=== PATIENT | female | born 1940 | race Caucasian/White ===

== ENCOUNTER 2016-09-23 07:21 | Day surgery (SDC) | payer MEDICARE ==
[2016-09-21 08:32] VITALS: BMI 33.5
[~2016-09-23 07:21] MED LIST: MOXIFLOXACIN HCL 0.5% DROPS 3 ML BTL OP ONE; TETRACAINE 0.5% OPHTH (PF) DROPS 4 ML BTL OP ONE; TIMOLOL 0.5% OPHTH SOLN (PF) 0.2 ML DROPERETTE OP ONE
[2016-09-23] MEDS: CYCLOPENTOLATE 1% OPHTH SOLN 2 ML BTL OP ONE ×3 (07:45→08:05)
[2016-09-23] MEDS: PHENYLEPHRINE 2.5% OPHTH DRP 2ML OP NR ×3 (07:58→08:10)
[2016-09-23 08:14] VITALS: RESP 18; TEMP 97.8
[2016-09-23] MEDS ORDERED: LIDOCAINE 1% 20 ML VIAL (10MG/ML) FOR IV START INTRADERMA ONE (08:15)
[2016-09-23] MEDS ORDERED: LACTATED RINGERS 1,000 ML IV ONE (08:16)
[2016-09-23] MEDS ORDERED: HYALURONATE SODIUM INTRAOCULAR 1 EACH SYRINGE (12MG/ML) INTRAOCULA ONE (09:11)
[2016-09-23] MEDS ORDERED: BALANCED SALT IRRIG SOLN COMB2 15 ML IRRIG.SOLN IRRIGATION ONE (09:11)
[2016-09-23] MEDS ORDERED: LIDOCAINE 1% (PF) 10MG/ML VIAL MISCELLANE ONE (09:12)
[2016-09-23] MEDS ORDERED: fentaNYL (PF) 50 MCG/ML 2 ML AMP ONE (09:15)
[2016-09-23] MEDS ORDERED: MIDAZOLAM 2 MG/2 ML VIAL ONE (09:15)
[2016-09-23] MEDS ORDERED: EPINEPHrine (PF) 0.3 ML in BALANCED SALT IRRIG SOLN COMB2 500 ML IRRIGATION ONE (09:26)
--- NOTE | 2016-09-23 09:44 | P.OP ---
Date of Procedure: 09/23/16 Preoperative Diagnosis: NS & CS & Reg astigmatism Postoperative Diagnosis: same Procedure(s) Performed: PIOL, OD Implants: [id number] 18.50 Anesthesia: MAC Surgeon: Tavon Torres Estimated Blood Loss (ml): 0 Pathology: none sent Condition: stable Disposition: same day Indications for Procedure: blurry vision Operative Findings: no complications Description of Procedure:
[2016-09-23 10:21] VITALS: BP 119/64; PULSE 52
[2016-09-23] MEDS ORDERED: LACTATED RINGERS 1,000 ML IV SCH (10:58)
--- NOTE | 2016-09-24 07:19 | OP ---
DATE OF SERVICE: 09/23/2016 SURGEON: FER LINDSEY MD GYM MANAGER: PREOPERATIVE DIAGNOSES: 1. Nuclear sclerosis. 2. Cortical sclerosis. 3. Regular astigmatism. POSTOPERATIVE DIAGNOSES: 1. Nuclear sclerosis. 2. Cortical sclerosis. 3. Regular astigmatism. OPERATION: Phacoemulsification of cataract and intraocular lens implant of the right eye. ANESTHESIA: Topical. ESTIMATED BLOOD LOSS: None. SPECIMENS REMOVED: None. COMPLICATIONS: OPERATIVE FINDINGS: NARRATIVE: After obtaining the appropriate consent, the patient was brought to the operating room. There she was asked to sit upright and maintain gaze straight ahead. Using a gentian maryjane marker, the axis of 0 and 180 degrees was identified and marked on the patient's corneal limbus. She was then laid in the proper supine position, prepped and draped in the usual sterile manner and under cardiac monitoring. She was then approached from her right temporal side and using a ( Cionni ) axis marker, the axis of 21 degrees was marked at the 11 o'clock position. A 1.1 mm stab blade was used to create a paracentesis port. Through this opening, 1% Xylocaine MPF 50-50 mix with balance salt solution was injected into the anterior chamber. This was followed by stabilization of the anterior chamber with Amvisc. At the 9 o'clock position a 2.5 mm keratome was used to create a self-sealing corneal flap incision in a Langerman fashion Through this opening, a cystotome was introduced to begin a continuous tear capsulorrhexis, which was completed using the Utrata forceps. Hydrodissection and hydrodelineation of the lens was accomplished with balanced salt solution. Phacoemulsification of the lens utilizing phaco chop was accomplished in 15.14 seconds at 15% power. Additional Xylocaine MPF was instilled into the anterior chamber. This was followed by removal of the remaining cortex under irrigation and aspiration including careful polishing of the posterior capsule in capsule vacuum mode. The capsule as well as the anterior chamber was stabilized using Amvisc and using a Malaika capsule polisher additional capsule polishing within the underside of the anterior capsule as well as the equator was accomplished. An JOYCE Symfony Toric intraocular lens model [id number] 18.5 diopter posterior chamber intraocular lens was then injected into the capsular bag without difficulty. The remaining viscoelastic from in and around the intraocular lens was removed under irrigation and aspiration as well as from within the anterior chamber. After the haptics had deployed, the lens was then rotated so that its axis corresponded to the 21 degrees axis previously marked on the patient's cornea. The eye was brought to normal intraocular pressure through the paracentesis port, and to ensure watertight integrity and stabilization of the intraocular lens. ReSure was used to maintain watertight integrity on the temporal as well as the paracentesis wounds. She then received 2 drops of 0.5% timolol followed by 2 drops of Vigamox, was then lightly patched and shielded in the usual manner. There were no complications from the procedure. She tolerated the procedure well and was returned to outpatient recovery in good condition. WAYNE
== END 2016-09-23 10:58 | disposition home or self-care (01) ==
LOC: OR 07:21
PROVIDERS: ATTEND Ophthalmology
DX: H25.13 Age-related nuclear cataract, bilateral (principal); H52.223 Regular astigmatism, bilateral; H16.143 Punctate keratitis, bilateral; H52.4 Presbyopia; H00.023 Hordeolum internum right eye, unspecified eyelid; H00.026 Hordeolum internum left eye, unspecified eyelid; H25.013 Cortical age-related cataract, bilateral; H04.129 Dry eye syndrome of unspecified lacrimal gland; I10 Essential (primary) hypertension; L71.9 Rosacea, unspecified; M19.90 Unspecified osteoarthritis, unspecified site; J30.9 Allergic rhinitis, unspecified; I51.9 Heart disease, unspecified; K21.9 Gastro-esophageal reflux disease without esophagitis; E03.9 Hypothyroidism, unspecified; Z79.82 Long term (current) use of aspirin; Z79.899 Other long term (current) drug therapy; Z90.710 Acquired absence of both cervix and uterus; Z98.1 Arthrodesis status; Z88.8 Allergy status to other drugs, medicaments and biological substances
CPT/HCPCS: 66984; V2787; C1780; J2250; J0171; J3010; J2001

== ENCOUNTER 2016-10-14 12:52 | Day surgery (SDC) | payer MEDICARE ==
[2016-10-13 09:23] VITALS: BMI 33.1
[~2016-10-14 12:52] MED LIST changes: +LACTATED RINGERS 1,000 ML IV SCH
[2016-10-14] MEDS: CYCLOPENTOLATE 1% OPHTH SOLN 2 ML BTL OP ONE ×3 (14:44→14:56)
[2016-10-14 14:45] VITALS: RESP 16; TEMP 97.3
[2016-10-14] MEDS ORDERED: LIDOCAINE 1% 20 ML VIAL (10MG/ML) FOR IV START SQ ONE (14:46)
[2016-10-14] MEDS: PHENYLEPHRINE 2.5% OPHTH DRP 2ML OP NR ×3 (14:47→14:59)
[2016-10-14] MEDS ORDERED: MIDAZOLAM 2 MG/2 ML VIAL ONE (15:49)
[2016-10-14] MEDS ORDERED: fentaNYL (PF) 50 MCG/ML 2 ML AMP ONE (15:49)
[2016-10-14] MEDS ORDERED: HYALURONATE SODIUM INTRAOCULAR 1 EACH SYRINGE (12MG/ML) INTRAOCULA ONE (16:01)
[2016-10-14] MEDS ORDERED: BALANCED SALT IRRIG SOLN COMB2 15 ML IRRIG.SOLN INTRAOCULA ONE (16:01)
[2016-10-14] MEDS ORDERED: LIDOCAINE 1% (PF) 10MG/ML VIAL MISCELLANE ONE (16:02)
[2016-10-14] MEDS ORDERED: EPINEPHrine (PF) 0.3 ML in BALANCED SALT IRRIG SOLN COMB2 500 ML IRRIGATION ONE (16:02)
--- NOTE | 2016-10-14 16:23 | P.OP ---
Date of Procedure: 10/14/16 Preoperative Diagnosis: NS & CS & regular astigmatism Postoperative Diagnosis: same Procedure(s) Performed: PIOL, OS Implants: [id number] 19.00 Anesthesia: MAC Surgeon: Tavon Torres Estimated Blood Loss (ml): 0 Pathology: none sent Condition: stable Disposition: same day Indications for Procedure: blurry vision Operative Findings: No complications Description of Procedure:
[2016-10-14 16:27] VITALS: BP 131/60
[2016-10-14 16:53] VITALS: PULSE 58
--- NOTE | 2016-10-15 10:08 | OP ---
DATE OF SERVICE: 10/14/2016 SURGEON: FER LINDSEY MD LEATHER SEASONER: PREOPERATIVE DIAGNOSIS: Nuclear sclerosis, cortical sclerosis and regular astigmatism. POSTOPERATIVE DIAGNOSIS: Nuclear sclerosis, cortical sclerosis and regular astigmatism. OPERATION: Phacoemulsification of cataract and intraocular lens implant of the left eye. ANESTHESIA: Topical. ESTIMATED BLOOD LOSS: None. SPECIMENS REMOVED: None. COMPLICATIONS: OPERATIVE FINDINGS: NARRATIVE: After obtaining the appropriate consent, the patient was brought to the operating room. There she was asked to sit upright and her corneal limbus was marked with a gentian maryjane marker at the axes of 0 and 180 degrees. She was then placed in the proper supine position, under cardiac monitoring, and prepped and draped in the usual sterile manner. She was approached from her left temporal side. Using the previously acquired corneal topography information, the axis of 157 degrees was identified and marked with the axis marker. At the 5 o'clock position, a 20-gauge stab blade was used to create a paracentesis. Through this opening, 1% Xylocaine MPF 50-50 mix with balance salt solution was injected into the anterior chamber. This was followed by stabilization of the anterior chamber with Amvisc. At the 3 o'clock position a 2.5 mm keratome was used to create a self-sealing corneal flap incision in a Langerman fashion. Through this opening, a cystotome was introduced to begin a continuous tear capsulorrhexis, which was completed using the Utrata forceps. Hydrodissection and hydrodelineation of the lens was accomplished with balanced salt solution. Phacoemulsification of the lens utilizing phaco chop was accomplished in 12.23 seconds at 11% power. Additional Xylocaine MPF was instilled into the anterior chamber. This was followed by removal of the remaining cortex from within the capsular bag. Careful polishing was also accomplished of the posterior capsule. Additional Amvisc was then used to stabilize the capsular bag and the capsule polishing instruments, from Malaika and mireya were used to comoran the equator in the anterior capsule of the intraocular lens. An JOYCE ZXT 319.0 diopter posterior chamber intraocular lens was then inserted into the capsular bag without difficulty. The remaining viscoelastic was removed from in and around the intraocular lens and the lens was then rotated into its proper position at about 157 degrees. Confirmation of the orientation was made with the corneal axis marker as well. The eye was brought to normal intraocular pressure through the paracentesis port, and to ensure proper apposition of the temporal incision, Resure was used to maintain proper closure. She then received 2 drops of 0.5% timolol followed by 2 drops of Vigamox, was then lightly patched and shielded in the usual manner. There were no complications from the procedure. She tolerated the procedure well and was returned to outpatient recovery in good condition.
== END 2016-10-14 17:13 | disposition home or self-care (01) ==
LOC: OR 12:52
PROVIDERS: ATTEND Ophthalmology
DX: H25.12 Age-related nuclear cataract, left eye (principal); H52.222 Regular astigmatism, left eye; I10 Essential (primary) hypertension; Z79.82 Long term (current) use of aspirin; Z79.899 Other long term (current) drug therapy; J30.2 Other seasonal allergic rhinitis; E78.5 Hyperlipidemia, unspecified; E07.9 Disorder of thyroid, unspecified; K21.9 Gastro-esophageal reflux disease without esophagitis
CPT/HCPCS: 66984; V2787; C1780; J2250; J0171; J3010; J2001

== ENCOUNTER → 2016-11-05 | Outpatient (CLI) | payer MEDICARE ==
[2016-11-05 13:38] LABS: Blood Urea Nitrogen 36 mg/dL (7-17); Non-African American GFR(MDRD) 54 (>60 ml/min/1.73 sqM)
--- NOTE | 2016-11-05 14:28 | CT ---
EXAMINATION TYPE: CT abdomen w con DATE OF EXAM: 11/05/2016 COMPARISON: NONE HISTORY: upper left side abdominal pain X [address] DLP: 1114 mGycm Automated exposure control for dose reduction was used. TECHNIQUE: Helical acquisition of images was performed from the lung bases through the top of iliac crest to include entire abdomen. CONTRAST: Performed with Oral Contrast and with IV Contrast, patient injected with 80 mL of Visipaque 320. FINDINGS: LUNG BASES: Linear changes at suggestive of scar or atelectasis. The heart is mildly enlarged. LIVER/GB: Previous cholecystectomy changes noted. Low-attenuation along the ligamentum suggestive of an area of focal fatty infiltration. Nonspecific clips seen adjacent to the liver likely from previou s cholecystectomy. PANCREAS: No significant abnormality is seen. SPLEEN: No significant abnormality is seen. ADRENALS: No significant abnormality is seen. KIDNEYS: Hypodensity within the right kidney is too small to characterize. BOWEL: Extensive retained fecal debris in a nonspecific gas pattern. Small hiatal hernia noted. LYMPH NODES: No significant abnormality is seen. OSSEOUS STRUCTURES: There is postsurgical change and degenerative disc disease with hypertrophic librado nges. FREE AIR: No free air is visualized. IMPRESSION: 1. Correlate for constipation 2. Small hiatal hernia
== END | disposition home or self-care (01) ==
LOC: RADCTMAIN 12:52
PROVIDERS: ATTEND Internal Medicine Geriatric Medicine
DX: K44.9 Diaphragmatic hernia without obstruction or gangrene (principal)
CPT/HCPCS: 82565; 84520; 74160; 36415; Q9967

== ENCOUNTER → 2016-11-20 | Outpatient (CLI) | payer MEDICARE ==
--- NOTE | 2016-11-20 13:38 | XR ---
EXAMINATION TYPE: XR thoracic spine complete DATE OF EXAM: 11/20/2016 COMPARISON: 05/30/2012 HISTORY: Back pain jumped or disc changes TECHNIQUE: Three-view thoracic spine FINDINGS: There are 12 thoracic type vertebral bodies. The pedicles are intact. Subtle scoliosis is p resent. There is some increased kyphosis present. Mild degenerative disc changes are within the mid t horacic spine. Vertebral body heights are preserved. IMPRESSION: 1. Scoliosis and kyphosis. 2. No acute osseous abnormality. 3. Some progression of the kyphosis over the interval. 4. Degenerative disc changes
== END | disposition home or self-care (01) ==
LOC: RADXRMAIN 13:13
PROVIDERS: ATTEND Internal Medicine Geriatric Medicine
DX: M47.814 Spondylosis without myelopathy or radiculopathy, thoracic region (principal); M40.204 Unspecified kyphosis, thoracic region
CPT/HCPCS: 72072

== ENCOUNTER → 2017-05-11 | Outpatient (CLI) | payer MEDICARE ==
--- NOTE | 2017-05-12 10:43 | MM ---
Reason for exam: screening (asymptomatic). Last mammogram was performed 1 year and 2 months ago. History: Patient is postmenopausal and has history of other cancer at age 61. Family history of breast cancer in sister at age 60. Took estrogen for 11 years beginning at age 54. Physical Findings: A clinical breast exam by your physician is recommended on an annual basis and results should be correlated with mammographic findings. MG 3D Screening Mammo W/Cad Bilateral CC and MLO view(s) were taken. Prior study comparison: March 09, 2016, bilateral MG 3d screening mammo w/cad. January 29, 2015, bilateral MG screening mammo w CAD. January 16, 2014, bilateral MG screening mammo w CAD. There are scattered fibroglandular densities. Finding: There are typically benign vascular, round, linear calcifications in both breasts. There is no discrete abnormality. ASSESSMENT: Benign, BI-RAD 2 RECOMMENDATION: Routine screening mammogram of both breasts in 1 year.
== END ==
LOC: RADMAMWWP 12:41
PROVIDERS: ATTEND Internal Medicine Geriatric Medicine
DX: Z12.31 Encounter for screening mammogram for malignant neoplasm of breast (principal)
CPT/HCPCS: 77063; 77067

== ENCOUNTER → 2018-07-13 | Outpatient (CLI) | payer MEDICARE ==
--- NOTE | 2018-07-13 14:38 | BD ---
EXAMINATION TYPE: Axial Bone Density DATE OF EXAM: 07/13/2018 COMPARISON: 2009 CLINICAL HISTORY: osteoporosis Height: 5'3 / Weight: 189 FRAX RISK QUESTIONS: Secondary Osteoporosis: RISK FACTORS HISTORY OF: Surgery to Spine/: lumbar fusion When: 1974 Postmenopausal woman: y MEDICATIONS: Thyroid Medications: Which medication: Levothyroxine How Lon years Additional Medications: blood pressure, pain Additional History: skin cancer 2009 EXAM MEASUREMENTS: Bone mineral densitometry was performed using the [employer] System. Bone mineral density about the R hip (g/cm2): 1.008 Bone mineral density about the L hip (g/cm2): 1.003 T Score values are as follows: -----R Neck: -0.2 -----L Neck: -0.3 -----R Total: 0.1 -----L Total: 0.4 Bone mineral density has: Decreased -3.4% since study of: 11/11/2009 Bone mineral density about the L Wrist (g/cm2): 0.601 T Score values are as follows: -----Dist. R+U: -0.7 -----Prox. R+U: -0.8 -----Radius total: -1.2 IMPRESSION: Osteopenia (T Score between -2.5 and 1) with regards to the radius. There is slightly increased risk of fracture and patient may be considered for treatment. Re-Screen 2-5 years. NOTE: T-SCORE=SD OF THE YOUNG ADULT MEAN.
--- NOTE | 2018-07-13 15:07 | MM ---
Reason for exam: screening (asymptomatic). Last mammogram was performed 1 year and 2 months ago. History: Patient is postmenopausal and has history of other cancer at age 61. Family history of breast cancer in sister at age 60. Took estrogen for 11 years beginning at age 54. Physical Findings: A clinical breast exam by your physician is recommended on an annual basis and results should be correlated with mammographic findings. MG 3D Screening Mammo W/Cad Bilateral CC and MLO view(s) were taken. Prior study comparison: May 11, 2017, bilateral MG 3d screening mammo w/cad. March 09, 2016, bilateral MG 3d screening mammo w/cad. The breast tissue is heterogeneously dense. This may lower the sensitivity of mammography. Finding: There are typically benign round, linear calcifications in both breasts. There is no discrete abnormality. ASSESSMENT: Benign, BI-RAD 2 RECOMMENDATION: Routine screening mammogram of both breasts in 1 year.
== END | disposition home or self-care (01) ==
LOC: RADMAMWWP 10:13
PROVIDERS: ATTEND Internal Medicine Geriatric Medicine
DX: Z12.31 Encounter for screening mammogram for malignant neoplasm of breast (principal); M85.832 Other specified disorders of bone density and structure, left forearm
CPT/HCPCS: 77063; 77067; 77080

== ENCOUNTER → 2019-09-28 | Outpatient (CLI) | payer MEDICARE ==
--- NOTE | 2019-10-03 08:55 | MM ---
Reason for exam: screening (asymptomatic). Last mammogram was performed 1 year and 2 months ago. History: Patient is postmenopausal and has history of other cancer at age 61. Family history of breast cancer in sister at age 60. Took estrogen for 11 years beginning at age 54. Physical Findings: A clinical breast exam by your physician is recommended on an annual basis and results should be correlated with mammographic findings. MG 3D Screening Mammo W/Cad Bilateral CC and MLO view(s) were taken. Prior study comparison: July 13, 2018, bilateral MG 3d screening mammo w/cad. May 11, 2017, bilateral MG 3d screening mammo w/cad. There are scattered fibroglandular densities. Benign secretory calcifications. No significant changes when compared with prior studies. ASSESSMENT: Negative, BI-RAD 1 RECOMMENDATION: Routine screening mammogram of both breasts in 1 year.
== END | disposition home or self-care (01) ==
LOC: RADMAMWWP 13:27
PROVIDERS: ATTEND Internal Medicine Geriatric Medicine
DX: Z12.31 Encounter for screening mammogram for malignant neoplasm of breast (principal)
CPT/HCPCS: 77063; 77067

== ENCOUNTER → 2020-06-20 | Outpatient (CLI) | payer MEDICARE ==
--- NOTE | 2020-06-20 17:25 | XR ---
EXAMINATION TYPE: XR thoracic spine 3 views complete, XR lumbar spine 3V DATE OF EXAM: 06/20/2020 COMPARISON: Thoracic spine 11/20/2016 HISTORY: 80-year-old female and 5 4.5, low back pain FINDINGS: Thoracic spine: Gentle dextroconvex curvature centered along the thoracolumbar junction. There is osteopenia. 12 rib- bearing thoracic vertebral bodies. All pedicles are visualized. Cholecystectomy clips. Moderate degen erative disc disease throughout the thoracic spine especially upper and mid thoracic spine. Vertebral body heights are preserved. On the swimmer's view, there is a interbody ankylosis of C5-C6. There is grade 1 anterolisthesis at C6-C7, C7-T1, T1-T2 noted. Lumbar spine: Levoconvex curvature of the lumbar spine. Posterior fusion hardware at L5-S1. 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 Degenerative grade 1 anterolisthesis at L4-L5. Moderate degenerative disc disease L3-L4 and mild at additional levels in the lumbar spine. Vertebral body hei ghts are preserved. IMPRESSION (thoracic and lumbar spine): 1. S-shaped curvature of the thoracolumbar spine. Previous posterior fusion hardware at L5-S1. 2. Moderate degenerative disc disease throughout the thoracic spine especially upper and mid thoracic spine. Additional moderate degenerative disc disease at L3-L4 and mild throughout the remainder of t he lumbar spine. 3. 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 4. No vertebral compression collapse seen.
== END | disposition home or self-care (01) ==
LOC: RADXRMAIN 11:42
PROVIDERS: ATTEND Internal Medicine Geriatric Medicine
DX: M51.34 Other intervertebral disc degeneration, thoracic region (principal); M51.36 Other intervertebral disc degeneration, lumbar region; M43.14 Spondylolisthesis, thoracic region; M43.13 Spondylolisthesis, cervicothoracic region; M43.8X5 Other specified deforming dorsopathies, thoracolumbar region; Z98.1 Arthrodesis status
CPT/HCPCS: 72072; 72100

== ENCOUNTER → 2020-07-13 | Outpatient (CLI) | payer MEDICARE ==
--- NOTE | 2020-07-13 15:43 | MR ---
EXAMINATION TYPE: MR vaishali/lsjuan wo con DATE OF EXAM: 07/13/2020 COMPARISON: None HISTORY: Mid back pain, and low back pain that goes down both legs. Multiplanar multiecho imaging of the thoracic and lumbar spine was performed without contrast. Thoracic vertebra have fairly normal alignment. There is no compression fracture. The lumbar vertebra have normal alignment. There is no thoracic paraspinal mass. There are screws fusing the lumbar spine posteriorly at L5-S1. There is mild degenerative disc space narrowing throughout the thoracic and lumbar spine. There are s mall posterior disc bulges at L3-4 and L4-5. There are small posterior disc bulges at T7-8 and T8-9. There is developmentally adequate spinal canal. There is no spinal stenosis. There is heterogeneous s ignal pattern thoracic and lumbar spine consistent with variable fatty marrow replacement. There is 1 cm sacral cyst at S3 level. IMPRESSION: Mild multilevel thoracic and lumbar spondylotic changes. Posterior lower lumbar spine fusion surgery. No complicating process seen. No fracture. No spinal stenosis.
== END ==
LOC: RADMRIMAIN 10:09
PROVIDERS: ATTEND Internal Medicine Geriatric Medicine
DX: M47.816 Spondylosis without myelopathy or radiculopathy, lumbar region (principal); M47.814 Spondylosis without myelopathy or radiculopathy, thoracic region; Z98.1 Arthrodesis status
CPT/HCPCS: 72146; 72148

== ENCOUNTER → 2021-05-20 | Outpatient (CLI) | payer MEDICARE ==
--- NOTE | 2021-05-20 15:30 | BD ---
EXAMINATION TYPE: Axial Bone Density DATE OF EXAM: 05/20/2021 COMPARISON: DEXA bone scan 2019 CLINICAL HISTORY: Postmenopausal female. Age related osteoporosis. Height: 5 FT 4 IN Weight: 170 FRAX RISK QUESTIONS: Alcohol (3 or more units per day): NO Family History (Parent hip fracture): NO Glucocorticoids (More than 3mos): NO (Ex: prednisone, prednisolone, methylprednisolone, dexamethasone, and hydrocortisone). History of Fracture in Adulthood: NO Secondary Osteoporosis: 1. Type 1 Diabetes: NO 2. Hyperthyroidism: NO 3. Menopause before 45: NO 4. Malnutrition: NO 5. Chronic liver disease: NO Rheumatoid Arthritis: NO Current Tobacco Use: NO RISK FACTORS HISTORY OF: Surgery to Spine/Hip(right/left)/Wrist (right/left): LUMBAR FUSION When 1974: Family History of Osteoporosis: YES Active: YES Diet low in dairy products/other sources of calcium: NO Postmenopausal woman: YES Take estrogen and/or progesterone medications: TOOK HRT FOR APPROX 5-7 YEARS AFTER HYST Lost more than 2 inches in height since high school: NO Frequent falls: NO Poor Health: GOOD Hyperparathyroidism: NO Adrenal Insufficiency: NO MEDICATIONS: Thyroid Medications: YES Which medication: LEVOTHYROXINE How Long: OVER 20 YEARS Additional Medications: LEVOTHYROXINE, METAS SIST, ALLOPURINOL, OMEPRAZOLE, HYDRALAZINE, GABAPENTIN, LORATADINE, HYDROXYCHLOROQUINE, MONTELUKAST=KAST,AMLODIPINE, METOPROLOL, ATORVASTATIN, LOSARTAN, XII RENA, BACLOFEN, FUROSAMIDE, POTASSIUM CHLORIDE, NASAL SPRAY Additional History: SJOGREN SYNDROME EXAM MEASUREMENTS: Bone mineral density about the R hip (g/cm2): 0.997 Bone mineral density about the L hip (g/cm2): 0.928 T Score values are as follows: -----R Neck: -0.3 -----L Neck: -0.8 -----R Total: -0.3 -----L Total: -0.3 Bone mineral density has: DECREASED -6.3 % since study of: 2019 Bone mineral density about the L Wrist (g/cm2): 0.379 T Score values are as follows: -----Dist. R+U: -1.9 -----Prox. R+U: -1.5 -----Radius total: -2.1 Bone mineral density has: DECREASED -7.3 % since study of: 2019 IMPRESSION: Osteopenia (T Score between -2.5 and -1) in the wrist redemonstrated. There is slightly increased risk of fracture and the patient may be considered for treatment. Re-Screen 2-5 years. NOTE: T-SCORE=SD OF THE YOUNG ADULT MEAN.
--- NOTE | 2021-05-22 10:08 | MM ---
Reason for exam: screening (asymptomatic). Last mammogram was performed 1 year and 8 months ago. History: Patient is postmenopausal and has history of other cancer at age 61. Family history of breast cancer in sister at age 60. Took estrogen for 11 years beginning at age 54. Physical Findings: A clinical breast exam by your physician is recommended on an annual basis and results should be correlated with mammographic findings. MG 3D Screening Mammo W/Cad Bilateral CC and MLO view(s) were taken. Prior study comparison: September 28, 2019, bilateral MG 3d screening mammo w/cad. July 13, 2018, bilateral MG 3d screening mammo w/cad. There are scattered fibroglandular densities. There are benign appearing round linear calcifications bilaterally. There is no discrete abnormality. ASSESSMENT: Benign, BI-RAD 2 RECOMMENDATION: Routine screening mammogram of both breasts in 1 year.
== END | disposition home or self-care (01) ==
LOC: RADMAMWWP 14:34
PROVIDERS: ATTEND Internal Medicine Geriatric Medicine
DX: Z12.31 Encounter for screening mammogram for malignant neoplasm of breast (principal); M85.89 Other specified disorders of bone density and structure, multiple sites; Z78.0 Asymptomatic menopausal state; Z80.3 Family history of malignant neoplasm of breast
CPT/HCPCS: 77063; 77067; 77080

== ENCOUNTER → 2021-07-03 | Outpatient (CLI) | payer MEDICARE ==
--- NOTE | 2021-07-03 12:05 | XR ---
EXAMINATION TYPE: XR shoulder complete LT DATE OF EXAM: 07/03/2021 COMPARISON: NONE HISTORY: Pain TECHNIQUE: Shoulder examined in 3 projections FINDINGS: The humeral head articulates with the glenoid. There is loss of the joint space. Humeral head spurrin g is present. The acromio-clavicular junction and mild hypertrophy with spurring superiorly.. No acute fractures or dislocations are evident. A follow up study can be performed 7-10 days from acute trauma for continued pain. IMPRESSION: 1. 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
== END | disposition home or self-care (01) ==
LOC: RADXRMAIN 11:07
PROVIDERS: ATTEND Nurse Practitioner Family
DX: M19.012 Primary osteoarthritis, left shoulder (principal)

== ENCOUNTER → 2021-10-29 | Outpatient (CLI) | payer MEDICARE ==
[2021-10-29 14:53] LABS: Basophils # (A) 0.07 X 10*3/uL (0.00-0.10); Basophils % (A) 1.3 %; Eosinophils # (A) 0.13 X 10*3/uL (0.04-0.35); Eosinophils % (A) 2.3 %; HCT 39.5 % (37.2-46.3); HGB 12.3 g/dL (12.0-15.0); Immature Grans, Automated 0.4 %; Lymphocytes # (A) 0.85 X 10*3/uL (0.90-5.00); Lymphocytes % (A) 15.2 %; MCH 30.1 pg (27.0-32.0); MCHC 31.1 g/dL (32.0-37.0); MCV 96.6 fL (80.0-97.0); Mean Platelet Volume 11.9 fL (9.5-12.2); Monocytes # (A) 0.58 X 10*3/uL (0.20-1.00); Monocytes % (A) 10.4 %; NRBC Per 100 WBC 0 /100 WBCS (0.0-0.0); Neutrophils # (A) 3.94 X 10*3/uL (1.80-7.70); Neutrophils % (A) 70.4 %; Platelet Count 232 X 10*3/uL (140-440); RBC 4.09 X 10*6/uL (4.10-5.20); RDW 13.3 % (11.5-14.5); WBC 5.59 X 10*3/uL (4.50-10.00)
[2021-10-29 15:04] LABS: ALT 21 U/L (8-44); AST 24 U/L (13-35); African American GFR (CKD) 72.1 (60.0-200.0); Alkaline Phosphatase 79 U/L (41-126); BUN/Creat Ratio 22.21 Ratio (12.00-20.00); Blood Urea Nitrogen 19.5 mg/dL (9.0-27.0); Calcium 9.7 mg/dL (8.7-10.3); Carbon Dioxide 25.9 mmol/L (20.0-27.5); Chloride 102 mmol/L (96-109); Globulin 2.9 g/dL (1.6-3.3); Glucose 92 mg/dL (70-110); Non-African American GFR(CKD) 62.2 (60.0-200.0); Potassium 4.3 mmol/L (3.5-5.5); Sodium 140 mmol/L (135-145); Total Protein 6.9 g/dL (6.2-8.2)
== END | disposition home or self-care (01) ==
LOC: LABWHC1 09:54
PROVIDERS: ATTEND Internal Medicine Interventional Cardiology
DX: I48.91 Unspecified atrial fibrillation (principal)
CPT/HCPCS: 36415; 80053; 84443; 85025

== ENCOUNTER 2022-04-12 14:16 | Observation (INO) | payer MEDICARE ==
--- NOTE | 2022-04-12 15:17 | ED ---
Chest Pain HPI - General Chief Complaint: Chest Pain Stated Complaint: Chest pain Time Seen by Provider: 04/12/22 14:42 Source: patient, family, RN notes reviewed Mode of arrival: wheelchair Limitations: no limitations - History of Present Illness Initial Comments: 81-year-old female history of A. fib diagnosed about 6 months ago who presents with complaints of intermittent episodes of left side midsternal chest pain feels like a pinch and sometimes feeling dull on-and-off for the past 4 days. When it comes on is. Brief she denies any fevers chills sweats she does have a slight cough she states she had coded the second week of this past January and has had a cough since but no phlegm production. Nothing can reproduce the pain nothing makes it better nothing makes it worse. No other current complaints or modifying factors. MD Complaint: chest pain - Related Data Home Medications Medication Instructions Recorded Confirmed Aspirin 81 mg PO HS 07/22/15 04/05/17 Calcium Carbonate/Vitamin D3 1 tab PO DAILY 07/22/15 04/05/17 [Calcium 600-Vit D3 400 Tablet] Fluticasone Nasal [place] [Flonase 2 spray EA NOSTRIL DAILY 07/22/15 04/05/17 Nasal [place]] Irbesartan/Hydrochlorothiazide 1 tab PO QAM 07/22/15 04/05/17 [Avalide 300-12.5 mg Tablet] Levothyroxine Sodium [Levoxyl] 88 mcg PO DAILY 07/22/15 04/05/17 Loratadine [Claritin] 10 mg PO DAILY 07/22/15 04/05/17 Montelukast [Singulair] 10 mg PO HS 07/22/15 04/05/17 Multivitamins, Thera [Multivitamin 1 tab PO DAILY 07/22/15 04/05/17 (formulary)] Omeprazole [PriLOSEC] 20 mg PO AC-BRKFST 07/22/15 04/05/17 Potassium Chloride [Klor-Con 20 meq PO DAILY 07/22/15 04/05/17 Packets] Simvastatin [Zocor] 10 mg PO HS 07/22/15 04/05/17 amLODIPine [Norvasc] 5 mg PO HS 07/22/15 04/05/17 cycloSPORINE [Restasis] 1 drop BOTH EYES BID 07/22/15 04/05/17 Baclofen 10 mg PO BID PRN 07/23/15 04/05/17 traMADol HCl [Ultram] 50 mg PO HS PRN 07/23/15 04/05/17 Naproxen Sodium [Aleve] 220 mg PO DAILY 09/21/16 04/05/17 Gabapentin [Neurontin] 200 mg PO BID 10/13/16 04/05/17 Fish Oil/Dha/Epa [Fish Oil 1,200 1 cap PO HS 04/05/17 04/05/17 mg Fish Oil] Metoprolol Succinate [Toprol XL] 25 mg PO HS 04/05/17 04/05/17 Allergies Allergy/AdvReac Type Severity Reaction Status Date / Time adhesive tape Allergy Rash/Hives Verified 04/12/22 14:39 Steriods IV AdvReac Rash/Hives Uncoded 04/12/22 14:39 Review of Systems ROS Statement: Those systems with pertinent positive or pertinent negative responses have been documented in the HPI. ROS Other: All systems not noted in ROS Statement are negative. EKG Findings - EKG Results: EKG: interpreted by ERMD (EKG interpreted by me evidence of sinus bradycardia with first-degree AV block rate 53. Interval 270 QRS duration 114 QT/QTC 410/392 left exodeviation low-voltage poor R-wave progression) Past Medical History Past Medical History: Cancer, Eye Disorder, GERD/Reflux, Hyperlipidemia, Hypertension, Osteoarthritis (OA), Thyroid Disorder Additional Past Medical History / Comment(s): SKIN CANCER, BILATERAL CATARACTS, CHRONIC DRY EYES.shingelles in october 2016,stress test-wnl. "minimal leaky heart valve" History of Any Multi-Drug Resistant Organisms: None Reported Past Surgical History: Appendectomy, Back Surgery, Section, Cholecystectomy, Hysterectomy, Orthopedic Surgery, Tonsillectomy Additional Past Surgical History / Comment(s): SKIN LESIONS,lower lumbar and a cervical fusion,LEFT FOOT-bunionectomy and metatarsal sx,ruba Cataract sx.total hysterectomy.basal cell ca Past Anesthesia/Blood Transfusion Reactions: Motion Sickness Past Psychological History: No Psychological Hx Reported Past Alcohol Use History: Rare Past Drug Use History: None Reported - Past Family History Sister(s) Family Medical History: Cancer Additional Family Medical History / Comment(s): BREAST CANCER Brother(s) Family Medical History: Cancer Additional Family Medical History / Comment(s): LEUKEMIA Mother Additional Family Medical History / Comment(s): parkinsons, macular degeneration Father Family Medical History: Dementia Additional Family Medical History / Comment(s): parkinsons General Exam - General Exam Comments Initial Comments: This is a well-developed well-nourished awake alert oriented 4 female Limitations: no limitations General appearance: alert, in no apparent distress Head exam: Present: atraumatic, normocephalic, normal inspection Eye exam: Present: normal appearance, PERRL, EOMI. Absent: scleral icterus, conjunctival injection, periorbital swelling ENT exam: Present: normal exam, mucous membranes moist Neck exam: Present: normal inspection, full ROM, other (No stridor JVD or bruits). Absent: tenderness, meningismus, lymphadenopathy Respiratory exam: Present: normal lung sounds bilaterally. Absent: respiratory distress, wheezes, rales, rhonchi, stridor Cardiovascular Exam: Present: regular rate, normal rhythm, normal heart sounds. Absent: systolic murmur, diastolic murmur, rubs, gallop, clicks GI/Abdominal exam: Present: soft, normal bowel sounds. Absent: distended, tenderness, guarding, rebound, rigid, bruit, pulsatile mass Extremities exam: Present: normal inspection, full ROM, normal capillary refill. Absent: tenderness, pedal edema, joint swelling, calf tenderness Back exam: Present: normal inspection Neurological exam: Present: alert, oriented X3, CN II-XII intact Psychiatric exam: Present: normal affect, normal mood Skin exam: Present: warm, dry, intact, normal color. Absent: rash Course Vital Signs 04/12/22 04/12/22 04/12/22 14:34 15:08 16:20 Temperature 98.0 F Pulse Rate 60 52 L 52 L Respiratory 22 16 16 Rate Blood Pressure 158/69 172/70 174/64 O2 Sat by Pulse 97 92 L 91 L Oximetry Chest Pain MDM - MDM Imaging interpreted by me no evidence of acute processes chest x-ray was negative CAT scan showed no definitive evidence of embolus. Patient's had several more episodes of the left-sided chest discomfort is fleeting in nature. There is no reproducible pain on palpation of the chest wall area lung sounds are clear. This time the etiology of the pain is unknown though do suspect a cardiac origin. Patient has agreed to stay in the hospital for further evaluation patient be admitted to Dr. Luciano with cardiology on consult. Patient has seen Dr. SRIRAM Mendenhall in the past. Critical Care Time Critical Care Time: Yes Total Critical Care Time: 31 Critical Care Time: This includes the initial evaluation with history physical labs x-rays multiple reevaluation the patient discussed the patient regarding the findings review of old charting was available discussed the patient's family discussed with the main physician admission orders and documentation of the above Disposition Clinical Impression: Atypical chest pain, Unstable angina pectoris Disposition: ADMITTED IP TO [facility] Condition: Stable Referrals: Bishop Denise MD [Primary Care Provider] - 1-2 days Decision Date: 04/12/22 Decision Time: 17:30
[2022-04-12 15:24] LABS: Albumin 4.3 g/dL (3.5-5.0); Calcium 9.3 mg/dL (8.4-10.2); Total Bilirubin 0.8 mg/dL (0.2-1.3); Total Protein 7.2 g/dL (6.3-8.2)
--- NOTE | 2022-04-12 15:31 | XR ---
EXAMINATION TYPE: XR chest 2V DATE OF EXAM: 04/12/2022 COMPARISON: NONE HISTORY: Chest pain TECHNIQUE: Frontal and lateral views of the chest are obtained. FINDINGS: There is no focal air space opacity, pleural effusion, or pneumothorax seen. The cardiac silhouette size is within normal limits. The osseous structures are intact. IMPRESSION: No acute cardiopulmonary process.
[2022-04-12 15:34] LABS: Basophils % (A) 1 %; Eosinophils % (A) 1 %; HCT 41.1 % (34.0-46.0); HGB 13.7 gm/dL (11.4-16.0); Lymphocytes # (A) 0.5 k/uL (1.0-4.8); Lymphocytes % (A) 16 %; MCH 31.6 pg (25.0-35.0); MCHC 33.4 g/dL (31.0-37.0); MCV 94.7 fL (80.0-100.0); Mean Platelet Volume 8.3; Monocytes # (A) 0.1 k/uL (0-1.0); Monocytes % (A) 4 %; Neutrophils # (A) 2.4 k/uL (1.3-7.7); Neutrophils % (A) 77 %; Platelet Count 161 k/uL (150-450); RBC 4.34 m/uL (3.80-5.40); RDW 13.5 % (11.5-15.5); WBC 3.1 k/uL (3.8-10.6)
[2022-04-12 15:35] LABS: Magnesium 2.3 mg/dL (1.6-2.3); Potassium 3.9 mmol/L (3.5-5.1)
[2022-04-12 15:37] LABS: INR 1.1 (<1.2); Partial Thromboplastin Time 28.3 sec (22.0-30.0); Prothrombin Time 11.1 sec (9.0-12.0)
--- NOTE | 2022-04-12 16:58 | CT ---
EXAMINATION TYPE: CT angio chest DATE OF EXAM: 04/12/2022 4:48 PM COMPARISON: None HISTORY: weakness, sob. CT DLP: 470.8 mGycm Automated exposure control for dose reduction was used. CONTRAST: CTA scan of the thorax is performed with IV Contrast, patient injected with 100ml mL of Isovue 370, p ulmonary embolism protocol. 3-D postprocessing was performed. FINDINGS: LUNGS: The lungs are grossly clear, there is no concerning parenchymal mass or nodule identified. T here is no pleural effusion or pneumothorax seen. The tracheobronchial tree is patent. MEDIASTINUM: There is satisfactory enhancement of the pulmonary artery and its branches, there is no CT evidence for pulmonary embolism. There are no greater than 1 cm hilar or mediastinal lymph nodes. No pericardial effusion is seen. OTHER: No additional significant abnormality is seen. IMPRESSION: NO ACUTE CARDIOPULMONARY DISEASE AND NO PULMONARY EMBOLISM.
[2022-04-12] MEDS ORDERED: ASPIRIN 81 MG PO STA (17:36)
[2022-04-12] MEDS ORDERED: NITROGLYCERIN OINT 1 INCH/GM PACKET TOPICAL STA (17:37)
[2022-04-12] MEDS ORDERED: NITROGLYCERIN SL TABS 0.4 MG TAB SUBLINGUAL PRN (17:44)
[2022-04-12] MEDS ORDERED: HEPARIN SODIUM 1,000 UN/ML (10ML VL) IV ONE (17:44)
[2022-04-12] MEDS ORDERED: ACETAMINOPHEN TAB 325 MG TAB PO STA (17:49)
[2022-04-12] MEDS: NITROGLYCERIN OINT 1 INCH/GM PACKET TOPICAL SCH (20:03)
[2022-04-12] MEDS: SODIUM CHLORIDE 0.9% 1,000 ML IV SCH (20:19)
[2022-04-12] MEDS: HEPARIN SOD,PORK IN 0.45% NACL 25,000 UNIT in 0.45% NACL 1 250ML.BAG IV SCH (20:24)
[2022-04-13] MEDS: NITROGLYCERIN OINT 1 INCH/GM PACKET TOPICAL SCH ×4 (00:18→17:13)
[2022-04-13] MEDS ORDERED: AMINOPHYLLINE 500 MG/20 ML VIAL IV PRN (07:52)
[2022-04-13] MEDS ORDERED: CAFFEINE CITRATE 60 MG/3 ML VIAL IV PRN (07:52)
[2022-04-13] MEDS ORDERED: REGADENOSON 0.4 MG/5 ML SYRINGE IV PRN (07:52)
[2022-04-13] MEDS: LOSARTAN 25 MG TAB PO SCH (08:50)
[2022-04-13] MEDS: amLODIPine 5 MG TAB PO SCH (08:50)
[2022-04-13] MEDS: ASPIRIN 81 MG PO SCH (08:50)
[2022-04-13] MEDS: ATORVASTATIN 20 MG TAB PO SCH (08:50)
[2022-04-13] MEDS: AMIODARONE 200 MG TAB PO SCH (08:50)
[2022-04-13] MEDS ORDERED: ASPIRIN 325 MG TAB PO SCH (09:00)
[2022-04-13] MEDS ORDERED: METOPROLOL TARTRATE 50 MG TAB PO SCH (09:00)
[2022-04-13 09:03] LABS: Chol/HDL Ratio 2.43 Ratio; LDL Cholesterol,Calculated 52.4 mg/dL (0.0-131.0); VLDL Calculation 11.22 mg/dL (5.00-40.00)
--- NOTE | 2022-04-13 11:09 | P.CRDCN ---
History of Present Illness Consult date: 04/13/22 Consult reason: chest pain History of present illness: History of present illness: This is an 81-year-old female patient of Dr. SRIRAM Mendenhall with past medical history of hypertension, hyperlipidemia, recently diagnosed with atrial fibrillation and started on eliquis approximate 4 months ago. Patient gives history of having left-sided chest pain that comes and goes. She's had no associated symptoms, no nausea, shortness of breath, lightheadedness or dizziness, palpitations, no nausea or vomiting. EKG is sinus bradycardia with a first-degree AV block Chest x-ray reveals no acute cardio pulmonary process CTA of the chest reveals no acute cardio pulmonary disease and no pulmonary embolism. WBC 3.1, hemoglobin 13.7, platelet count 161. D-dimer 0.6. Troponin negative 3. Electrolytes and renal function within normal limits. AST 57, ALT 36. Triglycerides 56, cholesterol 108, LDL 108, HDL 44, lipase 34 Echocardiogram 10/2019 revealed EF 55%, mildly dilated RF. Mildly dilated LA. Mild AR. Mild MR. Mild TR. Mild [place]. Stress test 06/2021 revealed no ischemia Carotid duplex 10/2021 bilateral antegrade flow, right carotid stenosis of 50- 79%, left 16-49% Review Of Systems: At the time of my evaluation: Constitutional: No fever, no chills. No weakness, fatigue or lethargy. EENT: No headache. No dizziness. Lungs: No shortness of breath, cough, no sputum production. No wheezing. Cardiovascular: No chest pain, no lower extremity edema. No palpitations. No paroxysmal nocturnal dyspnea. No orthopnea. No lightheadedness or dizziness. No syncopal episodes. Abdominal: No abdominal pain. No nausea, vomiting. No diarrhea. No constipation. No bloody or tarry stools.. No loss of appetite. Genitourinary: No dysuria.. No urinary retention. Musculoskeletal: No myalgias. No muscle weakness, no gait dysfunction, no freq uent falls. No back pain. No neck pain. Integumentary: No wounds. No rash or pruritus. No unusual bruising. Neurologic: No aphasia. No facial droop. No change in mentation. No head injury. No headache. No paralysis. No paresthesia. Psychiatric: No depression. No anxiety. Endocrine: No abnormal blood sugars. Physical examination: Gen: This is an 81-year-old female. She is resting bed and appears to be comfortable and in no acute distress VS: Reviewed HEENT: Head is atraumatic, normocephalic. Pupils equal, round. Sclerae is anicteric. NECK: Supple. No JVD. LUNGS: Clear to auscultation. No wheezes or rhonchi. No intercostal retractions. HEART: Regular rate and rhythm. No murmur. ABDOMEN: Soft. No masses. No tenderness. EXTREMITIES: No pedal edema. No calf tenderness. NEUROLOGICAL: Patient is awake, alert and oriented x3. Assessment: Chest pain, acute coronary syndrome ruled out Paroxysmal atrial fibrillation Hypertension Hyperlipidemia Plan: Obtain Lexiscan stress Cardiolite postponed until tomorrow because patient was provided breakfast Obtain 2-D echocardiogram and Doppler study to assess cardiac structure and function Patient has been started on heparin drip which will be continued until tomorrow, eliquis can be resumed following stress test Continue patient on amiodarone 200 mg daily Hold metoprolol due to bradycardia Further recommendations to follow based upon clinical course Thank you kindly for this consultation. Nurse practitioner note has been reviewed, I agree with documented findings and plan of care. Patient was seen and examined. Past Medical History Past Medical History: Cancer, Eye Disorder, GERD/Reflux, Hyperlipidemia, Hypertension, Osteoarthritis (OA), Thyroid Disorder Additional Past Medical History / Comment(s): SKIN CANCER, BILATERAL CATARACTS, CHRONIC DRY EYES.shingelles in october 2016,stress test-wnl. "minimal leaky heart valve" History of Any Multi-Drug Resistant Organisms: None Reported Past Surgical History: Appendectomy, Back Surgery, Section, Cholecystectomy, Hysterectomy, Orthopedic Surgery, Tonsillectomy Additional Past Surgical History / Comment(s): SKIN LESIONS,lower lumbar and a cervical fusion,LEFT FOOT-bunionectomy and metatarsal sx,ruba Cataract sx.total hysterectomy.basal cell ca Past Anesthesia/Blood Transfusion Reactions: Motion Sickness Past Psychological History: No Psychological Hx Reported Past Alcohol Use History: Rare Past Drug Use History: None Reported - Past Family History Sister(s) Family Medical History: Cancer Additional Family Medical History / Comment(s): BREAST CANCER Brother(s) Family Medical History: Cancer Additional Family Medical History / Comment(s): LEUKEMIA Mother Additional Family Medical History / Comment(s): parkinsons, macular degeneration Father Family Medical History: Dementia Additional Family Medical History / Comment(s): parkinsons Medications and Allergies Home Medications Medication Instructions Recorded Confirmed Type Levothyroxine Sodium [Levoxyl] 88 mcg PO MOTUWETHFRSA 07/22/15 04/12/22 History Montelukast [Singulair] 10 mg PO HS 07/22/15 04/12/22 History Multivitamins, Thera [Multivitamin 1 tab PO DAILY 07/22/15 04/12/22 History (formulary)] amLODIPine [Norvasc] 5 mg PO DAILY 07/22/15 04/12/22 History cycloSPORINE [Restasis] 1 drop BOTH EYES BID 07/22/15 04/12/22 History Baclofen 10 mg PO TID PRN 07/23/15 04/12/22 History traMADol HCl [Ultram] 50 mg PO HS PRN 07/23/15 04/12/22 History Albuterol Inhaler [Ventolin Hfa 2 puff INHALATION RT-Q4H PRN 04/12/22 04/12/22 History Inhaler] Amiodarone [Cordarone] 200 mg PO DAILY 04/12/22 04/12/22 History Apixaban [Eliquis] 5 mg PO BID 04/12/22 04/12/22 History Aspirin EC [Ecotrin Low Dose] 81 mg PO DAILY 04/12/22 04/12/22 History Atorvastatin [Lipitor] 20 mg PO DAILY 04/12/22 04/12/22 History Calcium Carbonate/Vitamin D3 1 - 2 tab PO QID PRN 04/12/22 04/12/22 History [Calcium 500 mg Chewable Tablet] Cholecalciferol [Vitamin D3 (25 50 mcg PO DAILY 04/12/22 04/12/22 History Mcg = 1000 Iu)] Clindamycin Phosphate [Cleocin T 1 applic TOPICAL BID 04/12/22 04/12/22 History 1%] DULoxetine HCL [Cymbalta] 30 mg PO DAILY 04/12/22 04/12/22 History Ferrous Sulfate [Feosol] 325 mg PO DAILY 04/12/22 04/12/22 History Furosemide [Lasix] 20 mg PO DAILY PRN 04/12/22 04/12/22 History Gabapentin 300 mg PO BID 04/12/22 04/12/22 History Hydroxychloroquine Sulfate 200 mg PO BID 04/12/22 04/12/22 History [Plaquenil] Losartan [Cozaar] 25 mg PO DAILY 04/12/22 04/12/22 History Magnesium Oxide [Mag-Ox] 400 mg PO Q7D 04/12/22 04/12/22 History Metoprolol Tartrate [Lopressor] 25 mg PO DAILY 04/12/22 04/12/22 History Omeprazole 40 mg PO DAILY 04/12/22 04/12/22 History Potassium Chloride ER [K-Dur 10] 10 meq PO BID PRN 04/12/22 04/12/22 History allopurinoL [Zyloprim] 300 mg PO MOTUWETH 04/12/22 04/12/22 History hydrALAZINE HCL [Apresoline] 100 mg PO TID-W/MEALS 04/12/22 04/12/22 History Allergies Allergy/AdvReac Type Severity Reaction Status Date / Time adhesive tape Allergy Rash/Hives Verified 04/12/22 18:12 Steriods IV Allergy Rash/Hives Uncoded 04/12/22 18:12 Physical Exam Vitals: Vital Signs Temp Pulse Pulse Resp BP Pulse Ox FiO2 04/13/22 07:02 56 L 04/13/22 04:28 97.9 F 50 L 18 136/70 94 L 04/12/22 23:39 49 L 17 137/67 94 L 04/12/22 22:00 50 L 16 141/72 94 L 04/12/22 21:00 48 L 16 145/72 93 L 04/12/22 20:27 52 L 16 143/83 95 04/12/22 20:13 95 21 04/12/22 18:00 51 L 17 179/91 95 04/12/22 16:20 52 L 16 174/64 91 L 04/12/22 15:08 52 L 16 172/70 92 L 04/12/22 14:55 54 L 04/12/22 14:34 98.0 F 60 22 158/69 97 Intake and Output 04/12/22 04/13/22 04/13/22 22:59 06:59 14:59 Intake Total 91.445 Balance 91.445 Intake: Intake, IV Titration 91.445 Amount Heparin Sod,Pork in 0.45% 91.445 NaCl 25,000 unit In 0.45 % NaCl 1 250ml.bag @ 12 UNITS/KG/HR 8.709 mls/hr IV .Q24H [facility] Rx#: [id number] Results 04/12/22 15:01 04/12/22 15:01 Cardiac Enzymes 04/12/22 04/12/22 04/12/22 Range/Units 15:01 15:01 18:05 AST 57 H (14-36) U/L Troponin I <0.012 <0.012 (0.000-0.034) ng/mL 04/12/22 Range/Units 21:07 AST (14-36) U/L Troponin I <0.012 (0.000-0.034) ng/mL Coagulation 04/12/22 04/13/22 Range/Units 15:01 03:39 PT 11.1 (9.0-12.0) sec APTT 28.3 85.8 H (22.0-30.0) sec CBC 04/12/22 Range/Units 15:01 WBC 3.1 L (3.8-10.6) k/uL RBC 4.34 (3.80-5.40) m/uL Hgb 13.7 (11.4-16.0) gm/dL Hct 41.1 (34.0-46.0) % Plt Count 161 (150-450) k/uL Comprehensive Metabolic Panel 04/12/22 Range/Units 15:01 Sodium 140 (137-145) mmol/L Potassium 3.9 (3.5-5.1) mmol/L Chloride 103 (98-107) mmol/L Carbon Dioxide 28 (22-30) mmol/L BUN 16 (7-17) mg/dL Creatinine 0.80 (0.52-1.04) mg/dL Glucose 85 (74-99) mg/dL Calcium 9.3 (8.4-10.2) mg/dL AST 57 H (14-36) U/L ALT 36 H (4-34) U/L Alkaline Phosphatase 99 (38-126) U/L Total Protein 7.2 (6.3-8.2) g/dL Albumin 4.3 (3.5-5.0) g/dL Current Medications Generic Name Dose Route Start Last Admin Trade Name Freq PRN Reason Stop Dose Admin Aspirin 325 mg 04/13/22 09:00 Aspirin 325 Mg Tab PO DAILY [facility] Sodium Chloride 1,000 mls @ 20 mls/hr 04/12/22 17:45 04/12/22 20:19 Saline 0.9% IV 20 mls/hr .Q24H [facility] Administration Heparin Sodium/Sodium Chloride 250 mls @ 8.709 mls/hr 04/12/22 17:45 04/13/22 06:54 25,000 unit/ Sodium Chloride IV 10 units/kg/hr .Q24H [facility] 7.258 mls/hr Titration Protocol 12 UNITS/KG/HR Nitroglycerin 0.4 mg 04/12/22 17:44 Nitroglycerin Sl Tabs 0.4 Mg Tab SUBLINGUAL Q5M PRN Chest Pain Nitroglycerin 0.5 inch 04/12/22 18:00 04/13/22 07:15 Nitroglycerin Oint 1 Inch/Gm Packet TOPICAL Not Given Q6HR [facility] Intake and Output 04/12/22 04/13/22 04/13/22 22:59 06:59 14:59 Intake Total 91.445 Balance 91.445 Intake: Intake, IV Titration 91.445 Amount Heparin Sod,Pork in 0.45% 91.445 NaCl 25,000 unit In 0.45 % NaCl 1 250ml.bag @ 12 UNITS/KG/HR 8.709 mls/hr IV .Q24H [facility] Rx#: [id number] 04/12/22 15:01 04/12/22 15:01
[2022-04-13] MEDS: hydrALAZINE HCL 50 MG TAB PO SCH ×2 (12:19→17:27)
--- NOTE | 2022-04-13 13:23 | HP ---
HISTORY AND PHYSICAL CHIEF COMPLAINT: Chest pain. HISTORY OF PRESENT ILLNESS: This is an 81-year-old woman who was admitted with recent illness, and diagnosed with atrial fibrillation for 6 months, was complaining of chest pain which is affecting on the left side which is sharp in character. There was some dark feeling about 4 days prior to admission and the patient came to [facility], admitted for further evaluation and treatment. A D-dimer was found to be 0.60. Troponins are negative. Cardiology evaluation in progress. Cardiology recommended a stress test today. The CTA of the chest showed no acute pulmonary embolism. There is no history of any fever, rigors, or chills. PAST MEDICAL HISTORY: Reviewed include atrial fibrillation, GERD, hypertension, hyperlipidemia. Rest of the history and rest of the chart is also reviewed. HOME MEDICATIONS: Reviewed include Ultram, Singulair, dose and rest of medications reviewed. ALLERGIES: Adhesive tapes. FAMILY HISTORY: History of breast cancer. SOCIAL HISTORY: No history of smoking, occasional alcohol intake. REVIEW OF SYSTEMS: A 14-point review is negative except as mentioned earlier. PHYSICAL EXAMINATION: VITAL SIGNS: Pulse is 57, blood pressure 140/60, and respirations 18. HEENT: Conjunctivae normal. NECK: No jugular venous distention. CARDIOVASCULAR: S1, S2. RESPIRATION: Diminished breath sounds at the bases. Few scattered rhonchi, no crackles. ABDOMEN: Soft and nontender. LEGS: No edema. NERVOUS SYSTEM: No focal deficits. LABS: D-dimer is 0.66, AST is 57, ALT is 36. ASSESSMENT: 1. Chest pain, possible unstable angina. 2. Paroxysmal atrial fibrillation. 3. Hypertension. 4. Hyperlipidemia. 5. Multiple medical issues. RECOMMENDATIONS: Recommended to continue current medications, symptomatic treatment. Otherwise, n.p.o. after midnight and repeat labs. The patient has minimally elevated AST, ALT which could be followed up in the outpatient setting. Otherwise, possible stress test. Resume the home medications once they are confirmed. Closely follow with Cardiology. Further recommendations to follow. MMODL / IJN: [id number] /
[2022-04-13] MEDS ORDERED: HEPARIN SODIUM 1,000 UN/ML (10ML VL) IV PRN (13:51)
[2022-04-13] MEDS: SODIUM CHLORIDE 0.9% 1,000 ML IV SCH (17:28)
[2022-04-14] MEDS: NITROGLYCERIN OINT 1 INCH/GM PACKET TOPICAL SCH ×2 (00:04→05:11)
[2022-04-14] MEDS: HEPARIN SOD,PORK IN 0.45% NACL 25,000 UNIT in 0.45% NACL 1 250ML.BAG IV SCH (01:24)
[2022-04-14 03:47] VITALS: RESP 16
[2022-04-14] MEDS: hydrALAZINE HCL 50 MG TAB PO SCH (06:28)
[2022-04-14 06:30] VITALS: BP 164/72; PULSE 57; TEMP 98.2
--- NOTE | 2022-04-14 07:22 | P.PN ---
Subjective Progress Note Date: 04/14/22 History of present illness: This is an 81-year-old female patient of Dr. SRIRAM Mendenhall with past medical history of hypertension, hyperlipidemia, recently diagnosed with atrial fibrillation and started on eliquis approximate 4 months ago. Patient gives history of having left-sided chest pain that comes and goes. She's had no associated symptoms, no nausea, shortness of breath, lightheadedness or dizziness, palpitations, no nausea or vomiting. EKG is sinus bradycardia with a first-degree AV block Chest x-ray reveals no acute cardio pulmonary process CTA of the chest reveals no acute cardio pulmonary disease and no pulmonary embolism. WBC 3.1, hemoglobin 13.7, platelet count 161. D-dimer 0.6. Troponin negative 3. Electrolytes and renal function within normal limits. AST 57, ALT 36. Triglycerides 56, cholesterol 108, LDL 108, HDL 44, lipase 34 Echocardiogram 10/2019 revealed EF 55%, mildly dilated RF. Mildly dilated LA. Mild AR. Mild MR. Mild TR. Mild [place]. Stress test 06/2021 revealed no ischemia Carotid duplex 10/2021 bilateral antegrade flow, right carotid stenosis of 50- 79%, left 16-49% 04/14 Patient is seen and examined. She is scheduled for Lexiscan stress test this morning. Patient is nothing by mouth. She denies having any chest pain last evening or this morning. She is only ambulating in her room but has no lightheadedness or dizziness. No shortness of breath. Repeat blood work reveals WBC 3.4, hemoglobin 12, platelet count 177. Potassium 3.2 and will be replaced. Otherwise electrolytes and renal function, liver function tests are all within normal limits. Physical examination: Gen: This is an 81-year-old female. She is resting in bed and appears to be comfortable and in no acute distress VS: Reviewed HEENT: Head is atraumatic, normocephalic. Pupils equal, round. Sclerae is anicteric. NECK: Supple. No JVD. LUNGS: Clear to auscultation. No wheezes or rhonchi. No intercostal retractions. HEART: Regular rate and rhythm. No murmur. ABDOMEN: Soft. No masses. No tenderness. EXTREMITIES: No pedal edema. No calf tenderness. NEUROLOGICAL: Patient is awake, alert and oriented x3. Assessment: Chest pain, acute coronary syndrome ruled out Paroxysmal atrial fibrillation Hypertension Hyperlipidemia Plan: Obtain Lexiscan stress Cardiolite today Obtain 2-D echocardiogram and Doppler study to assess cardiac structure and function Discontinue heparin drip and resume eliquis following stress test Continue patient on amiodarone 200 mg daily Hold metoprolol due to bradycardia Further recommendations to follow based upon clinical course Thank you kindly for this consultation. Nurse practitioner note has been reviewed, I agree with documented findings and plan of care. Patient was seen and examined. Objective - Vital Signs Vital signs: Vital Signs Temp 98.2 F 04/14/22 06:29 Pulse 57 L 04/14/22 06:29 Resp 16 04/14/22 06:29 BP 164/72 04/14/22 06:29 Pulse Ox 95 04/14/22 06:29 FiO2 21 04/12/22 20:13 Intake & Output 04/13/22 04/14/22 04/14/22 18:59 06:59 18:59 Intake Total 50.08 101.024 Balance 50.08 101.024 Weight 72.575 kg Intake: Intake, IV Titration 50.08 101.024 Amount Heparin Sod,Pork in 0.45% 50.08 101.024 NaCl 25,000 unit In 0.45 % NaCl 1 250ml.bag @ 12 UNITS/KG/HR 8.709 mls/hr IV .Q24H [facility] Rx#: [id number] Oral 0 Other: Voiding Method Toilet # Voids 2 - Labs CBC & Chem 7: 04/14/22 05:07 04/14/22 05:07 Labs: Abnormal Lab Results - Last 24 Hours (Table) 04/13/22 04/13/22 04/14/22 Range/Units 12:19 19:56 05:07 APTT 38.5 H 48.6 H 59.2 H (22.0-30.0) sec
[2022-04-14 09:07] LABS: Basophils # (A) 0.04 X 10*3/uL (0.00-0.10); Basophils % (A) 1.2 %; Eosinophils # (A) 0.02 X 10*3/uL (0.04-0.35); Eosinophils % (A) 0.6 %; HCT 37.4 % (37.2-46.3); Immature Grans, Automated 0.3 %; Lymphocytes # (A) 0.94 X 10*3/uL (0.90-5.00); Lymphocytes % (A) 27.2 %; MCH 31.3 pg (27.0-32.0); MCHC 32.1 g/dL (32.0-37.0); MCV 97.4 fL (80.0-97.0); Mean Platelet Volume 11.2 fL (9.5-12.2); Monocytes # (A) 0.41 X 10*3/uL (0.20-1.00); Monocytes % (A) 11.8 %; NRBC Per 100 WBC 0 /100 WBCS (0.0-0.0); Neutrophils # (A) 2.04 X 10*3/uL (1.80-7.70); Neutrophils % (A) 58.9 %; Platelet Count 177 X 10*3/uL (140-440); RBC 3.84 X 10*6/uL (4.10-5.20); RDW 14.5 % (11.5-14.5); WBC 3.46 X 10*3/uL (4.50-10.00)
[2022-04-14 09:24] LABS: African American GFR (CKD) 80.7 (60.0-200.0); Albumin 3.6 g/dL (3.8-4.9); Albumin/Globulin Ratio 1.8 (1.60-3.17); Anion Gap 10.7 mmol/L (10.00-18.00); Blood Urea Nitrogen 12.8 mg/dL (9.0-27.0); Carbon Dioxide 26.3 mmol/L (20.0-27.5); Non-African American GFR(CKD) 69.6 (60.0-200.0); Potassium 3.2 mmol/L (3.5-5.5); Total Bilirubin 0.3 mg/dL (0.30-1.20); Total Protein 5.6 g/dL (6.2-8.2)
[2022-04-14] MEDS: ATORVASTATIN 20 MG TAB PO SCH (11:08)
[2022-04-14] MEDS: amLODIPine 5 MG TAB PO SCH (11:08)
[2022-04-14] MEDS: ASPIRIN 81 MG PO SCH (11:08)
[2022-04-14] MEDS: LOSARTAN 25 MG TAB PO SCH (11:09)
--- NOTE | 2022-04-14 11:16 | CA ---
Lexiscan Nuclear Stress Test Report Name: Montserrat Cox Exam Date: 04/14/2022 10:00 Exam Location: [facility] Ht (in): 64 Wt (lb): 160 BSA: 1.78 Ordering Phys: Tere Watts Referring Phys: CHER, Technologist: Héctor Douglas Age: 81 Gender: F : 1940 Procedure CPT: Indications: Reflex order-Stress test ICD-10 Codes: Patient History: CHEST PAIN, HTN, ELEVATED CHOLESTEROL LEVELS Medications: Meds past 24 hrs: Pretest Chest Pain: STRESS TEST Lexiscan Protocol Exercise Duration (min:sec): 01:[address] Depressions (mm): Angina Score: Graves Score: Resting HR (bpm): 66 Peak HR (bpm): 82 Resting BP (mmHg): 169 / 66 Peak BP (mmHg): 169 / 66 MPHR: 140 Target HR: 119 % MPHR: 59 METS: 1.0 Total Dose: Peak Dose: Atropine: Double Product: 17463 BP Response: Stress Termination: INFUSION COMPLETE Stress Symptoms: HEADACHE Stress Summary: ECG ANALYSIS Resting ECG: Normal sinus rhythm axis deviation and poor R-wave progression nonspecific ST-T wave changes Stress ECG: Patient received Lexiscan as per protocol did not have significant ST segment depression or cardiac arrhythmia CONCLUSIONS Negative stress test by EKG criteria Cardiolite portion of the stress test will be reported separately Dr. Surendra Brewster MD (Electronically Signed) Final Date: 14 April 2022 11:15
[2022-04-14] MEDS: AMIODARONE 200 MG TAB PO SCH (11:33)
--- NOTE | 2022-04-14 11:36 | NM ---
EXAMINATION TYPE: NM stress lexiscan cardiolite DATE OF EXAM: 04/14/2022 COMPARISON: NONE HISTORY: Chest pain TECHNIQUE: After the intravenous administration of 7.9 mCi Tc 99m Sestamibi - Cardiolite resting SPE CT images acquired 55 minutes post injection. The patient received 0.4mg Lexiscan, 25.2 mCi Tc 99m Sestamibi - Stress images obtained [address] injection FINDINGS: Review of stress and rest SPECT images demonstrates fixed decreased perfusion involving the inferoapi bill wall. No definite stress-induced ischemia. Gated analysis shows normal wall motion with an estima joanne left ventricular ejection fraction of 70 %. IMPRESSION: fixed decreased perfusion involving the inferoapical wall. No definite stress-induced ischemia.
[2022-04-14] MEDS ORDERED: PANTOPRAZOLE 40 MG TABLET PO SCH (11:45)
--- NOTE | 2022-04-14 14:13 | DS ---
DISCHARGE SUMMARY FINAL DIAGNOSES: 1. Chest pain, possible unstable angina. 2. Paroxysmal atrial fibrillation. 3. Hypertension. 4. Hyperlipidemia. 5. Multiple medical issues. DISCHARGE DISPOSITION: The patient will be discharged in stable condition with guarded prognosis. Cardiology cleared the patient for discharge. HISTORY OF PRESENT ILLNESS: This 81-year-old woman, who was admitted with chest pain, myocardial infarction ruled out. Cardiology performed a cardiac stress test, which showed only fixed defect and no reversible ischemia was noted. Cardiology recommended to resume the home medication. PHYSICAL EXAMINATION: VITAL SIGNS: Stable. CARDIOVASCULAR: S1, S2. ABDOMEN: Soft. NERVOUS SYSTEM: No focal deficits. The patient had minimal bradycardia in the 50s while in the hospital, to be followed up in the outpatient setting. DISCHARGE MEDICATIONS: Please refer to the discharge reconciliation sheet for list of medications. MMODL / IJN: [id number] /
[2022-04-14] MEDS ORDERED: APIXABAN 5 MG TAB PO SCH (21:00)
== END 2022-04-14 15:29 ==
LOC: EC 14:16 → 6NMEDSUR 17:44
PROVIDERS: ADMIT Internal Medicine; ATTEND Internal Medicine
DX: R07.89 Other chest pain (principal); R00.1 Bradycardia, unspecified; I48.0 Paroxysmal atrial fibrillation; E78.5 Hyperlipidemia, unspecified; K21.9 Gastro-esophageal reflux disease without esophagitis; I10 Essential (primary) hypertension; E07.9 Disorder of thyroid, unspecified; Z85.828 Personal history of other malignant neoplasm of skin; Z79.01 Long term (current) use of anticoagulants; Z79.82 Long term (current) use of aspirin; Z79.890 Hormone replacement therapy; Z79.899 Other long term (current) drug therapy; Z80.3 Family history of malignant neoplasm of breast; Z80.6 Family history of leukemia; Z82.0 Family history of epilepsy and other diseases of the nervous system; Z81.8 Family history of other mental and behavioral disorders
CPT/HCPCS: 96366 ×4; 96376 ×2; 96365; 99285; 36415; 94760 ×2; 93005 ×2; 93017; 85379; 83880; 80061; 80053 ×2; 83690; 83735; 84484; 85025 ×2; 85610; 85730 ×3; 71046; 71275; 78452; G0378 ×3; A9500; J1644 ×4; J2785; Q9967

== ENCOUNTER → 2022-05-13 | Outpatient (CLI) | payer MEDICARE ==
--- NOTE | 2022-05-13 16:30 | XR ---
EXAMINATION TYPE: XR lumbar spine 2 or 3V DATE OF EXAM: 05/13/2022 4:21 PM INDICATION: Patient age:Female; 82 years old; Reason for study: M54.9 DORSALGIA, UNSPECIFIED; PHH. COMPARISON: None TECHNIQUE: Frontal, lateral and coned in L5-S1 lateral views of the spine. FINDINGS: Levoscoliosis apex L3. Hardware is stable in position.. There is a large stool burden throu ghout the colon. No evidence of any acute osseous pathology. No evidence of loss of vertebral body h eight is seen. Mild scattered disc space narrowing. Multilevel marginal osteophyte formation througho ut the visualized spine. There is facet joint arthropathy throughout the spine. Scattered at least mi ld neural foraminal stenosis. IMPRESSION: 1. Similar postsurgical changes to the lower lumbar spine. 2. No acute fracture. 3. Moderate multilevel disc degeneration. 4. Large stool burden throughout the colon.
== END | disposition home or self-care (01) ==
LOC: RADXRMAIN 16:08
PROVIDERS: ATTEND Nurse Practitioner Family
DX: M51.36 Other intervertebral disc degeneration, lumbar region (principal); R19.5 Other fecal abnormalities; Z98.890 Other specified postprocedural states
CPT/HCPCS: 72100

== ENCOUNTER 2022-05-17 11:08 | Emergency (ER) | payer MEDICARE ==
[2022-05-17 11:14] VITALS: PULSE 58; TEMP 97.8
--- NOTE | 2022-05-17 11:37 | ED ---
General Adult HPI - General Chief complaint: Back Pain/Injury Stated complaint: Constipation Time Seen by Provider: 05/17/22 11:15 Source: patient Mode of arrival: ambulatory Limitations: no limitations - History of Present Illness Initial comments: Patient is an 82-year-old female presenting with chief complaint of constipation. Patient states on Wednesday she had a fall and was evaluated by her PCP Dr. Denise. He sent her for x-rays which showed no fracture, however there was a large stool Burdon observed. Patient states that since that they she has not been able to have a bowel movement. She admits to abdominal discomfort and fullness. No fever or chills. No nausea or vomiting. Patient is taking baclofen for back pain which has been helping. She denies any head injury or loss of consciousness. - Related Data Home Medications Medication Instructions Recorded Confirmed Levothyroxine Sodium [Levoxyl] 88 mcg PO MOTUWETHFRSA 07/22/15 04/12/22 Montelukast [Singulair] 10 mg PO HS 07/22/15 04/12/22 Multivitamins, Thera [Multivitamin 1 tab PO DAILY 07/22/15 04/12/22 (formulary)] amLODIPine [Norvasc] 5 mg PO DAILY 07/22/15 04/12/22 cycloSPORINE [Restasis] 1 drop BOTH EYES BID 07/22/15 04/12/22 Baclofen 10 mg PO TID PRN 07/23/15 04/12/22 traMADol HCl [Ultram] 50 mg PO HS PRN 07/23/15 04/12/22 Albuterol Inhaler [Ventolin Hfa 2 puff INHALATION RT-Q4H PRN 04/12/22 04/12/22 Inhaler] Amiodarone [Cordarone] 200 mg PO DAILY 04/12/22 04/12/22 Apixaban [Eliquis] 5 mg PO BID 04/12/22 04/12/22 Aspirin EC [Ecotrin Low Dose] 81 mg PO DAILY 04/12/22 04/12/22 Atorvastatin [Lipitor] 20 mg PO DAILY 04/12/22 04/12/22 Calcium Carbonate/Vitamin D3 1 - 2 tab PO QID PRN 04/12/22 04/12/22 [Calcium 500 mg Chewable Tablet] Cholecalciferol [Vitamin D3 (25 50 mcg PO DAILY 04/12/22 04/12/22 Mcg = 1000 Iu)] Clindamycin Phosphate [Cleocin T 1 applic TOPICAL BID 04/12/22 04/12/22 1%] DULoxetine HCL [Cymbalta] 30 mg PO DAILY 04/12/22 04/12/22 Ferrous Sulfate [Iron (65 MG 325 mg PO DAILY 04/12/22 04/12/22 Elemental)] Furosemide [Lasix] 20 mg PO DAILY PRN 04/12/22 04/12/22 Gabapentin 300 mg PO BID 04/12/22 04/12/22 Hydroxychloroquine Sulfate 200 mg PO BID 04/12/22 04/12/22 [Plaquenil] Losartan [Cozaar] 25 mg PO DAILY 04/12/22 04/12/22 Magnesium Oxide [Mag-Ox] 400 mg PO Q7D 04/12/22 04/12/22 Metoprolol Tartrate [Lopressor] 25 mg PO DAILY 04/12/22 04/12/22 Omeprazole 40 mg PO DAILY 04/12/22 04/12/22 Potassium Chloride ER [K-Dur 10] 10 meq PO BID PRN 04/12/22 04/12/22 allopurinoL [Zyloprim] 300 mg PO MOTUWETH 04/12/22 04/12/22 hydrALAZINE HCL [Apresoline] 100 mg PO TID-W/MEALS 04/12/22 04/12/22 Previous Rx's Medication Instructions Recorded Nitroglycerin Sl Tabs [Nitrostat] 0.4 mg SUBLINGUAL Q5M PRN #20 tab 04/14/22 Ondansetron Odt [Zofran Odt] 4 mg PO Q8HR PRN #20 tab 05/17/22 Allergies Allergy/AdvReac Type Severity Reaction Status Date / Time adhesive tape Allergy Rash/Hives Verified 05/17/22 19:34 Steriods IV Allergy Rash/Hives Uncoded 05/17/22 19:34 Review of Systems ROS Statement: Those systems with pertinent positive or pertinent negative responses have been documented in the HPI. ROS Other: All systems not noted in ROS Statement are negative. Past Medical History Past Medical History: Atrial Fibrillation, Cancer, Eye Disorder, GERD/Reflux, Hyperlipidemia, Hypertension, Osteoarthritis (OA), Thyroid Disorder Additional Past Medical History / Comment(s): Recently diagnosed with Afib, slightly "leaky heart valve", shogren's syndrome, anemia, chronic low back pain, DDD, gout bilateral feet/toes, 2017 shingelles, basal cell skin cancer removals, diverticular disease/benign polyps, hypothyroid, bilateral dry eyes. History of Any Multi-Drug Resistant Organisms: None Reported Past Surgical History: Appendectomy, Back Surgery, Section, Cholec ystectomy, Hysterectomy, Orthopedic Surgery, Tonsillectomy Additional Past Surgical History / Comment(s): Lumbar and cervical fusions, R foot bunionectomy/metatarsal surgery, skin cancer removals, colonoscopies/benign polypectomy, bilateral cataract removals/lens implants, Past Anesthesia/Blood Transfusion Reactions: Motion Sickness Past Psychological History: Anxiety, Depression Smoking Status: Never smoker Past Alcohol Use History: None Reported Past Drug Use History: None Reported - Past Family History Sister(s) Family Medical History: Cancer Additional Family Medical History / Comment(s): BREAST CANCER Brother(s) Family Medical History: Cancer Additional Family Medical History / Comment(s): LEUKEMIA Mother Family Medical History: Neurologic Disorder Additional Family Medical History / Comment(s): parkinsons, macular degeneration Father Family Medical History: Dementia, Neurologic Disorder Additional Family Medical History / Comment(s): parkinsons General Exam Limitations: no limitations General appearance: alert, in no apparent distress Head exam: Present: atraumatic, normocephalic, normal inspection Eye exam: Present: normal appearance, PERRL. Absent: periorbital swelling, periorbital tenderness Neck exam: Present: normal inspection, full ROM GI/Abdominal exam: Present: soft. Absent: distended, tenderness, guarding, rebound, rigid Neurological exam: Present: alert, oriented X3, CN II-XII intact Psychiatric exam: Present: normal affect, normal mood Skin exam: Present: warm, dry, intact, normal color. Absent: rash Course Vital Signs 05/17/22 05/17/22 11:10 13:06 Temperature 97.8 F Pulse Rate 58 L 58 L Respiratory 20 16 Rate Blood Pressure 150/78 173/66 O2 Sat by Pulse 99 96 Oximetry Medical Decision Making - Medical Decision Making Was pt. sent in by a medical professional or institution (, PA, INVESTIGATOR [employer], urgent care, hospital, or shelter...) When possible be specific @ -[No] Did you speak to anyone other than the patient for history (EMS, parent, family, police, friend...)? What history was obtained from this source @ - and son Did you review nursing and triage notes (agree or disagree)? Why? @ -Reviewed the triage notes and disagree. Patient is here for her constipation. She recently injured her back and had an x-ray performed which showed large stool burden throughout the colon. She states her back pain is well managed at this time and is not why she is here. Were old charts reviewed (outside hosp., previous admission, EMS record, old EKG, old radiological studies, urgent care reports/EKG's, shelter records)? Report findings @ -X-ray of the lumbar spine was reviewed Differential Diagnosis (chest pain, altered mental status, abdominal pain women, abdominal pain men, vaginal bleeding, weakness, fever, dyspnea, syncope, headache, dizziness, GI bleed, back pain, seizure, CVA, palpatations, mental health)? @ -Differential includes constipation, ileus, bowel obstruction, this is not meant to be in all-inclusive list EKG interpreted by me (3pts min.). @ -[As above] X-rays interpreted by me (1pt min.). @ -KUB x-ray shows large stool burden, no acute process CT interpreted by me (1pt min.). @ -[None done] U/S interpreted by me (1pt. min.). @ -[None done] What testing was considered but not performed or refused? (CT, X-rays, U/S, labs)? Why? @ -[None] What meds were considered but not given or refused? Why? @ -[None] Did you discuss the management of the patient with other professionals (professionals i.e. , PA, INVESTIGATOR [employer], lab, RT, psych nurse, licensed master social worker, poultry service technician, teacher, safety and security officer, director of casework)? Give summary @ -[No] Was smoking cessation discussed for >3mins.? @ -[No] Was critical care preformed (if so, how long)? @ -[No] Were there social determinants of health that impacted care today? How? (Homelessness, low income, unemployed, alcoholism, drug addiction, transportation, low edu. Level, literacy, decrease access to med. care, care home, rehab)? @ -[No] Was there de-escalation of care discussed even if they declined (Discuss DNR or withdrawal of care, Hospice)? DNR status @ -[No] What co-morbidities impacted this encounter? (DM, HTN, Smoking, COPD, CAD, Cancer, CVA, ARF, Chemo, Hep., AIDS, mental health diagnosis, sleep apnea, morbid obesity)? @ -[None] Was patient admitted / discharged? Hospital course, mention meds given and route, prescriptions, significant lab abnormalities, going to OR and other pertinent info. @ -Patient is an 82-year-old female presenting with chief complaint of constipation. Patient is not able to have a bowel movement in several days. Physical examination is unremarkable. [facility] x-ray shows large stool burden in the left colon. Patient received an enema. Patient was reassessed after bowel movement, she reports resolution of her symptoms. She is agreeable with discharge home.Follow-up with PCP. Report back to ER with any new or worsening symptoms. Discussed return parameters and answered all questions. Patient conveyed verbal understanding and agreed to the plan. I discussed this case in detail with my attending Dr. Figueredo Undiagnosed new problem with uncertain prognosis? @ -[No] Drug Therapy requiring intensive monitoring for toxicity (Heparin, Nitro, Insulin, Cardizem)? @ -[No] Were any procedures done? @ -[No] Diagnosis/symptom? @ -Constipation Acute, or Chronic, or Acute on Chronic? @ -Acute Uncomplicated (without systemic symptoms) or Complicated (systemic symptoms)? @ -Uncomplicated Side effects of treatment? @ -[No] Exacerbation, Progression, or Severe Exacerbation? @ -[No] Poses a threat to life or bodily function? How? (Chest pain, USA, MA, pneumonia, PE, COPD, DKA, ARF, appy, cholecystitis, CVA, Diverticulitis, Homicidal, Suicidal, threat to staff... and all critical care pts) @ -[No] Disposition Clinical Impression: Constipation Disposition: HOME SELF-CARE Condition: Good Instructions (If sedation given, give patient instructions): Constipation (ED), High Fiber Diet (ED) Additional Instructions: Follow-up with PCP. Report back to ER with any new or worsening symptoms. Continue taking MiraLAX. Is patient prescribed a controlled substance at d/c from ED?: No Referrals: Bishop Denise MD [Primary Care Provider] - 1-2 days Time of Disposition: 12:48
--- NOTE | 2022-05-17 11:45 | XR ---
EXAMINATION TYPE: XR [facility] DATE OF EXAM: 05/17/2022 11:30 AM INDICATION: Patient age:Female; 82 years old; Reason for study: constipation; COMPARISON: 11/05/2016 TECHNIQUE: One radiographic view of the abdomen was obtained. FINDINGS: The bowel gas pattern is nonspecific without dilated loops of small or large bowel. There i s no evidence for organomegaly or pneumoperitoneum. The osseous structures are intact. No abnormal calcifications are present. Fecal material and gas are demonstrated throughout the colon and rectum. Mild scoliosis changes. Right upper quadrant cholecystectomy clips. Large stool burden throughout th e colon. IMPRESSION: Large stool burden in the left colon, otherwise a nonspecific bowel gas pattern without radiographic evidence for acute process.
[2022-05-17 13:07] VITALS: BP 173/66; RESP 16
== END 2022-05-17 13:07 | disposition home or self-care (01) ==
LOC: EC 11:08
DX: K59.00 Constipation, unspecified (principal); I48.91 Unspecified atrial fibrillation; K21.9 Gastro-esophageal reflux disease without esophagitis; E78.5 Hyperlipidemia, unspecified; I10 Essential (primary) hypertension; M19.90 Unspecified osteoarthritis, unspecified site; F41.9 Anxiety disorder, unspecified; F32.A Depression, unspecified; E03.9 Hypothyroidism, unspecified; Z88.8 Allergy status to other drugs, medicaments and biological substances; Z79.890 Hormone replacement therapy; Z79.82 Long term (current) use of aspirin; Z79.899 Other long term (current) drug therapy
CPT/HCPCS: 74018; 99283

== ENCOUNTER 2022-05-17 18:49 | Emergency (ER) | payer MEDICARE ==
[2022-05-17 19:18] VITALS: BP 138/71; PULSE 77; RESP 17; TEMP 98.1
[2022-05-17] MEDS ORDERED: ONDANSETRON 4 MG/2 ML VIAL IVP STA (19:43)
[2022-05-17] MEDS ORDERED: SODIUM CHLORIDE 0.9% 1,000 ML IV ONE (19:43)
[2022-05-17 20:21] LABS: Basophils % (A) 1 %; Eosinophils % (A) 1 %; HCT 39.6 % (34.0-46.0); HGB 13.3 gm/dL (11.4-16.0); Lymphocytes # (A) 0.6 k/uL (1.0-4.8); Lymphocytes % (A) 9 %; MCH 31.3 pg (25.0-35.0); MCHC 33.5 g/dL (31.0-37.0); MCV 93.3 fL (80.0-100.0); Mean Platelet Volume 8.5; Monocytes # (A) 0.4 k/uL (0-1.0); Monocytes % (A) 6 %; Neutrophils # (A) 5.3 k/uL (1.3-7.7); Neutrophils % (A) 83 %; Platelet Count 173 k/uL (150-450); RBC 4.25 m/uL (3.80-5.40); RDW 13.7 % (11.5-15.5); WBC 6.3 k/uL (3.8-10.6)
[2022-05-17 20:47] LABS: INR 0.9 (<1.2); Partial Thromboplastin Time 25.2 sec (22.0-30.0); Prothrombin Time 10.1 sec (9.0-12.0)
[2022-05-17 20:48] LABS: ALT 41 U/L (4-34); AST 46 U/L (14-36); African American GFR (CKD) >90 (>60 ml/min/1.73 sqM); Albumin 3.6 g/dL (3.5-5.0); Alkaline Phosphatase 95 U/L (38-126); Anion Gap 5 mmol/L; Blood Urea Nitrogen 19 mg/dL (7-17); Calcium 9.8 mg/dL (8.4-10.2); Carbon Dioxide 32 mmol/L (22-30); Chloride 101 mmol/L (98-107); Glucose 97 mg/dL (74-99); Lipase 35 U/L (23-300); Magnesium 2.1 mg/dL (1.6-2.3); Non-African American GFR(CKD) 81 (>60 ml/min/1.73 sqM); Sodium 138 mmol/L (137-145); Total Bilirubin 0.7 mg/dL (0.2-1.3); Total Protein 6.3 g/dL (6.3-8.2)
[2022-05-17] MEDS ORDERED: ONDANSETRON 4 MG ODT STARTER PACK 2 TAB BTL PO STA (21:51)
--- NOTE | 2022-05-17 21:52 | ED ---
General Adult HPI - General Chief complaint: Nausea/Vomiting/Diarrhea Stated complaint: nausea-revisit Time Seen by Provider: 05/17/22 19:22 Source: patient, family Mode of arrival: wheelchair Limitations: no limitations - History of Present Illness Initial comments: This is an 82-year-old female with a past medical history including atrial fibrillation, hypertension and chronic back pain presents emergency department for nausea. The patient was seen in the emergency department earlier today for chronic constipation and was given enema. The patient stated that she felt improved when she went home she started to have nausea with dry heaving. The patient stated that she had continued nausea throughout the day without any other acute associated symptoms. The patient stated that because of the continued nausea she wanted to be evaluated emergency department. Physical exam, the patient denied any abdominal pain or discomfort. The patient denied any fevers and chills. - Related Data Home Medications Medication Instructions Recorded Confirmed Levothyroxine Sodium [Levoxyl] 88 mcg PO MOTUWETHFRSA 07/22/15 04/12/22 Montelukast [Singulair] 10 mg PO HS 07/22/15 04/12/22 Multivitamins, Thera [Multivitamin 1 tab PO DAILY 07/22/15 04/12/22 (formulary)] amLODIPine [Norvasc] 5 mg PO DAILY 07/22/15 04/12/22 cycloSPORINE [Restasis] 1 drop BOTH EYES BID 07/22/15 04/12/22 Baclofen 10 mg PO TID PRN 07/23/15 04/12/22 traMADol HCl [Ultram] 50 mg PO HS PRN 07/23/15 04/12/22 Albuterol Inhaler [Ventolin Hfa 2 puff INHALATION RT-Q4H PRN 04/12/22 04/12/22 Inhaler] Amiodarone [Cordarone] 200 mg PO DAILY 04/12/22 04/12/22 Apixaban [Eliquis] 5 mg PO BID 04/12/22 04/12/22 Aspirin EC [Ecotrin Low Dose] 81 mg PO DAILY 04/12/22 04/12/22 Atorvastatin [Lipitor] 20 mg PO DAILY 04/12/22 04/12/22 Calcium Carbonate/Vitamin D3 1 - 2 tab PO QID PRN 04/12/22 04/12/22 [Calcium 500 mg Chewable Tablet] Cholecalciferol [Vitamin D3 (25 50 mcg PO DAILY 04/12/22 04/12/22 Mcg = 1000 Iu)] Clindamycin Phosphate [Cleocin T 1 applic TOPICAL BID 04/12/22 04/12/22 1%] DULoxetine HCL [Cymbalta] 30 mg PO DAILY 04/12/22 04/12/22 Ferrous Sulfate [Iron (65 MG 325 mg PO DAILY 04/12/22 04/12/22 Elemental)] Furosemide [Lasix] 20 mg PO DAILY PRN 04/12/22 04/12/22 Gabapentin 300 mg PO BID 04/12/22 04/12/22 Hydroxychloroquine Sulfate 200 mg PO BID 04/12/22 04/12/22 [Plaquenil] Losartan [Cozaar] 25 mg PO DAILY 04/12/22 04/12/22 Magnesium Oxide [Mag-Ox] 400 mg PO Q7D 04/12/22 04/12/22 Metoprolol Tartrate [Lopressor] 25 mg PO DAILY 04/12/22 04/12/22 Omeprazole 40 mg PO DAILY 04/12/22 04/12/22 Potassium Chloride ER [K-Dur 10] 10 meq PO BID PRN 04/12/22 04/12/22 allopurinoL [Zyloprim] 300 mg PO MOTUWETH 04/12/22 04/12/22 hydrALAZINE HCL [Apresoline] 100 mg PO TID-W/MEALS 04/12/22 04/12/22 Previous Rx's Medication Instructions Recorded Nitroglycerin Sl Tabs [Nitrostat] 0.4 mg SUBLINGUAL Q5M PRN #20 tab 04/14/22 Ondansetron Odt [Zofran Odt] 4 mg PO Q8HR PRN #20 tab 05/17/22 Allergies Allergy/AdvReac Type Severity Reaction Status Date / Time adhesive tape Allergy Rash/Hives Verified 05/17/22 19:34 Steriods IV Allergy Rash/Hives Uncoded 05/17/22 19:34 Review of Systems ROS Statement: Those systems with pertinent positive or pertinent negative responses have been documented in the HPI. ROS Other: All systems not noted in ROS Statement are negative. Past Medical History Past Medical History: Atrial Fibrillation, Cancer, Eye Disorder, GERD/Reflux, Hyperlipidemia, Hypertension, Osteoarthritis (OA), Thyroid Disorder Additional Past Medical History / Comment(s): Recently diagnosed with Afib, slightly "leaky heart valve", shogren's syndrome, anemia, chronic low back pain, DDD, gout bilateral feet/toes, 2017 shingelles, basal cell skin cancer removals, diverticular disease/benign polyps, hypothyroid, bilateral dry eyes. History of Any Multi-Drug Resistant Organisms: None Reported Past Surgical History: Appendectomy, Back Surgery, Section, Cholecystectomy, Hysterectomy, Orthopedic Surgery, Tonsillectomy Additional Past Surgical History / Comment(s): Lumbar and cervical fusions, R foot bunionectomy/metatarsal surgery, skin cancer removals, colonoscopies/benign polypectomy, bilateral cataract removals/lens implants, Past Anesthesia/Blood Transfusion Reactions: Motion Sickness Past Psychological History: Anxiety, Depression Smoking Status: Never smoker Past Alcohol Use History: None Reported Past Drug Use History: None Reported - Past Family History Sister(s) Family Medical History: Cancer Additional Family Medical History / Comment(s): BREAST CANCER Brother(s) Family Medical History: Cancer Additional Family Medical History / Comment(s): LEUKEMIA Mother Family Medical History: Neurologic Disorder Additional Family Medical History / Comment(s): parkinsons, macular degeneration Father Family Medical History: Dementia, Neurologic Disorder Additional Family Medical History / Comment(s): parkinsons General Exam Limitations: no limitations General appearance: alert, in no apparent distress Head exam: Present: atraumatic, normocephalic, normal inspection Eye exam: Present: normal appearance, PERRL Pupils: Present: normal accommodation ENT exam: Present: normal exam, normal oropharynx, mucous membranes moist Neck exam: Present: normal inspection, full ROM Respiratory exam: Present: normal lung sounds bilaterally Cardiovascular Exam: Present: regular rate, normal rhythm, normal heart sounds GI/Abdominal exam: Present: soft, normal bowel sounds Extremities exam: Present: normal inspection, full ROM Back exam: Present: normal inspection, full ROM Neurological exam: Present: alert, oriented X3, CN II-XII intact Psychiatric exam: Present: normal affect, normal mood Skin exam: Present: warm, dry Course Vital Signs 05/17/22 19:12 Temperature 98.1 F Pulse Rate 77 Respiratory 17 Rate Blood Pressure 138/71 O2 Sat by Pulse 97 Oximetry Medical Decision Making - Medical Decision Making Was pt. sent in by a medical professional or institution (CINDY Zhao, SKETCH ARTIST, urgent care, hospital, or long-term...) When possible be specific @ -No Did you speak to anyone other than the patient for history (EMS, parent, family, police, friend...)? What history was obtained from this source @ -Yes, patient's and son Did you review nursing and triage notes (agree or disagree)? Why? @ -I reviewed and agree with nursing and triage notes Were old charts reviewed (outside hosp., previous admission, EMS record, old EKG , old radiological studies, urgent care reports/EKG's, long-term records)? Report findings @ -No old charts were reviewed Differential Diagnosis (chest pain, altered mental status, abdominal pain women, abdominal pain men, vaginal bleeding, weakness, fever, dyspnea, syncope, headache, dizziness, GI bleed, back pain, seizure, CVA, palpatations, mental health)? @ -Acute gastroenteritis, nausea, NOS EKG interpreted by me (3pts min.). @ -None X-rays interpreted by me (1pt min.). @ -None done CT interpreted by me (1pt min.). @ -None done U/S interpreted by me (1pt. min.). @ -None done What testing was considered but not performed or refused? (CT, X-rays, U/S, labs )? Why? @ -CT abdomen and pelvis was considered however the patient did not have any acute abdominal pain or discomfort noted on exam. What meds were considered but not given or refused? Why? @ -None Did you discuss the management of the patient with other professionals (professionals i.e. CINDY Zhao, SKETCH ARTIST, lab, RT, psych nurse, social science teacher, immigration lawyer, teacher, chief fundraising officer, pillowcase turner)? Give summary @ -No Was smoking cessation discussed for >3mins.? @ -No Was critical care preformed (if so, how long)? @ -No Were there social determinants of health that impacted care today? How? (Homelessness, low income, unemployed, alcoholism, drug addiction, transportation, low edu. Level, literacy, decrease access to med. care, retirement, rehab)? @ -No Was there de-escalation of care discussed even if they declined (Discuss DNR or withdrawal of care, Hospice)? DNR status @ -No What co-morbidities impacted this encounter? (DM, HTN, Smoking, COPD, CAD, Cancer, CVA, ARF, Chemo, Hep., AIDS, mental health diagnosis, sleep apnea, morbid obesity)? @ -atrial fibrillation, hypertension Was patient admitted / discharged? Hospital course, mention meds given and route, prescriptions, significant lab abnormalities, going to OR and other pertinent info. @ -The patient was seen and evaluated in emergency department. Physical exam, the patient was resting in bed without any acute distress. The patient only had nausea as her complaint. Vital signs were stable. Laboratory workup was ob tained and was within normal limits. No imaging was needed at this time as the patient denied of any pain or discomfort noted. On reevaluation, after the patient received Zofran and fluids, she stated that she had improvement of her pain and symptoms and was ready to go home. The patient was given a starter pack for Zofran as well as a prescription for Zofran to be taken at home. She was advised to continue to hydrate at home and to report back to the emergency department if her pain or discomfort became acutely worse. The patient was agreeable to this and all other questions were answered appropriately. The patient was discharged home in stable condition with her . Undiagnosed new problem with uncertain prognosis? @ -No Drug Therapy requiring intensive monitoring for toxicity (Heparin, Nitro, Insulin, Cardizem)? @ -No Were any procedures done? @ -No Diagnosis/symptom? @ -Nausea, NOS Acute, or Chronic, or Acute on Chronic? @ -Acute Uncomplicated (without systemic symptoms) or Complicated (systemic symptoms)? @ -Uncomplicated Side effects of treatment? @ -No Exacerbation, Progression, or Severe Exacerbation? @ -No Poses a threat to life or bodily function? How? (Chest pain, [place], [place], pneumonia, PE, COPD, DKA, ARF, appy, cholecystitis, CVA, Diverticulitis, Homicidal, Suicidal, threat to staff... and all critical care pts) @ -No - Lab Data Result diagrams: 05/17/22 19:52 05/17/22 19:52 Lab Results 05/17/22 05/17/22 05/17/22 Range/Units 19:52 19:52 19:52 WBC 6.3 (3.8-10.6) k/uL RBC 4.25 (3.80-5.40) m/uL Hgb 13.3 (11.4-16.0) gm/dL Hct 39.6 (34.0-46.0) % MCV 93.3 (80.0-100.0) fL MCH 31.3 (25.0-35.0) pg MCHC 33.5 (31.0-37.0) g/dL RDW 13.7 (11.5-15.5) % Plt Count 173 (150-450) k/uL MPV 8.5 Neutrophils % 83 % Lymphocytes % 9 % Monocytes % 6 % Eosinophils % 1 % Basophils % 1 % Neutrophils # 5.3 (1.3-7.7) k/uL Lymphocytes # 0.6 L (1.0-4.8) k/uL Monocytes # 0.4 (0-1.0) k/uL Eosinophils # 0.0 (0-0.7) k/uL Basophils # 0.0 (0-0.2) k/uL PT 10.1 (9.0-12.0) sec INR 0.9 (<1.2) APTT 25.2 (22.0-30.0) sec Sodium 138 (137-145) mmol/L Potassium 4.0 (3.5-5.1) mmol/L Chloride 101 (98-107) mmol/L Carbon Dioxide 32 H (22-30) mmol/L Anion Gap 5 mmol/L BUN 19 H (7-17) mg/dL Creatinine 0.71 (0.52-1.04) mg/dL Est GFR (CKD-EPI)AfAm >90 (>60 ml/min/1.73 sqM) Est GFR (CKD-EPI)NonAf 81 (>60 ml/min/1.73 sqM) Glucose 97 (74-99) mg/dL Calcium 9.8 (8.4-10.2) mg/dL Magnesium 2.1 (1.6-2.3) mg/dL Total Bilirubin 0.7 (0.2-1.3) mg/dL AST 46 H (14-36) U/L ALT 41 H (4-34) U/L Alkaline Phosphatase 95 (38-126) U/L Troponin I (0.000-0.034) ng/mL Total Protein 6.3 (6.3-8.2) g/dL Albumin 3.6 (3.5-5.0) g/dL Lipase 35 (23-300) U/L Influenza Type A (PCR) (Not Detectd) Influenza Type B (PCR) (Not Detectd) RSV (PCR) (Not Detectd) SARS-CoV-2 (PCR) (Not Detectd) 05/17/22 05/17/22 Range/Units 19:52 19:52 WBC (3.8-10.6) k/uL RBC (3.80-5.40) m/uL Hgb (11.4-16.0) gm/dL Hct (34.0-46.0) % MCV (80.0-100.0) fL MCH (25.0-35.0) pg MCHC (31.0-37.0) g/dL RDW (11.5-15.5) % Plt Count (150-450) k/uL MPV Neutrophils % % Lymphocytes % % Monocytes % % Eosinophils % % Basophils % % Neutrophils # (1.3-7.7) k/uL Lymphocytes # (1.0-4.8) k/uL Monocytes # (0-1.0) k/uL Eosinophils # (0-0.7) k/uL Basophils # (0-0.2) k/uL PT (9.0-12.0) sec INR (<1.2) APTT (22.0-30.0) sec Sodium (137-145) mmol/L Potassium (3.5-5.1) mmol/L Chloride (98-107) mmol/L Carbon Dioxide (22-30) mmol/L Anion Gap mmol/L BUN (7-17) mg/dL Creatinine (0.52-1.04) mg/dL Est GFR (CKD-EPI)AfAm (>60 ml/min/1.73 sqM) Est GFR (CKD-EPI)NonAf (>60 ml/min/1.73 sqM) Glucose (74-99) mg/dL Calcium (8.4-10.2) mg/dL Magnesium (1.6-2.3) mg/dL Total Bilirubin (0.2-1.3) mg/dL AST (14-36) U/L ALT (4-34) U/L Alkaline Phosphatase (38-126) U/L Troponin I <0.012 (0.000-0.034) ng/mL Total Protein (6.3-8.2) g/dL Albumin (3.5-5.0) g/dL Lipase (23-300) U/L Influenza Type A (PCR) Not Detected (Not Detectd) Influenza Type B (PCR) Not Detected (Not Detectd) RSV (PCR) Not Detected (Not Detectd) SARS-CoV-2 (PCR) Not Detected (Not Detectd) Disposition Clinical Impression: Nausea Disposition: HOME SELF-CARE Condition: Stable Instructions (If sedation given, give patient instructions): Acute Nausea and Vomiting (DC) Prescriptions: Ondansetron Odt [Zofran Odt] 4 mg PO Q8HR PRN #20 tab PRN Reason: Nausea Is patient prescribed a controlled substance at d/c from ED?: No Referrals: Bishop Denise MD [Primary Care Provider] - 1-2 days Time of Disposition: 21:00
== END 2022-05-17 22:43 | disposition home or self-care (01) ==
LOC: EC 18:49
DX: R11.2 Nausea with vomiting, unspecified (principal); I10 Essential (primary) hypertension; F41.9 Anxiety disorder, unspecified; F32.A Depression, unspecified; E78.5 Hyperlipidemia, unspecified; E03.9 Hypothyroidism, unspecified; Z20.822 Contact with and (suspected) exposure to COVID-19; Z88.8 Allergy status to other drugs, medicaments and biological substances; Z90.49 Acquired absence of other specified parts of digestive tract; Z90.89 Acquired absence of other organs; Z90.710 Acquired absence of both cervix and uterus; Z79.82 Long term (current) use of aspirin; Z79.899 Other long term (current) drug therapy; Z79.890 Hormone replacement therapy
CPT/HCPCS: 36415; 80053; 83690; 83735; 84484; 85025; 85610; 85730; 87636; 99284; 96374; 96361; J2405

== ENCOUNTER → 2022-07-31 | Outpatient (CLI) | payer MEDICARE ==
--- NOTE | 2022-08-03 19:30 | MM ---
Reason for Exam: Screening (asymptomatic). Last mammogram was performed 1 year(s) and 2 month(s) ago. Patient History: Menarche at age 15. First Full-Term at age 21. Left ovary removed at age 54. Right ovary removed at age 54. Hysterectomy at age 54. Postmenopausal. Estrogen for 11 years from age 54 until age 65. Sister had breast cancer, age 60. Risk Values: Alina 5 year model risk: 2.8%. NCI Lifetime model risk: 4.0%. Prior Study Comparison: 07/13/2018 Bilateral Screening Mammogram, [facility]. 09/28/2019 Bilateral Screening Mammogram, [facility]. 05/20/2021 Bilateral Screening Mammogram, [facility]. Tissue Density: There are scattered fibroglandular densities. Findings: Analyzed By CAD. Benign bilateral secretory and vascular calcifications. Unchanged loosely grouped coarse calcifications medially right breast at a middle to posterior depth. There is no suspicious group of microcalcifications or new suspicious mass in either breast. Overall Assessment: Benign, BI-RAD 2 Management: Screening Mammogram of both breasts in 1 year. 1. Patient should continue monthly self breast exams. 2. A clinical breast exam by your physician is recommended on an annual basis. 3. This exam should not preclude additional follow-up of suspicious palpable abnormalities. Electronically signed and approved by: Dianna Lee M.D. Radiologist
== END | disposition home or self-care (01) ==
LOC: RADMAMWWP 14:38
PROVIDERS: ATTEND Internal Medicine Geriatric Medicine
DX: Z12.31 Encounter for screening mammogram for malignant neoplasm of breast (principal); Z78.0 Asymptomatic menopausal state; Z80.3 Family history of malignant neoplasm of breast
CPT/HCPCS: 77063; 77067

== ENCOUNTER 2022-08-10 20:24 | Observation (INO) | payer MEDICARE ==
--- NOTE | 2022-08-10 21:18 | ED ---
General Adult HPI - General Stated complaint: AFib, Syncope Time Seen by Provider: 08/10/22 20:30 Source: patient, family, EMS Mode of arrival: EMS Limitations: no limitations - History of Present Illness Initial comments: This an 82-year-old female presents emergency Department chief complaint of syncopal episode. Patient states she is visiting with family sitting down when she probably passed out. Patient does not remember any of this event. She woke up to EMS who arrived to evaluate the patient. Patient had no focal deficits had no complaints after she arouses. Patient states she has been seeing cardiology because of ongoing A. fib and bradycardia. Dr. Mendenhall discuss possible pacemaker though her heart rate improved after discontinuing metoprolol. Patient was found to be in the 40s for heart rate 1 EMS arrival. She denies any palpitations, chest pain, headache, dizziness, no focal weakness denies any nausea vomiting. Patient denies any fever or chills or recent cough or cold like symptoms. Patient denies any other associated symptoms. - Related Data Home Medications Medication Instructions Recorded Confirmed Levothyroxine Sodium [Levoxyl] 88 mcg PO MOTUWETHFRSA 07/22/15 04/12/22 Montelukast [Singulair] 10 mg PO HS 07/22/15 04/12/22 Multivitamins, Thera [Multivitamin 1 tab PO DAILY 07/22/15 04/12/22 (formulary)] amLODIPine [Norvasc] 5 mg PO DAILY 07/22/15 04/12/22 cycloSPORINE [Restasis] 1 drop BOTH EYES BID 07/22/15 04/12/22 Baclofen 10 mg PO TID PRN 07/23/15 04/12/22 traMADol HCl [Ultram] 50 mg PO HS PRN 07/23/15 04/12/22 Albuterol Inhaler [Ventolin Hfa 2 puff INHALATION RT-Q4H PRN 04/12/22 04/12/22 Inhaler] Amiodarone [Cordarone] 200 mg PO DAILY 04/12/22 04/12/22 Apixaban [Eliquis] 5 mg PO BID 04/12/22 04/12/22 Aspirin EC [Ecotrin Low Dose] 81 mg PO DAILY 04/12/22 04/12/22 Atorvastatin [Lipitor] 20 mg PO DAILY 04/12/22 04/12/22 Calcium Carbonate/Vitamin D3 1 - 2 tab PO QID PRN 04/12/22 04/12/22 [Calcium 500 mg Chewable Tablet] Cholecalciferol [Vitamin D3 (25 50 mcg PO DAILY 04/12/22 04/12/22 Mcg = 1000 Iu)] Clindamycin Phosphate [Cleocin T 1 applic TOPICAL BID 04/12/22 04/12/22 1%] DULoxetine HCL [Cymbalta] 30 mg PO DAILY 04/12/22 04/12/22 Ferrous Sulfate [Iron (65 MG 325 mg PO DAILY 04/12/22 04/12/22 Elemental)] Furosemide [Lasix] 20 mg PO DAILY PRN 04/12/22 04/12/22 Gabapentin 300 mg PO BID 04/12/22 04/12/22 Hydroxychloroquine Sulfate 200 mg PO BID 04/12/22 04/12/22 [Plaquenil] Losartan [Cozaar] 25 mg PO DAILY 04/12/22 04/12/22 Magnesium Oxide [Mag-Ox] 400 mg PO Q7D 04/12/22 04/12/22 Metoprolol Tartrate [Lopressor] 25 mg PO DAILY 04/12/22 04/12/22 Omeprazole 40 mg PO DAILY 04/12/22 04/12/22 Potassium Chloride ER [K-Dur 10] 10 meq PO BID PRN 04/12/22 04/12/22 allopurinoL [Zyloprim] 300 mg PO MOTUWETH 04/12/22 04/12/22 hydrALAZINE HCL [Apresoline] 100 mg PO TID-W/MEALS 04/12/22 04/12/22 Previous Rx's Medication Instructions Recorded Nitroglycerin Sl Tabs [Nitrostat] 0.4 mg SUBLINGUAL Q5M PRN #20 tab 04/14/22 Ondansetron Odt [Zofran Odt] 4 mg PO Q8HR PRN #20 tab 05/17/22 Allergies Allergy/AdvReac Type Severity Reaction Status Date / Time adhesive tape Allergy Rash/Hives Verified 08/10/22 21:02 Steriods IV Allergy Rash/Hives Uncoded 08/10/22 21:02 Review of Systems ROS Statement: Those systems with pertinent positive or pertinent negative responses have been documented in the HPI. ROS Other: All systems not noted in ROS Statement are negative. Past Medical History Past Medical History: Atrial Fibrillation, Cancer, Eye Disorder, GERD/Reflux, Hyperlipidemia, Hypertension, Osteoarthritis (OA), Thyroid Disorder Additional Past Medical History / Comment(s): Recently diagnosed with Afib, slightly "leaky heart valve", shogren's syndrome, anemia, chronic low back pain, DDD, gout bilateral feet/toes, 2017 shingelles, basal cell skin cancer removals, diverticular disease/benign polyps, hypothyroid, bilateral dry eyes. History of Any Multi-Drug Resistant Organisms: None Reported Past Surgical History: Appendectomy, Back Surgery, Section, Cholecystectomy, Hysterectomy, Orthopedic Surgery, Tonsillectomy Additional Past Surgical History / Comment(s): Lumbar and cervical fusions, R foot bunionectomy/metatarsal surgery, skin cancer removals, colonoscopies/benign polypectomy, bilateral cataract removals/lens implants, Past Anesthesia/Blood Transfusion Reactions: Motion Sickness Past Psychological History: Anxiety, Depression Smoking Status: Never smoker Past Alcohol Use History: None Reported Past Drug Use History: None Reported - Past Family History Sister(s) Family Medical History: Cancer Additional Family Medical History / Comment(s): BREAST CANCER Brother(s) Family Medical History: Cancer Additional Family Medical History / Comment(s): LEUKEMIA Mother Family Medical History: Neurologic Disorder Additional Family Medical History / Comment(s): parkinsons, macular degeneration Father Family Medical History: Dementia, Neurologic Disorder Additional Family Medical History / Comment(s): parkinsons General Exam Limitations: no limitations General appearance: alert, in no apparent distress Head exam: Present: atraumatic, normocephalic, normal inspection Eye exam: Present: normal appearance, PERRL, EOMI. Absent: scleral icterus, conjunctival injection, periorbital swelling ENT exam: Present: normal exam, normal oropharynx, mucous membranes moist Neck exam: Present: normal inspection, full ROM. Absent: tenderness, meningismus, lymphadenopathy Respiratory exam: Present: normal lung sounds bilaterally. Absent: respiratory distress, wheezes, rales, rhonchi, stridor Cardiovascular Exam: Present: normal rhythm, bradycardia, normal heart sounds. Absent: systolic murmur, diastolic murmur, rubs, gallop, clicks GI/Abdominal exam: Present: soft, normal bowel sounds. Absent: distended, tenderness, guarding, rebound, rigid Neurological exam: Present: alert Skin exam: Present: warm, dry, intact, normal color. Absent: rash Course Vital Signs 08/10/22 08/10/22 08/10/22 20:57 21:00 21:10 Pulse Rate 40 L 49 L 49 L Blood Pressure 127/72 130/69 O2 Sat by Pulse 97 97 96 Oximetry 08/10/22 21:20 Pulse Rate 50 L Blood Pressure 127/65 O2 Sat by Pulse 97 Oximetry EKG Findings - EKG Comments: EKG Findings:: EKG performed at 20:48 bradycardia with a rate of 48 QRS 89 QT/QT c 287/282 - EKG Results: EKG: interpreted by LUKED Medical Decision Making - Medical Decision Making Was pt. sent in by a medical professional or institution (CINDY Zhao, FUR STORAGE CLERK, urgent care, hospital, or prison...) When possible be specific @ -No Did you speak to anyone other than the patient for history (EMS, parent, family, police, friend...)? What history was obtained from this source @ -No Did you review nursing and triage notes (agree or disagree)? Why? @ -I reviewed and agree with nursing and triage notes Were old charts reviewed (outside hosp., previous admission, EMS record, old EKG, old radiological studies, urgent care reports/EKG's, prison records)? Report findings @ -No old charts were reviewed Differential Diagnosis (chest pain, altered mental status, abdominal pain women, abdominal pain men, vaginal bleeding, weakness, fever, dyspnea, syncope, headache, dizziness, GI bleed, back pain, seizure, CVA, palpatations, mental health, musculoskeletal)? @ -Differential Palpitations Ventricular arrhythmias, atrial arrhythmias, myocardial infarction, anemia, thyrotoxicosis, electrolyte imbalance, hypokalemia, pulmonary embolism, pulmonary disease, drugs, alcohol, anxiety, stress.... This is not meant to be an all-inclusive list. EKG interpreted by me (3pts min.). @ -As above X-rays interpreted by me (1pt min.). @ -Chest x-rays unremarkable CT interpreted by me (1pt min.). @ -None done U/S interpreted by me (1pt. min.). @ -None done What testing was considered but not performed or refused? (CT, X-rays, U/S, labs)? Why? @ -None What meds were considered but not given or refused? Why? @ -None Did you discuss the management of the patient with other professionals (professionals i.e. , PA, FUR STORAGE CLERK, lab, RT, psych nurse, criminal justice social worker, tugboat mate, teacher, correction officer supervisor, rn case manager)? Give summary @ -Dr. Luciano accepts admission with cardiology consult. Was smoking cessation discussed for >3mins.? @ -No Was critical care preformed (if so, how long)? @ -No Were there social determinants of health that impacted care today? How? (Home lessness, low income, unemployed, alcoholism, drug addiction, transportation, low edu. Level, literacy, decrease access to med. care, fci, rehab)? @ -No Was there de-escalation of care discussed even if they declined (Discuss DNR or withdrawal of care, Hospice)? DNR status @ -No What co-morbidities impacted this encounter? (DM, HTN, Smoking, COPD, CAD, Cancer, CVA, ARF, Chemo, Hep., AIDS, mental health diagnosis, sleep apnea, morbid obesity)? @ -A. fib Was patient admitted / discharged? Hospital course, mention meds given and route, prescriptions, significant lab abnormalities, going to OR and other pertinent info. @ -Admitted patient has syncopal episode and persistent bradycardia. Patient be admitted for cardiology evaluation as have discussed possible pacemaker. Undiagnosed new problem with uncertain prognosis? @ -No Drug Therapy requiring intensive monitoring for toxicity (Heparin, Nitro, I nsulin, Cardizem)? @ -No Were any procedures done? @ -No Diagnosis/symptom? @ -Syncope, bradycardia Acute, or Chronic, or Acute on Chronic? @ -Acute Uncomplicated (without systemic symptoms) or Complicated (systemic symptoms)? @ -Comp. Side effects of treatment? @ -No Exacerbation, Progression, or Severe Exacerbation? @ -No Poses a threat to life or bodily function? How? (Chest pain, [place], [place], pneumonia, PE, COPD, DKA, ARF, appy, cholecystitis, CVA, Diverticulitis, Homicidal, Suicidal, threat to staff... and all critical care pts) @ -No - Lab Data Result diagrams: 08/10/22 21:17 08/10/22 21:17 Lab Results 0408/10/22 08/10/22 Range/Units 21:17 21:17 21:17 WBC 3.6 L (3.8-10.6) k/uL RBC 3.99 (3.80-5.40) m/uL Hgb 12.5 (11.4-16.0) gm/dL Hct 38.2 (34.0-46.0) % MCV 95.7 (80.0-100.0) fL MCH 31.2 (25.0-35.0) pg MCHC 32.6 (31.0-37.0) g/dL RDW 13.8 (11.5-15.5) % Plt Count 157 (150-450) k/uL MPV 9.2 Neutrophils % 83 % Lymphocytes % 12 % Monocytes % 3 % Eosinophils % 1 % Basophils % 1 % Neutrophils # 3.0 (1.3-7.7) k/uL Lymphocytes # 0.4 L (1.0-4.8) k/uL Monocytes # 0.1 (0-1.0) k/uL Eosinophils # 0.0 (0-0.7) k/uL Basophils # 0.0 (0-0.2) k/uL PT 10.2 (9.0-12.0) sec INR 1.0 (<1.2) APTT 24.7 (22.0-30.0) sec Sodium 140 (137-145) mmol/L Potassium 3.4 L (3.5-5.1) mmol/L Chloride 104 (98-107) mmol/L Carbon Dioxide 29 (22-30) mmol/L Anion Gap 7 mmol/L BUN 23 H (7-17) mg/dL Creatinine 1.03 (0.52-1.04) mg/dL Est GFR (CKD-EPI)AfAm 59 (>60 ml/min/1.73 sqM) Est GFR (CKD-EPI)NonAf 51 (>60 ml/min/1.73 sqM) Glucose 119 H (74-99) mg/dL Calcium 8.7 (8.4-10.2) mg/dL Magnesium 2.0 (1.6-2.3) mg/dL Total Bilirubin 0.4 (0.2-1.3) mg/dL AST 35 (14-36) U/L ALT 26 (4-34) U/L Alkaline Phosphatase 83 (38-126) U/L Troponin I (0.000-0.034) ng/mL Total Protein 6.1 L (6.3-8.2) g/dL Albumin 3.5 (3.5-5.0) g/dL 08/10/22 Range/Units 21:17 WBC (3.8-10.6) k/uL RBC (3.80-5.40) m/uL Hgb (11.4-16.0) gm/dL Hct (34.0-46.0) % MCV (80.0-100.0) fL MCH (25.0-35.0) pg MCHC (31.0-37.0) g/dL RDW (11.5-15.5) % Plt Count (150-450) k/uL MPV Neutrophils % % Lymphocytes % % Monocytes % % Eosinophils % % Basophils % % Neutrophils # (1.3-7.7) k/uL Lymphocytes # (1.0-4.8) k/uL Monocytes # (0-1.0) k/uL Eosinophils # (0-0.7) k/uL Basophils # (0-0.2) k/uL PT (9.0-12.0) sec INR (<1.2) APTT (22.0-30.0) sec Sodium (137-145) mmol/L Potassium (3.5-5.1) mmol/L Chloride (98-107) mmol/L Carbon Dioxide (22-30) mmol/L Anion Gap mmol/L BUN (7-17) mg/dL Creatinine (0.52-1.04) mg/dL Est GFR (CKD-EPI)AfAm (>60 ml/min/1.73 sqM) Est GFR (CKD-EPI)NonAf (>60 ml/min/1.73 sqM) Glucose (74-99) mg/dL Calcium (8.4-10.2) mg/dL Magnesium (1.6-2.3) mg/dL Total Bilirubin (0.2-1.3) mg/dL AST (14-36) U/L ALT (4-34) U/L Alkaline Phosphatase (38-126) U/L Troponin I 0.026 (0.000-0.034) ng/mL Total Protein (6.3-8.2) g/dL Albumin (3.5-5.0) g/dL Disposition Clinical Impression: Syncope, Bradycardia Disposition: ADMITTED IP TO THIS [facility] Condition: Fair Referrals: Bishop Denise MD [Primary Care Provider] - 1-2 days Time of Disposition: 23:01
--- NOTE | 2022-08-10 21:42 | XR ---
EXAMINATION TYPE: XR chest 2V DATE OF EXAM: 08/10/2022 COMPARISON: 04/12/2022 HISTORY: Shortness of breath TECHNIQUE: Frontal and lateral views of the chest are obtained. FINDINGS: Scattered senescent parenchymal changes noted. Hyperinflation compatible with COPD. No evidence for infiltrate. No evidence for atelectasis. Heart size is stable. Mediastinal structures are stable and grossly unremarkable. No evidence for hilar prominence. Degenerative changes dorsal spine. IMPRESSION: 1. No evidence for acute pulmonary disease.
[2022-08-10 21:48] LABS: Basophils % (A) 1 %; Eosinophils % (A) 1 %; HCT 38.2 % (34.0-46.0); HGB 12.5 gm/dL (11.4-16.0); Lymphocytes # (A) 0.4 k/uL (1.0-4.8); Lymphocytes % (A) 12 %; MCH 31.2 pg (25.0-35.0); MCHC 32.6 g/dL (31.0-37.0); MCV 95.7 fL (80.0-100.0); Mean Platelet Volume 9.2; Monocytes # (A) 0.1 k/uL (0-1.0); Monocytes % (A) 3 %; Neutrophils % (A) 83 %; Platelet Count 157 k/uL (150-450); RBC 3.99 m/uL (3.80-5.40); RDW 13.8 % (11.5-15.5); WBC 3.6 k/uL (3.8-10.6)
[2022-08-10 21:57] LABS: Partial Thromboplastin Time 24.7 sec (22.0-30.0); Prothrombin Time 10.2 sec (9.0-12.0)
[2022-08-10 22:03] LABS: Albumin 3.5 g/dL (3.5-5.0); Calcium 8.7 mg/dL (8.4-10.2); Potassium 3.4 mmol/L (3.5-5.1); Total Bilirubin 0.4 mg/dL (0.2-1.3); Total Protein 6.1 g/dL (6.3-8.2)
[2022-08-10] MEDS ORDERED: NITROGLYCERIN SL TABS 0.4 MG TAB SUBLINGUAL PRN (23:23)
[2022-08-11] MEDS ORDERED: traMADol 50 MG TAB PO PRN (01:56)
[2022-08-11] MEDS ORDERED: BACLOFEN 10 MG TAB PO PRN (01:56)
[2022-08-11] MEDS: APIXABAN 5 MG TAB PO SCH ×3 (02:15→20:41)
[2022-08-11] MEDS: hydrALAZINE HCL 50 MG TAB PO SCH ×4 (02:15→17:04)
[2022-08-11] MEDS: GABAPENTIN 300 MG CAP PO SCH ×3 (02:15→20:41)
[2022-08-11] MEDS: cycloSPORINE 0.05% OPHTH 0.4 ML DROPERETTE BOTH EYES SCH ×3 (02:16→20:41)
[2022-08-11] MEDS: MONTELUKAST 10 MG TAB PO SCH ×2 (02:18→20:41)
[2022-08-11] MEDS: PANTOPRAZOLE 40 MG TABLET PO SCH (08:26)
[2022-08-11] MEDS ORDERED: AMIODARONE 200 MG TAB PO SCH (09:00)
[2022-08-11] MEDS ORDERED: POTASSIUM CHLORIDE ER 10 MEQ TAB.ER.PRT PO PRN (09:00)
[2022-08-11] MEDS ORDERED: ALBUTEROL HFA INHALER INHALATION PRN (09:27)
[2022-08-11] MEDS ORDERED: LEVOTHYROXINE 88 MCG TAB PO SCH (09:30)
[2022-08-11] MEDS: amLODIPine 5 MG TAB PO SCH (12:21)
[2022-08-11] MEDS: LOSARTAN 25 MG TAB PO SCH (12:21)
[2022-08-11] MEDS: DULoxetine HCL 30 MG CAPSULE.DR PO SCH (12:21)
--- NOTE | 2022-08-11 13:05 | P.HPIM ---
History of Present Illness H&P Date: 08/11/22 Chief Complaint: Syncope, bradycardia * 82-year-old lady with past medical history significant for atrial fibrillation, history of recurrent syncope with most recent episode in May followed by last episode one day prior to hospitalization when patient had a syncopal episode and collapsed * Patient does not remember their Harini, when patient woke up EMS was there there were no focal deficit Eschen was cognitively intact * Patient has history of atrial fibrillation with episodes of bradycardia and was seen by cardiology previously and discussion of pacemaker was done * Workup in ER included CBC which showed white cell count of 3.6 platelet count within normal limits, PT/INR within normal limits * Basic metabolic panel showed potassium of 3.4 troponin minimally elevated 0.051 followed by 0.031 * TSH 24.2 follow-up blood work ordered Review of Systems REVIEW OF SYSTEMS: Essentially negative except syncope loss of consciousness: CONSTITUTIONAL: No fever, no malaise, no fatigue. HEENT: No recent visual problems or hearing problems. Denied any sore throat. CARDIOVASCULAR: No chest pain, orthopnea, PND, no palpitations, no syncope. PULMONARY: No shortness of breath, no cough, no hemoptysis. GASTROINTESTINAL: No diarrhea, no nausea, no vomiting, no abdominal pain. NEUROLOGICAL: No headaches, no weakness, no numbness. HEMATOLOGICAL: Denies any bleeding or petechiae. GENITOURINARY: Denies any burning micturition, frequency, or urgency. MUSCULOSKELETAL/RHEUMATOLOGICAL: Denies any joint pain, swelling, or any muscle pain. ENDOCRINE: Denies any polyuria or polydipsia. Past Medical History Past Medical History: Atrial Fibrillation, Cancer, Eye Disorder, GERD/Reflux, Hyperlipidemia, Hypertension, Osteoarthritis (OA), Thyroid Disorder Additional Past Medical History / Comment(s): Recently diagnosed with Afib, slightly "leaky heart valve", Shogren's syndrome, anemia, chronic low back pain, DDD, gout bilateral feet/toes, 2017 shingelles, basal cell skin cancer removals, diverticular disease/benign polyps, hypothyroid, bilateral dry eyes History of Any Multi-Drug Resistant Organisms: None Reported Past Surgical History: Appendectomy, Back Surgery, Section, Cholecystectomy, Hysterectomy, Orthopedic Surgery, Tonsillectomy Additional Past Surgical History / Comment(s): Lumbar and cervical fusions, R foot bunionectomy/metatarsal surgery, skin cancer removals, colonoscopies/benign polypectomy, bilateral cataract removals/lens implants. 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 Pt is independent. Smoking Status: Never smoker Past Alcohol Use History: None Reported Additional Past Alcohol Use History / Comment(s): occ glass of wine. Past Drug Use History: None Reported - Past Family History Sister(s) Family Medical History: Cancer Additional Family Medical History / Comment(s): BREAST CANCER Brother(s) Family Medical History: Cancer Additional Family Medical History / Comment(s): LEUKEMIA Mother Family Medical History: Neurologic Disorder Additional Family Medical History / Comment(s): parkinsons, macular degeneration Father Family Medical History: Dementia, Neurologic Disorder Additional Family Medical History / Comment(s): parkinsons Medications and Allergies Home Medications Medication Instructions Recorded Confirmed Type Levothyroxine Sodium [Levoxyl] 88 mcg PO DAILY 07/22/15 08/11/22 History Montelukast [Singulair] 10 mg PO HS 07/22/15 08/11/22 History amLODIPine [Norvasc] 5 mg PO DAILY 07/22/15 08/11/22 History cycloSPORINE [Restasis] 1 drop BOTH EYES BID 07/22/15 08/11/22 History Baclofen 10 mg PO TID PRN 07/23/15 08/11/22 History traMADol HCl [Ultram] 50 mg PO Q6H PRN 07/23/15 08/11/22 History Albuterol Inhaler [Ventolin Hfa 2 puff INHALATION RT-Q4H PRN 04/12/22 08/11/22 History Inhaler] Amiodarone [Cordarone] 200 mg PO DAILY 04/12/22 08/11/22 History Apixaban [Eliquis] 5 mg PO BID 04/12/22 08/11/22 History Atorvastatin [Lipitor] 20 mg PO DAILY 04/12/22 08/11/22 History Clindamycin Phosphate [Cleocin T 1 applic TOPICAL BID 04/12/22 08/11/22 History 1%] DULoxetine HCL [Cymbalta] 30 mg PO DAILY 04/12/22 08/11/22 History Furosemide [Lasix] 20 mg PO DAILY PRN 04/12/22 08/11/22 History Gabapentin 300 mg PO BID 04/12/22 08/11/22 History Hydroxychloroquine Sulfate 200 mg PO BID 04/12/22 08/11/22 History [Plaquenil] Losartan [Cozaar] 25 mg PO DAILY 04/12/22 08/11/22 History Omeprazole 40 mg PO DAILY 04/12/22 08/11/22 History Potassium Chloride ER [K-Dur 10] 10 meq PO DAILY PRN 04/12/22 08/11/22 History allopurinoL [Zyloprim] 300 mg PO DAILY 04/12/22 08/11/22 History hydrALAZINE HCL [Apresoline] 100 mg PO TID-W/MEALS 04/12/22 08/11/22 History Ondansetron Odt [Zofran Odt] 4 mg PO Q8HR PRN 08/11/22 08/11/22 History Allergies Allergy/AdvReac Type Severity Reaction Status Date / Time adhesive tape Allergy Rash/Hives Verified 08/11/22 09:04 Steriods IV Allergy Rash/Hives Uncoded 08/11/22 07:36 Physical Exam Vitals: Vital Signs Temp Pulse Pulse Resp BP BP Pulse Ox 08/11/22 12:00 58 L 16 119/67 95 08/11/22 08:40 97 08/11/22 08:00 98.1 F 65 16 133/60 97 08/11/22 03:58 98.0 F 64 16 143/72 96 08/11/22 02:00 97.8 F 63 16 179/71 96 08/11/22 00:02 64 18 128/98 98 08/10/22 21:20 50 L 127/65 97 08/10/22 21:10 49 L 130/69 96 08/10/22 21:00 49 L 127/72 97 08/10/22 20:57 40 L 97 Intake and Output 08/10/22 08/11/22 08/11/22 22:59 06:59 14:59 Intake Total 20 20 Balance 20 20 Intake: IV 20 20 Invasive Line 1 10 10 Invasive Line 2 10 10 Other: Voiding Method Toilet Toilet # Voids 1 Weight 68.946 kg 71.8 kg PHYSICAL EXAMINATION: Vital reviewed GENERAL: The patient is alert and oriented x3, not in any acute distress. Well developed HEENT: Pupils are round and equally reacting to light. EOMI. No scleral icterus. No conjunctival pallor. Normocephalic, atraumatic. No pharyngeal erythema. CARDIOVASCULAR: S1 and S2 present. Bradycardia present is regular rhythm PULMONARY: Chest is clear to auscultation, no wheezing or Ronchi ABDOMEN: Soft, nontender, nondistended, normoactive bowel sounds. No palpable organomegaly. MUSCULOSKELETAL: No joint swelling or deformity. EXTREMITIES: No cyanosis, clubbing, or pedal edema. NEUROLOGICAL: Gross neurological examination did not reveal any focal deficits. SKIN: No rashes. Results CBC & Chem 7: 08/10/22 21:17 08/10/22 21:17 Labs: Abnormal Lab Results - Last 24 Hours (Table) 08/10/22 08/10/22 08/11/22 Range/Units 21:17 21:17 01:43 WBC 3.6 L (3.8-10.6) k/uL Lymphocytes # 0.4 L (1.0-4.8) k/uL Potassium 3.4 L (3.5-5.1) mmol/L BUN 23 H (7-17) mg/dL Glucose 119 H (74-99) mg/dL Troponin I 0.051 H* (0.000-0.034) ng/mL Total Protein 6.1 L (6.3-8.2) g/dL TSH (0.465-4.680) mIU/L 08/11/22 Range/Units 08:09 WBC (3.8-10.6) k/uL Lymphocytes # (1.0-4.8) k/uL Potassium (3.5-5.1) mmol/L BUN (7-17) mg/dL Glucose (74-99) mg/dL Troponin I (0.000-0.034) ng/mL Total Protein (6.3-8.2) g/dL TSH 24.200 H (0.465-4.680) mIU/L Thrombosis Risk Factor Assmnt - Choose All That Apply Any of the Below Risk Factors Present?: No Other Risk Factors: Yes Each Risk Factor Represents 3 Points: Age 75 years or older Other congenital or acquired thrombophilia - If yes, enter type in comment: No Thrombosis Risk Factor Assessment Total Risk Factor Score: 3 Thrombosis Risk Factor Assessment Level: Moderate Risk Assessment and Plan Assessment: Assessment and plan * Syncopal episode with symptomatic bradycardia * History of atrial fibrillation * Hypothyroidism * Hypokalemia * Hypertension * For syncopal episode cardiology consulted, carotid ultrasound ordered, serial troponins obtained * For hypothyroidism continue Synthyroid follow-up free T4 levels ordered * For hypokalemia potassium replace follow-up ordered * For Atrial fibrillation continual requests not on rate control medications secondary to bradycardia * History of hypertension continue hydralazine, continue losartan * Orthostatic vitals ordered * Care plan discussed with son at bedside, or [facility] * On the request DVT prophylaxis addressed Time with Patient: Greater than 30
[2022-08-11 14:03] LABS: T4, Free (Free Thyroxine) 1.61 ng/dL (0.78-2.19)
--- NOTE | 2022-08-11 14:32 | US ---
EXAMINATION TYPE: US carotid duplex BILAT DATE OF EXAM: 08/11/2022 COMPARISON: NONE CLINICAL HISTORY: syncope. Syncope. Hx hypertension, hyperlipidemia. TECHNIQUE: Carotid duplex ultrasound examination. Indirect Doppler criteria was utilized. FINDINGS: EXAM MEASUREMENTS: RIGHT: Peak Systolic Velocity (PSV) cm/sec ----- Right CCA: 122.1 ----- Right ICA: 149.6 ----- Right ECA: 145.0 ICA/CCA ratio: 1.2 RIGHT: End Diastole cm/sec ----- Right CCA: 17.1 ----- Right ICA: 46.2 ----- Right ECA: 0.0 LEFT: Peak Systolic Velocity (PSV) cm/sec ----- Left CCA: 106.0 ----- Left ICA: 123.0 ----- Left ECA: 123.0 ICA/CCA ratio: 1.2 LEFT: End Diastole cm/sec ----- Left CCA: 15.9 ----- Left ICA: 22.7 ----- Left ECA: 6.7 VERTEBRALS (direction of flow): Right Vertebral: Antegrade Left Vertebral: Antegrade Rhythm: Normal AUTOMOTIVE GENERATOR REPAIRER NOTES: Plaque seen within bilateral bulbs. Elevated velocity within right ICA and right E CA. Hypoechoic area seen within right neck at the submandibular area: 0.8 x 0.9 x 0.8 cm. IMPRESSION: 1. 50-69% stenosis of the right carotid bifurcation by peak systolic velocity. 2. Less than 50% stenosis of the left carotid bifurcation. 3. Right neck round hypoechoic lesion which could represent lymph node. Given its round morphology a CT neck with IV contrast may be of benefit for complete evaluation of the neck. Criteria for Assigning % of Stenosis / Diameter reduction (Estimation based on the indirect measurements of the internal carotid artery velocities (ICA PSV). 1. Normal (no stenosis)=ICA PSV < 125 cm/s: ratio < 2.0: ICA EDV<40 cm/s. 2. Less than 50% stenosis=ICA PSV < 125 cm/s: ratio < 2.0: ICA EDV<40 cm/s. 3. 50 to 69% stenosis=ICA PSV of 125 to 230 cm/s: ration 2.0 ? 4.0: ICA EDV 40-100 cm/s. 4. Greater than 70% stenosis to near occlusion= ICA PSV > 230 cm/s: ratio > 4.0: ICA EDV > 100 cm/s. 5. Near occlusion= ICA PSV velocities may be low or undetectable: variable ratio and ICA EDV. 6. Total occlusion=unable to detect flow.
[2022-08-11 15:56] LABS: Chol/HDL Ratio 3.26 Ratio; LDL Cholesterol,Calculated 41.1 mg/dL (0.0-131.0)
--- NOTE | 2022-08-11 16:05 | CONS ---
CONSULTATION HISTORY OF PRESENT ILLNESS: This is an 82-year-old lady with a history of hypertension, hyperlipidemia, and paroxysmal atrial fibrillation, who has been in sinus rhythm on amiodarone. She came into the hospital after an episode of syncope. She was visiting with family, sitting down when she suddenly passed out, and next thing she remembers is waking up with EMS around her. She has on the EKG sinus rhythm with first-degree heart block. When she came in, her heart rate was in the 40s, sinus mechanism with a long AK interval. In the office, I had seen her a few weeks ago, and she stopped the metoprolol, and the heart rate improved very nicely, but I left her on a small dose of amiodarone. It is possible that her syncope is related to bradycardia. EKG reveals first-degree heart block with mild QRS widening, but no other acute changes. She is doing well, has no chest pain or shortness of breath. Her thyroid function tests are still pending. She is resting comfortably without symptoms. On questioning, she indicates to me that she had another episode of fall, but she thought it was more of a mechanical fall a few weeks ago, and this episode occurred yesterday that brought her to the hospital. Her last stress test was in April, revealed good myocardial perfusion function. Echo revealed good systolic function. The echo was performed a couple of years ago. She is resting comfortably without symptoms. PAST MEDICAL HISTORY: 1. Hypertension. 2. Hyperlipidemia. 3. Hypothyroidism. 4. Paroxysmal atrial fibrillation, in sinus rhythm on Eliquis. 5. Probable sick sinus syndrome. PHYSICAL EXAMINATION: VITAL SIGNS: Blood pressure is 118/70, pulse rate is 58 per minute. HEENT: Unremarkable. Fundus was not examined by me. NECK: Supple. There is no JVD. I do not hear a carotid bruit. HEART: Reveals S1 and S2 heard normally. No rub, murmur, or gallop. LUNGS: Clear. ABDOMEN: Soft and nontender. EXTREMITIES: Lower extremities reveal normal pulses. No edema. CENTRAL NERVOUS SYSTEM: Normal. IMPRESSION: 1. Syncope, probably related to bradycardia in a patient with probable underlying sick sinus syndrome. 2. Paroxysmal atrial fibrillation, in sinus rhythm. 3. Hypertension. 4. Hyperlipidemia. RECOMMENDATIONS: I am recommending that we discontinue amiodarone, resume all her other medications, check thyroid functions level. She is on Synthroid 88 mcg daily. We will monitor her for at least 24 hours and then consider doing an event monitor. I suspect she will have the effect of amiodarone in her system for quite some time. However, if she continues to have bradycardia in spite of being off amiodarone for more than 2 to 3 weeks, I will then consider a pacemaker. I explained this to the patient and family. We will continue telemetry, check thyroid function test, and based on clinical course, we will make further recommendations. Thank you very much for the consult. ELGIN / JOSÉ MIGUEL: [id number] /
[2022-08-11] MEDS: POTASSIUM CHLORIDE ER 10 MEQ TAB.ER.PRT PO SCH ×2 (17:04→20:41)
[2022-08-11] MEDS ORDERED: DOCUSATE 100 MG CAP PO PRN (20:14)
[2022-08-11] MEDS ORDERED: polyethylene glycoL 3350 17 GM POWD.PACK PO PRN (20:15)
[2022-08-12 05:58] VITALS: RESP 16; TEMP 98.1
[2022-08-12] MEDS: hydrALAZINE HCL 50 MG TAB PO SCH ×2 (06:28→12:29)
[2022-08-12] MEDS ORDERED: LEVOTHYROXINE 100 MCG TAB PO SCH (06:30)
[2022-08-12] MEDS: amLODIPine 5 MG TAB PO SCH (08:35)
[2022-08-12] MEDS: APIXABAN 5 MG TAB PO SCH (08:35)
[2022-08-12] MEDS: DULoxetine HCL 30 MG CAPSULE.DR PO SCH (08:35)
[2022-08-12] MEDS: cycloSPORINE 0.05% OPHTH 0.4 ML DROPERETTE BOTH EYES SCH (08:35)
[2022-08-12] MEDS: PANTOPRAZOLE 40 MG TABLET PO SCH (08:36)
[2022-08-12] MEDS: POTASSIUM CHLORIDE ER 10 MEQ TAB.ER.PRT PO SCH (08:36)
[2022-08-12] MEDS: GABAPENTIN 300 MG CAP PO SCH (08:36)
[2022-08-12] MEDS: LOSARTAN 25 MG TAB PO SCH (08:36)
[2022-08-12 08:40] VITALS: PULSE 68
[2022-08-12] MEDS ORDERED: ATORVASTATIN 20 MG TAB PO SCH (09:00)
[2022-08-12 11:24] LABS: HCT 35.1 % (34.0-46.0); HGB 11.5 gm/dL (11.4-16.0); MCH 31.5 pg (25.0-35.0); MCHC 32.8 g/dL (31.0-37.0); MCV 95.9 fL (80.0-100.0); Mean Platelet Volume 9.2; Platelet Count 131 k/uL (150-450); RBC 3.66 m/uL (3.80-5.40); RDW 13.9 % (11.5-15.5); WBC 2.9 k/uL (3.8-10.6)
[2022-08-12 11:56] LABS: African American GFR (CKD) >90 (>60 ml/min/1.73 sqM); Anion Gap 6 mmol/L; Blood Urea Nitrogen 13 mg/dL (7-17); Calcium 8.7 mg/dL (8.4-10.2); Carbon Dioxide 29 mmol/L (22-30); Chloride 104 mmol/L (98-107); Glucose 91 mg/dL (74-99); Magnesium 1.9 mg/dL (1.6-2.3); Non-African American GFR(CKD) 80 (>60 ml/min/1.73 sqM); Sodium 139 mmol/L (137-145)
[2022-08-12 12:31] VITALS: BP 147/72
[2022-08-12] MEDS ORDERED: POTASSIUM CHLORIDE ER 20 MEQ TAB.ER PO STA (12:54)
--- NOTE | 2022-08-12 12:57 | P.PN ---
Subjective Progress Note Date: 08/12/22 History of present illness: This is an 82-year-old female patient of Dr. Mendenhall with past history of hypert ension, hyperlipidemia, paroxysmal atrial fibrillation on amiodarone in sinus rhythm. Patient presented with episode of syncope. She is seen today in follow-up. Telemetry is sinus rhythm with first-degree block mostly running in the 60s, blood pressure 100/55. Amiodarone has been discontinued. Plan is for event monitor at discharge 2 weeks while patient is off amiodarone and then would consider pacemaker if indicated. Repeat blood work reveals WBC 2.9, hemoglobin 0.5. Platelet count 131. Potassium 3.0. Carotid ultrasound revealed 50-69% stenosis of the right carotid bifurcation a peak systolic velocity. Less than 50% stenosis of the left carotid bifurcation. Right neck around hypo-echoic lesion which could represent lymph node. Physical examination: Gen: This is a [ ] VS: reviewed HEENT: Head is atraumatic, normocephalic. Pupils equal, round. Sclerae is anicteric. NECK: Supple. No JVD. . LUNGS: Clear to auscultation. No wheezes or rhonchi. No intercostal retractions. HEART: Regular rate and rhythm. No murmur. ABDOMEN: Soft No tenderness. EXTREMITIES: No pedal edema. No calf tenderness. NEUROLOGICAL: Patient is awake, alert and oriented x3. Assessment: Syncope probably related to bradycardia, possible underlying sick sinus syndrome Paroxysmal atrial fibrillation in sinus rhythm Hypertension Hyperlipidemia Carotid stenosismedical management Plan: Continue current medications, discontinue amiodarone Event monitor to be obtained prior to discharge either through the hospital or the office Follow-up in the office in 2-3 weeks Nurse practitioner note has been reviewed, I agree with documented findings and plan of care. Patient was seen and examined. Objective - Vital Signs Vital signs: Vital Signs Temp 98.1 F 08/12/22 04:00 Pulse 68 08/12/22 08:00 Resp 16 08/12/22 08:00 BP 100/55 08/12/22 08:00 Pulse Ox 96 08/12/22 08:00 FiO2 Intake & Output 08/11/22 08/12/22 08/12/22 18:59 06:59 18:59 Intake Total 20 20 240 Balance 20 20 240 Intake: IV 20 20 Invasive Line 1 10 10 Invasive Line 2 10 10 Oral 240 Other: Voiding Method Toilet Toilet # Voids 1 1 - Labs CBC & Chem 7: 08/12/22 10:13 08/12/22 10:13 Labs: Abnormal Lab Results - Last 24 Hours (Table) 08/11/22 08/11/22 Range/Units 08:09 08:09 HDL Cholesterol 30.10 L (40.00-60.00) mg/dL TSH 24.200 H (0.465-4.680) mIU/L
--- NOTE | 2022-08-12 13:25 | CT ---
EXAMINATION TYPE: CT angio neck CT DLP: 327.9 mGycm, Automated exposure control for dose reduction was used. DATE OF EXAM: 08/12/2022 11:53 AM COMPARISON: Prior ultrasound 08/11/2022. CLINICAL INDICATION:Female, 82 years old with history of Carotid stenosis, lymphadenopathy, stenosis TECHNIQUE: Axially acquired helical CT angiogram of the neck was obtained with contrast. Axial images are supplemented with 3D reconstructions which were post-processed at an independent workstation. NA SCET criteria used. Contrast used:65 mL of Isovue 370 with IV Contrast, Oral contrast used: None. FINDINGS: CTA NECK: Right Carotid System: The common carotid and external carotid arteries are patent. There is approximately 25% stenosis at t he carotid bifurcation secondary to calcified/noncalcified plaquing. The rest of the internal carotid artery is patent. Left Carotid System: The common carotid and external carotid arteries are patent. There is approximately 25% stenosis at t he carotid bifurcation secondary to calcified/noncalcified plaquing. The rest of the internal carotid artery is patent. Vertebral arteries are patent without evidence hemodynamically significant stenosis. There is a three-vessel aortic arch. The origins of the great vessels are patent. No evidence of hemo dynamically significant stenosis. 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 IMPRESSION: 1. No evidence of dissection of the cervical internal carotid arteries or vertebral arteries. 2. 25% stenosis of the bilateral carotid bifurcations, note that this is discordant with prior ultras ound findings suggesting technically areas on prior ultrasound.
--- NOTE | 2022-08-12 13:28 | P.DS ---
Providers Date of admission: 08/10/22 23:24 Expected date of discharge: 08/12/22 Attending physician: Beth Luciano Consults: 08/10/22 23:23 Consult Physician Urgent Consulting Provider: Leroy Mendenhall Consult Reason/Comments: Syncope, bradycardia Do you want consulting provider notified?: Yes Primary care physician: [facility] Course: * 82-year-old lady with past medical history significant for atrial fibrillation, history of recurrent syncope with most recent episode in May followed by last episode one day prior to hospitalization when patient had a syncopal episode and collapsed * Patient does not remember their Harini, when patient woke up EMS was there there were no focal deficit Eschen was cognitively intact * Patient has history of atrial fibrillation with episodes of bradycardia and was seen by cardiology previously and discussion of pacemaker was done * Workup in ER included CBC which showed white cell count of 3.6 platelet count within normal limits, PT/INR within normal limits * Basic metabolic panel showed potassium of 3.4 troponin minimally elevated 0.051 followed by 0.031 * TSH 24.2 follow-up blood work ordered showed free T4 within normal limits * Serial troponins obtained which were normal * Patient was noted to have hypokalemia which was corrected and replaced prior to today's * Patient seen by cardiology and cleared for discharge with outpatient monitor * Discontinued amiodarone PHYSICAL EXAMINATION: Vital reviewed GENERAL: The patient is alert and oriented x3, not in any acute distress. Well developed HEENT: Pupils are round and equally reacting to light. EOMI. No scleral icterus. No conjunctival pallor. Normocephalic, atraumatic. No pharyngeal erythema. CARDIOVASCULAR: S1 and S2 present. No murmurs, Edema not present PULMONARY: Chest is clear to auscultation, no wheezing or Ronchi ABDOMEN: Soft, nontender, nondistended, normoactive bowel sounds. No palpable organomegaly. MUSCULOSKELETAL: No joint swelling or deformity. EXTREMITIES: No cyanosis, clubbing, or pedal edema. NEUROLOGICAL: Gross neurological examination did not reveal any focal deficits. SKIN: No rashes. Assessment and plan Syncopal episode with symptomatic bradycardia History of atrial fibrillation Hypothyroidism Hypokalemia treated Hypertension * For syncopal episode cardiology consulted, carotid ultrasound showed 50-69% stenosis, lymph node was noted in CT neck was completed prior to discharge outpatient follow-up with PCP, serial troponins obtained negative * For hypothyroidism continue Synthyroid follow-up free T4 levels normal * For hypokalemia potassium replaced For Atrial fibrillation continual requests not on rate control medications secondary to bradycardia, amiodarone discontinue History of hypertension continue hydralazine, continue losartan Orthostatic vitals negative Patient Condition at Discharge: Fair Plan - Discharge Summary Discharge Rx Participant: No New Discharge Prescriptions: New Potassium Chloride ER [K-Dur 10] 10 meq PO DAILY PRN 30 Days #30 tab PRN Reason: See Comments Continue cycloSPORINE [Restasis] 1 drop BOTH EYES BID amLODIPine [Norvasc] 5 mg PO DAILY Montelukast [Singulair] 10 mg PO HS Levothyroxine Sodium [Levoxyl] 88 mcg PO DAILY traMADol HCl [Ultram] 50 mg PO Q6H PRN PRN Reason: Pain Baclofen 10 mg PO TID PRN PRN Reason: Muscle Spasm Apixaban [Eliquis] 5 mg PO BID DULoxetine HCL [Cymbalta] 30 mg PO DAILY allopurinoL [Zyloprim] 300 mg PO DAILY Gabapentin 300 mg PO BID Losartan [Cozaar] 25 mg PO DAILY Hydroxychloroquine Sulfate [Plaquenil] 200 mg PO BID Ondansetron Odt [Zofran ODT] 4 mg PO Q8HR PRN PRN Reason: Nausea Albuterol Inhaler [Ventolin Hfa Inhaler] 2 puff INHALATION RT-Q4H PRN PRN Reason: Shortness Of Breath Omeprazole 40 mg PO DAILY hydrALAZINE HCL [Apresoline] 100 mg PO TID-W/MEALS Furosemide [Lasix] 20 mg PO DAILY PRN PRN Reason: Edema Atorvastatin [Lipitor] 20 mg PO DAILY Clindamycin Phosphate [Cleocin T 1%] 1 applic TOPICAL BID Discontinued Amiodarone [Cordarone] 200 mg PO DAILY Potassium Chloride ER [K-Dur 10] 10 meq PO DAILY PRN PRN Reason: w/Lasix Discharge Medication List Levothyroxine Sodium [Levoxyl] 88 mcg PO DAILY 07/22/15 [History] Montelukast [Singulair] 10 mg PO HS 07/22/15 [History] amLODIPine [Norvasc] 5 mg PO DAILY 07/22/15 [History] cycloSPORINE [Restasis] 1 drop BOTH EYES BID 07/22/15 [History] Baclofen 10 mg PO TID PRN 07/23/15 [History] traMADol HCl [Ultram] 50 mg PO Q6H PRN 07/23/15 [History] Albuterol Inhaler [Ventolin Hfa Inhaler] 2 puff INHALATION RT-Q4H PRN 04/12/22 [History] Apixaban [Eliquis] 5 mg PO BID 04/12/22 [History] Atorvastatin [Lipitor] 20 mg PO DAILY 04/12/22 [History] Clindamycin Phosphate [Cleocin T 1%] 1 applic TOPICAL BID 04/12/22 [History] DULoxetine HCL [Cymbalta] 30 mg PO DAILY 04/12/22 [History] Furosemide [Lasix] 20 mg PO DAILY PRN 04/12/22 [History] Gabapentin 300 mg PO BID 04/12/22 [History] Hydroxychloroquine Sulfate [Plaquenil] 200 mg PO BID 04/12/22 [History] Losartan [Cozaar] 25 mg PO DAILY 04/12/22 [History] Omeprazole 40 mg PO DAILY 04/12/22 [History] allopurinoL [Zyloprim] 300 mg PO DAILY 04/12/22 [History] hydrALAZINE HCL [Apresoline] 100 mg PO TID-W/MEALS 04/12/22 [History] Ondansetron Odt [Zofran ODT] 4 mg PO Q8HR PRN 08/11/22 [History] Potassium Chloride ER [K-Dur 10] 10 meq PO DAILY PRN 30 Days #30 tab 08/12/22 [Rx] Follow up Appointment(s)/Referral(s): Leroy Mendenhall MD [STAFF PHYSICIAN] - 1 Week Bishop Denise MD [Primary Care Provider] - 1-2 days Activity/Diet/Wound Care/Special Instructions: Follow-up with cardiology post discharge Continue cardiac diet Continue potassium supplementation, follow low potassium level Discharge Disposition: HOME SELF-CARE
--- NOTE | 2022-08-31 11:23 | EM ---
EVENT MONITOR The patient was monitored between the and August. Baseline rhythm is a sinus mechanism. The patient had episode of nonsustained ventricular tachycardia, then had an episode of sustained ventricular tachycardia/ventricular fibrillation occurring on the 20 of August at 2:52 a.m. and had another episode at 3:13 a.m. ELGIN / JOSÉ MIGUEL: [id number] /
== END 2022-08-12 15:10 | disposition home or self-care (01) ==
LOC: EC 20:24 → INTOOBSV 23:24 → 3SCARD 23:24 → UNDODISIN 08-12 15:10
PROVIDERS: ADMIT Internal Medicine; ATTEND Internal Medicine
DX: R55 Syncope and collapse (principal); R00.1 Bradycardia, unspecified; I48.0 Paroxysmal atrial fibrillation; K21.9 Gastro-esophageal reflux disease without esophagitis; E78.5 Hyperlipidemia, unspecified; I10 Essential (primary) hypertension; G89.29 Other chronic pain; M54.9 Dorsalgia, unspecified; M10.9 Gout, unspecified; E03.9 Hypothyroidism, unspecified; F41.9 Anxiety disorder, unspecified; F32.A Depression, unspecified; E87.6 Hypokalemia; I65.23 Occlusion and stenosis of bilateral carotid arteries; Z85.828 Personal history of other malignant neoplasm of skin; Z79.890 Hormone replacement therapy; Z79.899 Other long term (current) drug therapy; Z79.01 Long term (current) use of anticoagulants; Z79.82 Long term (current) use of aspirin
CPT/HCPCS: 36415; 70498; 71046; 80048; 80053; 80061; 83735; 84439; 84443; 84484; 85025; 85027; 85610; 85730; 93005; 93270; 93880; 94760; 99285

== ENCOUNTER 2022-08-20 04:52 | Inpatient (IN) | payer MEDICARE ==
[2022-08-20] MEDS ORDERED: SODIUM CHLORIDE 0.9% 500 ML 500 ML IV STA (05:12)
[2022-08-20] MEDS ORDERED: ASPIRIN 81 MG PO STA (05:12)
[2022-08-20 05:44] LABS: Albumin 3.2 g/dL (3.5-5.0); Calcium 8.7 mg/dL (8.4-10.2); Magnesium 2.5 mg/dL (1.6-2.3); Potassium 4.3 mmol/L (3.5-5.1); Total Bilirubin 0.6 mg/dL (0.2-1.3); Total Protein 5.8 g/dL (6.3-8.2)
--- NOTE | 2022-08-20 05:46 | XR ---
EXAMINATION TYPE: XR chest 2V DATE OF EXAM: 08/20/2022 COMPARISON: Chest x-ray August 10, 2022 HISTORY: Chest pain. TECHNIQUE: Frontal and lateral views of the chest are obtained. FINDINGS: There is no focal air space opacity, pleural effusion, or pneumothorax seen. The cardiac silhouette size is stable and mildly enlarged. The osseous structures are intact. IMPRESSION: Mild Cardiomegaly without acute pulmonary process. No significant change from prior
[2022-08-20 05:54] LABS: Partial Thromboplastin Time 25.9 sec (22.0-30.0); Prothrombin Time 10.7 sec (9.0-12.0)
--- NOTE | 2022-08-20 06:00 | ED ---
General Adult HPI - General Chief complaint: Arrhythmia/Palpitations Stated complaint: heart monitor/pcp request Time Seen by Provider: 08/20/22 04:54 Source: patient, RN notes reviewed, old records reviewed Mode of arrival: wheelchair Limitations: no limitations - History of Present Illness Initial comments: Patient is an 82-year-old female who was sent in by [employer] as well as her poultry dressing worker for evaluation. She has a history of A. fib on blood thinners, hypertension, hyperlipidemia was discharged home last week on a portable nuclear monitoring technician following a syncopal episode. There is concern for possible sick sinus syndrome and reviewed the charts. Apparently the portal nuclear monitoring technician did alert [employer] that the patient was having a short run of Vtach according to my charge nurse who spoke directly with Dr. Steward. Patient was sent in here for cardiac workup and admission to 3 [facility]. to be evaluated by cardiology. Patient states she has had no acute complaints. Denies any recent chest pain, shortness breath, nausea, vomiting, abdominal pain. Denies any weakness. His no other acute complaints at this time. Presents for further evaluation at this time after being told to come in due to findings on her nuclear monitoring technician. - Related Data Home Medications Medication Instructions Recorded Confirmed Levothyroxine Sodium [Levoxyl] 88 mcg PO DAILY 07/22/15 08/20/22 Montelukast [Singulair] 10 mg PO HS 07/22/15 08/20/22 amLODIPine [Norvasc] 5 mg PO DAILY 07/22/15 08/20/22 cycloSPORINE [Restasis] 1 drop BOTH EYES BID 07/22/15 08/20/22 Baclofen 10 mg PO TID PRN 07/23/15 08/20/22 traMADol HCl [Ultram] 50 mg PO Q6H PRN 07/23/15 08/20/22 Albuterol Inhaler [Ventolin Hfa 2 puff INHALATION RT-Q4H PRN 04/12/22 08/20/22 Inhaler] Apixaban [Eliquis] 5 mg PO BID 04/12/22 08/20/22 Atorvastatin [Lipitor] 20 mg PO DAILY 04/12/22 08/20/22 Clindamycin Phosphate [Cleocin T 1 applic TOPICAL BID 04/12/22 08/20/22 1%] DULoxetine HCL [Cymbalta] 30 mg PO DAILY 04/12/22 08/20/22 Furosemide [Lasix] 20 mg PO DAILY PRN 04/12/22 08/20/22 Gabapentin 300 mg PO BID 04/12/22 08/20/22 Hydroxychloroquine Sulfate 200 mg PO BID 04/12/22 08/20/22 [Plaquenil] Losartan [Cozaar] 25 mg PO DAILY 04/12/22 08/20/22 Omeprazole 40 mg PO DAILY 04/12/22 08/20/22 allopurinoL [Zyloprim] 300 mg PO DAILY 04/12/22 08/20/22 hydrALAZINE HCL [Apresoline] 100 mg PO TID-W/MEALS 04/12/22 08/20/22 Ondansetron Odt [Zofran ODT] 4 mg PO Q8HR PRN 08/11/22 08/20/22 Potassium Chloride ER [K-Dur 10] 20 meq PO BID 08/20/22 08/20/22 Allergies Allergy/AdvReac Type Severity Reaction Status Date / Time adhesive tape Allergy Rash/Hives Verified 08/20/22 07:19 Steriods IV Allergy Rash/Hives Uncoded 08/20/22 07:19 Review of Systems ROS Statement: Those systems with pertinent positive or pertinent negative responses have been documented in the HPI. Review of Systems: CONST: Denies fever EYES: Denies blurry vision ENT: Denies nasal congestion C/V: Denies Chest pain RESP: Denies shortness of breath GI: Denies abdominal pain : Denies dysuria SKIN: Denies rash. MSK: Denies joint pain. NEURO: Denies headache ROS Other: All systems not noted in ROS Statement are negative. Past Medical History Past Medical History: Atrial Fibrillation, Cancer, Eye Disorder, GERD/Reflux, Hyperlipidemia, Hypertension, Osteoarthritis (OA), Thyroid Disorder Additional Past Medical History / Comment(s): Recently diagnosed with Afib, slightly "leaky heart valve", Shogren's syndrome, anemia, chronic low back pain, DDD, gout bilateral feet/toes, 2017 shingelles, basal cell skin cancer removals, diverticular disease/benign polyps, hypothyroid, bilateral dry eyes History of Any Multi-Drug Resistant Organisms: None Reported Past Surgical History: Appendectomy, Back Surgery, Section, Cholecystectomy, Hysterectomy, Orthopedic Surgery, Tonsillectomy Additional Past Surgical History / Comment(s): Lumbar and cervical fusions, R foot bunionectomy/metatarsal surgery, skin cancer removals, colonoscopies/benign polypectomy, bilateral cataract removals/lens implants. Past Anesthesia/Blood Transfusion Reactions: No Reported Reaction Past Psychological History: Anxiety, Depression Smoking Status: Never smoker Past Alcohol Use History: None Reported Past Drug Use History: None Reported - Past Family History Sister(s) Family Medical History: Cancer Additional Family Medical History / Comment(s): BREAST CANCER Brother(s) Family Medical History: Cancer Additional Family Medical History / Comment(s): LEUKEMIA Mother Family Medical History: Neurologic Disorder Additional Family Medical History / Comment(s): parkinsons, macular degeneration Father Family Medical History: Dementia, Neurologic Disorder Additional Family Medical History / Comment(s): parkinsons General Exam - General Exam Comments Initial Comments: General: Appears in no acute distress. HEAD: Normal with no signs of head trauma. EYES: PERRLA, EOMI, conjunctiva normal, no discharge. ENT: Hearing grossly intact, normal oropharynx. RESPIRATORY: Clear breath sounds bilaterally. No wheezes, rales, or rhonchi. C/V: Bradycardia. S1 and S2 auscultated, no edema, peripheral pulses 2+ and intact throughout ABD: Abd is soft, nontender, nondistended EXT: Normal range of motion, no obvious deformity SKIN: No rashes or lesions observed on exposed skin. NEURO: Alert and oriented x 4. Limitations: no limitations Course Vital Signs 08/20/22 08/20/22 08/20/22 04:56 05:21 05:23 Temperature 98.2 F Pulse Rate 52 L 51 L Pulse Rate [ 51 L [employer] ] Respiratory 18 18 Rate Blood Pressure 107/56 142/64 O2 Sat by Pulse 98 93 L Oximetry 08/20/22 06:00 Temperature Pulse Rate 59 L Pulse Rate [ [employer] ] Respiratory 16 Rate Blood Pressure 136/63 O2 Sat by Pulse 93 L Oximetry Medical Decision Making - Medical Decision Making Was pt. sent in by a medical professional or institution (, PA, DELINQUENT ACCOUNT CLERK, urgent care, hospital, or shelter...) When possible be specific @ -Sent in by [facility] as well as her poultry dressing worker over concern for a run of ventricular tachycardia Did you speak to anyone other than the patient for history (EMS, parent, family, police, friend...)? What history was obtained from this source @ -No Did you review nursing and triage notes (agree or disagree)? Why? @ -I reviewed and agree with nursing and triage notes Were old charts reviewed (outside hosp., previous admission, EMS record, old EKG, old radiological studies, urgent care reports/EKG's, shelter records)? Report findings @ -Yes, reviewed charts from most recent visit in August 2022 Differential Diagnosis (chest pain, altered mental status, abdominal pain women, abdominal pain men, vaginal bleeding, weakness, fever, dyspnea, syncope, headache, dizziness, GI bleed, back pain, seizure, CVA, palpatations, mental health, musculoskeletal)? @ -Arrhythmia, electrolyte abnormality, ACS. This list is not all inclusive. EKG interpreted by me (3pts min.). @ -As above X-rays interpreted by me (1pt min.). @ -Chest x-ray reveals no obvious acute cardiopulmonary process. CT interpreted by me (1pt min.). @ -None done U/S interpreted by me (1pt. min.). @ -None done What testing was considered but not performed or refused? (CT, X-rays, U/S, labs)? Why? @ -None What meds were considered but not given or refused? Why? @ -None Did you discuss the management of the patient with other professionals (professionals i.e. , PA, DELINQUENT ACCOUNT CLERK, lab, RT, psych nurse, social work instructor, refrigeration lead, teacher, driver license reviewing officer, behavioral health case manager)? Give summary @ -Discussed the case with Dr. elise who accepted the patient. Was smoking cessation discussed for >3mins.? @ -No Was critical care preformed (if so, how long)? @ -No Were there social determinants of health that impacted care today? How? (Homelessness, low income, unemployed, alcoholism, drug addiction, tra nsportation, low edu. Level, literacy, decrease access to med. care, shelter, rehab)? @ -No Was there de-escalation of care discussed even if they declined (Discuss DNR or withdrawal of care, Hospice)? DNR status @ -No What co-morbidities impacted this encounter? (DM, HTN, Smoking, COPD, CAD, Cancer, CVA, ARF, Chemo, Hep., AIDS, mental health diagnosis, sleep apnea, morbid obesity)? @ -History of atrial fibrillation. Was patient admitted / discharged? Hospital course, mention meds given and route, prescriptions, significant lab abnormalities, going to OR and other pertinent info. @ -Based on patient's presentation and physical exam, she presents for admission for a patient by cardiology after her nuclear monitoring technician showed [address] Abrams her poultry dressing worker called ahead to have her admitted to 3 S. and evaluation by cardiology. She currently has no complaints. The 3 runs of V. tach occurred earlier this morning. Has no other acute complaints at this time. Vital signs within acceptable limits. We will obtain cardiac labs and then admit her to the hospital. She was in agreement with this plan. She'll be given an aspirin 325 mg as well as a small fluid bolus. EKG showed no signs of acute ischemia. Laboratory studies are remarkable for chronic leukopenia. Patient's troponin is indeterminate at 0.029. Chest x-ray shows no obvious acute cardio pulmonary process. Paperwork from [employer] was placed on the patient's chart. On reevaluation, patient is feeling the same. No complaints. We discussed her workup. She'll be admitted to the hospital at this time. She was in agreement with this plan. Cardiology was consulted. I spoke with the admitting physician, Dr. elise who accepted the admission. Undiagnosed new problem with uncertain prognosis? @ -No Drug Therapy requiring intensive monitoring for toxicity (Heparin, Nitro, Insulin, Cardizem)? @ -No Were any procedures done? @ -No Diagnosis/symptom? @ -Sent in by PCP, heart monitor showed runs of V. tach. Acute, or Chronic, or Acute on Chronic? @ - Acute Uncomplicated (without systemic symptoms) or Complicated (systemic symptoms)? @ -uncomplicated Side effects of treatment? @ -No Exacerbation, Progression, or Severe Exacerbation? @ -No Poses a threat to life or bodily function? How? (Chest pain, [place], NH, pneumonia, PE, COPD, DKA, ARF, appy, cholecystitis, CVA, Diverticulitis, Homicidal, Suicidal, threat to staff... and all critical care pts) @ -yes it has the potential if it is prolonged Diagnosis/symptom? @ -History of atrial fibrillation Acute, or Chronic, or Acute on Chronic? @ -Chronic Uncomplicated (without systemic symptoms) or Complicated (systemic symptoms)? @ - uncomplicated Side effects of treatment? @ -none Exacerbation, Progression, or Severe Exacerbation] @ -no Poses a threat to life or bodily function? @ -no - Lab Data Result diagrams: 08/20/22 05:21 08/20/22 05:21 Lab Results 08/20/22 08/20/22 08/20/22 Range/Units 05:21 05:21 05:21 WBC 2.6 L (3.8-10.6) k/uL RBC 3.73 L (3.80-5.40) m/uL Hgb 12.0 (11.4-16.0) gm/dL Hct 35.2 (34.0-46.0) % MCV 94.4 (80.0-100.0) fL MCH 32.0 (25.0-35.0) pg MCHC 33.9 (31.0-37.0) g/dL RDW 13.8 (11.5-15.5) % Plt Count 138 L (150-450) k/uL MPV 9.2 Neutrophils % 79 % Lymphocytes % 12 % Monocytes % 6 % Eosinophils % 1 % Basophils % 1 % Neutrophils # 2.1 (1.3-7.7) k/uL Lymphocytes # 0.3 L (1.0-4.8) k/uL Monocytes # 0.2 (0-1.0) k/uL Eosinophils # 0.0 (0-0.7) k/uL Basophils # 0.0 (0-0.2) k/uL PT 10.7 (9.0-12.0) sec INR 1.0 (<1.2) APTT 25.9 (22.0-30.0) sec Sodium 134 L (137-145) mmol/L Potassium 4.3 (3.5-5.1) mmol/L Chloride 104 (98-107) mmol/L Carbon Dioxide 25 (22-30) mmol/L Anion Gap 5 mmol/L BUN 22 H (7-17) mg/dL Creatinine 0.91 (0.52-1.04) mg/dL Est GFR (CKD-EPI)AfAm 68 (>60 ml/min/1.73 sqM) Est GFR (CKD-EPI)NonAf 59 (>60 ml/min/1.73 sqM) Glucose 99 (74-99) mg/dL Calcium 8.7 (8.4-10.2) mg/dL Magnesium 2.5 H (1.6-2.3) mg/dL Total Bilirubin 0.6 (0.2-1.3) mg/dL AST 42 H (14-36) U/L ALT 28 (4-34) U/L Alkaline Phosphatase 79 (38-126) U/L Troponin I (0.000-0.034) ng/mL Total Protein 5.8 L (6.3-8.2) g/dL Albumin 3.2 L (3.5-5.0) g/dL 08/20/22 Range/Units 05:21 WBC (3.8-10.6) k/uL RBC (3.80-5.40) m/uL Hgb (11.4-16.0) gm/dL Hct (34.0-46.0) % MCV (80.0-100.0) fL MCH (25.0-35.0) pg MCHC (31.0-37.0) g/dL RDW (11.5-15.5) % Plt Count (150-450) k/uL MPV Neutrophils % % Lymphocytes % % Monocytes % % Eosinophils % % Basophils % % Neutrophils # (1.3-7.7) k/uL Lymphocytes # (1.0-4.8) k/uL Monocytes # (0-1.0) k/uL Eosinophils # (0-0.7) k/uL Basophils # (0-0.2) k/uL PT (9.0-12.0) sec INR (<1.2) APTT (22.0-30.0) sec Sodium (137-145) mmol/L Potassium (3.5-5.1) mmol/L Chloride (98-107) mmol/L Carbon Dioxide (22-30) mmol/L Anion Gap mmol/L BUN (7-17) mg/dL Creatinine (0.52-1.04) mg/dL Est GFR (CKD-EPI)AfAm (>60 ml/min/1.73 sqM) Est GFR (CKD-EPI)NonAf (>60 ml/min/1.73 sqM) Glucose (74-99) mg/dL Calcium (8.4-10.2) mg/dL Magnesium (1.6-2.3) mg/dL Total Bilirubin (0.2-1.3) mg/dL AST (14-36) U/L ALT (4-34) U/L Alkaline Phosphatase (38-126) U/L Troponin I 0.029 (0.000-0.034) ng/mL Total Protein (6.3-8.2) g/dL Albumin (3.5-5.0) g/dL - EKG Data -: EKG Interpreted by Me EKG Comments: 12-lead Electrocardiogram Interpretation Note EKG was reviewed and interpreted by myself. 12-lead ECG performed at 0520 is interpreted by me as revealing atrial fibrillation with slow ventricular response at a rate of 51 beats per minute. Left axis deviation. QRS duration is 101 ms, QTc is 431 ms.. There were no ST or T wave abnormalities to suggest myocardial ischemia or injury. R wave progression across the precordium was delayed. By my interpretation this EKG is non-diagnostic for acute ischemia. When compared with EKG from 08/10/2022, no significant change. Disposition Clinical Impression: Ventricular tachycardia seen on nuclear monitoring technician, Atrial fibrillation Disposition: ADMITTED IP TO THIS HOSP Condition: Stable Time of Disposition: 06:43
[2022-08-20 06:04] LABS: Basophils % (A) 1 %; Eosinophils % (A) 1 %; HCT 35.2 % (34.0-46.0); Lymphocytes # (A) 0.3 k/uL (1.0-4.8); Lymphocytes % (A) 12 %; MCHC 33.9 g/dL (31.0-37.0); MCV 94.4 fL (80.0-100.0); Mean Platelet Volume 9.2; Monocytes # (A) 0.2 k/uL (0-1.0); Monocytes % (A) 6 %; Neutrophils # (A) 2.1 k/uL (1.3-7.7); Neutrophils % (A) 79 %; Platelet Count 138 k/uL (150-450); RBC 3.73 m/uL (3.80-5.40); RDW 13.8 % (11.5-15.5); WBC 2.6 k/uL (3.8-10.6)
[2022-08-20] MEDS ORDERED: NALOXONE 0.4 MG/ML 1 ML VIAL IV PRN (06:43)
[2022-08-20] MEDS ORDERED: FUROSEMIDE 20 MG TAB PO PRN (08:31)
[2022-08-20] MEDS ORDERED: ALPRAZolam 0.25 MG TAB PO PRN ×2 (08:50→12:06)
[2022-08-20] MEDS ORDERED: ALPRAZolam 0.5 MG TAB PO PRN ×2 (08:50→12:06)
[2022-08-20] MEDS ORDERED: NITROGLYCERIN SL TABS 0.4 MG TAB SUBLINGUAL PRN ×2 (08:50→12:06)
[2022-08-20] MEDS ORDERED: ATORVASTATIN 80 MG TAB PO STA (08:50)
[2022-08-20] MEDS ORDERED: ASPIRIN 325 MG TAB PO STA (08:50)
[2022-08-20] MEDS ORDERED: ATORVASTATIN 20 MG TAB PO SCH (09:00)
[2022-08-20] MEDS ORDERED: SODIUM CHLORIDE 0.9% 1,000 ML in EMPTY BAG 1 BAG IV SCH (09:00)
[2022-08-20] MEDS: amLODIPine 5 MG TAB PO SCH (09:25)
[2022-08-20] MEDS: LOSARTAN 25 MG TAB PO SCH (09:26)
[2022-08-20] MEDS ORDERED: ALBUTEROL HFA INHALER INHALATION PRN (09:28)
[2022-08-20] MEDS ORDERED: ONDANSETRON 4 MG/2 ML VIAL IVP PRN (09:29)
[2022-08-20] MEDS: cycloSPORINE 0.05% OPHTH 0.4 ML DROPERETTE BOTH EYES SCH ×2 (10:31→21:02)
[2022-08-20] MEDS: GABAPENTIN 300 MG CAP PO SCH ×2 (10:32→21:01)
[2022-08-20] MEDS: DULoxetine HCL 30 MG CAPSULE.DR PO SCH (10:32)
[2022-08-20] MEDS: allopurinoL 300 MG TAB PO SCH (10:32)
[2022-08-20] MEDS: hydrALAZINE HCL 50 MG TAB PO SCH ×2 (12:06→16:24)
--- NOTE | 2022-08-20 12:14 | P.CRDCN ---
History of Present Illness Consult date: 08/20/22 History of present illness: HISTORY OF PRESENT ILLNESS: This is a 82-year-old female with a past medical history significant for paroxysmal atrial fibrillation, hypertension, and hyperlipidemia. Patient follows in the office with Dr. Mendenhall. We have been asked to see the patient in consultation for ventricular tachycardia. Patient examined at the bedside in the emergency room. Patient was admitted earlier this month secondary to a syncopal episode at home. She was discharged home with an event monitor. Patient has been having issues with bradycardia. Earlier this year her metoprolol was discontinued and during her most recent admission her amiodarone has been stopped. Patient was notified by the event monitor company around 4:00 this morning that she was having ventricular tachycardia and recommended she come to the emergency room. The patient states she was sleeping at the time when this happened and was asymptomatic. The patient states that since she has been discharged from the hospital she has not had any further episodes of syncope. She does report having some occasional dizziness and lightheadedness. She denies any chest pain or pressure. She denies any shortness of breath. The patient is currently in sinus bradycardia. Telemetry strips reviewed from patient's event monitor revealing ventricular tachycardia and coarse ventricular fibrillation. * EKG reveals sinus bradycardia cardia with first degree AV block. * Chest xray mild cardiomyopathy without acute pulmonary process. * Laboratory data: WBC 2.6. Hemoglobin 12.0. Platelet count 138. Sodium 134. Potassium 4.3. BUN 22. Creatinine 0.91. Troponin negative 2. ProBNP 2890. * Current home cardiac medications include Eliquis 5mg BID, Lipitor 20 mg daily, losartan 25 mg daily, hydralazine 100 mg 3 times a day, and Lasix 20 mg daily as needed * Most recent echocardiogram obtained in October 2019 revealed ejection fraction 55%, mildly dilated RV, mildly dilated LA, mild AR, mild MR, mild TR * Patient underwent Lexiscan stress test in April 2020 which revealed an inferior fixed defect with no reversibility to suggest ischemia noted. REVIEW OF SYSTEMS: At the time of my exam: CONSTITUTIONAL: Denies fever or chills. HEENT: Denies blurred vision, vision changes, or eye pain. Denies hemoptysis CARDIOVASCULAR: Denies chest pain. Denies orthopnea. Denies PND. Denies palpitations RESPIRATORY: Denies shortness of breath. GASTROINTESTINAL: Denies abdominal pain. Denies nausea or vomiting. HEMATOLOGIC: Denies bleeding disorders. GENITOURINARY: Denies any blood in urine. SKIN: Denies pruitis. Denies rash. PHYSICAL EXAM: VITAL SIGNS: Reviewed. GENERAL: Well-developed in no acute distress. HEENT: Head is normocephalic. Pupils are equal, round. Sclerae anicteric. Mucous membranes of the mouth are moist. Neck supple. No JVD or thyromegaly LUNGS: Respirations even and unlabored. Lungs essentially clear to auscultation bilaterally. HEART: Bradycardic. Regular rate and rhythm. S1 and S2 heard. ABDOMEN: Soft. Nondistended. Nontender. EXTREMITIES: Normal range of motion. No clubbing or cyanosis. Peripheral pulses intact. No lower extremity edema NEUROLOGIC: Awake and alert. Oriented x 3. ASSESSMENT: Ventricular tachycardia/fibrillation noted on outpatient event monitor Recent admission for syncopal episode Paroxysmal atrial fibrillation, currently maintaining sinus bradycardia Hypertension Hyperlipidemia PLAN: Obtain 2-D echo to assess cardiac structure and function Hold anticoagulation Resume additional home cardiac medications Patient to undergo cardiac catheterization tomorrow with Dr. Mendenhall to rule out coronary artery disease Likely implantation of AICD. Timing to be determined pending results of cardiac cath Further recommendations pending patient course Nurse practitioner note has been reviewed by physician. Signing provider agrees with the documented findings, assessment, and plan of care. Past Medical History Past Medical History: Atrial Fibrillation, Cancer, Eye Disorder, GERD/Reflux, Hyperlipidemia, Hypertension, Osteoarthritis (OA), Thyroid Disorder Additional Past Medical History / Comment(s): Recently diagnosed with Afib, slightly "leaky heart valve", Shogren's syndrome, anemia, chronic low back pain, DDD, gout bilateral feet/toes, 2017 shingelles, basal cell skin cancer removals, diverticular disease/benign polyps, hypothyroid, bilateral dry eyes History of Any Multi-Drug Resistant Organisms: None Reported Past Surgical History: Appendectomy, Back Surgery, Section, Cholecystectomy, Hysterectomy, Orthopedic Surgery, Tonsillectomy Additional Past Surgical History / Comment(s): Lumbar and cervical fusions, R foot bunionectomy/metatarsal surgery, skin cancer removals, colonoscopies/benign polypectomy, bilateral cataract removals/lens implants. Past Anesthesia/Blood Transfusion Reactions: No Reported Reaction Past Psychological History: Anxiety, Depression Smoking Status: Never smoker Past Alcohol Use History: None Reported Past Drug Use History: None Reported - Past Family History Sister(s) Family Medical History: Cancer Additional Family Medical History / Comment(s): BREAST CANCER Brother(s) Family Medical History: Cancer Additional Family Medical History / Comment(s): LEUKEMIA Mother Family Medical History: Neurologic Disorder Additional Family Medical History / Comment(s): parkinsons, macular degeneration Father Family Medical History: Dementia, Neurologic Disorder Additional Family Medical History / Comment(s): parkinsons Medications and Allergies Home Medications Medication Instructions Recorded Confirmed Type Levothyroxine Sodium [Levoxyl] 88 mcg PO DAILY 07/22/15 08/20/22 History Montelukast [Singulair] 10 mg PO HS 07/22/15 08/20/22 History amLODIPine [Norvasc] 5 mg PO DAILY 07/22/15 08/20/22 History cycloSPORINE [Restasis] 1 drop BOTH EYES BID 07/22/15 08/20/22 History Baclofen 10 mg PO TID PRN 07/23/15 08/20/22 History traMADol HCl [Ultram] 50 mg PO Q6H PRN 07/23/15 08/20/22 History Albuterol Inhaler [Ventolin Hfa 2 puff INHALATION RT-Q4H PRN 04/12/22 08/20/22 History Inhaler] Apixaban [Eliquis] 5 mg PO BID 04/12/22 08/20/22 History Atorvastatin [Lipitor] 20 mg PO DAILY 04/12/22 08/20/22 History Clindamycin Phosphate [Cleocin T 1 applic TOPICAL BID 04/12/22 08/20/22 History 1%] DULoxetine HCL [Cymbalta] 30 mg PO DAILY 04/12/22 08/20/22 History Furosemide [Lasix] 20 mg PO DAILY PRN 04/12/22 08/20/22 History Gabapentin 300 mg PO BID 04/12/22 08/20/22 History Hydroxychloroquine Sulfate 200 mg PO BID 04/12/22 08/20/22 History [Plaquenil] Losartan [Cozaar] 25 mg PO DAILY 04/12/22 08/20/22 History Omeprazole 40 mg PO DAILY 04/12/22 08/20/22 History allopurinoL [Zyloprim] 300 mg PO DAILY 04/12/22 08/20/22 History hydrALAZINE HCL [Apresoline] 100 mg PO TID-W/MEALS 04/12/22 08/20/22 History Ondansetron Odt [Zofran ODT] 4 mg PO Q8HR PRN 08/11/22 08/20/22 History Potassium Chloride ER [K-Dur 10] 20 meq PO BID 08/20/22 08/20/22 History Allergies Allergy/AdvReac Type Severity Reaction Status Date / Time adhesive tape Allergy Rash/Hives Verified 08/20/22 07:19 Steriods IV Allergy Rash/Hives Uncoded 08/20/22 07:19 Physical Exam Vitals: Vital Signs Temp Pulse Pulse Resp BP Pulse Ox 08/20/22 09:00 58 L 18 142/63 96 08/20/22 08:30 20 147/73 99 08/20/22 08:00 62 18 138/64 08/20/22 07:30 61 16 125/66 92 L 08/20/22 07:00 60 16 143/69 91 L 08/20/22 06:30 59 L 20 139/63 94 L 08/20/22 06:00 57 L 18 134/67 94 L 08/20/22 05:30 53 L 20 142/64 08/20/22 05:23 51 L 08/20/22 05:21 51 L 18 142/64 93 L 08/20/22 05:12 51 L 18 142/64 94 L 08/20/22 04:56 98.2 F 52 L 18 107/56 98 Intake and Output 08/19/22 08/20/22 08/20/22 22:59 06:59 14:59 Other: Weight 70.307 kg Results 08/20/22 05:21 08/20/22 05:21 Cardiac Enzymes 08/20/22 08/20/22 08/20/22 Range/Units 05:21 05:21 10:34 AST 42 H (14-36) U/L Troponin I 0.029 0.026 (0.000-0.034) ng/mL Coagulation 08/20/22 Range/Units 05:21 PT 10.7 (9.0-12.0) sec APTT 25.9 (22.0-30.0) sec CBC 08/20/22 Range/Units 05:21 WBC 2.6 L (3.8-10.6) k/uL RBC 3.73 L (3.80-5.40) m/uL Hgb 12.0 (11.4-16.0) gm/dL Hct 35.2 (34.0-46.0) % Plt Count 138 L (150-450) k/uL Comprehensive Metabolic Panel 08/20/22 Range/Units 05:21 Sodium 134 L (137-145) mmol/L Potassium 4.3 (3.5-5.1) mmol/L Chloride 104 (98-107) mmol/L Carbon Dioxide 25 (22-30) mmol/L BUN 22 H (7-17) mg/dL Creatinine 0.91 (0.52-1.04) mg/dL Glucose 99 (74-99) mg/dL Calcium 8.7 (8.4-10.2) mg/dL AST 42 H (14-36) U/L ALT 28 (4-34) U/L Alkaline Phosphatase 79 (38-126) U/L Total Protein 5.8 L (6.3-8.2) g/dL Albumin 3.2 L (3.5-5.0) g/dL Current Medications Generic Name Dose Route Start Last Admin Trade Name Freq PRN Reason Stop Dose Admin Albuterol Sulfate 2 puff 08/20/22 09:28 Albuterol Hfa Inhaler INHALATION RT-Q4H PRN Shortness Of Breath Allopurinol 300 mg 08/20/22 09:30 08/20/22 10:32 Allopurinol 300 Mg Tab PO 300 mg DAILY VERO Administration Amlodipine Besylate 5 mg 08/20/22 09:00 08/20/22 09:25 Amlodipine 5 Mg Tab PO 5 mg DAILY VERO Administration Atorvastatin Calcium 20 mg 08/20/22 09:00 08/20/22 09:25 Atorvastatin 20 Mg Tab PO Not Given DAILY VERO Cyclosporine 1 drops 08/20/22 09:30 08/20/22 10:31 Cyclosporine 0.05% Ophth 0.4 Ml Droperette BOTH EYES 1 drops BID VERO Administration Duloxetine HCl 30 mg 08/20/22 09:30 08/20/22 10:32 Duloxetine Hcl 30 Mg Capsule.Dr PO 30 mg DAILY VERO Administration Furosemide 20 mg 08/20/22 08:31 Furosemide 20 Mg Tab PO DAILY PRN Edema Gabapentin 300 mg 08/20/22 09:30 08/20/22 10:32 Gabapentin 300 Mg Cap PO 300 mg BID [facility] Administration Hydralazine HCl 100 mg 08/20/22 12:30 08/20/22 12:06 Hydralazine Hcl 50 Mg Tab PO 100 mg TID-W/MEALS VERO Administration Hydroxychloroquine Sulfate 200 mg 08/20/22 21:00 Hydroxychloroquine Sulfate 200 Mg Tab PO BID [facility] Levothyroxine Sodium 88 mcg 08/21/22 06:30 Levothyroxine 88 Mcg Tab PO DAILY@0630 [facility] Losartan Potassium 25 mg 08/20/22 09:00 08/20/22 09:26 Losartan 25 Mg Tab PO 25 mg DAILY [facility] Administration Montelukast Sodium 10 mg 08/20/22 21:00 Montelukast 10 Mg Tab PO HS [facility] Naloxone HCl 0.2 mg 08/20/22 06:43 Naloxone 0.4 Mg/Ml 1 Ml Vial IV Q2M PRN Opioid Reversal Ondansetron HCl 4 mg 08/20/22 09:29 Ondansetron 4 Mg/2 Ml Vial IVP Q6HR PRN Nausea And Vomiting Pantoprazole Sodium 40 mg 08/21/22 07:30 Pantoprazole 40 Mg Tablet PO DAILY@0730 [facility] Intake and Output 08/19/22 08/20/22 08/20/22 22:59 06:59 14:59 Other: Weight 70.307 kg 08/20/22 05:21 08/20/22 05:21
--- NOTE | 2022-08-20 14:52 | P.HPIM ---
History of Present Illness H&P Date: 08/20/22 This is a pleasant 82 year old female with medical history of atrial fibrillation, hypertension, hyperlipidemia, GERD, shogren's syndrome, anemia, anxiety/depression. Patient presents to the from home sent in for abnormal heart rhythm detected on event monitor. Patient was admitted to the hospital from 08/10/22 to 08/12/22 for bradycardia and syncopal episode. Patient was discharged home with [address]. Earlier this year patients beta petty was stopped secondary to issues with bradycardia. Patient received a call around 0400 with detection of short run of vtach from the event monitor and was advised to come to the hospital for evaluation by her nutrition technician. Patient was sleeping when she received the call and reports being asymptomatic. Patient denies chest pain, denies shortness of breath. No syncopal episodes reported since discharge. No alcohol or tobacco use. Initial EKG reveals sinus bradycardia with a first degree AV block with no specific ST or T wave changes. Patient is admitted for further monitoring and cardiac evaluation. Patient has been scheduled for cardiac catheterization tomorrow. REVIEW OF SYSTEMS: CONSTITUTIONAL: No fever, no malaise, no fatigue. HEENT: No recent visual problems or hearing problems. Denied any sore throat. CARDIOVASCULAR: No chest pain, orthopnea, PND, no palpitations, no syncope. PULMONARY: No shortness of breath, no cough, no hemoptysis. GASTROINTESTINAL: No diarrhea, no nausea, no vomiting, no abdominal pain. NEUROLOGICAL: No headaches, no weakness, no numbness. HEMATOLOGICAL: Denies any bleeding or petechiae. GENITOURINARY: Denies any burning micturition, frequency, or urgency. MUSCULOSKELETAL/RHEUMATOLOGICAL: Denies any joint pain, swelling, or any muscle pain. ENDOCRINE: Denies any polyuria or polydipsia. The rest of the 14-point review of systems is negative. PHYSICAL EXAMINATION: GENERAL: The patient is alert and oriented x3, not in any acute distress. Well developed, well nourished. HEENT: Pupils are round and equally reacting to light. EOMI. No scleral icterus. No conjunctival pallor. Normocephalic, atraumatic. No pharyngeal erythema. No thyromegaly. CARDIOVASCULAR: S1 and S2 present. No murmurs, rubs, or gallops. Bradycardic. Regular rate and rhythm. PULMONARY: Chest is clear to auscultation, no wheezing or crackles. ABDOMEN: Soft, nontender, nondistended, normoactive bowel sounds. No palpable organomegaly. MUSCULOSKELETAL: No joint swelling or deformity. EXTREMITIES: No cyanosis, clubbing, or pedal edema. NEUROLOGICAL: Gross neurological examination did not reveal any focal deficits. SKIN: No rashes. Assessment and plan Assessment Episode of ventricular tachycardia/ventricular fibrillation on outpatient event monitor Paroxysmal atrial fibrillation currently in sinus bradycardia History of syncope with recent hospitalization for syncopal episode prompting outpatient event monitor Hypertension Hyperlipidemia History of degenerative disc disease Hypothyroidism Anxiety/Depression GI prophylaxis DVT prophylaxis Full Code Plan Resume home medications Cardiology consultation in place Continue cardiac telemetry monitoring Patient is scheduled for cardiac catheterization tomorrow The impression and plan of care has been dictated by Christiana Alvares Nurse Practitioner as directed. Dr. Feroz MD I have performed a history and physical examination and medical decision making of this patient, discussed the same with the dictator, and agree with the dictators assessment and plan as written, documented as a scribe. Based on total visit time, I have performed more than 50% of this visit. Past Medical History Past Medical History: Atrial Fibrillation, Cancer, Eye Disorder, GERD/Reflux, Hyperlipidemia, Hypertension, Osteoarthritis (OA), Thyroid Disorder Additional Past Medical History / Comment(s): Recently diagnosed with Afib, slightly "leaky heart valve", Shogren's syndrome, anemia, chronic low back pain, DDD, gout bilateral feet/toes, 2017 shingelles, basal cell skin cancer removals, diverticular disease/benign polyps, hypothyroid, bilateral dry eyes History of Any Multi-Drug Resistant Organisms: None Reported Past Surgical History: Appendectomy, Back Surgery, Section, Cholecystectomy, Hysterectomy, Orthopedic Surgery, Tonsillectomy Additional Past Surgical History / Comment(s): Lumbar and cervical fusions, R foot bunionectomy/metatarsal surgery, skin cancer removals, colonoscopies/benign polypectomy, bilateral cataract removals/lens implants. Past Anesthesia/Blood Transfusion Reactions: No Reported Reaction Past Psychological History: Anxiety, Depression Smoking Status: Never smoker Past Alcohol Use History: None Reported Past Drug Use History: None Reported - Past Family History Sister(s) Family Medical History: Cancer Additional Family Medical History / Comment(s): BREAST CANCER Brother(s) Family Medical History: Cancer Additional Family Medical History / Comment(s): LEUKEMIA Mother Family Medical History: Neurologic Disorder Additional Family Medical History / Comment(s): parkinsons, macular degeneration Father Family Medical History: Dementia, Neurologic Disorder Additional Family Medical History / Comment(s): parkinsons Medications and Allergies Home Medications Medication Instructions Recorded Confirmed Type Levothyroxine Sodium [Levoxyl] 88 mcg PO DAILY 07/22/15 08/20/22 History Montelukast [Singulair] 10 mg PO HS 07/22/15 08/20/22 History amLODIPine [Norvasc] 5 mg PO DAILY 07/22/15 08/20/22 History cycloSPORINE [Restasis] 1 drop BOTH EYES BID 07/22/15 08/20/22 History Baclofen 10 mg PO TID PRN 07/23/15 08/20/22 History traMADol HCl [Ultram] 50 mg PO Q6H PRN 07/23/15 08/20/22 History Albuterol Inhaler [Ventolin Hfa 2 puff INHALATION RT-Q4H PRN 04/12/22 08/20/22 History Inhaler] Apixaban [Eliquis] 5 mg PO BID 04/12/22 08/20/22 History Atorvastatin [Lipitor] 20 mg PO DAILY 04/12/22 08/20/22 History Clindamycin Phosphate [Cleocin T 1 applic TOPICAL BID 04/12/22 08/20/22 History 1%] DULoxetine HCL [Cymbalta] 30 mg PO DAILY 04/12/22 08/20/22 History Furosemide [Lasix] 20 mg PO DAILY PRN 04/12/22 08/20/22 History Gabapentin 300 mg PO BID 04/12/22 08/20/22 History Hydroxychloroquine Sulfate 200 mg PO BID 04/12/22 08/20/22 History [Plaquenil] Losartan [Cozaar] 25 mg PO DAILY 04/12/22 08/20/22 History Omeprazole 40 mg PO DAILY 04/12/22 08/20/22 History allopurinoL [Zyloprim] 300 mg PO DAILY 04/12/22 08/20/22 History hydrALAZINE HCL [Apresoline] 100 mg PO TID-W/MEALS 04/12/22 08/20/22 History Ondansetron Odt [Zofran ODT] 4 mg PO Q8HR PRN 08/11/22 08/20/22 History Potassium Chloride ER [K-Dur 10] 20 meq PO BID 08/20/22 08/20/22 History Allergies Allergy/AdvReac Type Severity Reaction Status Date / Time adhesive tape Allergy Rash/Hives Verified 08/20/22 07:19 Steriods IV Allergy Rash/Hives Uncoded 08/20/22 07:19 Physical Exam Vitals: Vital Signs Temp Pulse Pulse Resp BP Pulse Ox 08/20/22 09:00 58 L 18 142/63 96 08/20/22 08:30 20 147/73 99 08/20/22 08:00 62 18 138/64 08/20/22 07:30 61 16 125/66 92 L 08/20/22 07:00 60 16 143/69 91 L 08/20/22 06:30 59 L 20 139/63 94 L 08/20/22 06:00 57 L 18 134/67 94 L 08/20/22 05:30 53 L 20 142/64 08/20/22 05:23 51 L 08/20/22 05:21 51 L 18 142/64 93 L 08/20/22 05:12 51 L 18 142/64 94 L 08/20/22 04:56 98.2 F 52 L 18 107/56 98 Intake and Output 08/19/22 08/20/22 08/20/22 22:59 06:59 14:59 Other: Weight 70.307 kg Results CBC & Chem 7: 08/20/22 05:21 08/20/22 05:21 Labs: Abnormal Lab Results - Last 24 Hours (Table) 08/20/22 08/20/22 Range/Units 05:21 05:21 WBC 2.6 L (3.8-10.6) k/uL RBC 3.73 L (3.80-5.40) m/uL Plt Count 138 L (150-450) k/uL Lymphocytes # 0.3 L (1.0-4.8) k/uL Sodium 134 L (137-145) mmol/L BUN 22 H (7-17) mg/dL Magnesium 2.5 H (1.6-2.3) mg/dL AST 42 H (14-36) U/L Total Protein 5.8 L (6.3-8.2) g/dL Albumin 3.2 L (3.5-5.0) g/dL Assessment and Plan Time with Patient: Less than 30
--- NOTE | 2022-08-20 17:25 | CA ---
Transthoracic Echo Report Name: Montserrat Cox Age: 82 Gender: F : 1940 Exam Date: 08/20/2022 12:22 Exam Location: [facility] Ht (in): 64 Wt (lb): 155 Ordering Physician: Merary Andrew Attending/Referring Phys: [id number], Lorrie Internal Grinder Set Up Operator Lynda Vang RDCS Procedure CPT: Indications: LV function Cardiac Hx: Technical Quality: Fair Contrast 1: Total Dose (mL): Contrast 2: Total Dose (mL): MEASUREMENTS (Male / Female) Normal Values 2D ECHO LV Diastolic Diameter PLAX 3.9 cm 4.2 - 5.9 / 3.9 - 5.3 cm LV Systolic Diameter PLAX 1.9 cm IVS Diastolic Thickness 1.2 cm 0.6 - 1.0 / 0.6 - 0.9 cm LVPW Diastolic Thickness 1.1 cm 0.6 - 1.0 / 0.6 - 0.9 cm LV Relative Wall Thickness 0.6 RV Internal Dim ED PLAX 3.6 cm LA Volume 90.6 cm??? 18 - 58 / 22 - 52 cm??? M-MODE Aortic Root Diameter MM 2.9 cm LA Systolic Diameter MM 5.4 cm LA Ao Ratio MM 1.9 AV Cusp Separation MM 1.8 cm DOPPLER AV Peak Velocity 150.0 cm/s AV Peak Gradient 9.0 mmHg AV Mean Velocity 111.0 cm/s AV Mean Gradient 5.3 mmHg AV Velocity Time Integral 37.2 cm AI Peak Velocity 336.2 cm/s AI Peak Gradient 45.2 mmHg AI Pressure Half Time 503.3 ms LVOT Peak Velocity 109.6 cm/s LVOT Peak Gradient 4.8 mmHg MV Area PHT 2.8 cm??? Mitral E Point Velocity 86.8 cm/s Mitral A Point Velocity 73.3 cm/s Mitral E to A Ratio 1.2 MV Deceleration Time 270.0 ms MV E' Velocity 6.4 cm/s Mitral E to MV E' Ratio 13.6 TR Peak Velocity 309.0 cm/s TR Peak Gradient 38.2 mmHg Right Ventricular Systolic Press 41.8 mmHg FINDINGS Left Ventricle Mildly increased left ventricular wall thickness. Left ventricular cavity size normal. Normal left ventricular systolic function with no obvious regional wall motion abnormalities. Left ventricular ejection fraction is estimated at 55-60 %. Right Ventricle Mild right ventricular dilatation. Mild pulmonary hypertension. Right ventricular systolic pressure estimated at 42 mm hg. Right Atrium Mild right atrial dilatation. Left Atrium Severely increased left atrial volume. Mildly increased left atrial area. Mitral Valve Structurally normal mitral valve. Mild mitral annular calcification. Mild-to- moderate mitral regurgitation. Aortic Valve Trileaflet aortic valve. No aortic stenosis. Trace to mild aortic regurgitation. Tricuspid Valve Structurally normal tricuspid valve. [id number] tricuspid regurgitation. Pulmonic Valve Structurally normal pulmonic valve. Trace to mild pulmonic regurgitation. Pericardium No pericardial effusion. Aorta Normal size aortic root and proximal ascending aorta. CONCLUSIONS Normal LV systolic function Mild pulmonary hypertension Mild to moderate mitral regurgitation Previewed by: Dr. Surendra Brewster MD (Electronically Signed) Final Date: 20 August 2022 17:25
[2022-08-20] MEDS: MONTELUKAST 10 MG TAB PO SCH (21:01)
[2022-08-20] MEDS: HYDROXYCHLOROQUINE SULFATE 200 MG TAB PO SCH (21:02)
[2022-08-20] MEDS: SODIUM CHLORIDE 0.9% 1,000 ML in EMPTY BAG 1 BAG IV SCH (22:35)
[2022-08-21] MEDS ORDERED: ATORVASTATIN 80 MG TAB PO ONE (05:00)
[2022-08-21] MEDS ORDERED: ASPIRIN 325 MG TAB PO ONE (05:00)
[2022-08-21] MEDS: hydrALAZINE HCL 50 MG TAB PO SCH ×3 (05:45→16:10)
[2022-08-21] MEDS: LOSARTAN 25 MG TAB PO SCH (05:46)
[2022-08-21] MEDS: DULoxetine HCL 30 MG CAPSULE.DR PO SCH (05:46)
[2022-08-21] MEDS: GABAPENTIN 300 MG CAP PO SCH ×2 (05:46→20:27)
[2022-08-21] MEDS: PANTOPRAZOLE 40 MG TABLET PO SCH (05:46)
[2022-08-21] MEDS: LEVOTHYROXINE 88 MCG TAB PO SCH (05:46)
[2022-08-21] MEDS: amLODIPine 5 MG TAB PO SCH (05:46)
[2022-08-21] MEDS: cycloSPORINE 0.05% OPHTH 0.4 ML DROPERETTE BOTH EYES SCH ×2 (05:46→20:26)
[2022-08-21] MEDS: allopurinoL 300 MG TAB PO SCH (05:46)
[2022-08-21] MEDS: HYDROXYCHLOROQUINE SULFATE 200 MG TAB PO SCH ×2 (05:56→20:26)
[2022-08-21 06:01] LABS: Glucose,Whole Blood 76 mg/dL (70-110)
[2022-08-21] MEDS ORDERED: VERAPAMIL 2.5 MG/ML 2 ML AMP ONE (06:55)
[2022-08-21] MEDS ORDERED: HEPARIN SODIUM 1,000 UN/ML (10ML VL) ONE (06:55)
[2022-08-21] MEDS ORDERED: HEPARIN SODIUM,PORCINE 10,000 UNIT in SODIUM CHLORIDE 0.9% 1,000 ML IRRIGATION PRN ×4 (07:00)
[2022-08-21] MEDS ORDERED: HEPARIN SODIUM,PORCINE 2,500 UNIT in SODIUM CHLORIDE 0.9% 250 ML IRRIGATION PRN ×4 (07:00)
[2022-08-21] MEDS ORDERED: MIDAZOLAM 2 MG/2 ML VIAL IVP ONE (07:22)
[2022-08-21] MEDS ORDERED: LIDOCAINE 1% INJ 10MG/ML (5 ML VIAL-PF) SQ ONE (07:24)
[2022-08-21] MEDS ORDERED: HEPARIN SODIUM 1,000 UN/ML (10ML VL) IVP ONE (07:30)
[2022-08-21] MEDS ORDERED: SODIUM CHLORIDE 0.9% 1,000 ML IV ONE (07:30)
[2022-08-21] MEDS ORDERED: IOPAMIDOL-370 100ML BTL INJ ONE (07:45)
[2022-08-21 09:20] LABS: Basophils % (A) 0 %; Eosinophils % (A) 2 %; Lymphocytes # (A) 0.5 k/uL (1.0-4.8); Lymphocytes % (A) 23 %; MCH 31.1 pg (25.0-35.0); MCHC 32.5 g/dL (31.0-37.0); MCV 95.6 fL (80.0-100.0); Monocytes # (A) 0.2 k/uL (0-1.0); Monocytes % (A) 8 %; Neutrophils # (A) 1.3 k/uL (1.3-7.7); Neutrophils % (A) 65 %; Platelet Count 123 k/uL (150-450); RBC 3.87 m/uL (3.80-5.40); RDW 13.9 % (11.5-15.5)
--- NOTE | 2022-08-21 11:22 | CC ---
CARDIAC CATHETERIZATION REPORT PROCEDURES: Left heart catheterization and coronary angiography. PERFORMED BY: Dr. Praveena Mendenhall. Moderate conscious sedation time was 22 minutes. Patient was administered Versed. Oxygen saturation, hemodynamics and EKG were monitored closely. CLINICAL INFORMATION: Mrs. Cox is an 82-year-old lady with a history of hypertension, hyperlipidemia, hypothyroidism and paroxysmal atrial fib on Eliquis. She had episode of syncope, was found to be bradycardic in the hospital. Beta-petty was stopped prior to that episode and amiodarone was also held and she was sent home on an event monitor. However, she had a run of what seems to be a ventricular tachycardia that degenerates into a polymorphic VT and almost like a VFib type picture that occurred in sleep. She was advised to come to the emergency room. Troponins were negative. Echo revealed normal systolic function without any suggestion of a scar. She was advised coronary angiography to rule out obstructive disease prior to any ICD and/or EP studies. Risks, benefits, options, rationale were explained. PROCEDURE NOTE: Under local anesthesia and strict aseptic precautions with the help of a Doppler ultrasound, access was obtained into the right radial artery. JR4 and JL3.5 catheters were used for coronary angiography and same right catheter was used to check LV pressure, but LV-gram was not performed. The sheath was taken out and TR band applied as per protocol with saturations of the fingers of the right hand of 94%. The patient tolerated the procedure well without complications. CARDIAC CATHETERIZATION FINDINGS: The left ventricular end-diastolic pressure was 6 mmHg without any gradient across aortic valve. CORONARY ANGIOGRAPHY FINDINGS: RIGHT CORONARY ARTERY: Large dominant vessel has no significant disease. The injections were somewhat sub-selective. Distally, it bifurcates into PDA and PLV, both of which have minor irregularities. No significant disease noted in the branches of RCA or in the main vessel. LEFT MAIN CORONARY ARTERY: A very short, patent, disease-free vessel that bifurcates into LAD and circumflex. No significant disease in the left main. LEFT ANTERIOR DESCENDING CORONARY ARTERY: Good caliber vessel extends along the anterior wall, gives off septal and diagonal branches. There is a good-sized diagonal branch that comes off in the midportion, has minor irregularities. No significant disease. LAD runs all the way to the apex supplying a sizable amount of myocardium. The LAD diagonal and septal branches have only minor irregularities. No significant disease. LEFT POSTERIOR CIRCUMFLEX CORONARY ARTERY: Technically, a nondominant vessel that gives off a large obtuse marginal that runs laterally and a groove branch. Minor irregularities. No significant disease in the circumflex system. Left ventriculogram was not performed, but by echo, LV systolic function was normal. FINAL IMPRESSION: This patient has normal filling pressures. No gradient. A right-dominant system. Only minor irregularities. No significant obstructive CAD noted. RECOMMENDATIONS: Patient has what seems to be a primary ventricular tachycardia which starts off as a monomorphic goes into a polymorphic type picture. There is no scar. There are no stenoses or any obstructive CAD to explain ischemia as a cause. Findings were reviewed with the patient as well as family. I spoke to Dr. Steward and Dr. Keller. The patient will benefit from an ICD plus-minus EP study. She tolerated the procedure well without complication. MMODL / IJN: [id number] /
[2022-08-21] MEDS: SODIUM CHLORIDE 0.9% 1,000 ML IV SCH ×4 (11:49→20:27)
[2022-08-21 11:54] VITALS: BMI 26.6
[2022-08-21 11:54] LABS: African American GFR (CKD) >90 (>60 ml/min/1.73 sqM); Anion Gap 7 mmol/L; Blood Urea Nitrogen 13 mg/dL (7-17); Calcium 9.1 mg/dL (8.4-10.2); Carbon Dioxide 24 mmol/L (22-30); Chloride 110 mmol/L (98-107); Glucose 90 mg/dL (74-99); Non-African American GFR(CKD) 82 (>60 ml/min/1.73 sqM); Potassium 3.2 mmol/L (3.5-5.1); Sodium 141 mmol/L (137-145)
[2022-08-21 12:49] LABS: T4, Free (Free Thyroxine) 1.75 ng/dL (0.78-2.19)
[2022-08-21] MEDS ORDERED: Potassium Replacement Protocol 1 EACH MISC MISCELLANE PRN (12:52)
[2022-08-21] MEDS ORDERED: POTASSIUM CHLORIDE ER 20 MEQ TAB.ER PO STA (12:52)
--- NOTE | 2022-08-21 15:31 | P.PN ---
Subjective Progress Note Date: 08/21/22 This is a pleasant 82 year old female with medical history of atrial fibrillation, hypertension, hyperlipidemia, GERD, shogren's syndrome, anemia, anxiety/depression. Patient presents to the from home sent in for abnormal heart rhythm detected on event monitor. Patient was admitted to the hospital fr om 08/10/22 to 08/12/22 for bradycardia and syncopal episode. Patient was discharged home with 2 [address]. Earlier this year patients beta petty was stopped secondary to issues with bradycardia. Patient received a call around 0400 with detection of short run of vtach from the event monitor and was advised to come to the hospital for evaluation by her edge sander. Patient was sleeping when she received the call and reports being asymptomatic. Patient denies chest pain, denies shortness of breath. No syncopal episodes reported since discharge. No alcohol or tobacco use. Initial EKG reveals sinus bradycardia with a first degree AV block with no specific ST or T wave changes. Patient is admitted for further monitoring and cardiac evaluation. Patient has been scheduled for cardiac catheterization tomorrow. 08/21/2022 Patient is seen and evaluated in follow-up underwent cardiac catheterization early this morning which was clear with no interventions and will be followed up with edge sander Dr. Steward for AICD placement in the morning. Patient okay to resume diet and will be nothing by mouth again at midnight for cardiology intervention. Patient's potassium slightly low today at 3.2 and will replace per protocol recommend follow-up labs in the a.m. Patient is currently on bed rest and encourage the patient to continue using the call light for help. Will need to discuss further with cardiology when patient is clear for discharge. Patient to continue on telemetry monitoring. Patient currently denies any chest pain or shortness of breath. Patient reports not much of an appetite although denies any nausea or vomiting. Patient is afebrile with no reports of shortness of breath. Review of systems: Constitutional: No reports of fatigue, fever, or chills Cardiovascular: No reports of chest pain or palpitations Respiratory: No reports of shortness of breath or cough GI: No reports of nausea, vomiting, or diarrhea, reports not much of an appetite currently : No reports of dysuria or retention Neurovascular: No reports of weakness or numbness All medications have been reviewed Active Medications Albuterol Sulfate (Albuterol Hfa Inhaler) 2 puff INHALATION RT-Q4H PRN PRN Reason: Shortness Of Breath Allopurinol (Allopurinol 300 Mg Tab) 300 mg PO DAILY [facility] Last Admin: 08/21/22 05:46 Dose: 300 mg Alprazolam (Alprazolam 0.25 Mg Tab) 0.25 mg PO Q6HR PRN PRN Reason: Mild Anxiety Alprazolam (Alprazolam 0.5 Mg Tab) 0.5 mg PO Q6HR PRN PRN Reason: Moderate Anxiety Amlodipine Besylate (Amlodipine 5 Mg Tab) 5 mg PO DAILY [facility] Last Admin: 08/21/22 05:46 Dose: 5 mg Atorvastatin Calcium (Atorvastatin 20 Mg Tab) 20 mg PO DAILY [facility] Cyclosporine (Cyclosporine 0.05% Ophth 0.4 Ml Droperette) 1 drops BOTH EYES BID [facility] Last Admin: 08/21/22 05:46 Dose: 1 drops Duloxetine HCl (Duloxetine Hcl 30 Mg Capsule.Dr) 30 mg PO DAILY [facility] Last Admin: 08/21/22 05:46 Dose: 30 mg Furosemide (Furosemide 20 Mg Tab) 20 mg PO DAILY PRN PRN Reason: Edema Gabapentin (Gabapentin 300 Mg Cap) 300 mg PO BID [facility] Last Admin: 08/21/22 05:46 Dose: 300 mg Hydralazine HCl (Hydralazine Hcl 50 Mg Tab) 100 mg PO TID-W/MEALS [facility] Last Admin: 08/21/22 11:48 Dose: 100 mg Hydroxychloroquine Sulfate (Hydroxychloroquine Sulfate 200 Mg Tab) 200 mg PO BID [facility] Last Admin: 08/21/22 05:56 Dose: 200 mg Heparin Sodium (Porcine) 10, (000 unit/ Sodium Chloride) 1,001 mls @ 999 mls/hr IRRIGATION ONCE PRN PRN Reason: INTRA-OP Stop: 08/21/22 23:00 Heparin Sodium (Porcine) 2,500 (unit/ Sodium Chloride) 250.5 mls @ 250 mls/hr IRRIGATION ONCE PRN PRN Reason: INTRA-OP Stop: 08/21/22 23:00 Sodium Chloride 1,000 ml/ IV (Solution) 1,000 mls @ 70.307 mls/hr IV .[id number] [facility] Last Admin: 08/20/22 22:35 Dose: 70.307 mls/hr Sodium Chloride (Saline 0.9%) 1,000 mls @ 75 mls/hr IV .[id number] [facility] Stop: 08/22/22 06:00 Last Admin: 08/21/22 11:49 Dose: 75 mls/hr Sodium Chloride (Saline 0.9%) 1,000 mls @ 50 mls/hr IV .Q20H VERO Sodium Chloride (Saline 0.9%) 1,000 mls @ 50 mls/hr IV .Q20H VERO Cefazolin Sodium 2 gm/ Sodium (Chloride) 50 mls @ 100 mls/hr IVPB ONCE PRN PRN Reason: Pre-Op Stop: 08/22/22 23:00 Cefazolin Sodium 1 gm/ Sodium (Chloride) 250 mls @ 250 mls/hr IRRIGATION ONCE PRN PRN Reason: PRE-OP Stop: 08/22/22 23:00 Vancomycin HCl 1,000 mg/ (Sodium Chloride) 250 mls @ 125 mls/hr IVPB ONCE ONE; Protocol Stop: 08/22/22 06:59 Levothyroxine Sodium (Levothyroxine 88 Mcg Tab) 88 mcg PO DAILY@0630 [facility] Last Admin: 08/21/22 05:46 Dose: 88 mcg Losartan Potassium (Losartan 25 Mg Tab) 25 mg PO DAILY [facility] Last Admin: 08/21/22 05:46 Dose: 25 mg Miscellaneous Information (Potassium Replacement Protocol 1 Each Misc) 1 each MISCELLANE DAILY PRN; Protocol PRN Reason: Per Protocol Montelukast Sodium (Montelukast 10 Mg Tab) 10 mg PO [facility] Last Admin: 08/20/22 21:01 Dose: 10 mg Naloxone HCl (Naloxone 0.4 Mg/Ml 1 Ml Vial) 0.2 mg IV Q2M PRN PRN Reason: Opioid Reversal Nitroglycerin (Nitroglycerin Sl Tabs 0.4 Mg Tab) 0.4 mg SUBLINGUAL Q5M PRN PRN Reason: Chest Pain Ondansetron HCl (Ondansetron 4 Mg/2 Ml Vial) 4 mg IVP Q6HR PRN PRN Reason: Nausea And Vomiting Pantoprazole Sodium (Pantoprazole 40 Mg Tablet) 40 mg PO DAILY@0730 [facility] Last Admin: 08/21/22 05:46 Dose: 40 mg PHYSICAL EXAMINATION: GENERAL: The patient is alert and oriented x3, not in any acute distress. Well d eveloped, well nourished. HEENT: Pupils are round and equally reacting to light. EOMI. No scleral icterus. No conjunctival pallor. Normocephalic, atraumatic. No pharyngeal erythema. No thyromegaly. CARDIOVASCULAR: S1 and S2 present. No murmurs, rubs, or gallops. Bradycardic. Regular rate and rhythm. PULMONARY: Chest is clear to auscultation, no wheezing or crackles. ABDOMEN: Soft, nontender, nondistended, normoactive bowel sounds. No palpable organomegaly. MUSCULOSKELETAL: No joint swelling or deformity. EXTREMITIES: No cyanosis, clubbing, or pedal edema. Right radial cardiac catheterization band noted with no bleeding or swelling around the site NEUROLOGICAL: Gross neurological examination did not reveal any focal deficits. SKIN: No rashes. Assessment: Episode of ventricular tachycardia/ventricular fibrillation on outpatient event monitor Status post cardiac catheterization showing no significant obstructive CAD noted with minor irregularities Paroxysmal atrial fibrillation currently in sinus bradycardia History of syncope with recent hospitalization for syncopal episode prompting outpatient event monitor Hypertension Hyperlipidemia History of degenerative disc disease Hypothyroidism Anxiety/Depression GI prophylaxis DVT prophylaxis Full Code Plan: Recommend patient continue with telemetry monitoring with cardiology following and underwent cardiac catheterization today which was negative for requiring intervention Case was discussed with cardiology Dr. Steward and patient will undergo AICD placement in the a.m. Patient will be nothing by mouth at midnight Potassium slightly low this morning at 3.2 and will replace per protocol and recommend follow-up labs Will await cardiology report and clearance from cardiology for discharge The impression and plan of care has been dictated by Susan Bautista, Nurse Practitioner as directed. Dr. Feroz MD I have performed a history and examination and MDM of this patient, discussed the same with the dictator, and agree with the dictator's assessment and plan as written ,documented as a scribe. Based on total visit time, I have performed more than 50% of the visit. Objective - Vital Signs Vital signs: Vital Signs Temp 97.6 F 08/21/22 03:45 Pulse 59 L 08/21/22 09:23 Resp 16 08/21/22 09:23 BP 134/70 08/21/22 09:23 Pulse Ox 96 08/21/22 09:23 FiO2 Intake & Output 04/08/21/22 08/21/22 18:59 06:59 18:59 Intake Total 240 440 Balance 240 440 Weight 70.307 kg Intake: IV 200 Oral 240 240 Other: Voiding Method Toilet Toilet # Voids 1 - Labs CBC & Chem 7: 08/21/22 09:08 08/21/22 09:08 Labs: Abnormal Lab Results - Last 24 Hours (Table) 08/21/22 Range/Units 09:08 WBC 2.0 L (3.8-10.6) k/uL Plt Count 123 L (150-450) k/uL Lymphocytes # 0.5 L (1.0-4.8) k/uL
[2022-08-21] MEDS: MONTELUKAST 10 MG TAB PO SCH (20:27)
[2022-08-21] MEDS: SODIUM CHLORIDE 0.9% 1,000 ML in EMPTY BAG 1 BAG IV SCH (20:28)
[2022-08-22 03:52] LABS: Glucose,Whole Blood 95 mg/dL (70-110)
[2022-08-22] MEDS ORDERED: VANCOMYCIN 1,000 MG in SODIUM CHLORIDE 0.9% 250 ML IVPB ONE ×2 (04:00→05:00)
[2022-08-22] MEDS: LOSARTAN 25 MG TAB PO SCH (05:03)
[2022-08-22] MEDS: hydrALAZINE HCL 50 MG TAB PO SCH ×3 (05:03→16:52)
[2022-08-22] MEDS: allopurinoL 300 MG TAB PO SCH (05:03)
[2022-08-22] MEDS: amLODIPine 5 MG TAB PO SCH (05:04)
[2022-08-22] MEDS: DULoxetine HCL 30 MG CAPSULE.DR PO SCH (05:04)
[2022-08-22] MEDS: GABAPENTIN 300 MG CAP PO SCH ×2 (05:04→20:40)
[2022-08-22] MEDS: PANTOPRAZOLE 40 MG TABLET PO SCH (05:04)
[2022-08-22] MEDS: ATORVASTATIN 20 MG TAB PO SCH (05:04)
[2022-08-22] MEDS: LEVOTHYROXINE 88 MCG TAB PO SCH (05:04)
[2022-08-22] MEDS: HYDROXYCHLOROQUINE SULFATE 200 MG TAB PO SCH ×2 (05:07→20:41)
[2022-08-22] MEDS: cycloSPORINE 0.05% OPHTH 0.4 ML DROPERETTE BOTH EYES SCH ×2 (05:08→20:42)
[2022-08-22] MEDS ORDERED: IV FLUID CONTINUATION 1,000 ML IV ONE (07:00)
[2022-08-22] MEDS ORDERED: ceFAZolin 1 GM in SODIUM CHLORIDE 0.9% IRRIG BTL 250 ML IRRIGATION PRN (07:00)
[2022-08-22] MEDS ORDERED: IOPAMIDOL-370 100ML BTL INJ ONE (07:15)
[2022-08-22] MEDS: SODIUM CHLORIDE 0.9% 1,000 ML IV SCH ×2 (07:28)
[2022-08-22] MEDS ORDERED: LIDOCAINE 1% INJ 10MG/ML (20 ML MDV) ONE (07:40)
[2022-08-22] MEDS ORDERED: PROPOFOL 10 MG/ML 20 ML VIAL IV ONE (07:41)
[2022-08-22] MEDS ORDERED: MIDAZOLAM 2 MG/2 ML VIAL ONE (07:41)
[2022-08-22] MEDS ORDERED: fentaNYL (PF) 50 MCG/ML 2 ML AMP ONE (07:41)
[2022-08-22] MEDS ORDERED: LIDOCAINE 1% INJ 10MG/ML (20 ML MDV) SQ ONE ×2 (07:52→08:08)
--- NOTE | 2022-08-22 09:42 | P.EPPROC ---
- EP Procedure Note Electrophysiology Procedure Note: Diagnosis Idiopathic ventricular fibrillation, recurrent syncope, documented multiple episodes of ventricular fibrillation recurred by short coupled narrow QRS PVCs Sick Sinus Syndrome Known paroxysmal atrial fibrillation Structurally normal heart, normal coronary arteries Dual-chamber ICD for Secondary prevention of sudden cardiac and management of sick sinus syndrome/paroxysmal atrial fibrillation Procedure: Dual-chamber ICD implantation for management of risk of sudden cardiac /bradycardia Result: Dual chamber ICD implantation, Atrial lead: Medtronic 52 cm active fix lead. P waves 1.6v @ 0.4 ms, pacing impedance 599 ohms and P waves 2.8 mV RV ICD lead: R waves 19.8 mV, pacing impedance 740 ohms, pacing threshold 1.6V @ 0.4 ms Programming: AAIR-DDDR 60-130 bpm Single zone therapy at 200 beats a minute, max output Monitor zone from 160 beats a minute Procedure details: Patient was brought to the EP lab in a fasting state. Written informed consent was obtained prior to the procedure. Options, pros and cons, benefits and risks and complications discussed with patient in detail prior to the procedure (shared decision making). Importance of continuing medical treatment emphasized. Alternatives discussed. Patient would like to proceed with dual-chamber ICD implant. Left upper extremity venogram performed. 15 mL IV dye injected in the left arm. Patent axillary/subclavian vein The left pectoral area was prepped and draped as a protocol. IV antibiotics administered 1% lidocaine was used for local anesthesia. A 4 cm incision was made parallel to the deltopectoral groove, about 1.5 cm medial to it. The incision was carried down to the level of the pectoralis muscle and the subfascial pocket was made. Hemostasis was assured. The axillary vein access was obtained. Appropriately sized into to see sheaths were placed. ICD lead implanted in the right ventricle and screwed in. ICD lead tested for threshold, sensing, impedances and tested with high output pacing for diaphragmatic stimulation Atrial lead placed in the right atrial appendage and tested for threshold, sensing, impedance, and tested with high output pacing. Phrenic nerve stimulation negative Lead secured to the underlying transverse muscle after removing sheaths . Pocket irrigated with antibiotic solution Leads connected to the biventricular ICD generator. Wound closed in 3 layers and dressed per protocol Dual ICD interrogated and programmed. Appropriate pacing parameters, antitachycardia therapies with antitachycardia pacing cardioversion defibrillations programmed. Patient tolerated the procedure well without any acute complications. See scanned device report in EMR for lead details Defibrillation level testing VF was induced on 2 occasions at different coupling intervals. Adequately and appropriately detected at least sensitivity but the episodes were nonsustained and self terminating
[2022-08-22] MEDS: VERAPAMIL SR 120 MG TABLET.ER PO SCH ×2 (10:01→20:43)
[2022-08-22] MEDS ORDERED: POTASSIUM CHLORIDE ER 20 MEQ TAB.ER PO STA (10:04)
[2022-08-22] MEDS ORDERED: ACETAMINOPHEN IV (For NPO) 1,000 MG in EMPTY BAG 1 BAG IVPB ONE (10:15)
--- NOTE | 2022-08-22 10:29 | P.PN ---
Subjective Progress Note Date: 08/22/22 PROGRESS NOTE The patient is an 82-year-old female with known history of paroxysmal atrial ablation, history of hypertension who presented with evidence of ventricle tachycardia on her event monitor. She had prior history of syncope but no documented ventricular tachycardia. She underwent cardiac catheterization yesterday and was found to have no evidence of obstructive disease. She underwent placement of a ICD today. Her systolic function was normal by echocardiography with mild pulmonary hypertension and mild to moderate mitral regurgitation. She's feeling well at this time, denies any chest discomfort, dizziness or palpitations. Medications: Lipitor 20 mg daily, hydralazine 100 mg 3 times a day, losartan 25 mg daily, Protonix, Verapamil SR 120 mg twice a day. PHYSICAL EXAMINATION: Blood pressure 162/70 heart rate 60 LUNGS: Clear to auscultation, dressing noted HEART: Regular rate and rhythm, S1, S2. No S3. systolic ejection murmur ABDOMEN: Soft, nontender, no organomegaly EXTREMETIES: No edema IMPRESSION: 1. Episodes of ventricular tachycardia, no evidence of ischemia or cardi omyopathy 2. Status post ICD 3. History of paroxysmal atrial fibrillation 4. History of hypertension 5. History of hyperlipidemia. PLAN: 1. Resume anticoagulation in the morning 2. Follow blood pressure and adjust treatment accordingly 3. Continue telemetry 4. Depending on her progress further recommendations will be made. Objective - Vital Signs Vital signs: Vital Signs Temp 98.1 F 08/22/22 04:00 Pulse 62 08/22/22 09:53 Resp 18 08/22/22 09:53 BP 162/74 08/22/22 09:53 Pulse Ox 97 08/22/22 09:53 FiO2 Intake & Output 08/21/22 08/22/22 08/22/22 18:59 06:59 18:59 Intake Total 440 10 260 Balance 440 10 260 Weight 70.307 kg Intake: IV 200 10 260 Invasive Line 2 10 10 Oral 240 Other: Voiding Method Toilet Toilet Toilet # Voids 1 1 - Labs CBC & Chem 7: 08/21/22 09:08 08/21/22 09:08 Labs: Abnormal Lab Results - Last 24 Hours (Table) 08/21/22 Range/Units 09:08 Potassium 3.2 L (3.5-5.1) mmol/L Chloride 110 H (98-107) mmol/L TSH 20.700 H (0.465-4.680) mIU/L
[2022-08-22 12:28] LABS: African American GFR (CKD) >90 (>60 ml/min/1.73 sqM); Anion Gap 8 mmol/L; Blood Urea Nitrogen 10 mg/dL (7-17); Calcium 8.7 mg/dL (8.4-10.2); Carbon Dioxide 24 mmol/L (22-30); Chloride 108 mmol/L (98-107); Glucose 107 mg/dL (74-99); Magnesium 2.1 mg/dL (1.6-2.3); Non-African American GFR(CKD) 84 (>60 ml/min/1.73 sqM); Potassium 3.7 mmol/L (3.5-5.1); Sodium 140 mmol/L (137-145)
[2022-08-22 13:03] LABS: Basophils % (A) 1 %; Eosinophils # (A) 0.1 k/uL (0-0.7); Eosinophils % (A) 2 %; HCT 38.4 % (34.0-46.0); HGB 12.1 gm/dL (11.4-16.0); Lymphocytes # (A) 0.4 k/uL (1.0-4.8); Lymphocytes % (A) 9 %; MCH 31.7 pg (25.0-35.0); MCHC 31.6 g/dL (31.0-37.0); MCV 100.3 fL (80.0-100.0); Macrocytosis Slight; Mean Platelet Volume 8.5; Monocytes # (A) 0.2 k/uL (0-1.0); Monocytes % (A) 4 %; Neutrophils # (A) 3.4 k/uL (1.3-7.7); Neutrophils % (A) 84 %; Platelet Count 137 k/uL (150-450); RBC 3.83 m/uL (3.80-5.40); RDW 13.8 % (11.5-15.5)
--- NOTE | 2022-08-22 15:50 | P.PN ---
Subjective Progress Note Date: 08/22/22 This is a pleasant 82 year old female with medical history of atrial fibrillation, hypertension, hyperlipidemia, GERD, shogren's syndrome, anemia, anxiety/depression. Patient presents to the from home sent in for abnormal heart rhythm detected on event monitor. Patient was admitted to the hospital from 08/10/22 to 08/12/22 for bradycardia and syncopal episode. Patient was discharged home with 2 [address]. Earlier this year patients beta petty was stopped secondary to issues with bradycardia. Patient received a call around 0400 with detection of short run of vtach from the event monitor and was advised to come to the hospital for evaluation by her dancer or choreographer. Patient was sleeping when she received the call and reports being asymptomatic. Patient denies chest pain, denies shortness of breath. No syncopal episodes reported since discharge. No alcohol or tobacco use. Initial EKG reveals sinus bradycardia with a first degree AV block with no specific ST or T wave changes. Patient is admitted for further monitoring and cardiac evaluation. Patient has been scheduled for cardiac catheterization tomorrow. 08/21/2022 Patient is seen and evaluated in follow-up underwent cardiac catheterization early this morning which was clear with no interventions and will be followed up with dancer or choreographer Dr. Steward for AICD placement in the morning. Patient okay to resume diet and will be nothing by mouth again at midnight for cardiology intervention. Patient's potassium slightly low today at 3.2 and will replace per protocol recommend follow-up labs in the a.m. Patient is currently on bed rest and encourage the patient to continue using the call light for help. Will need to discuss further with cardiology when patient is clear for discharge. Patient to continue on telemetry monitoring. Patient currently denies any chest pain or shortness of breath. Patient reports not much of an appetite although denies any nausea or vomiting. Patient is afebrile with no reports of shortness of breath. 08/22/2022 Patient evaluated this morning postoperative AICD implantation. Patient reports no chest discomfort at the time of exam. Resting in bed with family at bedside. Labs today are essentially unremarkable. Slightly macrocytic with normal hemoglobin. Potassium improved to 3.7. Patient receiving prophylactic antibiotics. Review of systems: Constitutional: No reports of fatigue, fever, or chills Cardiovascular: No reports of chest pain or palpitations Respiratory: No reports of shortness of breath or cough GI: No reports of nausea, vomiting, or diarrhea, reports not much of an appetite currently : No reports of dysuria or retention Neurovascular: No reports of weakness or numbness All medications have been reviewed PHYSICAL EXAMINATION: GENERAL: The patient is alert and oriented x3, not in any acute distress. Well developed, well nourished. HEENT: Pupils are round and equally reacting to light. EOMI. No scleral icterus. No conjunctival pallor. Normocephalic, atraumatic. No pharyngeal erythema. No thyromegaly. CARDIOVASCULAR: S1 and S2 present. No murmurs, rubs, or gallops. Bradycardic. Regular rate and rhythm. PULMONARY: Chest is clear to auscultation, no wheezing or crackles. ABDOMEN: Soft, nontender, nondistended, normoactive bowel sounds. No palpable organomegaly. MUSCULOSKELETAL: No joint swelling or deformity. EXTREMITIES: No cyanosis, clubbing, or pedal edema. Right radial cardiac catheterization band noted with no bleeding or swelling around the site NEUROLOGICAL: Gross neurological examination did not reveal any focal deficits. SKIN: No rashes. Assessment: Episode of ventricular tachycardia/ventricular fibrillation on outpatient event monitor postop day 0 AICD implantation Status post cardiac catheterization showing no significant obstructive CAD noted with minor irregularities Paroxysmal atrial fibrillation currently in sinus bradycardia History of syncope with recent hospitalization for syncopal episode prompting outpatient event monitor Hypertension Hyperlipidemia History of degenerative disc disease Hypothyroidism Anxiety/Depression GI prophylaxis DVT prophylaxis Full Code Plan: Patient will continue on cardiac telemetry. Cardiology planning to resume anticoagulation in the AM. Discharge planning pending final cardiology recommendations. The impression and plan of care has been dictated by Christiana Alvares Nurse Practitioner as directed. Dr. Feroz MD I have performed a history and physical examination and medical decision making of this patient, discussed the same with the dictator, and agree with the dictators assessment and plan as written, documented as a scribe. Based on total visit time, I have performed more than 50% of this visit. Objective - Vital Signs Vital signs: Vital Signs Temp 98.1 F 08/22/22 04:00 Pulse 66 08/22/22 12:01 Resp 16 08/22/22 12:01 BP 122/64 08/22/22 12:01 Pulse Ox 98 08/22/22 12:01 FiO2 Intake & Output 08/21/22 08/22/22 08/22/22 18:59 06:59 18:59 Intake Total 440 10 928 Balance 440 10 928 Weight 70.307 kg Intake: IV 200 10 270 Invasive Line 2 10 20 Oral 240 658 Other: Voiding Method Toilet Toilet Toilet # Voids 1 1 1 - Labs CBC & Chem 7: 08/22/22 11:53 08/22/22 11:53 Labs: Abnormal Lab Results - Last 24 Hours (Table) 08/22/22 08/22/22 Range/Units 11:53 11:53 MCV 100.3 H (80.0-100.0) fL Plt Count 137 L (150-450) k/uL Lymphocytes # 0.4 L (1.0-4.8) k/uL Chloride 108 H (98-107) mmol/L Glucose 107 H (74-99) mg/dL Assessment and Plan Time with Patient: Less than 30
[2022-08-22] MEDS: ACETAMINOPHEN TAB 325 MG TAB PO PRN ×2 (16:52→22:00)
[2022-08-22] MEDS: MONTELUKAST 10 MG TAB PO SCH (20:40)
[2022-08-23] MEDS: ACETAMINOPHEN TAB 325 MG TAB PO PRN (05:57)
[2022-08-23] MEDS: LEVOTHYROXINE 88 MCG TAB PO SCH (05:58)
[2022-08-23] MEDS: PANTOPRAZOLE 40 MG TABLET PO SCH (05:58)
[2022-08-23] MEDS: hydrALAZINE HCL 50 MG TAB PO SCH ×3 (05:58→16:48)
--- NOTE | 2022-08-23 07:13 | XR ---
EXAMINATION TYPE: XR chest 2V DATE OF EXAM: 08/23/2022 COMPARISON: 08/20/2022 HISTORY: Shortness of breath TECHNIQUE: Frontal and lateral views of the chest are obtained. FINDINGS: Scattered senescent parenchymal changes noted. Hyperinflation compatible with COPD. No evidence for infiltrate. No evidence for atelectasis. Left-sided pacer power pack with dual leads within the right atrium and right ventricle respectively. No evidence for pneumothorax. Heart size is stable. Mediastinal structures are stable and grossly unremarkable. No evidence for hilar prominence. Degenerative changes dorsal spine. IMPRESSION: 1. No evidence for acute pulmonary disease.
[2022-08-23] MEDS: DULoxetine HCL 30 MG CAPSULE.DR PO SCH (08:22)
[2022-08-23] MEDS: LOSARTAN 25 MG TAB PO SCH (08:22)
[2022-08-23] MEDS: HYDROXYCHLOROQUINE SULFATE 200 MG TAB PO SCH ×2 (08:22→20:18)
[2022-08-23] MEDS: GABAPENTIN 300 MG CAP PO SCH ×2 (08:22→20:18)
[2022-08-23] MEDS: APIXABAN 5 MG TAB PO SCH ×2 (08:22→20:18)
[2022-08-23] MEDS: allopurinoL 300 MG TAB PO SCH (08:22)
[2022-08-23] MEDS: cycloSPORINE 0.05% OPHTH 0.4 ML DROPERETTE BOTH EYES SCH ×2 (08:22→20:50)
[2022-08-23] MEDS: VERAPAMIL SR 120 MG TABLET.ER PO SCH ×2 (08:22→20:18)
[2022-08-23] MEDS: ATORVASTATIN 20 MG TAB PO SCH (08:22)
[2022-08-23 08:46] LABS: Calcium 8.6 mg/dL (8.4-10.2); Potassium 3.8 mmol/L (3.5-5.1)
--- NOTE | 2022-08-23 10:40 | P.PN ---
Subjective Progress Note Date: 08/23/22 PROGRESS NOTE The patient is an 82-year-old female with known history of paroxysmal atrial ablation, history of hypertension who presented with evidence of ventricle tachycardia on her event monitor. She had prior history of syncope but no documented ventricular tachycardia. She underwent cardiac catheterization yesterday and was found to have no evidence of obstructive disease. She underwent placement of a ICD today. Her systolic function was normal by echocardiography with mild pulmonary hypertension and mild to moderate mitral regurgitation. She's feeling well at this time, denies any chest discomfort, dizziness or palpitations. August 23: Patient is feeling well this morning, ambulating without difficulties. She denies any chest discomfort, dizziness or palpitations. She denies any nausea or vomiting. On the monitor there is no evidence of ventricular tachycardia. Hemodynamically she is stable. Medications: Lipitor 20 mg daily, hydralazine 100 mg 3 times a day, losartan 25 mg daily, Protonix, Verapamil SR 120 mg twice a day. Eliquis 5 mg bid PHYSICAL EXAMINATION: Blood pressure 162/70 heart rate 64 LUNGS: Clear to auscultation, dressing noted, dry HEART: Regular rate and rhythm, S1, S2. No S3. systolic ejection murmur ABDOMEN: Soft, nontender, no organomegaly EXTREMETIES: No edema Lab: BUN 11, creatinine 0.81. IMPRESSION: 1. Episodes of ventricular tachycardia, no evidence of ischemia or cardiomyopathy 2. Status post ICD 3. History of paroxysmal atrial fibrillation, maintaining sinus mechanism 4. History of hypertension 5. History of hyperlipidemia. PLAN: 1. Start beta petty 2. Increase physical activity 3. If stable probable discharge tomorrow Objective - Vital Signs Vital signs: Vital Signs Temp 97.8 F 08/23/22 08:21 Pulse 64 08/23/22 08:21 Resp 18 08/23/22 08:21 BP 162/62 08/23/22 08:21 Pulse Ox 97 08/23/22 08:21 FiO2 Intake & Output 08/22/22 08/23/22 08/23/22 18:59 06:59 18:59 Intake Total 1164 20 378 Output Total 200 Balance 1164 -180 378 Intake: IV 270 20 20 Invasive Line 1 10 Invasive Line 2 20 20 10 Oral [id number] Output: Urine 200 Other: Voiding Method Toilet Toilet Toilet # Voids 1 1 - Labs CBC & Chem 7: 08/22/22 11:53 08/23/22 06:58 Labs: Abnormal Lab Results - Last 24 Hours (Table) 08/22/22 08/22/22 08/23/22 Range/Units 11:53 11:53 06:58 MCV 100.3 H (80.0-100.0) fL Plt Count 137 L (150-450) k/uL Lymphocytes # 0.4 L (1.0-4.8) k/uL Chloride 108 H 108 H (98-107) mmol/L Glucose 107 H (74-99) mg/dL
[2022-08-23] MEDS: polyethylene glycoL 3350 17 GM POWD.PACK PO SCH (12:38)
[2022-08-23] MEDS: METOPROLOL TARTRATE 25 MG TAB PO SCH ×2 (12:38→20:18)
--- NOTE | 2022-08-23 13:43 | P.PN ---
Subjective Progress Note Date: 08/23/22 This is a pleasant 82 year old female with medical history of atrial fibrillation, hypertension, hyperlipidemia, GERD, shogren's syndrome, anemia, anxiety/depression. Patient presents to the from home sent in for abnormal heart rhythm detected on event monitor. Patient was admitted to the hospital from 08/10/22 to 08/12/22 for bradycardia and syncopal episode. Patient was discharged home with 2 [address] monitor in [address]. Earlier this year patients beta petty was stopped secondary to issues with bradycardia. Patient received a call around 0400 with detection of short run of vtach from the event monitor and was advised to come to the hospital for evaluation by her back facer. Patient was sleeping when she received the call and reports being asymptomatic. Patient denies chest pain, denies shortness of breath. No syncopal episodes reported since discharge. No alcohol or tobacco use. Initial EKG reveals sinus bradycardia with a first degree AV block with no specific ST or T wave changes. Patient is admitted for further monitoring and cardiac evaluation. Patient has been scheduled for cardiac catheterization tomorrow. 08/21/2022 Patient is seen and evaluated in follow-up underwent cardiac catheterization early this morning which was clear with no interventions and will be followed up with back facer Dr. Steward for AICD placement in the morning. Patient okay to resume diet and will be nothing by mouth again at midnight for cardiology intervention. Patient's potassium slightly low today at 3.2 and will replace per protocol recommend follow-up labs in the a.m. Patient is currently on bed rest and encourage the patient to continue using the call light for help. Will need to discuss further with cardiology when patient is clear for discharge. Patient to continue on telemetry monitoring. Patient currently denies any chest pain or shortness of breath. Patient reports not much of an appetite although denies any nausea or vomiting. Patient is afebrile with no reports of shortness of breath. 08/22/2022 Patient evaluated this morning postoperative AICD implantation. Patient reports no chest discomfort at the time of exam. Resting in bed with family at bedside. Labs today are essentially unremarkable. Slightly macrocytic with normal hemoglobin. Potassium improved to 3.7. Patient receiving prophylactic antibiotics. 08/23/2022 Patient is evaluated today sitting on edge of bed. No acute complaints overnight. Patient is postoperative day #1 AICD implantation. Patient had AM chest xray done which is negative for acute changes. There is hyperinflation compatible with COPD. The left sided pacemaker is noted with dual leads within the right atrium and right ventricle respectively. AM EKG reveals atrial pacer rhythm heart rate of 60. Electroytes unremarkable. TSH found to be 20.700, free t4 of 1.75. Review of systems: Constitutional: No reports of fatigue, fever, or chills Cardiovascular: No reports of chest pain or palpitations Respiratory: No reports of shortness of breath or cough GI: No reports of nausea, vomiting, or diarrhea, reports not much of an appetite currently : No reports of dysuria or retention Neurovascular: No reports of weakness or numbness All medications have been reviewed PHYSICAL EXAMINATION: GENERAL: The patient is alert and oriented x3, not in any acute distress. Well developed, well nourished. HEENT: Pupils are round and equally reacting to light. EOMI. No scleral icterus. No conjunctival pallor. Normocephalic, atraumatic. No pharyngeal erythema. No thyromegaly. CARDIOVASCULAR: S1 and S2 present. No murmurs, rubs, or gallops.Regular rate and rhythm. Pacemaker dressing intact, no shadowing. PULMONARY: Chest is clear to auscultation, no wheezing or crackles. ABDOMEN: Soft, nontender, nondistended, normoactive bowel sounds. No palpable organomegaly. MUSCULOSKELETAL: No joint swelling or deformity. EXTREMITIES: No cyanosis, clubbing, or pedal edema. NEUROLOGICAL: Gross neurological examination did not reveal any focal deficits. SKIN: No rashes. Assessment: Episode of ventricular tachycardia/ventricular fibrillation on outpatient event monitor postop day 1 AICD implantation Status post cardiac catheterization showing no significant obstructive CAD noted with minor irregularities Paroxysmal atrial fibrillation currently atrial pacing History of syncope with recent hospitalization for syncopal episode prompting outpatient event monitor Hypertension Hyperlipidemia History of degenerative disc disease Hypothyroidism Anxiety/Depression GI prophylaxis DVT prophylaxis Full Code Plan: Patient will continue on cardiac telemetry. Cardiology has started metoprolol today. Synthroid has been increased. PT/OT consultation in place. Possible D/C home in the next 24 hours. The impression and plan of care has been dictated by Christiana Alvares Nurse Practitioner as directed. Dr. Feroz MD I have performed a history and physical examination and medical decision making of this patient, discussed the same with the dictator, and agree with the dictators assessment and plan as written, documented as a scribe. Based on total visit time, I have performed more than 50% of this visit. Objective - Vital Signs Vital signs: Vital Signs Temp 97.8 F 08/23/22 08:21 Pulse 61 08/23/22 12:41 Resp 18 08/23/22 12:41 BP 130/61 08/23/22 12:41 Pulse Ox 97 08/23/22 12:41 FiO2 Intake & Output 08/22/22 08/23/22 08/23/22 18:59 06:59 18:59 Intake Total 1164 20 496 Output Total 200 Balance 1164 -180 496 Intake: IV 270 20 20 Invasive Line 1 10 Invasive Line 2 20 20 10 Oral [id number] Output: Urine 200 Other: Voiding Method Toilet Toilet Toilet # Voids 1 1 - Labs CBC & Chem 7: 08/22/22 11:53 08/23/22 06:58 Labs: Abnormal Lab Results - Last 24 Hours (Table) 08/23/22 Range/Units 06:58 Chloride 108 H (98-107) mmol/L
[2022-08-23] MEDS: MONTELUKAST 10 MG TAB PO SCH (20:18)
[2022-08-24] MEDS ORDERED: LEVOTHYROXINE 100 MCG TAB PO SCH (06:30)
[2022-08-24] MEDS: hydrALAZINE HCL 50 MG TAB PO SCH ×2 (06:36→11:40)
[2022-08-24] MEDS: PANTOPRAZOLE 40 MG TABLET PO SCH (06:36)
[2022-08-24 08:17] LABS: African American GFR (CKD) >90 (>60 ml/min/1.73 sqM); Anion Gap 5 mmol/L; Blood Urea Nitrogen 9 mg/dL (7-17); Calcium 8.6 mg/dL (8.4-10.2); Carbon Dioxide 27 mmol/L (22-30); Chloride 106 mmol/L (98-107); Glucose 78 mg/dL (74-99); Non-African American GFR(CKD) 83 (>60 ml/min/1.73 sqM); Potassium 3.2 mmol/L (3.5-5.1); Sodium 138 mmol/L (137-145)
[2022-08-24] MEDS: LOSARTAN 25 MG TAB PO SCH (08:46)
[2022-08-24] MEDS: GABAPENTIN 300 MG CAP PO SCH (08:46)
[2022-08-24] MEDS: METOPROLOL TARTRATE 25 MG TAB PO SCH (08:46)
[2022-08-24] MEDS: ATORVASTATIN 20 MG TAB PO SCH (08:46)
[2022-08-24] MEDS: polyethylene glycoL 3350 17 GM POWD.PACK PO SCH (08:47)
[2022-08-24] MEDS: allopurinoL 300 MG TAB PO SCH (08:47)
[2022-08-24] MEDS: cycloSPORINE 0.05% OPHTH 0.4 ML DROPERETTE BOTH EYES SCH (08:47)
[2022-08-24] MEDS: HYDROXYCHLOROQUINE SULFATE 200 MG TAB PO SCH (08:47)
[2022-08-24] MEDS: VERAPAMIL SR 120 MG TABLET.ER PO SCH (08:47)
[2022-08-24] MEDS: APIXABAN 5 MG TAB PO SCH (08:47)
[2022-08-24] MEDS: DULoxetine HCL 30 MG CAPSULE.DR PO SCH (08:51)
[2022-08-24] MEDS ORDERED: POTASSIUM CHLORIDE ER 20 MEQ TAB.ER PO STA ×2 (09:49)
[2022-08-24 10:07] VITALS: RESP 16; TEMP 98.1
--- NOTE | 2022-08-24 10:31 | CDI ---
Documentation Clarification Form Date: 08/24/2022 From: Adelaide Vo Phone: [phone] Admit Date: 08/20/2022 6:54:00 AM Patient Name: Montserrat Cox Visit Number: [id number] ATTENTION: The Clinical Documentation Specialists (CDI) and [facility] Coding Staff appreciate your assistance in clarifying documentation. Please respond to the clarification below the line at the bottom and electronically sign. The CDI & [facility] Coding staff will review the response and follow-up if needed. Please note: Queries are made part of the Legal Health Record. If you have any questions, please contact the author of this message via ITS. Dr. Marsha Redman Your patient has a potassium level of 3.2 on 08/21 and 08/24. Please clarify if there is an additional diagnosis and/or clinical significance related to this lab value. History/Risk Factors: 82yo presented with episode of VT and underwent a heart cath and an AICD implantation. Clinical indicators: Per the record Treatment: 60 meq KCL po on 08/24, monitoring Is there an additional diagnosis and/or clinical significance related to the above lab result/information? [ ] Hypokalemia [ x ] Abnormal Lab Value, not clinically significant [ ] Other condition, please specify [ ] Unable to determine MTDD
[2022-08-24 12:13] VITALS: BP 152/75; PULSE 62
--- NOTE | 2022-08-25 22:58 | P.DS ---
Providers Date of admission: 08/20/22 06:54 Attending physician: Alessandro Fung MD Consults: 08/20/22 06:21 Consult Physician Urgent Consulting Provider: [facility] Consult Reason/Comments: run of vtach on home heart monitor Do you want consulting provider notified?: Yes Primary care physician: Bishop Denise [facility] Course: Final Diagnosis Episode of ventricular tachycardia/ventricular fibrillation on outpatient event monitor postop day 2 AICD implantation Status post cardiac catheterization showing no significant obstructive CAD noted with minor irregularities Hypokalemia Paroxysmal atrial fibrillation currently atrial pacing History of syncope with recent hospitalization for syncopal episode prompting outpatient event monitor Hypertension Hyperlipidemia History of degenerative disc disease Hypothyroidism Anxiety/Depression Full Code Discharge Disposition Patient is stable for discharge. Patient has been cleared by cardiology. Patient to follow up in the device clinic on discharge made for August 31. Amlodipine has been discontinued by cardiology. Additionally patients TSH is found to be elevated over 20 and levothyroxine has been increased to 100 mcg daily. Patient to follow up with Dr Denise in 2 to 3 days post discharge. Patient is given prescription for repeat labs in 2 to 3 days as well. Hospital Course This is a pleasant 82 year old female with medical history of atrial fibrillation, hypertension, hyperlipidemia, GERD, shogren's syndrome, anemia, anxiety/depression. Patient presents to the from home sent in for abnormal heart rhythm detected on event monitor. Patient was admitted to the hospital from 08/10/22 to 08/12/22 for bradycardia and syncopal episode. Patient was discharged home with [address]. Earlier this year patients beta petty was stopped secondary to issues with bradycardia. Patient received a call around 0400 with detection of short run of vtach from the event monitor and was advised to come to the hospital for evaluation by her driving school instructor. Patient was sleeping when she received the call and reports being asymptomatic. Patient denies chest pain, denies shortness of breath. No syncopal episodes reported since discharge. No alcohol or tobacco use. Initial EKG reveals sinus bradycardia with a first degree AV block with no specific ST or T wave changes. Patient is admitted for further monitoring and cardiac evaluation. Underwent cardiac catheterization which reveals no significant obstructive coronary artery disease. The event monitor strips revealed evidence of ventricular tachycardia. Patient underwent placement of a ICD. Her systolic function was normal by echocardiography with mild pulmonary hypertension and mild to moderate mitral regurgitation. She's feeling well at this time, denies any chest discomfort, dizziness or palpitations. color television console monitor reveals no further v.tach and patient is now in an atrial paced rhythm. Patient was hypokalemic on admission and was given potassium replacement. Additionally a TSH was checked and found to be 20.700, free T4 was normal. Patients synthroid has been increased to 100 mcg daily. Cardiology recommending to discontinue amlodipine. Additionally recommending cymbalta be discontinued. Patient has been started on metoprolol succinate at 50 mg daily. Patient has been evaluated by physical therapy and safe for discharge home. Patients lungs are clear, S1 S2 is auscultated, she is alert x 3 and focal neurological exam is negative. The surgical site is clean and no shadowing noted on the dressing. Pain is controlled. Patient will be discharged home. Please see medication reconciliation for a list of current medication. Thank you for allowing us to participate in the care of this patient. The impression and plan of care has been dictated by Christiana Alvares, Nurse Practitioner as directed. Dr. Feroz MD I have performed a history and physical examination and medical decision making of this patient, discussed the same with the dictator, and agree with the dictators assessment and plan as written, documented as a scribe. Based on total visit time, I have performed more than 50% of this visit. Patient Condition at Discharge: Stable Plan - Discharge Summary New Discharge Prescriptions: New Metoprolol Succinate [Toprol XL] 50 mg PO DAILY #90 tab polyethylene glycoL 3350 [Miralax] 17 gm PO DAILY packet Levothyroxine Sodium [Synthroid] 100 mcg PO DAILY@0630 #30 tab Acetaminophen Tab [Tylenol] 650 mg PO Q6HR PRN tab PRN Reason: Mild Pain (Scale 1 To 3) Continue cycloSPORINE [Restasis] 1 drop BOTH EYES BID Montelukast [Singulair] 10 mg PO HS traMADol HCl [Ultram] 50 mg PO Q6H PRN PRN Reason: Pain Apixaban [Eliquis] 5 mg PO BID allopurinoL [Zyloprim] 300 mg PO DAILY Gabapentin 300 mg PO BID Losartan [Cozaar] 25 mg PO DAILY Hydroxychloroquine Sulfate [Plaquenil] 200 mg PO BID Potassium Chloride ER [K-Dur 10] 20 meq PO BID Albuterol Inhaler [Ventolin Hfa Inhaler] 2 puff INHALATION RT-Q4H PRN PRN Reason: Shortness Of Breath Omeprazole 40 mg PO DAILY hydrALAZINE HCL [Apresoline] 100 mg PO TID-W/MEALS Furosemide [Lasix] 20 mg PO DAILY PRN PRN Reason: Edema Atorvastatin [Lipitor] 20 mg PO DAILY Clindamycin Phosphate [Cleocin T 1%] 1 applic TOPICAL BID Discontinued amLODIPine [Norvasc] 5 mg PO DAILY Levothyroxine Sodium [Levoxyl] 88 mcg PO DAILY Baclofen 10 mg PO TID PRN PRN Reason: Muscle Spasm DULoxetine HCL [Cymbalta] 30 mg PO DAILY Ondansetron Odt [Zofran ODT] 4 mg PO Q8HR PRN PRN Reason: Nausea Discharge Medication List Montelukast [Singulair] 10 mg PO HS 07/22/15 [History] cycloSPORINE [Restasis] 1 drop BOTH EYES BID 07/22/15 [History] traMADol HCl [Ultram] 50 mg PO Q6H PRN 07/23/15 [History] Albuterol Inhaler [Ventolin Hfa Inhaler] 2 puff INHALATION RT-Q4H PRN 04/12/22 [History] Apixaban [Eliquis] 5 mg PO BID 04/12/22 [History] Atorvastatin [Lipitor] 20 mg PO DAILY 04/12/22 [History] Clindamycin Phosphate [Cleocin T 1%] 1 applic TOPICAL BID 04/12/22 [History] Furosemide [Lasix] 20 mg PO DAILY PRN 04/12/22 [History] Gabapentin 300 mg PO BID 04/12/22 [History] Hydroxychloroquine Sulfate [Plaquenil] 200 mg PO BID 04/12/22 [History] Losartan [Cozaar] 25 mg PO DAILY 04/12/22 [History] Omeprazole 40 mg PO DAILY 04/12/22 [History] allopurinoL [Zyloprim] 300 mg PO DAILY 04/12/22 [History] hydrALAZINE HCL [Apresoline] 100 mg PO TID-W/MEALS 04/12/22 [History] Potassium Chloride ER [K-Dur 10] 20 meq PO BID 08/20/22 [History] Acetaminophen Tab [Tylenol] 650 mg PO Q6HR PRN tab 08/24/22 [Rx] Levothyroxine Sodium [Synthroid] 100 mcg PO DAILY@0630 #30 tab 08/24/22 [Rx] Metoprolol Succinate [Toprol XL] 50 mg PO DAILY #90 tab 08/24/22 [Rx] polyethylene glycoL 3350 [Miralax] 17 gm PO DAILY packet 08/24/22 [Rx] Follow up Appointment(s)/Referral(s): Adrián Steward MD [STAFF PHYSICIAN] - 08/31/22 2:45 pm (With device clinic.) Leroy Mendenhall MD [STAFF PHYSICIAN] - 08/31/22 2:45 pm (With device clinic.) Bishop Denise MD [Primary Care Provider] - 08/26/22 1:30 pm (With [facility].) Ambulatory/Diagnostic Orders: Basic Metabolic Panel [LAB.AMB] Time Frame: 3 Days, Location: None Selected Patient Instructions/Handouts: Heart Catheterization (DC), Implantable Cardioverter Defibrillator (DC), Pacemaker (DC) Activity/Diet/Wound Care/Special Instructions: PATIENT EDUCATION MATERIAL Instructions following a heart rhythm device implant. 1. Keep dressing DRY for 5 DAYS. You may cover the area with Saran or Cling Wrap, prior to a shower. 2. The dressing will be removed in the Device Clinic at [facility]. Absorbable sutures were used to close the wound. 3. Avoid raising the left arm above the shoulder level. 4 week restriction 4. Avoid arm movements, like backscratching, rubbing the head, or pulling on a cord. 4 weeks restriction 5. Gentle range of motion movements of the shoulder, closest to the incision should be performed to avoid a frozen shoulder. (Pendulum exercises of the shoulder) 6. The opposite arm may be used freely. 7. Avoid driving for 7 days. 8. Avoid activities such as golfing, swimming, weed whacking, lifting more than 10 pounds weight, bowling, gymnastics and weight training/lifting. (6 weeks restriction) 9. Activities such as wood chopping with an axe, pull-ups in the gymnasium, power lifting, arc-welding, being close to home induction cooktops will always be a problem. 10. Arm sling is only a reminder not to raise the arm above the head. You do n ot need to keep the arm completely immobilized. Your free to move the arm and use it and for normal activities. In case of any problems, please call [facility], [place], @ [phone], Attention: Device Clinic Device clinic follow-up in 5 days Follow-up with primary driving school instructor in 1 week Stop Cymbalta Follow-up twelve-lead EKG after 2 weeks of stopping Cymbalta Metoprolol 50 mg by mouth daily, long-acting No verapamil Discharge Disposition: HOME SELF-CARE
== END 2022-08-24 14:17 | disposition home or self-care (01) | DRG 225 ==
LOC: EC 04:52 → 3SCARD 06:54
PROVIDERS: ADMIT Internal Medicine; ATTEND Internal Medicine
PROC: B2111ZZ Fluoroscopy of Multiple Coronary Arteries using Low Osmolar Contrast (ICD-10-PCS; 2022-08-21)
PROC: 4A023N7 Measurement of Cardiac Sampling and Pressure, Left Heart, Percutaneous Approach (ICD-10-PCS; principal; 2022-08-21 07:30)
PROC: 02HK3KZ Insertion of Defibrillator Lead into Right Ventricle, Percutaneous Approach (ICD-10-PCS; 2022-08-22)
PROC: 02H63KZ Insertion of Defibrillator Lead into Right Atrium, Percutaneous Approach (ICD-10-PCS; 2022-08-22)
PROC: 0JH609Z Insertion of Cardiac Resynchronization Defibrillator Pulse Generator into Chest Subcutaneous Tissue and Fascia, Open Approach (ICD-10-PCS; 2022-08-22 07:30)
DX: I47.20 Ventricular tachycardia, unspecified (principal); I42.9 Cardiomyopathy, unspecified; I49.01 Ventricular fibrillation; I27.20 Pulmonary hypertension, unspecified; I49.5 Sick sinus syndrome; I34.0 Nonrheumatic mitral (valve) insufficiency; J44.9 Chronic obstructive pulmonary disease, unspecified; M35.00 Sjogren syndrome, unspecified; E03.9 Hypothyroidism, unspecified; I10 Essential (primary) hypertension; F32.A Depression, unspecified; I48.0 Paroxysmal atrial fibrillation; D72.818 Other decreased white blood cell count; G89.29 Other chronic pain; E78.5 Hyperlipidemia, unspecified; I44.0 Atrioventricular block, first degree; K21.9 Gastro-esophageal reflux disease without esophagitis; F41.9 Anxiety disorder, unspecified; I49.3 Ventricular premature depolarization; Z87.19 Personal history of other diseases of the digestive system; Z88.8 Allergy status to other drugs, medicaments and biological substances; Z91.048 Other nonmedicinal substance allergy status; Z79.899 Other long term (current) drug therapy; Z79.01 Long term (current) use of anticoagulants; Z79.890 Hormone replacement therapy
CPT/HCPCS: 33249; 36415; 71046; 80048; 80053; 83735; 83880; 84439; 84443; 84484; 85025; 85610; 85730; 93005; 93306; 93458; 93641; 94760; 96361; 96365; 96366; 99285

== ENCOUNTER → 2022-10-23 | Outpatient (CLI) | payer MEDICARE ==
[2022-10-23 15:37] LABS: BUN/Creat Ratio 25.56 Ratio (12.00-20.00); Calcium 9.4 mg/dL (8.7-10.3); Carbon Dioxide 29.1 mmol/L (21.6-31.8); Chloride 102 mmol/L (96-109); Glucose 81 mg/dL (70-110); Potassium 3.3 mmol/L (3.5-5.5); Sodium 143 mmol/L (135-145)
== END | disposition home or self-care (01) ==
LOC: LABWHC1 10:17
PROVIDERS: ATTEND Internal Medicine Interventional Cardiology
DX: I48.91 Unspecified atrial fibrillation (principal); I47.20 Ventricular tachycardia, unspecified
CPT/HCPCS: 36415; 80048

== ENCOUNTER → 2022-12-01 | Outpatient (CLI) | payer MEDICARE ==
--- NOTE | 2022-12-01 13:20 | CT ---
EXAMINATION TYPE: CT brain wo con CT DLP: 1177 mGycm, Automated exposure control for dose reduction was used. DATE OF EXAM: 12/01/2022 1:13 PM COMPARISON: None. 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 Bruising to left side of head and face. TECHNIQUE: Brain: Multiple axial CT images of the brain were obtained without IV contrast. Coronal and sagittal reformats reviewed. FINDINGS: Brain: Extra-axial spaces: No abnormal extra-axial fluid collections. Ventricular system: Within normal limits Cerebral parenchyma: Cerebral atrophy. No acute intraparenchymal hemorrhage or mass effect. The cortes -white junction is well differentiated. Scattered hypoattenuating areas are seen within the white mat ter. Nonspecific bilateral basal ganglia calcifications. Cerebellum: Unremarkable. Mass effect: No evidence of midline shift. Intracranial vasculature: Atherosclerotic calcifications of the intracranial vessels. Soft tissues: Left lateral frontal scalp hematoma measuring 9 mm in thickness. Calvarium/osseous structures: No depressed skull fracture. Paranasal sinuses and mastoid air cells: Clear, aplasia of the right frontal sinus. Visualized orbits: Bilateral aphakia IMPRESSION: 1. No acute intracranial process. 2. Nonspecific white matter changes, likely secondary to chronic small vessel ischemic disease. 3. Small left lateral frontal scalp hematoma.
== END | disposition home or self-care (01) ==
LOC: RADCTMAIN 12:47
PROVIDERS: ATTEND Internal Medicine Geriatric Medicine
DX: G44.329 Chronic post-traumatic headache, not intractable (principal); S00.03XA Contusion of scalp, initial encounter; X58.XXXA Exposure to other specified factors, initial encounter; R90.82 White matter disease, unspecified
CPT/HCPCS: 70450

== ENCOUNTER 2023-03-14 02:30 | Inpatient (IN) | payer MEDICARE ==
[2023-03-14] MEDS ORDERED: SODIUM CHLORIDE 0.9% 500 ML 500 ML IV STA (02:46)
--- NOTE | 2023-03-14 02:58 | ED ---
Weakness HPI - General Stated complaint: Knee Pain Time Seen by Provider: 03/14/23 02:34 Source: patient, EMS Mode of arrival: EMS Limitations: no limitations - History of Present Illness Initial comments: This patient is an 82-year-old woman who presents to have evaluation as she was having difficulty getting out of chair. She states she has had similar symptoms previously over past weeks. She states that she was trying to get out of her chair at home but was weak in both legs. She was also having pain in the bilateral knees when she attempted stand. She states that it resulted in her slumping to the floor as she couldn't get up. EMS was called and brought her to the hospital. Patient denies focal weakness. She has not noted symptoms of infection. She denies fever or chills. No cough or congestion. No shortness of breath or chest pain. No abdominal pain, nausea or vomiting. She has not noted change in urination or bowel movements. MD Complaint: generalized weakness -: hour(s) Location: generalized Severity: moderate Consistency: constant Improves with: none Worsens with: none Associated Symptoms: denies other symptoms - Related Data Home Medications Medication Instructions Recorded Confirmed Montelukast [Singulair] 10 mg PO HS 07/22/15 03/14/23 cycloSPORINE [Restasis] 1 drop BOTH EYES BID 07/22/15 03/14/23 Albuterol Inhaler [Ventolin Hfa 2 puff INHALATION RT-Q4H PRN 04/12/22 03/14/23 Inhaler] Apixaban [Eliquis] 5 mg PO BID 04/12/22 03/14/23 Atorvastatin [Lipitor] 20 mg PO HS 04/12/22 03/14/23 Clindamycin Phosphate [Cleocin T 1 applic TOPICAL BID 04/12/22 03/14/23 1%] Omeprazole 40 mg PO DAILY 04/12/22 03/14/23 allopurinoL [Zyloprim] 300 mg PO DAILY 04/12/22 03/14/23 Acetaminophen Tab [Tylenol] 650 mg PO Q6H PRN 03/14/23 03/14/23 Black Currant Oil 1000mg 1,000 mg PO HS 03/14/23 03/14/23 Calcium Carbonate [Calcium] 1,200 mg PO DAILY 03/14/23 03/14/23 Cholecalciferol [Vitamin D3 (125 125 mcg PO HS 03/14/23 03/14/23 Mcg = 5000 Iu)] HYDROcodone/APAP 10-325MG [[place] 0.5 tab PO Q6H PRN 03/14/23 03/14/23 10-325] Magnesium Oxide [Mag-Ox] 400 mg PO HS 03/14/23 03/14/23 Metoprolol Succinate (ER) [Toprol 100 mg PO DAILY 03/14/23 03/14/23 XL] Nitroglycerin Sl Tabs [Nitrostat] 0.4 mg SL Q5M PRN 03/14/23 03/14/23 Potassium Chloride ER [K-Dur 20] 20 meq PO BID 03/14/23 03/14/23 methylPREDNISolone [Medrol Dose See Taper PO DIRECTED PRN 03/14/23 03/14/23 Pack] polyethylene glycoL 3350 [Miralax] 17 gm PO DAILY PRN 03/14/23 03/14/23 Previous Rx's Medication Instructions Recorded Levothyroxine Sodium [Synthroid] 100 mcg PO DAILY@0630 #30 tab 08/24/22 Folic Acid 1 mg PO DAILY@1200 #30 tab 03/22/23 Furosemide [Lasix] 20 mg PO DAILY PRN #20 tab 03/22/23 Gabapentin [Neurontin] 200 mg PO BID #6 cap 03/22/23 Losartan [Cozaar] 25 mg PO DAILY #30 tab 03/22/23 Multivitamins, Thera [Multivitamin 1 each PO DAILY@1200 #30 tab 03/22/23 (formulary)] Nystatin 100,000 Unit/ml Susp 500,000 unit PO QID #240 ml 03/22/23 [Mycostatin Oral Susp] Thiamine [Vitamin B-1] 100 mg PO DAILY@1200 #30 tab 03/22/23 amLODIPine [Norvasc] 10 mg PO DAILY #30 tab 03/22/23 Allergies Allergy/AdvReac Type Severity Reaction Status Date / Time adhesive tape Allergy Rash/Hives Verified 03/14/23 10:58 Steriods IV Allergy Rash/Hives Uncoded 03/14/23 10:58 Review of Systems ROS Statement: Those systems with pertinent positive or pertinent negative responses have been documented in the HPI. ROS Other: All systems not noted in ROS Statement are negative. Constitutional: Reports: weakness. Denies: fever, chills Eyes: Denies: vision change Respiratory: Denies: cough, dyspnea Cardiovascular: Denies: chest pain, palpitations, edema, syncope Gastrointestinal: Denies: abdominal pain, nausea, vomiting, diarrhea Genitourinary: Denies: dysuria, frequency, hematuria Musculoskeletal: Reports: as per HPI, arthralgia. Denies: back pain Skin: Denies: rash Neurological: Denies: headache, weakness, numbness Past Medical History Past Medical History: Atrial Fibrillation, Cancer, Eye Disorder, GERD/Reflux, Hyperlipidemia, Hypertension, Osteoarthritis (OA), Thyroid Disorder Additional Past Medical History / Comment(s): Recently diagnosed with Afib, slightly "leaky heart valve", Shogren's syndrome, anemia, chronic low back pain, DDD, gout bilateral feet/toes, 2017 shingelles, basal cell skin cancer removals, diverticular disease/benign polyps, hypothyroid, bilateral dry eyes History of Any Multi-Drug Resistant Organisms: None Reported Past Surgical History: Appendectomy, Back Surgery, Section, Cholecystectomy, Hysterectomy, Orthopedic Surgery, Tonsillectomy Additional Past Surgical History / Comment(s): Lumbar and cervical fusions, R foot bunionectomy/metatarsal surgery, skin cancer removals, colonoscopies/benign polypectomy, bilateral cataract removals/lens implants. Past Anesthesia/Blood Transfusion Reactions: No Reported Reaction Past Psychological History: Anxiety, Depression Smoking Status: Never smoker Past Alcohol Use History: None Reported Past Drug Use History: None Reported - Past Family History Sister(s) Family Medical History: Cancer Additional Family Medical History / Comment(s): BREAST CANCER Brother(s) Family Medical History: Cancer Additional Family Medical History / Comment(s): LEUKEMIA Mother Family Medical History: Neurologic Disorder Additional Family Medical History / Comment(s): parkinsons, macular degeneration Father Family Medical History: Dementia, Neurologic Disorder Additional Family Medical History / Comment(s): parkinsons General Exam General appearance: alert, in no apparent distress Head exam: Present: atraumatic, normocephalic Eye exam: Present: normal appearance. Absent: scleral icterus, conjunctival injection ENT exam: Present: normal oropharynx Neck exam: Present: normal inspection Respiratory exam: Present: normal lung sounds bilaterally. Absent: respiratory distress, wheezes, rales, rhonchi, stridor Cardiovascular Exam: Present: regular rate, normal rhythm, normal heart sounds. Absent: systolic murmur, diastolic murmur, rubs, gallop GI/Abdominal exam: Present: soft. Absent: distended, tenderness, guarding, rebound, rigid, mass Extremities exam: Present: normal inspection, normal capillary refill. Absent: pedal edema, calf tenderness Back exam: Present: normal inspection Neurological exam: Present: alert, oriented X3, CN II-XII intact. Absent: motor sensory deficit Skin exam: Present: warm, dry, intact, normal color. Absent: rash Course Vital Signs 03/14/23 03/14/23 03/14/23 02:48 04:55 05:05 Temperature Pulse Rate 62 65 Respiratory 18 Rate Blood Pressure 177/72 206/82 O2 Sat by Pulse 95 93 L 97 Oximetry 03/14/23 03/14/23 03/14/23 06:00 07:00 08:00 Temperature 98.6 F Pulse Rate 55 L 55 L 64 Respiratory 18 18 16 Rate Blood Pressure 195/82 186/83 191/77 O2 Sat by Pulse 95 95 95 Oximetry 03/14/23 03/14/23 03/14/23 08:28 09:00 09:04 Temperature Pulse Rate 56 L 55 L 55 L Respiratory 18 16 18 Rate Blood Pressure 182/80 182/80 173/79 O2 Sat by Pulse 97 96 98 Oximetry EKG Findings - EKG Comments: EKG Findings:: Rhythm appears to be atrial paced rhythm, rate 66 bpm - EKG Results: EKG: interpreted by ERMD - Blocks, [place], Hypertrophy, ST Abn: QRS axis and voltage: left axis deviation (-30 to -90) Medical Decision Making - Medical Decision Making The patient had chest x-ray which I interpreted as negative for acute infil trate, pneumothorax, congestive heart failure The patient had left knee x-ray which I interpreted as negative for acute fracture or dislocation Was pt. sent in by a medical professional or institution (, PA, EMAIL DEPLOYMENT SPECIALIST, urgent care, hospital, or correction...) When possible be specific @ -[No] Did you speak to anyone other than the patient for history (EMS, parent, family, police, friend...)? What history was obtained from this source @ -[Patient's family did give history Did you review nursing and triage notes (agree or disagree)? Why? @ -[I reviewed and agree with nursing and triage notes] Were old charts reviewed (outside hosp., previous admission, EMS record, old EKG, old radiological studies, urgent care reports/EKG's, correction records)? Report findings @ -[No old charts were reviewed] Differential Diagnosis (chest pain, altered mental status, abdominal pain women, abdominal pain men, vaginal bleeding, weakness, fever, dyspnea, syncope, headache, dizziness, GI bleed, back pain, seizure, CVA, palpatations, mental health, musculoskeletal)? @ -[Differential Weakness: Hypoglycemia, shock, sepsis, hyponatremia, anemia, infection, OR, ETOH, adverse medicine reaction, overdose, stroke, this is not meant to be an all-inclusive list. EKG interpreted by me (3pts min.). @ -[I interpreted As above] X-rays interpreted by me (1pt min.). @ -[I interpreted as above CT interpreted by me (1pt min.). @ -[None done] U/S interpreted by me (1pt. min.). @ -[None done] What testing was considered but not performed or refused? (CT, X-rays, U/S, labs)? Why? @ -[None] What meds were considered but not given or refused? Why? @ -[None] Did you discuss the management of the patient with other professionals (professionals i.e. , PA, EMAIL DEPLOYMENT SPECIALIST, lab, RT, psych nurse, licensed social worker, manager metrology, teacher, targeting acquisition officer, correctional case manager)? Give summary @ -[Case discussed with admitting physician Was smoking cessation discussed for >3mins.? @ -[No] Was critical care preformed (if so, how long)? @ -[No] Were there social determinants of health that impacted care today? How? (Homelessness, low income, unemployed, alcoholism, drug addiction, transporta tion, low edu. Level, literacy, decrease access to med. care, [facility] [facility], rehab)? @ -[No] Was there de-escalation of care discussed even if they declined (Discuss DNR or withdrawal of care, Hospice)? DNR status @ -[No] What co-morbidities impacted this encounter? (DM, HTN, Smoking, COPD, CAD, Cancer, CVA, ARF, Chemo, Hep., AIDS, mental health diagnosis, sleep apnea, morbid obesity)? @ -[None] Was patient admitted / discharged? Hospital course, mention meds given and route, prescriptions, significant lab abnormalities, going to OR and other pertinent info. @ -[Patient is an 82-year-old woman here with inability to get out of her chair or ambulate. The initial workup not revealing definite etiology, patient will be admitted to have further evaluation and probably to have rehabilitation placement Undiagnosed new problem with uncertain prognosis? @ -[No] Drug Therapy requiring intensive monitoring for toxicity (Heparin, Nitro, Insulin, Cardizem)? @ -[No] Were any procedures done? @ -[No] Diagnosis/symptom? @ -[Generalized weakness Inability to ambulate Acute, or Chronic, or Acute on Chronic? @ -[Acute Uncomplicated (without systemic symptoms) or Complicated (systemic symptoms)? @ -[Uncomplicated Side effects of treatment? @ -[No] Exacerbation, Progression, or Severe Exacerbation? @ -[No] Poses a threat to life or bodily function? How? (Chest pain, USA, OR, pneumonia, PE, COPD, DKA, ARF, appy, cholecystitis, CVA, Diverticulitis, Homicidal, Suicidal, threat to staff... and all critical care pts) @ -[No] - Lab Data Result diagrams: 03/21/23 11:14 03/21/23 11:14 Lab Results 03/14/23 03/14/23 03/14/23 Range/Units 03:03 03:03 03:03 WBC 3.5 L (3.8-10.6) k/uL RBC 3.85 (3.80-5.40) m/uL Hgb 11.9 (11.4-16.0) gm/dL Hct 35.8 (34.0-46.0) % MCV 93.0 (80.0-100.0) fL MCH 31.0 (25.0-35.0) pg MCHC 33.3 (31.0-37.0) g/dL RDW 14.0 (11.5-15.5) % Plt Count 133 L (150-450) k/uL MPV 8.3 Neutrophils % 72 % Lymphocytes % 18 % Monocytes % 6 % Eosinophils % 2 % Basophils % 1 % Neutrophils # 2.5 (1.3-7.7) k/uL Lymphocytes # 0.6 L (1.0-4.8) k/uL Monocytes # 0.2 (0-1.0) k/uL Eosinophils # 0.1 (0-0.7) k/uL Basophils # 0.0 (0-0.2) k/uL PT 11.1 (10.0-12.5) sec INR 1.0 (<1.2) APTT 26.8 (22.0-30.0) sec Sodium (137-145) mmol/L Potassium (3.5-5.1) mmol/L Chloride (98-107) mmol/L Carbon Dioxide (22-30) mmol/L Anion Gap mmol/L BUN (7-17) mg/dL Creatinine (0.52-1.04) mg/dL Est GFR (CKD-EPI)AfAm (>60 ml/min/1.73 sqM) Est GFR (CKD-EPI)NonAf (>60 ml/min/1.73 sqM) Glucose (74-99) mg/dL Plasma Lactic Acid Fabiano (0.7-2.0) mmol/L Calcium (8.4-10.2) mg/dL Magnesium (1.6-2.3) mg/dL Total Bilirubin (0.2-1.3) mg/dL AST (14-36) U/L ALT (4-34) U/L Alkaline Phosphatase (38-126) U/L Troponin I (0.000-0.034) ng/mL Total Protein (6.3-8.2) g/dL Albumin (3.5-5.0) g/dL TSH (0.465-4.680) mIU/L Free T4 (0.78-2.19) ng/dL Urine Color Colorless Urine Appearance Clear (Clear) Urine pH 7.5 (5.0-8.0) Ur Specific [place] 1.007 (1.001-1.035) Urine Protein Negative (Negative) Urine Glucose (UA) Negative (Negative) Urine Ketones Negative (Negative) Urine Blood Negative (Negative) Urine Nitrite Negative (Negative) Urine Bilirubin Negative (Negative) Urine Urobilinogen <2.0 (<2.0) mg/dL Ur Leukocyte Esterase Negative (Negative) Coronavirus (PCR) (Not Detectd) 03/14/23 03/14/23 03/14/23 Range/Units 03:03 03:03 03:03 WBC (3.8-10.6) k/uL RBC (3.80-5.40) m/uL Hgb (11.4-16.0) gm/dL Hct (34.0-46.0) % MCV (80.0-100.0) fL MCH (25.0-35.0) pg MCHC (31.0-37.0) g/dL RDW (11.5-15.5) % Plt Count (150-450) k/uL MPV Neutrophils % % Lymphocytes % % Monocytes % % Eosinophils % % Basophils % % Neutrophils # (1.3-7.7) k/uL Lymphocytes # (1.0-4.8) k/uL Monocytes # (0-1.0) k/uL Eosinophils # (0-0.7) k/uL Basophils # (0-0.2) k/uL PT (10.0-12.5) sec INR (<1.2) APTT (22.0-30.0) sec Sodium 138 (137-145) mmol/L Potassium 3.8 (3.5-5.1) mmol/L Chloride 100 (98-107) mmol/L Carbon Dioxide 29 (22-30) mmol/L Anion Gap 9 mmol/L BUN 16 (7-17) mg/dL Creatinine 0.69 (0.52-1.04) mg/dL Est GFR (CKD-EPI)AfAm >90 (>60 ml/min/1.73 sqM) Est GFR (CKD-EPI)NonAf 82 (>60 ml/min/1.73 sqM) Glucose 93 (74-99) mg/dL Plasma Lactic Acid [place] 0.9 (0.7-2.0) mmol/L Calcium 9.8 (8.4-10.2) mg/dL Magnesium 2.2 (1.6-2.3) mg/dL Total Bilirubin 1.0 (0.2-1.3) mg/dL AST 43 H (14-36) U/L ALT 35 H (4-34) U/L Alkaline Phosphatase 94 (38-126) U/L Troponin I <0.012 (0.000-0.034) ng/mL Total Protein 6.7 (6.3-8.2) g/dL Albumin 3.6 (3.5-5.0) g/dL TSH 0.402 L (0.465-4.680) mIU/L Free T4 (0.78-2.19) ng/dL Urine Color Urine Appearance (Clear) Urine pH (5.0-8.0) Ur Specific [place] (1.001-1.035) Urine Protein (Negative) Urine Glucose (UA) (Negative) Urine Ketones (Negative) Urine Blood (Negative) Urine Nitrite (Negative) Urine Bilirubin (Negative) Urine Urobilinogen (<2.0) mg/dL Ur Leukocyte Esterase (Negative) Coronavirus (PCR) (Not Detectd) 03/14/23 03/14/23 Range/Units 03:03 03:03 WBC (3.8-10.6) k/uL RBC (3.80-5.40) m/uL Hgb (11.4-16.0) gm/dL Hct (34.0-46.0) % MCV (80.0-100.0) fL MCH (25.0-35.0) pg MCHC (31.0-37.0) g/dL RDW (11.5-15.5) % Plt Count (150-450) k/uL MPV Neutrophils % % Lymphocytes % % Monocytes % % Eosinophils % % Basophils % % Neutrophils # (1.3-7.7) k/uL Lymphocytes # (1.0-4.8) k/uL Monocytes # (0-1.0) k/uL Eosinophils # (0-0.7) k/uL Basophils # (0-0.2) k/uL PT (10.0-12.5) sec INR (<1.2) APTT (22.0-30.0) sec Sodium (137-145) mmol/L Potassium (3.5-5.1) mmol/L Chloride (98-107) mmol/L Carbon Dioxide (22-30) mmol/L Anion Gap mmol/L BUN (7-17) mg/dL Creatinine (0.52-1.04) mg/dL Est GFR (CKD-EPI)AfAm (>60 ml/min/1.73 sqM) Est GFR (CKD-EPI)NonAf (>60 ml/min/1.73 sqM) Glucose (74-99) mg/dL Plasma Lactic Acid [place] (0.7-2.0) mmol/L Calcium (8.4-10.2) mg/dL Magnesium (1.6-2.3) mg/dL Total Bilirubin (0.2-1.3) mg/dL AST (14-36) U/L ALT (4-34) U/L Alkaline Phosphatase (38-126) U/L Troponin I (0.000-0.034) ng/mL Total Protein (6.3-8.2) g/dL Albumin (3.5-5.0) g/dL TSH (0.465-4.680) mIU/L Free T4 2.04 (0.78-2.19) ng/dL Urine Color Urine Appearance (Clear) Urine pH (5.0-8.0) Ur Specific [place] (1.001-1.035) Urine Protein (Negative) Urine Glucose (UA) (Negative) Urine Ketones (Negative) Urine Blood (Negative) Urine Nitrite (Negative) Urine Bilirubin (Negative) Urine Urobilinogen (<2.0) mg/dL Ur Leukocyte Esterase (Negative) Coronavirus (PCR) Not Detected (Not Detectd) Disposition Clinical Impression: Weakness of both lower extremities Disposition: ADMITTED IP TO THIS HOSP Condition: Good Is patient prescribed a controlled substance at d/c from ED?: No
[2023-03-14 03:52] LABS: Basophils % (A) 1 %; Eosinophils # (A) 0.1 k/uL (0-0.7); Eosinophils % (A) 2 %; HCT 35.8 % (34.0-46.0); HGB 11.9 gm/dL (11.4-16.0); Lymphocytes # (A) 0.6 k/uL (1.0-4.8); Lymphocytes % (A) 18 %; MCHC 33.3 g/dL (31.0-37.0); Mean Platelet Volume 8.3; Monocytes # (A) 0.2 k/uL (0-1.0); Monocytes % (A) 6 %; Neutrophils # (A) 2.5 k/uL (1.3-7.7); Neutrophils % (A) 72 %; Platelet Count 133 k/uL (150-450); RBC 3.85 m/uL (3.80-5.40); WBC 3.5 k/uL (3.8-10.6)
[2023-03-14 04:01] LABS: ALT 35 U/L (4-34); AST 43 U/L (14-36); African American GFR (CKD) >90 (>60 ml/min/1.73 sqM); Albumin 3.6 g/dL (3.5-5.0); Alkaline Phosphatase 94 U/L (38-126); Anion Gap 9 mmol/L; Blood Urea Nitrogen 16 mg/dL (7-17); Calcium 9.8 mg/dL (8.4-10.2); Carbon Dioxide 29 mmol/L (22-30); Chloride 100 mmol/L (98-107); Glucose 93 mg/dL (74-99); Magnesium 2.2 mg/dL (1.6-2.3); Non-African American GFR(CKD) 82 (>60 ml/min/1.73 sqM); Potassium 3.8 mmol/L (3.5-5.1); Sodium 138 mmol/L (137-145); Total Protein 6.7 g/dL (6.3-8.2)
[2023-03-14 04:03] LABS: Partial Thromboplastin Time 26.8 sec (22.0-30.0); Prothrombin Time 11.1 sec (10.0-12.5)
[2023-03-14 05:12] LABS: Appearance,Urine Clear (Clear); Bilirubin,Urine Negative (Negative); Blood,Urine Negative (Negative); Color,Urine Colorless; Glucose,Urine (UA) Negative (Negative); Ketones,Urine Negative (Negative); Leukocyte Esterase,Urine Negative (Negative); Nitrite,Urine Negative (Negative); PH, Urine 7.5 (5.0-8.0); Protein,Urine Negative (Negative); Specific Gravity,Urine 1.007 (1.001-1.035); Urobilinogen,Urine <2.0 mg/dL (<2.0)
--- NOTE | 2023-03-14 05:39 | XR ---
EXAM: XR Chest, 2 Views CLINICAL HISTORY: ITS.REASON XR Reason: Weakness TECHNIQUE: Frontal and lateral views of the chest. COMPARISON: No relevant prior studies available. FINDINGS: Lungs: Unremarkable. No consolidation. Pleural space: Unremarkable. No pneumothorax. Heart: Unremarkable. No cardiomegaly. Mediastinum: Unremarkable. Bones/joints: Degenerative changes seen in the spine and shoulders. Tubes, lines and devices: Cardiac conducting device overlies the left chest wall with 2 leads overlying the cardiac silhouette. Upper abdomen: Surgical clips are seen within the right upper quadrant. IMPRESSION: No acute findings in the chest.
--- NOTE | 2023-03-14 06:52 | XR ---
EXAMINATION TYPE: XR knee limited bilateral DATE OF EXAM: 03/14/2023 6:42 AM INDICATION: Patient age:Female; 82 years old; Reason for study: knee pain, can't walk; [facility]. COMPARISON: None. TECHNIQUE: Both knees were examined in frontal and lateral projections. FINDINGS: No evidence of any acute osseous pathology, soft tissue swelling, or joint effusion is no joanne. Left knee tricompartmental joint space narrowing with sclerosis and marginal osteophytosis. No s ignificant joint space narrowing or spurring of the right knee. Incidental fabella bilaterally. IMPRESSION: 1. No acute osseous pathology. 2. Mild osteoarthritic changes of the left knee.
[2023-03-14] MEDS ORDERED: NALOXONE 0.4 MG/ML 1 ML VIAL IV PRN (07:19)
[2023-03-14] MEDS ORDERED: ACETAMINOPHEN TAB 325 MG TAB PO PRN ×2 (07:19→11:58)
[2023-03-14] MEDS ORDERED: ALBUTEROL NEBULIZED 2.5 MG/3 ML INHALATION PRN (07:25)
[2023-03-14] MEDS ORDERED: traMADol 50 MG TAB PO PRN (07:25)
[2023-03-14] MEDS ORDERED: FUROSEMIDE 20 MG TAB PO PRN (07:25)
[2023-03-14] MEDS ORDERED: hydrALAZINE HCL 50 MG TAB PO SCH (08:00)
[2023-03-14] MEDS: SODIUM CHLORIDE 0.9% 1,000 ML IV SCH ×2 (08:08→21:56)
[2023-03-14] MEDS: cycloSPORINE 0.05% OPHTH 0.4 ML DROPERETTE BOTH EYES SCH ×2 (08:11→21:54)
[2023-03-14] MEDS: GABAPENTIN 300 MG CAP PO SCH ×2 (08:12→21:54)
[2023-03-14] MEDS: POTASSIUM CHLORIDE ER 20 MEQ TAB.ER PO SCH ×2 (08:12→21:54)
[2023-03-14] MEDS: APIXABAN 5 MG TAB PO SCH ×2 (08:12→21:54)
[2023-03-14] MEDS: ATORVASTATIN 20 MG TAB PO SCH (08:13)
[2023-03-14] MEDS: PANTOPRAZOLE 40 MG TABLET PO SCH (08:13)
[2023-03-14] MEDS ORDERED: polyethylene glycoL 3350 17 GM POWD.PACK PO PRN ×2 (08:32→11:58)
[2023-03-14] MEDS: LEVOTHYROXINE 100 MCG TAB PO SCH (08:37)
[2023-03-14] MEDS ORDERED: LOSARTAN 25 MG TAB PO SCH (09:00)
[2023-03-14] MEDS ORDERED: polyethylene glycoL 3350 17 GM POWD.PACK PO SCH (09:00)
[2023-03-14] MEDS ORDERED: METOPROLOL SUCCINATE (ER) 50 MG TAB.ER.24H PO SCH (09:00)
[2023-03-14] MEDS ORDERED: HYDROXYCHLOROQUINE SULFATE 200 MG TAB PO SCH (09:00)
[2023-03-14] MEDS ORDERED: METOPROLOL SUCCINATE (ER) 50 MG TAB.ER.24H PO ONE (11:30)
[2023-03-14] MEDS ORDERED: NITROGLYCERIN SL TABS 0.4 MG TAB SUBLINGUAL PRN (11:58)
[2023-03-14] MEDS ORDERED: HYDROcodone/APAP 10-325MG 1 EACH TAB PO PRN (11:58)
[2023-03-14] MEDS ORDERED: LIDOCAINE 2% INJ 20 MG/ML (2 ML VIAL) SQ ONE (12:34)
[2023-03-14] MEDS ORDERED: methylPREDNISolone ACETATE 40 MG/ML 1 ML VIAL INTRAARTIC ONE (12:34)
[2023-03-14] MEDS ORDERED: LIDOCAINE 2% (PF) 20 MG/ML 5 ML VIAL SQ ONE (12:45)
--- NOTE | 2023-03-14 12:46 | P.CNOR ---
History of Present Illness - [facility] Consult date: 03/14/23 Consult reason: joint pain (Bilateral knee pain, bilateral lower extremity weakness.) History of present illness: This is an 82-year-old female with history of rheumatoid and degenerative arthritis. She has history of cervical fusion and lumbar fusion in the past, Both performed by Dr. Conn. She recently has been experiencing bilateral lower extremity weakness and pain to both knees. She states that her legs give out on her often. She has, on a few occasions, fallen secondary to her legs buckling on her. She was brought into the emergency department via EMS after experiencing severe weakness and inability to get out of a chair or out of bed on her own. She denies numbness or tingling down the legs but states that her legs do feel funny. She has also had some recent confusion which is new accor ding to her family. We are consulted for orthopedic evaluation of her knee pain. Past Medical History Past Medical History: Atrial Fibrillation, Cancer, Eye Disorder, GERD/Reflux, Hyperlipidemia, Hypertension, Osteoarthritis (OA), Thyroid Disorder Additional Past Medical History / Comment(s): Recently diagnosed with Afib, slightly "leaky heart valve", Shogren's syndrome, anemia, chronic low back pain, DDD, gout bilateral feet/toes, 2017 shingelles, basal cell skin cancer removals, diverticular disease/benign polyps, hypothyroid, bilateral dry eyes History of Any Multi-Drug Resistant Organisms: None Reported Past Surgical History: Appendectomy, Back Surgery, Section, Cholecystectomy, Hysterectomy, Orthopedic Surgery, Tonsillectomy Additional Past Surgical History / Comment(s): Lumbar and cervical fusions, R foot bunionectomy/metatarsal surgery, skin cancer removals, colonoscopies/benign polypectomy, bilateral cataract removals/lens implants. 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 Pt is independent. Smoking Status: Never smoker Past Alcohol Use History: None Reported Additional Past Alcohol Use History / Comment(s): occ glass of wine. Past Drug Use History: None Reported - Past Family History Sister(s) Family Medical History: Cancer Additional Family Medical History / Comment(s): BREAST CANCER Brother(s) Family Medical History: Cancer Additional Family Medical History / Comment(s): LEUKEMIA Mother Family Medical History: Neurologic Disorder Additional Family Medical History / Comment(s): parkinsons, macular degeneration Father Family Medical History: Dementia, Neurologic Disorder Additional Family Medical History / Comment(s): parkinsons Medications and Allergies Home Medications Medication Instructions Recorded Confirmed Type Montelukast [Singulair] 10 mg PO HS 07/22/15 03/14/23 History cycloSPORINE [Restasis] 1 drop BOTH EYES BID 07/22/15 03/14/23 History traMADol HCl [Ultram] 50 mg PO Q6H PRN 07/23/15 03/14/23 History Albuterol Inhaler [Ventolin Hfa 2 puff INHALATION RT-Q4H PRN 04/12/22 03/14/23 History Inhaler] Apixaban [Eliquis] 5 mg PO BID 04/12/22 03/14/23 History Atorvastatin [Lipitor] 20 mg PO HS 04/12/22 03/14/23 History Clindamycin Phosphate [Cleocin T 1 applic TOPICAL BID 04/12/22 03/14/23 History 1%] Gabapentin 300 mg PO BID 04/12/22 03/14/23 History Omeprazole 40 mg PO DAILY 04/12/22 03/14/23 History allopurinoL [Zyloprim] 300 mg PO DAILY 04/12/22 03/14/23 History Levothyroxine Sodium [Synthroid] 100 mcg PO DAILY@0630 #30 tab 08/24/22 03/14/23 Rx Acetaminophen Tab [Tylenol] 650 mg PO Q6H PRN 03/14/23 03/14/23 History Black Currant Oil 1000mg 1,000 mg PO HS 03/14/23 03/14/23 History Calcium Carbonate [Calcium] 1,200 mg PO DAILY 03/14/23 03/14/23 History Cholecalciferol [Vitamin D3 (125 125 mcg PO HS 03/14/23 03/14/23 History Mcg = 5000 Iu)] DULoxetine HCL [Cymbalta] 30 mg PO HS 03/14/23 03/14/23 History HYDROcodone/APAP 10-325MG [[place] 0.5 tab PO Q6H PRN 03/14/23 03/14/23 History 10-325] Magnesium Oxide [Mag-Ox] 400 mg PO HS 03/14/23 03/14/23 History Metoprolol Succinate (ER) [Toprol 100 mg PO DAILY 03/14/23 03/14/23 History Xl] Nitroglycerin Sl Tabs [Nitrostat] 0.4 mg SL Q5M PRN 03/14/23 03/14/23 History Potassium Chloride ER [K-Dur 20] 20 meq PO BID 03/14/23 03/14/23 History methylPREDNISolone [Medrol Dose See Taper PO DIRECTED PRN 03/14/23 03/14/23 History Pack] polyethylene glycoL 3350 [Miralax] 17 gm PO DAILY PRN 03/14/23 03/14/23 History Allergies Allergy/AdvReac Type Severity Reaction Status Date / Time adhesive tape Allergy Rash/Hives Verified 03/14/23 10:58 Steriods IV Allergy Rash/Hives Uncoded 03/14/23 10:58 Physical Examination This is a pleasant 82-year-old female evaluated in the emergency department. She is sitting up in a transport chair and her family is present in the room. She is alert and oriented but does have some confusion as to recent events. Ex am of the head and neck reveal no obvious deformity. She has fairly good cervical spine motion without difficulty or pain. Exam of the upper extremities reveals no obvious deformity. She is moving her shoulders, elbows, wrists and fingers well without obvious pain. Neurovascular status to the upper extremity is intact. Exam of the thoracic and lumbar spine reveal no obvious deformity. No areas of tenderness with palpation. Exam of the lower extremities reveals no obvious deformity. There is no redness or ecchymosis. No areas of swelling. She has full range of motion of the knees without difficulty. She has minimal tenderness to palpation about the medial compartments bilaterally. Mild patellofemoral pain with palpation of the patella. There is mild crepitus with range of motion bilaterally. Neurovascular status to the lower extremity is intact. Results X-rays of bilateral knees reveals [id number] degenerative changes with medial joint narrowing, particularly on the left knee. No evidence of effusion on x-ray. No obvious fracture noted. - Labs Labs: Abnormal Lab Results - Last 24 Hours (Table) 03/14/23 03/14/23 Range/Units 03:03 03:03 WBC 3.5 L (3.8-10.6) k/uL Plt Count 133 L (150-450) k/uL Lymphocytes # 0.6 L (1.0-4.8) k/uL AST 43 H (14-36) U/L ALT 35 H (4-34) U/L TSH 0.402 L (0.465-4.680) mIU/L H & H 03/14/23 Range/Units 03:03 Hgb 11.9 (11.4-16.0) gm/dL Hct 35.8 (34.0-46.0) % Coagulation 03/14/23 Range/Units 03:03 INR 1.0 (<1.2) Result Diagrams: 03/14/23 03:03 03/14/23 03:03 Assessment and Plan (1) Weakness of both lower extremities Current Visit: Yes Status: Acute Code(s): R29.898 - OTH SYMPTOMS AND SIGNS INVOLVING THE MUSCULOSKELETAL SYSTEM SNOMED Code(s): 8914616 (2) History of lumbar fusion Current Visit: Yes Status: Acute Code(s): Z98.1 - ARTHRODESIS STATUS SNOM ED Code(s): 83836090956813 (3) Bilateral knee pain Current Visit: Yes Status: Acute Code(s): M25.561 - PAIN IN RIGHT KNEE; M25.562 - PAIN IN LEFT KNEE SNOMED Code(s): 5692309659 Plan: The clinical and x-ray findings are discussed with the patient and her family. We discussed the likelihood that her lumbar spine is contributing to her weakness. We discussed possible steroid injections to both knees for pain. She does list an allergy to IV steroids but reportedly can tolerate a cortisone injection.I have ordered lumbar x-rays for further evaluation. I recommend physical therapy evaluation.
--- NOTE | 2023-03-14 16:49 | XR ---
EXAMINATION TYPE: XR lumbar spine 2 or 3V DATE OF EXAM: 03/14/2023 2:05 PM CLINICAL INDICATION:Female, 82 years old with history of low back pain, BLE weakness; H COMPARISON: 05/13/2022 TECHNIQUE: XR lumbar spine 2 or 3V - Frontal, lateral and coned in L5-S1 lateral views of the spine. FINDINGS: Post surgical changes with hardware at L5-S2. Hardware appears intact. No evidence of any a cute osseous pathology. No evidence of loss of vertebral body height is seen. There is scoliosis ali gnment of the lumbar vertebral bodies. Mild scattered disc space narrowing. Multilevel marginal osteo phyte formation throughout the visualized spine. There is facet joint arthropathy throughout the spin e. Scattered at least mild neural foraminal stenosis. IMPRESSION: 1. Post surgical changes hardware appears intact. No acute fracture. 2. Mild multilevel disc degeneration.
--- NOTE | 2023-03-14 17:04 | P.HPIM ---
History of Present Illness H&P Date: 03/14/23 Chief Complaint: Knee pain 82-year-old woman who presents to have evaluation as she was having difficulty getting out of chair. She states she has had similar symptoms previously over past weeks. She states that she was trying to get out of her chair at home but was weak in both legs. She was also having pain in the bilateral knees when she attempted stand. She states that it resulted in her slumping to the floor as she couldn't get up. EMS was called and brought her to the hospital. Patient denies focal weakness. She has not noted symptoms of infection. She denies fever or chills. No cough or congestion. No shortness of breath or chest pain. No abdominal pain, nausea or vomiting. She has not noted change in urination or bowel movements. Past Medical History Past Medical History: Atrial Fibrillation, Cancer, Eye Disorder, GERD/Reflux, Hyperlipidemia, Hypertension, Osteoarthritis (OA), Thyroid Disorder Additional Past Medical History / Comment(s): Recently diagnosed with Afib, slightly "leaky heart valve", Shogren's syndrome, anemia, chronic low back pain, DDD, gout bilateral feet/toes, 2017 shingelles, basal cell skin cancer removals, diverticular disease/benign polyps, hypothyroid, bilateral dry eyes History of Any Multi-Drug Resistant Organisms: None Reported Past Surgical History: Appendectomy, Back Surgery, Section, Cholecystectomy, Hysterectomy, Orthopedic Surgery, Tonsillectomy Additional Past Surgical History / Comment(s): Lumbar and cervical fusions, R foot bunionectomy/metatarsal surgery, skin cancer removals, colonoscopies/benign polypectomy, bilateral cataract removals/lens implants. 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 Pt is independent. Smoking Status: Never smoker Past Alcohol Use History: None Reported Additional Past Alcohol Use History / Comment(s): occ glass of wine. Past Drug Use History: None Reported - Past Family History Sister(s) Family Medical History: Cancer Additional Family Medical History / Comment(s): BREAST CANCER Brother(s) Family Medical History: Cancer Additional Family Medical History / Comment(s): LEUKEMIA Mother Family Medical History: Neurologic Disorder Additional Family Medical History / Comment(s): parkinsons, macular degeneration Father Family Medical History: Dementia, Neurologic Disorder Additional Family Medical History / Comment(s): parkinsons Medications and Allergies Home Medications Medication Instructions Recorded Confirmed Type Montelukast [Singulair] 10 mg PO HS 07/22/15 03/14/23 History cycloSPORINE [Restasis] 1 drop BOTH EYES BID 07/22/15 03/14/23 History traMADol HCl [Ultram] 50 mg PO Q6H PRN 07/23/15 03/14/23 History Albuterol Inhaler [Ventolin Hfa 2 puff INHALATION RT-Q4H PRN 04/12/22 03/14/23 History Inhaler] Apixaban [Eliquis] 5 mg PO BID 04/12/22 03/14/23 History Atorvastatin [Lipitor] 20 mg PO HS 04/12/22 03/14/23 History Clindamycin Phosphate [Cleocin T 1 applic TOPICAL BID 04/12/22 03/14/23 History 1%] Gabapentin 300 mg PO BID 04/12/22 03/14/23 History Omeprazole 40 mg PO DAILY 04/12/22 03/14/23 History allopurinoL [Zyloprim] 300 mg PO DAILY 04/12/22 03/14/23 History Levothyroxine Sodium [Synthroid] 100 mcg PO DAILY@0630 #30 tab 08/24/22 03/14/23 Rx Acetaminophen Tab [Tylenol] 650 mg PO Q6H PRN 03/14/23 03/14/23 History Black Currant Oil 1000mg 1,000 mg PO HS 03/14/23 03/14/23 History Calcium Carbonate [Calcium] 1,200 mg PO DAILY 03/14/23 03/14/23 History Cholecalciferol [Vitamin D3 (125 125 mcg PO HS 03/14/23 03/14/23 History Mcg = 5000 Iu)] DULoxetine HCL [Cymbalta] 30 mg PO HS 03/14/23 03/14/23 History HYDROcodone/APAP 10-325MG [[place] 0.5 tab PO Q6H PRN 03/14/23 03/14/23 History 10-325] Magnesium Oxide [Mag-Ox] 400 mg PO HS 03/14/23 03/14/23 History Metoprolol Succinate (ER) [Toprol 100 mg PO DAILY 03/14/23 03/14/23 History Xl] Nitroglycerin Sl Tabs [Nitrostat] 0.4 mg SL Q5M PRN 03/14/23 03/14/23 History Potassium Chloride ER [K-Dur 20] 20 meq PO BID 03/14/23 03/14/23 History methylPREDNISolone [Medrol Dose See Taper PO DIRECTED PRN 03/14/23 03/14/23 History Pack] polyethylene glycoL 3350 [Miralax] 17 gm PO DAILY PRN 03/14/23 03/14/23 History Allergies Allergy/AdvReac Type Severity Reaction Status Date / Time adhesive tape Allergy Rash/Hives Verified 03/14/23 10:58 Steriods IV Allergy Rash/Hives Uncoded 03/14/23 10:58 Physical Exam Vitals: Vital Signs Temp Pulse Resp BP Pulse Ox 03/14/23 10:00 55 L 18 173/79 96 03/14/23 09:04 55 L 18 173/79 98 03/14/23 09:00 55 L 16 182/80 96 03/14/23 08:28 56 L 18 182/80 97 03/14/23 08:00 64 16 191/77 95 03/14/23 07:00 55 L 18 186/83 95 03/14/23 06:00 98.6 F 55 L 18 195/82 95 03/14/23 05:05 97 03/14/23 04:55 65 18 206/82 93 L 03/14/23 02:48 62 177/72 95 Intake and Output 03/13/23 03/14/23 03/14/23 22:59 06:59 14:59 Other: Weight 65.771 kg 65.771 kg General appearance: alert, in no apparent distress Head exam: Present: atraumatic, normocephalic Eye exam: Present: normal appearance. Absent: scleral icterus, conjunctival injection ENT exam: Present: normal oropharynx Neck exam: Present: normal inspection Respiratory exam: Present: normal lung sounds bilaterally. Absent: respiratory distress, wheezes, rales, rhonchi, stridor Cardiovascular Exam: Present: regular rate, normal rhythm, normal heart sounds. Absent: systolic murmur, diastolic murmur, rubs, gallop GI/Abdominal exam: Present: soft. Absent: distended, tenderness, guarding, rebound, rigid, mass Extremities exam: Present: normal inspection, normal capillary refill. Absent: pedal edema, calf tenderness Back exam: Present: normal inspection Neurological exam: Present: alert, oriented X3, CN II-XII intact. Absent: motor sensory deficit Skin exam: Present: warm, dry, intact, normal color. Absent: rash Results CBC & Chem 7: 03/14/23 03:03 03/14/23 03:03 Labs: Abnormal Lab Results - Last 24 Hours (Table) 03/14/23 03/14/23 Range/Units 03:03 03:03 WBC 3.5 L (3.8-10.6) k/uL Plt Count 133 L (150-450) k/uL Lymphocytes # 0.6 L (1.0-4.8) k/uL AST 43 H (14-36) U/L ALT 35 H (4-34) U/L TSH 0.402 L (0.465-4.680) mIU/L Assessment and Plan Assessment: 1. Intractable knee pain/inability to ambulate -- Patient has been evaluated by orthopedic surgery; likely lumbar spine etiology for weakness lower extremities; orthopedic surgery recommending steroid injections to both knees - Lumbar spinal x-rays are ordered - Consult PT/OT 2. Transaminitis; possibly related to statin therapy; patient takes Lipitor 20 mg daily; we will plan to repeat liver enzymes and hold statin therapy if liver enzymes continue to trend up 3. Low TSH; history of hypothyroidism; patient takes levothyroxine 100 mcg daily; TSH is low; continue with current dose and order free T4 and make further recommendations 4. Hypertension; metoprolol 100 mg daily 5. Hyperlipidemia; Lipitor 20 mg daily at bedtime 6. History of atrial fibrillation; currently rate controlled on metoprolol and anticoagulated with L Ferrera 7. GERD/gastritis; omeprazole 40 mg daily 8. Chronic back pain; patient takes Cymbalta 30 mg daily at bedtime, Neurontin 300 mg twice a day and [place] 10 mg every 6 hours when necessary with tramadol 50 mg every 6 hours when necessary DVT prophylaxis; systemic anticoagulation CODE STATUS; full code
[2023-03-14] MEDS ORDERED: NON FORMULARY DRUG (Clindamycin Phosphate [Cleocin T 1%] 60 ML Lotion) TOPICAL SCH (21:00)
[2023-03-14] MEDS ORDERED: DULoxetine HCL 30 MG CAPSULE.DR PO SCH (21:00)
[2023-03-14] MEDS: MAGNESIUM OXIDE 400 MG TAB PO SCH (21:54)
[2023-03-14] MEDS: CHOLECALCIFEROL 125 MCG (5000 IU) TABLET PO SCH (21:54)
[2023-03-14] MEDS: MONTELUKAST 10 MG TAB PO SCH (21:54)
[2023-03-15] MEDS: SODIUM CHLORIDE 0.9% 1,000 ML IV SCH ×2 (05:43→22:40)
[2023-03-15] MEDS: LEVOTHYROXINE 100 MCG TAB PO SCH (05:44)
[2023-03-15] MEDS: PANTOPRAZOLE 40 MG TABLET PO SCH (05:44)
[2023-03-15] MEDS ORDERED: LEVOTHYROXINE 100 MCG TAB PO SCH (06:30)
[2023-03-15] MEDS: CALCIUM CARB-VIT D 500 MG-5 MCG TAB PO SCH (07:52)
[2023-03-15] MEDS: allopurinoL 300 MG TAB PO SCH (07:52)
[2023-03-15] MEDS: GABAPENTIN 300 MG CAP PO SCH (07:52)
[2023-03-15] MEDS: APIXABAN 5 MG TAB PO SCH ×2 (07:52→22:39)
[2023-03-15] MEDS: cycloSPORINE 0.05% OPHTH 0.4 ML DROPERETTE BOTH EYES SCH ×2 (07:52→22:37)
[2023-03-15] MEDS: POTASSIUM CHLORIDE ER 20 MEQ TAB.ER PO SCH ×2 (07:53→22:39)
[2023-03-15] MEDS: ATORVASTATIN 20 MG TAB PO SCH (07:53)
[2023-03-15] MEDS ORDERED: methylPREDNISolone ACETATE 40 MG/ML 1 ML VIAL INTRAARTIC ONE (09:00)
[2023-03-15] MEDS ORDERED: LIDOCAINE 2% (PF) 20 MG/ML 5 ML VIAL SQ ONE (09:00)
[2023-03-15 09:19] LABS: Basophils # (A) 0.02 X 10*3/uL (0.00-0.10); Basophils % (A) 0.5 %; Eosinophils # (A) 0.04 X 10*3/uL (0.04-0.35); Eosinophils % (A) 1.1 %; HCT 34.4 % (37.2-46.3); HGB 11.5 g/dL (12.0-15.0); Lymphocytes # (A) 0.66 X 10*3/uL (0.90-5.00); Lymphocytes % (A) 17.9 %; MCH 30.4 pg (27.0-32.0); MCHC 33.4 g/dL (32.0-37.0); Mean Platelet Volume 11.1 FL (9.5-12.2); Monocytes # (A) 0.25 X 10*3/uL (0.20-1.00); Monocytes % (A) 6.8 %; NRBC Per 100 WBC 0 X 10*3/uL (0.00-0.01); Neutrophils # (A) 2.71 X 10*3/uL (1.80-7.70); Neutrophils % (A) 73.4 %; Platelet Count 141 X 10*3/uL (140-440); RBC 3.78 X 10*6/uL (4.10-5.20); RDW 13.7 % (11.5-14.5); WBC 3.69 X 10*3/uL (4.50-10.00)
[2023-03-15 09:21] LABS: ALT 25 U/L (8-44); AST 29 U/L (13-35); Albumin 3.6 g/dL (3.8-4.9); Alkaline Phosphatase 91 U/L (41-126); BUN/Creat Ratio 13.86 Ratio (12.00-20.00); Bilirubin, Conjugated 0.26 mg/dL (0.20-0.40); Bilirubin,Unconjugated 0.54 mg/dL (0.20-1.00); Blood Urea Nitrogen 9.7 mg/dL (9.0-27.0); Calcium 9.8 mg/dL (8.7-10.3); Carbon Dioxide 25.3 mmol/L (21.6-31.8); Chloride 104 mmol/L (96-109); Globulin 2.4 g/dL (1.6-3.3); Glucose 96 mg/dL (70-110); Potassium 3.6 mmol/L (3.5-5.5); Sodium 139 mmol/L (135-145); Total Bilirubin 0.8 mg/dL (0.3-1.2)
[2023-03-15] MEDS: METOPROLOL SUCCINATE (ER) 100 MG TAB.ER.24H PO SCH (10:05)
[2023-03-15] MEDS ORDERED: QUEtiapine 25 MG TAB PO PRN (13:17)
--- NOTE | 2023-03-15 13:59 | P.PN ---
Subjective Progress Note Date: 03/15/23 Principal diagnosis: Bilateral knee pain. Bilateral lower extremity weakness. This is an 82-year-old female with history of rheumatoid and degenerative arthritis. She has history of cervical fusion and lumbar fusion in the past, Both performed by Dr. Conn. She recently has been experiencing bilateral lower extremity weakness and pain to both knees. She states that her legs give out on her often. She has, on a few occasions, fallen secondary to her legs buckling on her. She was brought into the emergency department via EMS after experiencing severe weakness and inability to get out of a chair or out of bed on her own. She denies numbness or tingling down the legs but states that her legs do feel funny. She has also had some recent confusion which is new accordi ng to her family. We are consulted for orthopedic evaluation of her knee pain. 03/15/2023: The patient states that her knee pain is slightly improved today. She does feel that she is having weakness to both her legs. She has no complaint of low back pain. Vital signs are stable. She is agreeable to bilateral Knee cortisone injections today. Objective - Vital Signs Vital signs: Vital Signs Temp 98.1 F 03/15/23 09:00 Pulse 86 03/15/23 09:00 Resp 19 03/15/23 09:00 BP 188/83 03/15/23 09:00 Pulse Ox 94 L 03/15/23 09:00 FiO2 Intake & Output 03/14/23 03/15/23 03/15/23 18:59 06:59 18:59 Weight 65.771 kg Other: # Voids 3 4 - Exam This is a pleasant 82-year-old female in no acute distress. She is alert and oriented with some mild confusion. Exam of bilateral knees reveals no erythema or ecchymosis. No effusion. She has fairly good range of motion of the knees without difficulty. Neurovascular status to the lower extremity is intact. Examining lumbar spine reveals no obvious deformity. - Labs CBC & Chem 7: 03/15/23 05:35 03/15/23 05:35 Labs: Abnormal Lab Results - Last 24 Hours (Table) 03/15/23 03/15/23 Range/Units 05:35 05:35 WBC 3.69 L (4.50-10.00) X 10*3/uL RBC 3.78 L (4.10-5.20) X 10*6/uL Hgb 11.5 L (12.0-15.0) g/dL Hct 34.4 L (37.2-46.3) % Lymphocytes # 0.66 L (0.90-5.00) X 10*3/uL Total Protein 6.0 L (6.2-8.2) g/dL Albumin 3.6 L (3.8-4.9) g/dL Albumin/Globulin Ratio 1.50 L (1.60-3.17) Ratio Assessment and Plan (1) Weakness of both lower extremities Current Visit: Yes Status: Acute Code(s): R29.898 - OTH SYMPTOMS AND SIGNS INVOLVING THE MUSCULOSKELETAL SYSTEM SNOMED Code(s): 7443991 (2) History of lumbar fusion Current Visit: Yes Status: Acute Code(s): Z98.1 - ARTHRODESIS STATUS SNOMED Code(s): 42558980548183 (3) Bilateral knee pain Current Visit: Yes Status: Acute Code(s): M25.561 - PAIN IN RIGHT KNEE; M25.562 - PAIN IN LEFT KNEE SNOMED Code(s): 9217997301 Plan: The clinical and x-ray findings are discussed with the patient and her family. Lumbar x-rays revealed the hardware in good position and alignment. Multilevel degenerative changes noted. There is slight anterior wedge to L2 which is age indeterminate. We discussed the likelihood that her lumbar spine is contributing to her weakness. Both knees are injected with cortisone today. The patient tolerated the injections well. I have ordered physical therapy for strengthening.
--- NOTE | 2023-03-15 14:43 | CT ---
EXAMINATION TYPE: CT brain wo con DATE OF EXAM: 03/15/2023 COMPARISON: 12/02/1999 and HISTORY: Confusion, AMS CT DLP: 1125.4 mGycm Automated exposure control for dose reduction was used. FINDINGS: Moderate generalized degenerative change of the greater frontal lobe component. Hypoattenuation withi n the white matter are nonspecific. Calcifications in the basal ganglia. No midline shift or mass eff ect. No acute hemorrhage. Orbits are symmetric. Nasal septal deviation noted. Sinuses are clear. Stable intracranial atheroscle rotic changes. Craniocervical junction maintained. Partially empty sella turcica. IMPRESSION: DEGENERATIVE AND NONSPECIFIC WHITE MATTER CHANGE MOST TYPICAL OF REMOTE ISCHEMIA.
[2023-03-15 14:56] LABS: Basophils % (A) 0 %; Eosinophils % (A) 0 %; HCT 38.7 % (34.0-46.0); HGB 12.8 gm/dL (11.4-16.0); Lymphocytes # (A) 0.4 k/uL (1.0-4.8); Lymphocytes % (A) 11 %; MCHC 33.1 g/dL (31.0-37.0); MCV 93.9 fL (80.0-100.0); Mean Platelet Volume 8.6; Monocytes # (A) 0.1 k/uL (0-1.0); Monocytes % (A) 2 %; Neutrophils # (A) 3.3 k/uL (1.3-7.7); Neutrophils % (A) 87 %; Platelet Count 154 k/uL (150-450); RBC 4.12 m/uL (3.80-5.40); WBC 3.9 k/uL (3.8-10.6)
[2023-03-15 15:08] LABS: ALT 30 U/L (4-34); AST 36 U/L (14-36); African American GFR (CKD) >90 (>60 ml/min/1.73 sqM); Albumin 3.8 g/dL (3.5-5.0); Albumin/Globulin Ratio 1.2; Alkaline Phosphatase 95 U/L (38-126); Anion Gap 11 mmol/L; Blood Urea Nitrogen 13 mg/dL (7-17); Calcium 10.1 mg/dL (8.4-10.2); Carbon Dioxide 24 mmol/L (22-30); Chloride 102 mmol/L (98-107); Globulin 3.3 g/dL; Glucose 191 mg/dL (74-99); Non-African American GFR(CKD) 84 (>60 ml/min/1.73 sqM); Potassium 3.8 mmol/L (3.5-5.1); Sodium 137 mmol/L (137-145); Total Bilirubin 0.9 mg/dL (0.2-1.3); Total Protein 7.1 g/dL (6.3-8.2)
[2023-03-15] MEDS: amLODIPine 10 MG TAB PO SCH (15:22)
[2023-03-15] MEDS: MONTELUKAST 10 MG TAB PO SCH (22:37)
[2023-03-15] MEDS: GABAPENTIN 100 MG CAP PO SCH (22:38)
[2023-03-15] MEDS: CHOLECALCIFEROL 125 MCG (5000 IU) TABLET PO SCH (22:38)
[2023-03-15] MEDS: LOSARTAN 25 MG TAB PO SCH (22:38)
[2023-03-15] MEDS: MAGNESIUM OXIDE 400 MG TAB PO SCH (22:38)
--- NOTE | 2023-03-16 04:42 | PN ---
PROGRESS NOTE DATE OF SERVICE: 03/15/2023 SUBJECTIVE: This is an 82-year-old woman, who was admitted with intractable knee pain, had knee injections with steroids. The patient is mildly confused. PAST MEDICAL HISTORY: Reviewed. REVIEW OF SYSTEMS: A 14-point review is negative except as mentioned earlier. CURRENT MEDICATIONS: Reviewed include Tylenol, Davy. Dose and rest of medications noted. PHYSICAL EXAMINATION: VITAL SIGNS: Pulse 86, blood pressure 188/83, respirations 19. HEENT: Conjunctivae normal. NECK: No JVD. CARDIOVASCULAR: S1, S2. RESPIRATIONS: Breath sounds diminished at the bases. ABDOMEN: Soft. NERVOUS SYSTEM: Nonfocal. EXTREMITIES: Examination of the knee, status post injections. LABORATORY DATA: Reviewed. ASSESSMENT: 1. Bilateral knee pain, possibly degenerative joint disease after the injections with gait dysfunction. 2. Change in mental status, possible acute delirium. 3. Transaminitis. 4. Hypertension. 5. Hyperlipidemia. 6. History of atrial fibrillation. 7. Chronic low back pain, degenerative joint disease. 8. Multiple complex medical issues. RECOMMENDATIONS: Recommend to continue current medications, continue symptomatic treatment. Adjust medications for delirium. Supplement vitamins. Pain management. Closely follow with Orthopedic Surgery. Otherwise, stop Cymbalta and continue to monitor. Prognosis guarded. Further recommendations to follow. Repeat labs will be ordered. See orders for further details. I had a detailed discussion with the patient and family. We will await for the PT, OT evaluation and the telephonic nurse case manager to consider the option of discharge to rehab versus home. MMSHAHIDA / ASHWININ: [id number] /
[2023-03-16] MEDS: LEVOTHYROXINE 100 MCG TAB PO SCH (06:29)
[2023-03-16] MEDS: PANTOPRAZOLE 40 MG TABLET PO SCH (06:29)
--- NOTE | 2023-03-16 09:58 | P.CNNES ---
History of Present Illness Consult date: 03/15/23 Requesting physician: Susan Bautista Reason for Consult: altered mentation, confusion History of Present Illness: Patient is a 82-year-old right-handed female came to the hospital by ambulance yesterday lean process deployment consultant at 2:30 AM. Patient's and patient's daughter were also present today. Patient tells me that she slipped out of bed in the front bedroom, then crawled across floor to her and was able to wake him up. He tried to lift her, but he could not. Therefore they called the lift assist. After struggling, she was able to be lifted, but she was having difficulty with walking with shuffling, therefore they decided to bring her to the hospital. Patient's daughter mentions that 2 days prior, on Wednesday, she had real hard time getting out of chair as well about 4-5 times. At baseline she does not use any assistive device. She also has been confused for the last few days. Patient's daughter mentions that she has seen patient trying to reach for things that are not there. Possible mild hallucinations. Patient's family mentions that she started having falls starting from beginning of this year 2022. In May she fell on her tailbone and suffered from the fracture of the tailbone a vertebra. She started using a walker. After she underwent 6 weeks of physical therapy, she was able to stop using the walker. In August 2022 she was diagnosed with long QT syndrome, and was placed on defibrillator. patient has some leukopenia, and anemia for which she was seen by preschool assistant principal, who just performed blood testing about a week ago which was done at [facility]. Patient was doing well. Patient takes tramadol sporadically for back pain for last several years. She also used to be on baclofen, which has been discontinued. Just last Wednesday, on 03/12/2023, patient and her went to a local breakfast in [place] and she was doing well. Patient has been having chronic back pain. She saw a pain specialist Dr. Sandoval, who prescribed her Cymbalta 30 mg daily for pain relief which she started taking on 03/11/2023. Patient's daughter mentions that in August 2022 while she was admitted for defibrillator, and was also given Cymbalta at that time, and patient had developed similar mental confusion, but not as bad as what she is experiencing now. Cymbalta was discontinued at request of preschool assistant principal because of possible drug interactions. Now Cymbalta just resumed on 03/11/2023. As per EMS flow sheet, when they arrived, patient states that she slid out of b ed and unable to get back up. Patient says that her left knee has increased pain and discomfort upon standing. Patient was alert and oriented 4. EMS flow sheet very difficult to read because of poor quality printout of the report. Vital signs on arrival blood pressure 177/72, pulse rate 62, temperature 98.6. patient's blood pressure has been running quite high 186/83. Blood test shows WBC 3.5, which has improved to 3.9. Hemoglobin is 11.9, platelets 133 but now normal. PT/PTT normal, basic metabolic panel with renal functions normal. AST 43, ALT 35. Troponin negative. TSH is slightly low 0.402 with normal free T4 2 0.04. UA negative, coronal virus PCR negative. EKG shows electronic atrial pacemaker. Chest x-ray showed no acute process. X- ray of the knee showed no acute osseous pathology. Mild osteoarthritic changes of the left knee. X-ray of the lumbar spine showed postsurgical changes hardware appears intact. No acute fracture. Mild multilevel disc degeneration. CT head revealed degenerative and nonspecific white matter change, most typical of remote ischemia. I personally reviewed CT head, agree with the findings. Patient has history of hypertension but no diabetes. She has hyperlipidemia and hypothyroidism. She does not smoke, drinks alcohol very occasionally. patient has history of lumbar fusion in 1972 and cervical fusion in 1973. Patient does take tramadol 50 mg every 6 hours when necessary for pain, Eliquis 5 mg twice a day, gabapentin 300 twice a day, Lipitor 20 mg, levothyroxine, Cymbalta 30 mg at bedtime, potassium, magnesium, Medrol Dosepak, vitamin D3 metoprolol. Review of Systems Constitutional: Reports chills (Past couple weeks), Reports weight loss, Denies fever Eyes: denies blurred vision (Lately saying "Things not where they are supposed to"), denies diplopia, denies pain Ears: bilateral: decreased hearing, deny: ear discharge Ears, nose, mouth and throat: Denies headache (Very slight now. Has hx of migraines years ago), Denies sore throat, Denies vertigo Cardiovascular: Reports lightheadedness, Denies chest pain, Denies shortness of breath Respiratory: Reports cough with sputum, Denies cough, Denies excessive sputum Gastrointestinal: Denies abdominal pain, Denies diarrhea, Denies nausea, Denies vomiting Genitourinary: Denies dysuria, Denies hematuria, Denies nocturia, Denies stress incontinence Musculoskeletal: Reports low back pain (more bothers than neck), Reports muscle cramps, Reports neck pain, Denies myalgias Integumentary: Denies pruritus, Denies rash Neurological: Reports as per HPI, Denies numbness, Denies seizures, Denies tingling Psychiatric: Denies anxiety, Denies depression Endocrine: Reports fatigue, Reports weight change Hematologic/Lymphatic: Reports easy bruising, Denies easy bleeding Past Medical History Past Medical History: Atrial Fibrillation, Cancer, Eye Disorder, GERD/Reflux, Hyperlipidemia, Hypertension, Osteoarthritis (OA), Thyroid Disorder Additional Past Medical History / Comment(s): Recently diagnosed with Afib, slightly "leaky heart valve", Shogren's syndrome, anemia, chronic low back pain, DDD, gout bilateral feet/toes, 2017 shingelles, basal cell skin cancer removals, diverticular disease/benign polyps, hypothyroid, bilateral dry eyes History of Any Multi-Drug Resistant Organisms: None Reported Past Surgical History: Appendectomy, Back Surgery, Section, Cholecystectomy, Hysterectomy, Orthopedic Surgery, Tonsillectomy Additional Past Surgical History / Comment(s): Lumbar and cervical fusions, R foot bunionectomy/metatarsal surgery, skin cancer removals, colonoscopies/benign polypectomy, bilateral cataract removals/lens implants. 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 Pt is independent. Smoking Status: Never smoker Past Alcohol Use History: None Reported Additional Past Alcohol Use History / Comment(s): occ glass of wine. Past Drug Use History: None Reported - Past Family History Sister(s) Family Medical History: Cancer Additional Family Medical History / Comment(s): BREAST CANCER Brother(s) Family Medical History: Cancer Additional Family Medical History / Comment(s): LEUKEMIA Mother Family Medical History: Neurologic Disorder Additional Family Medical History / Comment(s): parkinsons, macular degeneration Father Family Medical History: Dementia, Neurologic Disorder Additional Family Medical History / Comment(s): parkinsons Medications and Allergies Home Medications Medication Instructions Recorded Confirmed Type Montelukast [Singulair] 10 mg PO HS 07/22/15 03/14/23 History cycloSPORINE [Restasis] 1 drop BOTH EYES BID 07/22/15 03/14/23 History traMADol HCl [Ultram] 50 mg PO Q6H PRN 07/23/15 03/14/23 History Albuterol Inhaler [Ventolin Hfa 2 puff INHALATION RT-Q4H PRN 04/12/22 03/14/23 History Inhaler] Apixaban [Eliquis] 5 mg PO BID 04/12/22 03/14/23 History Atorvastatin [Lipitor] 20 mg PO HS 04/12/22 03/14/23 History Clindamycin Phosphate [Cleocin T 1 applic TOPICAL BID 04/12/22 03/14/23 History 1%] Gabapentin 300 mg PO BID 04/12/22 03/14/23 History Omeprazole 40 mg PO DAILY 04/12/22 03/14/23 History allopurinoL [Zyloprim] 300 mg PO DAILY 04/12/22 03/14/23 History Levothyroxine Sodium [Synthroid] 100 mcg PO DAILY@0630 #30 tab 08/24/22 03/14/23 Rx Acetaminophen Tab [Tylenol] 650 mg PO Q6H PRN 03/14/23 03/14/23 History Black Currant Oil 1000mg 1,000 mg PO HS 03/14/23 03/14/23 History Calcium Carbonate [Calcium] 1,200 mg PO DAILY 03/14/23 03/14/23 History Cholecalciferol [Vitamin D3 (125 125 mcg PO HS 03/14/23 03/14/23 History Mcg = 5000 Iu)] DULoxetine HCL [Cymbalta] 30 mg PO HS 03/14/23 03/14/23 History HYDROcodone/APAP 10-325MG [[place] 0.5 tab PO Q6H PRN 03/14/23 03/14/23 History 10-325] Magnesium Oxide [Mag-Ox] 400 mg PO HS 03/14/23 03/14/23 History Metoprolol Succinate (ER) [Toprol 100 mg PO DAILY 03/14/23 03/14/23 History Xl] Nitroglycerin Sl Tabs [Nitrostat] 0.4 mg SL Q5M PRN 03/14/23 03/14/23 History Potassium Chloride ER [K-Dur 20] 20 meq PO BID 03/14/23 03/14/23 History methylPREDNISolone [Medrol Dose See Taper PO DIRECTED PRN 03/14/23 03/14/23 History Pack] polyethylene glycoL 3350 [Miralax] 17 gm PO DAILY PRN 03/14/23 03/14/23 History Allergies Allergy/AdvReac Type Severity Reaction Status Date / Time adhesive tape Allergy Rash/Hives Verified 03/14/23 10:58 Steriods IV Allergy Rash/Hives Uncoded 03/14/23 10:58 Physical Examination - Vital Signs Vital Signs: Vital Signs Temp Pulse Resp BP Pulse Ox 03/15/23 17:51 97.5 F L 60 19 181/76 95 03/15/23 13:27 97.8 F 63 19 175/64 96 03/15/23 09:00 98.1 F 86 19 188/83 94 L 03/15/23 07:37 98.1 F 64 19 177/79 93 L 03/15/23 01:51 98.4 F 59 L 18 155/59 91 L Intake and Output 03/15/23 03/15/23 03/15/23 06:59 14:59 22:59 Other: # Voids 4 4 Patient is an elderly female, very pleasant, appears delirious, s omewhat tremulous, slightly inattentive, playing/fumbling with the blanket. Patient is alert awake oriented to time place and person. Patient knows it is March 2023, but she believes that she is in her dentist Dr. Rasheed Spann's office. She knows that she is in [facility] in [facility] and name of the current president. She perseverates on Dr. Rasheed Spann. Speech and language functions are normal. Patient can name and repeat very well. No aphasia or dysarthria. Attention, concentration is impaired and fund of knowledge is slightly limited. Detail cognitive function testing deferred. On cranial nerve examination, pupils are equal, round and reacting to light, vi sual diego are full on confrontation, with no neglect on double simultaneous stimulation. Extraocular muscles are intact with no nystagmus. Face is symmetric, tongue protrudes to the midline. Palatal elevation and sensation normal, hearing and shoulder shrug normal, facial sensation normal. On muscle strength testing, there is no pronator drift and the strength is normal in arms and legs distally and proximally. Deep tendon reflexes are symmetric 1+ at the biceps, 1+ brachioradialis, 2 at the knees, 2 ankles and plantars downgoing bilaterally. Sensory to touch is equal with no neglect on double simultaneous stimulation. Cerebellar function showed no ataxia for [id number] testing. No dysdiadochokinesia. No ataxia for [id number] testing on either side. Tone and bulk of muscles normal. Patient has mild fine arrhythmic tremor of the outstretched hands. Gait deferred.. On general examination, there is no carotid bruit or murmur, S1-S2 audible. Chest is clear on consultation. Abdomen is soft nontender. No organomegaly, bowel sounds present. Peripheral pulses are present. No peripheral edema. Results - Laboratory Findings CBC and BMP: 03/15/23 14:03 03/15/23 14:03 Abnormal Lab Findings: Abnormal Labs 03/14/23 03/14/23 03/15/23 03:03 03:03 05:35 WBC 3.5 L 3.69 L RBC 3.78 L Hgb 11.5 L Hct 34.4 L Plt Count 133 L Lymphocytes # 0.6 L 0.66 L Glucose AST 43 H ALT 35 H Total Protein Albumin Albumin/Globulin Ratio TSH 0.402 L 03/15/23 03/15/23 03/15/23 05:35 14:03 14:03 WBC RBC Hgb Hct Plt Count Lymphocytes # 0.4 L Glucose 191 H AST ALT Total Protein 6.0 L Albumin 3.6 L Albumin/Globulin Ratio 1.50 L TSH Assessment and Plan Assessment: * Acute delirium, likely due to side effect of Cymbalta. No evidence of any infectious process. * Chronic back pain * Atrial fibrillation, on long-term anticoagulation. * Pacemaker/defibrillator * Hypertension * Hyperlipidemia * History of cervical and lumbar spine surgery in 1970s. Plan: * Patient probably has developed acute delirium from side effect of Cymbalta. Her neurological examination is nonfocal. CT head showed no acute process. * Stop Cymbalta, and observed. Hopefully the delirium resolved in the next day or 2. * Patient also apparently running high blood pressure, which can also sometimes produce encephalopathy. Recommend optimize control of blood pressure to target <140/80. * Patient recently had undergone extensive blood test at [facility] as recommended by the preschool assistant principal. Patient's daughter will obtain those blood test results for our review. Routine blood tests performed so far are normal. * Patient's neurological examination is otherwise nonfocal. We will follow clinically. * Continue Eliquis for stroke prevention related to atrial fibrillation. * Thank you for the consult.
[2023-03-16] MEDS: GABAPENTIN 100 MG CAP PO SCH ×2 (10:39→21:12)
[2023-03-16] MEDS: APIXABAN 5 MG TAB PO SCH ×2 (10:39→21:11)
[2023-03-16] MEDS: amLODIPine 10 MG TAB PO SCH (10:39)
[2023-03-16] MEDS: ATORVASTATIN 20 MG TAB PO SCH (10:39)
[2023-03-16] MEDS: POTASSIUM CHLORIDE ER 20 MEQ TAB.ER PO SCH ×2 (10:39→21:11)
[2023-03-16] MEDS: LOSARTAN 25 MG TAB PO SCH (10:40)
[2023-03-16] MEDS: METOPROLOL SUCCINATE (ER) 100 MG TAB.ER.24H PO SCH (10:40)
[2023-03-16] MEDS: CALCIUM CARB-VIT D 500 MG-5 MCG TAB PO SCH (10:40)
[2023-03-16] MEDS: allopurinoL 300 MG TAB PO SCH (10:40)
[2023-03-16] MEDS: cycloSPORINE 0.05% OPHTH 0.4 ML DROPERETTE BOTH EYES SCH ×2 (10:41→21:15)
--- NOTE | 2023-03-16 11:29 | P.PN ---
Subjective Progress Note Date: 03/16/23 This is an 82-year-old female who is being followed for knee pain and leg weakness. Patient is slightly confused today. Family is present at bedside today. Patient denies any adverse effects after cortisone injections for bilateral knee pain done yesterday. Patient denies any back pain or new complaints today. Objective - Vital Signs Vital signs: Vital Signs Temp 97.4 F L 03/16/23 07:02 Pulse 71 03/16/23 07:02 Resp 18 03/16/23 07:02 BP 159/77 03/16/23 07:02 Pulse Ox 96 03/16/23 08:38 FiO2 Intake & Output 03/15/23 03/16/23 03/16/23 18:59 06:59 18:59 Other: # Voids 4 1 - Exam On exam patient is resting comfortably in bed in no acute distress. Patient is slightly confused. There is no tenderness to palpation over the spine. Patient is able to actively sit up without any pain. Bilateral lower extremities are warm and well perfused. - Labs CBC & Chem 7: 03/15/23 14:03 03/15/23 14:03 Labs: Abnormal Lab Results - Last 24 Hours (Table) 03/15/23 03/15/23 Range/Units 14:03 14:03 Lymphocytes # 0.4 L (1.0-4.8) k/uL Glucose 191 H (74-99) mg/dL Assessment and Plan (1) Bilateral knee pain Current Visit: Yes Status: Acute Code(s): M25.561 - PAIN IN RIGHT KNEE; M25.562 - PAIN IN LEFT KNEE SNOMED Code(s): 4791173273 Plan: Recommend physical therapy for mobilization. There is no surgical intervention planned. Patient may follow up as an outpatient on an as-needed basis. We will continue to follow peripherally.
[2023-03-16] MEDS: THIAMINE 100 MG TAB PO SCH (12:05)
[2023-03-16] MEDS: FOLIC ACID 1 MG TAB PO SCH (12:05)
[2023-03-16] MEDS: MULTIVITAMINS, THERA 1 EACH TAB PO SCH (12:05)
[2023-03-16] MEDS ORDERED: QUEtiapine 25 MG TAB PO PRN (16:59)
[2023-03-16] MEDS: SODIUM CHLORIDE 0.9% 1,000 ML IV SCH (17:09)
[2023-03-16] MEDS ORDERED: ARTIFICIAL TEARS-HYPROMELLOSE DROPS 15 ML BTL BOTH EYES PRN (17:11)
[2023-03-16] MEDS ORDERED: SALINE NASAL GEL 14.1 GM TUBE NASAL PRN (17:11)
--- NOTE | 2023-03-16 17:23 | P.PN ---
Subjective Progress Note Date: 03/16/23 Patient was seen for a follow-up. Patient's daughter, and son as well as patient's were present. They feel that she is only 20% better. Last night she was very confused, tried to get out of bed. Patient admits to having slight headache. Denies any new focal symptoms. Patient continues to have some flushed face. Continues to be delirious. She is not hallucinating as much as yesterday. Objective - Vital Signs Vital signs: Vital Signs Temp 97.7 F 03/16/23 13:55 Pulse 59 L 03/16/23 13:55 Resp 14 03/16/23 13:55 BP 111/67 03/16/23 13:55 Pulse Ox 98 03/16/23 13:55 FiO2 Intake & Output 03/15/23 03/16/23 03/16/23 18:59 06:59 18:59 Other: Voiding Method Toilet # Voids 4 1 - Exam Patient is alert and awake, appears slightly hyper alert, delirious, tremulous, shaky. Speech and language functions are normal. No pronator drift. Strength is normal. - Labs CBC & Chem 7: 03/15/23 14:03 03/15/23 14:03 Assessment and Plan Assessment: * Acute delirium, likely due to side effect of Cymbalta. No evidence of any infectious process. Rule out other metabolic causes * Paraproteinemia, with elevated IgM antibodies and light chain. Rule out any hematologic process. * Chronic back pain * Atrial fibrillation, on long-term anticoagulation. * Pacemaker/defibrillator * Paraproteinemia, hematology following. * Hypertension, not well controlled * Hyperlipidemia * History of cervical and lumbar spine surgery in 1970s. Plan: * Patient has presented with acute delirium. Cymbalta was suspected as the etiology, but patient has not received Cymbalta since Wednesday, and the delirium is not much improved. Her neurological examination is nonfocal. CT head showed no acute process. So far patient has not showed remarkable clinical improvement, only slightly better. Suspect some other etiology for delirium. * Increase Seroquel to 25 mg as needed. Melatonin 3 mg at bedtime for insomnia. * Stop Cymbalta, and observe. * Patient also apparently running high blood pressure, which can also sometimes produce encephalopathy. Recommend optimize control of blood pressure to target <140/80. * Patient's daughter obtained blood test results from [facility]. Her haptoglobin performed on 02/24/2023, which was normal 188 (41-333) q uantitative immunoglobulins with normal IgG, IgA IgM is elevated 757/217 immune fixation electrophoresis revealed presence of monoclonal protein is unclear at this time. Suggest repeat in 3-6 months if clinically indicated. Gamma light chain is elevated at 58.9/19.9, free lambda chain 44.4/26.3. RBC folate 796 which is normal. Hematocrit 33.3. ESR 46/30 vitamin B12 980 which is normal, LDH 261/222, basic metabolic panel is normal, hepatic panel normal, CBC with WBC 4.11, hemoglobin 11.2 and platelets 153. * Hematology following for abnormal paraprotein's. May need bone marrow biopsy. * Patient continues to be delirious. We will check EEG in the morning to evaluate for encephalopathy, rule out any epileptiform activity. Patient's neurological examination is otherwise nonfocal. If no improvement by tomorrow, we'll repeat CT head. * Continue Eliquis for stroke prevention related to atrial fibrillation. * Discussed with patient's family in detail.
--- NOTE | 2023-03-16 17:30 | P.CONS ---
History of Present Illness - Reason for Consult Consult date: 03/16/23 abn CBC Requesting physician: Susan Bautista - Chief Complaint knee pain, difficulty moving - History of Present Illness Mrs. Cox is a pleasantly confused 82-year-old female currently admitted for MS weakness, persistent and progressive over the last few weeks, bilateral knee pain as well. She had no other symptoms. She has been seen by orthopedics as well as neurology. We have been consulted for abnormal CBC. Patient was 1st seen in [facility] 02/24 for this as a referral for mild cytopenias, noted since at least August 2022. WBC 3.6 hemoglobin 12.6 and platelets 157,000, ANC 3 with lymphopenia at 400. These numbers slightly worsened on labs done in October, December and January. Patient had no history of malignancy, she did have a brother who in his 30s from acute leukemia. Patient was being worked up for autoimmune disease, Sjogren's is the working diagnosis. She's been on Plaquenil but that was stopped in August for cardiac reasons. She ended up fernandez ving a pacemaker placed and was placed on Eliquis. She was started on Cymbalta about that same time. Workup was done and those results were available and reviewed with patient and her family, no suspicions for a hyperproliferative condition, or paraproteinemia, No deficiency states, hemolysis. I do not have the results of the ultrasound of the abdomen yet. Other possibilities included may be a medication effect, autoimmune disease. Review of Systems 10 point review of systems negative except as stated in HPI Past Medical History Past Medical History: Atrial Fibrillation, Cancer, Eye Disorder, GERD/Reflux, Hyperlipidemia, Hypertension, Osteoarthritis (OA), Thyroid Disorder Additional Past Medical History / Comment(s): Recently diagnosed with Afib, slightly "leaky heart valve", Shogren's syndrome, anemia, chronic low back pain, DDD, gout bilateral feet/toes, 2017 shingelles, basal cell skin cancer removals, diverticular disease/benign polyps, hypothyroid, bilateral dry eyes History of Any Multi-Drug Resistant Organisms: None Reported Past Surgical History: Appendectomy, Back Surgery, Section, Cholecystectomy, Hysterectomy, Orthopedic Surgery, Tonsillectomy Additional Past Surgical History / Comment(s): Lumbar and cervical fusions, R foot bunionectomy/metatarsal surgery, skin cancer removals, colonoscopies/benign polypectomy, bilateral cataract removals/lens implants. 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 Pt is independent. Smoking Status: Never smoker Past Alcohol Use History: None Reported Additional Past Alcohol Use History / Comment(s): occ glass of wine. Past Drug Use History: None Reported - Past Family History Sister(s) Family Medical History: Cancer Additional Family Medical History / Comment(s): BREAST CANCER Brother(s) Family Medical History: Cancer Additional Family Medical History / Comment(s): LEUKEMIA Mother Family Medical History: Neurologic Disorder Additional Family Medical History / Comment(s): parkinsons, macular degeneration Father Family Medical History: Dementia, Neurologic Disorder Additional Family Medical History / Comment(s): parkinsons Medications and Allergies Home Medications Medication Instructions Recorded Confirmed Type Montelukast [Singulair] 10 mg PO HS 07/22/15 03/14/23 History cycloSPORINE [Restasis] 1 drop BOTH EYES BID 07/22/15 03/14/23 History traMADol HCl [Ultram] 50 mg PO Q6H PRN 07/23/15 03/14/23 History Albuterol Inhaler [Ventolin Hfa 2 puff INHALATION RT-Q4H PRN 04/12/22 03/14/23 History Inhaler] Apixaban [Eliquis] 5 mg PO BID 04/12/22 03/14/23 History Atorvastatin [Lipitor] 20 mg PO HS 04/12/22 03/14/23 History Clindamycin Phosphate [Cleocin T 1 applic TOPICAL BID 04/12/22 03/14/23 History 1%] Gabapentin 300 mg PO BID 04/12/22 03/14/23 History Omeprazole 40 mg PO DAILY 04/12/22 03/14/23 History allopurinoL [Zyloprim] 300 mg PO DAILY 04/12/22 03/14/23 History Levothyroxine Sodium [Synthroid] 100 mcg PO DAILY@0630 #30 tab 08/24/22 03/14/23 Rx Acetaminophen Tab [Tylenol] 650 mg PO Q6H PRN 03/14/23 03/14/23 History Black Currant Oil 1000mg 1,000 mg PO HS 03/14/23 03/14/23 History Calcium Carbonate [Calcium] 1,200 mg PO DAILY 03/14/23 03/14/23 History Cholecalciferol [Vitamin D3 (125 125 mcg PO HS 03/14/23 03/14/23 History Mcg = 5000 Iu)] DULoxetine HCL [Cymbalta] 30 mg PO HS 03/14/23 03/14/23 History HYDROcodone/APAP 10-325MG [[place] 0.5 tab PO Q6H PRN 03/14/23 03/14/23 History 10-325] Magnesium Oxide [Mag-Ox] 400 mg PO HS 03/14/23 03/14/23 History Metoprolol Succinate (ER) [Toprol 100 mg PO DAILY 03/14/23 03/14/23 History Xl] Nitroglycerin Sl Tabs [Nitrostat] 0.4 mg SL Q5M PRN 03/14/23 03/14/23 History Potassium Chloride ER [K-Dur 20] 20 meq PO BID 03/14/23 03/14/23 History methylPREDNISolone [Medrol Dose See Taper PO DIRECTED PRN 03/14/23 03/14/23 History Pack] polyethylene glycoL 3350 [Miralax] 17 gm PO DAILY PRN 03/14/23 03/14/23 History Allergies Allergy/AdvReac Type Severity Reaction Status Date / Time adhesive tape Allergy Rash/Hives Verified 03/14/23 10:58 Steriods IV Allergy Rash/Hives Uncoded 03/14/23 10:58 Physical Exam Vitals: Vital Signs Temp Pulse Resp BP Pulse Ox 03/16/23 12:38 96 03/16/23 08:38 96 03/16/23 07:02 97.4 F L 71 18 159/77 96 03/16/23 02:00 97.8 F 80 168/77 93 L 03/15/23 17:51 97.5 F L 60 19 181/76 95 Intake and Output 03/16/23 03/16/23 03/16/23 06:59 14:59 22:59 Other: # Voids 1 - Constitutional General appearance: average body habitus, cooperative, no acute distress - EENT Dry eyes, dry mucous membranes Eyes: anicteric sclerae, EOMI ENT: hearing grossly normal, thrush - Neck Neck: no lymphadenopathy - Respiratory Respiratory: bilateral: CTA - Cardiovascular Rhythm: regular Heart sounds: normal: S1, S2 Abnormal Heart Sounds: no systolic murmur, no diastolic murmur, no rub, no S3 Gallop, no S4 Gallop, no click, no other leg Peripheral Edema: bilateral: None - Gastrointestinal General gastrointestinal: no absent bowel sounds, no decreased bowel sounds, no distended, no hepatomegaly, no hyperactive bowel sounds, normal bowel sounds, no organomegaly, no rigid, no scaphoid, soft, no splenomegaly, no tenderness, no umbilical hernia, no ventral hernia - Integumentary Integumentary: normal - Neurologic Neurologic: CNII-XII intact - Musculoskeletal Musculoskeletal: generalized weakness - Psychiatric A&O 2 Psychiatric: appropriate affect Results CBC & Chem 7: 03/15/23 14:03 03/15/23 14:03 CT Scan - head: report reviewed Assessment and Plan Plan: Abnormal CBC -Patient was recently seen by Dr. Chow in office for abnormal CBC. All of the workup is most consistent with an inflammatory state. No underlying bone marrow disorder was identified. These results were reviewed with the patient and her family at the bedside. -Today patient's CBC is normal with a slightly decreased absolute lymphocyte count. -No further workup from a Hematology standpoint at this time. -Patient is due to f/u with Rheumatology in the near future.
[2023-03-16] MEDS: NYSTATIN 100,000 UNIT/ML SUSP 500,000 UNIT/5 ML CUP PO SCH ×2 (17:50→21:15)
[2023-03-16] MEDS: CHOLECALCIFEROL 125 MCG (5000 IU) TABLET PO SCH (21:11)
[2023-03-16] MEDS: MONTELUKAST 10 MG TAB PO SCH (21:11)
[2023-03-16] MEDS: MAGNESIUM OXIDE 400 MG TAB PO SCH (21:11)
[2023-03-16] MEDS: MELATONIN 3 MG TABLET PO SCH (21:12)
[2023-03-16] MEDS: SALT AND SODA MOUTHWASH 1,000 ML PO SCH ×2 (21:32→23:47)
[2023-03-17] MEDS: LEVOTHYROXINE 100 MCG TAB PO SCH (05:16)
[2023-03-17] MEDS: PANTOPRAZOLE 40 MG TABLET PO SCH (05:16)
[2023-03-17] MEDS: SALT AND SODA MOUTHWASH 1,000 ML PO SCH ×5 (05:19→22:57)
[2023-03-17] MEDS: NYSTATIN 100,000 UNIT/ML SUSP 500,000 UNIT/5 ML CUP PO SCH ×4 (08:35→20:59)
[2023-03-17] MEDS: APIXABAN 5 MG TAB PO SCH ×2 (08:37→20:59)
[2023-03-17] MEDS: amLODIPine 10 MG TAB PO SCH (08:38)
[2023-03-17] MEDS: CALCIUM CARB-VIT D 500 MG-5 MCG TAB PO SCH (08:38)
[2023-03-17] MEDS: GABAPENTIN 100 MG CAP PO SCH ×2 (08:38→20:59)
[2023-03-17] MEDS: POTASSIUM CHLORIDE ER 20 MEQ TAB.ER PO SCH ×2 (08:38→20:59)
[2023-03-17] MEDS: ATORVASTATIN 20 MG TAB PO SCH (08:39)
[2023-03-17] MEDS: cycloSPORINE 0.05% OPHTH 0.4 ML DROPERETTE BOTH EYES SCH ×2 (08:39→21:00)
[2023-03-17] MEDS: LOSARTAN 25 MG TAB PO SCH (08:39)
[2023-03-17] MEDS: allopurinoL 300 MG TAB PO SCH (08:39)
[2023-03-17] MEDS: METOPROLOL SUCCINATE (ER) 100 MG TAB.ER.24H PO SCH (08:40)
[2023-03-17] MEDS: SODIUM CHLORIDE 0.9% 1,000 ML IV SCH (11:17)
[2023-03-17] MEDS: MULTIVITAMINS, THERA 1 EACH TAB PO SCH (14:21)
[2023-03-17] MEDS: THIAMINE 100 MG TAB PO SCH (14:21)
[2023-03-17] MEDS: FOLIC ACID 1 MG TAB PO SCH (14:21)
--- NOTE | 2023-03-17 15:19 | P.PN ---
Subjective Progress Note Date: 03/17/23 Patient was seen for a follow-up. Patient's was present today. She is doing much better. She walked 160 steps with the physical therapist, and there were just hanging on to her gown and she was using the walker. Patient slept very well last night. Patient's believes that she is about 80-85% back to normal. Her motor skills are better. Patient denies any headache. No focal symptoms. Objective - Vital Signs Vital signs: Vital Signs Temp 97.5 F L 03/17/23 14:34 Pulse 55 L 03/17/23 14:34 Resp 18 03/17/23 14:34 BP 119/67 03/17/23 14:34 Pulse Ox 98 03/17/23 14:34 FiO2 Intake & Output 03/16/23 03/17/23 03/17/23 18:59 06:59 18:59 Intake Total 720 615 Balance 720 615 Intake: Oral 720 615 Other: Voiding Method Toilet Toilet # Voids 3 2 # Bowel Movements 1 - Exam Patient is alert and awake, appears much more comfortable, less delirious. Speech and language functions are normal. No pronator drift. Strength is normal. - Labs CBC & Chem 7: 03/15/23 14:03 03/15/23 14:03 Assessment and Plan Assessment: * Acute delirium, likely due to side effect of Cymbalta. No evidence of any infectious process. Rule out other metabolic causes * Paraproteinemia, with elevated IgM antibodies and light chain. Rule out any hematologic process. * Chronic back pain * Atrial fibrillation, on long-term anticoagulation. * Pacemaker/defibrillator * Hypertension, not well controlled * Hyperlipidemia * History of cervical and lumbar spine surgery in 1970s. Plan: * Patient has presented with acute delirium. Cymbalta was suspected as the etiology. Patient received last dose of Cymbalta on Wednesday. Today on , she is much improved. Her mentation, motor functions have improved. She was able to walk much better. Her neurological examination is nonfocal. CT head showed no acute process. Suspect some other etiology for delirium as well. * Increase Seroquel to 25 mg as needed. Melatonin 3 mg at bedtime for insomnia. * Stop Cymbalta, and observe. * Patient's blood pressure is much better controlled. Recommend optimize control of blood pressure to target <140/80. * Patient's daughter obtained blood test results from [facility]. Her haptoglobin performed on 02/24/2023, which was normal 188 (41-333) quantitative immunoglobulins with normal IgG, IgA IgM is elevated 757/217 immune fixation electrophoresis revealed presence of monoclonal protein is unclear at this time. Suggest repeat in 3-6 months if clinically indicated. Gamma light chain is elevated at 58.9/19.9, free lambda chain 44.4/26.3. RBC folate 796 which is normal. Hematocrit 33.3. ESR 46/30 vitamin B12 980 which is normal, LDH 261/222, basic metabolic panel is normal, hepatic panel normal, CBC with WBC 4.11, hemoglobin 11.2 and platelets 153. * Hematology following for abnormal paraprotein's. Discussed with hematology. No further workup indicated. The white cells have returned back to normal. They believe abnormal antibodies possibly from inflammatory state. There are recommending patient follow-up with a test conductor. * EEG revealed background slowing of mild to moderate degree, suggestive of encephalopathy. No epileptiform activity was seen. * Continue Eliquis for stroke prevention related to atrial fibrillation. * Discussed with patient's family in detail. Patient has improved remarkably. Neurologically clear for discharge, probable to rehab.
--- NOTE | 2023-03-17 16:39 | P.PN ---
Subjective Progress Note Date: 03/17/23 Principal diagnosis: Pancytopenia In follow-up today patient is reporting a significant improvement in her confusion, Family is very pleased to report that pt cognition appears to be back at baseline. Patient walked the hallways today with a walker. Objective - Vital Signs Vital signs: Vital Signs Temp 97.5 F L 03/17/23 14:34 Pulse 55 L 03/17/23 14:34 Resp 18 03/17/23 14:34 BP 119/67 03/17/23 14:34 Pulse Ox 98 03/17/23 14:34 FiO2 Intake & Output 03/16/23 03/17/23 03/17/23 18:59 06:59 18:59 Intake Total 720 615 Balance 720 615 Intake: Oral 720 615 Other: Voiding Method Toilet Toilet # Voids 3 2 1 # Bowel Movements 1 - Constitutional General appearance: Present: average body habitus, cooperative, no acute distress - EENT Eyes: Present: anicteric sclerae, EOMI ENT: Present: hearing grossly normal - Respiratory Details: Respirations even and unlabored at rest - Neurologic Neurologic: Present: CNII-XII intact (Grossly) - Musculoskeletal Musculoskeletal: Present: generalized weakness, strength equal bilaterally - Psychiatric Psychiatric: Present: A&O x's 3, appropriate affect, intact judgment & insight - Labs CBC & Chem 7: 03/15/23 14:03 03/15/23 14:03 Assessment and Plan Plan: Abnormal CBC-CBC normal except for slightly decreased absolute lymphocyte count. -Patient is significantly improved since admit. -Did obtain ultrasound of the abdomen for patient and family. No abnormalities, no hepatosplenomegaly. -Confirming with Primary Board Machine Set Up Operator if patient needs to be followed up or referred back to Rheumatology. Will contact the patient/family with an update and recommendations. Patient and family verbalized understanding the plan. attests: I have seen and examined patient, performed H&P, developed impression and plan of care. Discussed with dictator. Agree with documentation, dictated as a scribe.
[2023-03-17] MEDS: MELATONIN 3 MG TABLET PO SCH (20:59)
[2023-03-17] MEDS: CHOLECALCIFEROL 125 MCG (5000 IU) TABLET PO SCH (20:59)
[2023-03-17] MEDS: MONTELUKAST 10 MG TAB PO SCH (21:00)
[2023-03-17] MEDS: MAGNESIUM OXIDE 400 MG TAB PO SCH (21:00)
--- NOTE | 2023-03-18 02:22 | PN ---
PROGRESS NOTE DATE OF SERVICE: 03/16/2023 SUBJECTIVE: This is an 82-year-old woman, who was admitted with intractable knee pain, also had some confusion, which is gradually improving at this time. The patient also had multiple complex medical issues. PT, OT evaluation for possible ECF rehab. The CT brain, which was done, was personally reviewed by me, showed only remote ischemia. PAST MEDICAL HISTORY: Reviewed. REVIEW OF SYSTEMS: A 14-point review is negative except as mentioned earlier. CURRENT MEDICATIONS: Reviewed include Ventolin and [place]. PHYSICAL EXAMINATION: VITAL SIGNS: Pulse is 57, blood pressure 168/70, respirations 17. HEENT: Conjunctivae normal. NECK: No JVD. CARDIOVASCULAR: S1, S2. RESPIRATIONS: Breath sounds diminished at the bases. ABDOMEN: Soft. NERVOUS SYSTEM: No focal deficits. LABORATORY DATA: Reviewed. ASSESSMENT: 1. Bilateral knee pain, possibly degenerative joint disease after injections with gait dysfunction. 2. Change in mental status, possible acute delirium, multifactorial. 3. Transaminitis. 4. Hypertension. 5. Hyperlipidemia. 6. History of atrial fibrillation. 7. Chronic low back pain, degenerative joint disease. 8. Multiple complex medical issues. 9. Full code. RECOMMENDATIONS: Recommend to continue current management and continue symptomatic treatment. Continue with current medications. Follow closely with Neurology. Medications being adjusted for DVT prophylaxis. PT, OT evaluation, possible ECF rehab with home care. Further recommendations to follow. MMODL / IJN: [id number] /
[2023-03-18] MEDS: SALT AND SODA MOUTHWASH 1,000 ML PO SCH ×5 (05:40→23:19)
[2023-03-18] MEDS: LEVOTHYROXINE 100 MCG TAB PO SCH (05:40)
--- NOTE | 2023-03-18 08:01 | EEG ---
ELECTROENCEPHALOGRAM REPORT PREAMBLE: This is an 82-year-old female with altered mental status, delirium. EEG FINDINGS: This is a 21-channel digital EEG recorded with video component, utilizing 10/20 international system with referential and bipolar montages. Background consists of moderately well-developed and regulated, predominantly 6 to 7 hertz theta activity, intermixed with some delta activity in bihemispheric region. Background does not seem to be reactive to eye opening or closing. Photic driving response was not seen. Different stages of sleep were not seen. No focal or generalized epileptiform activity was seen. IMPRESSION: This is an abnormal EEG due to background slowing of moderate degree. This is suggestive of generalized cerebral dysfunction as can be seen with toxic metabolic encephalopathy or related to diffuse structural brain abnormality. Clinical correlation is recommended. No epileptiform activity was seen. MMODL / IJN: [id number] /
[2023-03-18] MEDS: cycloSPORINE 0.05% OPHTH 0.4 ML DROPERETTE BOTH EYES SCH ×2 (08:38→20:53)
[2023-03-18] MEDS: METOPROLOL SUCCINATE (ER) 100 MG TAB.ER.24H PO SCH (08:39)
[2023-03-18] MEDS: LOSARTAN 25 MG TAB PO SCH (08:39)
[2023-03-18] MEDS: PANTOPRAZOLE 40 MG TABLET PO SCH (08:39)
[2023-03-18] MEDS: POTASSIUM CHLORIDE ER 20 MEQ TAB.ER PO SCH ×2 (08:39→20:53)
[2023-03-18] MEDS: APIXABAN 5 MG TAB PO SCH ×2 (08:39→20:52)
[2023-03-18] MEDS: amLODIPine 10 MG TAB PO SCH (08:39)
[2023-03-18] MEDS: GABAPENTIN 100 MG CAP PO SCH ×2 (08:39→20:53)
[2023-03-18] MEDS: NYSTATIN 100,000 UNIT/ML SUSP 500,000 UNIT/5 ML CUP PO SCH ×4 (08:40→20:53)
[2023-03-18] MEDS: ATORVASTATIN 20 MG TAB PO SCH (08:40)
[2023-03-18] MEDS: CALCIUM CARB-VIT D 500 MG-5 MCG TAB PO SCH (08:40)
[2023-03-18] MEDS: allopurinoL 300 MG TAB PO SCH (08:40)
--- NOTE | 2023-03-18 12:27 | P.PN ---
Subjective Progress Note Date: 03/18/23 Principal diagnosis: Pancytopenia In follow-up today patient reports feeling pretty well, family agrees pt is almost baseline. Plans for rehab. No acute c/o, no pain to report. Objective - Vital Signs Vital signs: Vital Signs Temp 98.3 F 03/18/23 01:26 Pulse 62 03/18/23 01:26 Resp 15 03/18/23 01:26 BP 160/70 03/18/23 01:26 Pulse Ox 96 03/18/23 01:26 FiO2 Intake & Output 03/17/23 03/18/23 03/18/23 18:59 06:59 18:59 Other: Voiding Method Toilet # Voids 2 2 # Bowel Movements 1 1 - Constitutional General appearance: Present: cooperative, no acute distress, thin - EENT Eyes: Present: anicteric sclerae, EOMI ENT: Present: hearing grossly normal - Respiratory Details: resp even and unlabored - Neurologic Neurologic: Present: CNII-XII intact (grossly) - Psychiatric Psychiatric: Present: A&O x's 3, appropriate affect, intact judgment & insight - Labs CBC & Chem 7: 03/15/23 14:03 03/15/23 14:03 Assessment and Plan Plan: Abnormal CBC-CBC normal except for slightly decreased absolute lymphocyte count. -Patient improved significantly, pt and family feel she is almost at her baseline before getting ill. -US of the abdomen, no abnormalities, no hepatosplenomegaly. Prior Hematological work up most consistent with inflammation. -Primary Escrow Clerk wants to see pt in 1 mo to evaluate CBC. If cytopenias persistent and not felt to be related to underlying autoimmune condition, may discuss bone marrow, especially if there is a further drop in counts. Pt and family verbalized understanding. attests: I have seen and examined patient, performed H&P, developed impression and plan of care. Discussed with dictator. Agree with documentation, dictated as a scribe.
[2023-03-18] MEDS: THIAMINE 100 MG TAB PO SCH (13:26)
[2023-03-18] MEDS: FOLIC ACID 1 MG TAB PO SCH (13:26)
[2023-03-18] MEDS: MULTIVITAMINS, THERA 1 EACH TAB PO SCH (13:26)
[2023-03-18] MEDS: MAGNESIUM OXIDE 400 MG TAB PO SCH (20:53)
[2023-03-18] MEDS: MONTELUKAST 10 MG TAB PO SCH (20:53)
[2023-03-18] MEDS: CHOLECALCIFEROL 125 MCG (5000 IU) TABLET PO SCH (20:53)
[2023-03-18] MEDS: MELATONIN 3 MG TABLET PO SCH (20:53)
--- NOTE | 2023-03-18 21:10 | P.PN ---
Subjective Progress Note Date: 03/18/23 82-year-old woman who presents to have evaluation as she was having difficulty getting out of chair. She states she has had similar symptoms previously over past weeks. She states that she was trying to get out of her chair at home but was weak in both legs. She was also having pain in the bilateral knees when she attempted stand. She states that it resulted in her slumping to the floor as she couldn't get up. EMS was called and brought her to the hospital. Patient denies focal weakness. She has not noted symptoms of infection. She denies fever or chills. No cough or congestion. No shortness of breath or chest pain. No abdominal pain, nausea or vomiting. She has not noted change in urination or bowel movements. 03/18/2023 Patient is seen in follow-up today with orthopedics following along with neurology as well as hematology. Patient will follow-up with hematology outpatient for pancytopenia. Number's are stable at this point. Patient underwent CT of the brain showing remote ischemia. Mentation is improving and patient is off Cymbalta as well as Seroquel as patient and family reported she was having increased confusion while on that. Patient has been up and working with physical therapy and doing well and insurance denied going to [facility] requesting a peer to peer as according to Medicare guidelines patient was doing well and would benefit from going home with home care. Patient is afebrile with no reported chest pain or shortness of breath. Patient is tolerating diet. Review of systems: Constitutional: No reports of fatigue, fever, or chills Cardiovascular: No reports of chest pain or palpitations Respiratory: No reports of shortness of breath or cough GI: No reports of nausea, vomiting, or diarrhea : No reports of dysuria or retention Neurovascular: reports of generalized weakness and reports her knee pain has improved All medications have been reviewed Physical exam: Gen: This is a 82-year-old female who is awake, alert and oriented times 2-3, well-developed, well-nourished, elderly-appearing HEENT: Head is atraumatic, normocephalic. Pupils equal, round. Sclerae is anicteric. NECK: Supple. No JVD. No lymphadenopathy. No thyromegaly. LUNGS: Clear to auscultation. No wheezes or rhonchi. No intercostal retractions. HEART: Regular rate and rhythm. No murmur. ABDOMEN: Soft. Bowel sounds are present. No masses. No tenderness. EXTREMITIES: No pedal edema. No calf tenderness. NEUROLOGICAL: Patient is awake, alert and oriented x2-3. Cranial nerves 2 through 12 are grossly intact. Diffusely weak Assessment: Bilateral knee pain, possibly degenerative joint disease status post steroid injections Gait dysfunction with generalized weakness secondary to knee pain, improving Change in mental status, possible acute delirium, multifactorial,, possible toxic/metabolic encephalopathy from medication effect Transaminitis possibly secondary to statin therapy Hypertension history Hyperlipidemia History of atrial fibrillation Chronic lower back pain with degenerative joint disease History of hypothyroidism GERD GI prophylaxis DVT prophylaxis Full code Plan: Patient is being followed by neurology along with physical therapy. Patient was evaluated by orthopedics for bilateral knee pain status post steroid injections and reports feeling improved Cymbalta has been discontinued as well as Seroquel and mentation is improving Neurology ordered repeat CT of the brain which is pending Hematology has evaluated the patient as patient follows outpatient and will follow-up in one month in the outpatient setting with repeat labs for pancytopenia. Lab values are currently stable at this present time Encouraged increased activity as tolerated Recommend PT/OT therapy daily [id number] was suggested from insurance and denied recommending patient go to long-term care and/ or have home care and physical therapy outpatient as patient has been improving while working with physical therapy during hospitalization Case management following arranging for home care and will discuss discharge planning in the a.m. Due to multiple complex medical issues, prognosis is guarded The impression and plan of care has been dictated by Susan Bautista, Nurse Practitioner as directed. Dr. Kameron MD I have performed a history and examination and MDM of this patient, discussed the same with the dictator, and agree with the dictator's assessment and plan as written ,documented as a scribe. Based on total visit time, I have performed more than 50% of the visit. Objective - Vital Signs Vital signs: Vital Signs Temp 98.1 F 03/15/23 09:00 Pulse 86 03/15/23 09:00 Resp 19 03/15/23 09:00 BP 188/83 03/15/23 09:00 Pulse Ox 94 L 03/15/23 09:00 FiO2 Intake & Output 03/14/23 03/15/23 03/15/23 18:59 06:59 18:59 Weight 65.771 kg Other: # Voids 3 4 - Labs CBC & Chem 7: 03/15/23 14:03 03/15/23 14:03 Labs: Abnormal Lab Results - Last 24 Hours (Table) 03/15/23 03/15/23 Range/Units 05:35 05:35 WBC 3.69 L (4.50-10.00) X 10*3/uL RBC 3.78 L (4.10-5.20) X 10*6/uL Hgb 11.5 L (12.0-15.0) g/dL Hct 34.4 L (37.2-46.3) % Lymphocytes # 0.66 L (0.90-5.00) X 10*3/uL Total Protein 6.0 L (6.2-8.2) g/dL Albumin 3.6 L (3.8-4.9) g/dL Albumin/Globulin Ratio 1.50 L (1.60-3.17) Ratio
--- NOTE | 2023-03-18 21:26 | CT ---
EXAMINATION TYPE: CT brain wo con DATE OF EXAM: 03/18/2023 HISTORY: AMS not resolved CT DLP: 1109.4 mGycm. Automated Exposure Control for Dose Reduction was Utilized. TECHNIQUE: CT scan of the head is performed without contrast. COMPARISON: 03/15/2023 CT brain without contrast FINDINGS: There is no acute intracranial hemorrhage or midline shift identified. No definite new atte nuation defect. The skull is unremarkable. The globes are intact. Paranasal sinuses, middle ear cavit ies, and mastoid sinus air cells are clear. The globes are intact and the visualized sinuses are sergei r. IMPRESSION: No acute process.
[2023-03-19] MEDS: SALT AND SODA MOUTHWASH 1,000 ML PO SCH ×4 (06:20→20:30)
[2023-03-19] MEDS: PANTOPRAZOLE 40 MG TABLET PO SCH (06:20)
[2023-03-19] MEDS: LEVOTHYROXINE 100 MCG TAB PO SCH (06:20)
--- NOTE | 2023-03-19 07:46 | XR ---
EXAMINATION TYPE: XR sacrum coccyx DATE OF EXAM: 03/19/2023 7:38 AM CLINICAL INDICATION:Female, 82 years old with history of fall; COMPARISON: None TECHNIQUE: The sacrum and coccyx was examined in frontal and lateral projections. FINDINGS: Acute anterior angulation of the coccyx/S5 vertebrae. Fixation hardware at the level of the sacrum posteriorly. Hardware appears intact. Sacroiliac joint osteoarthrosis of osteophytes present. There is no evidence of fracture or dislocation. There is no soft tissue abnormality. No abnormal c alcifications are present. Multilevel degenerative changes of the lower spine. Scattered pelvic phleb oliths. Stool in the colon limits evaluation. IMPRESSION: 1. There is acute angulation of the sacrum which could represent fracture. Correlate with pain over the sacrum coccyx region 2. Postsurgical changes with hardware intact.
--- NOTE | 2023-03-19 07:48 | XR ---
EXAMINATION TYPE: XR lumbar spine 2 or 3V DATE OF EXAM: 03/19/2023 7:38 AM CLINICAL INDICATION:Female, 82 years old with history of fall; [facility] COMPARISON: 03/14/2023 TECHNIQUE: XR lumbar spine 2 or 3V - Frontal, lateral and coned in L5-S1 lateral views of the spine. FINDINGS: Scoliosis changes throughout the spine apex L3 on the left. Fixation hardware at the level of the sacrum appears intact. Compression deformity of L2 vertebral body with at least 25% height los s. There is facet joint arthropathy and osteophyte formation throughout spine. Atherosclerosis throug hout the arteriovascular. Right upper quadrant cholecystectomy clips. IMPRESSION: 1. Compression deformity of L2 vertebral body which is age-indeterminate.. 2. Postsurgical changes with hardware intact. 3. Moderate multilevel disc degeneration with scoliosis changes.
[2023-03-19 07:51] VITALS: BMI 24.9
--- NOTE | 2023-03-19 07:56 | XR ---
EXAMINATION TYPE: XR thoracic spine complete DATE OF EXAM: 03/19/2023 7:38 AM CLINICAL INDICATION:Female, 82 years old with history of fall; COMPARISON: 06/20/2020 TECHNIQUE: XR thoracic spine complete views of the thoracic spine in Frontal and lateral projections. FINDINGS: No evidence of acute fracture. There is scattered multilevel disk space narrowing without loss of ve rtebral body height. There is normal alignment of the thoracic vertebral bodies. Scattered osteophyte formation along the anterior and lateral aspects of the vertebral bodies. Neural foramen are patent given limitations of this exam. Spinal canal appears patent. Upper quadrant cholecystectomy clips. Th ere is 2-lead cardiac conduction is present. Sclerosis of the arterial vasculature including the aortic arch. IMPRESSION: 1. No acute osseous pathology. 2. [id number] multilevel degeneration changes throughout the spine.
[2023-03-19] MEDS: MULTIVITAMINS, THERA 1 EACH TAB PO SCH (08:32)
[2023-03-19] MEDS: CALCIUM CARB-VIT D 500 MG-5 MCG TAB PO SCH (08:32)
[2023-03-19] MEDS: ATORVASTATIN 20 MG TAB PO SCH (08:32)
[2023-03-19] MEDS: POTASSIUM CHLORIDE ER 20 MEQ TAB.ER PO SCH ×2 (08:33→22:25)
[2023-03-19] MEDS: THIAMINE 100 MG TAB PO SCH (08:33)
[2023-03-19] MEDS: FOLIC ACID 1 MG TAB PO SCH (08:33)
[2023-03-19] MEDS: APIXABAN 5 MG TAB PO SCH ×2 (08:33→22:25)
[2023-03-19] MEDS: amLODIPine 10 MG TAB PO SCH (08:33)
[2023-03-19] MEDS: LOSARTAN 25 MG TAB PO SCH (08:33)
[2023-03-19] MEDS: GABAPENTIN 100 MG CAP PO SCH ×2 (08:33→22:25)
[2023-03-19] MEDS: allopurinoL 300 MG TAB PO SCH (08:33)
[2023-03-19] MEDS: METOPROLOL SUCCINATE (ER) 100 MG TAB.ER.24H PO SCH (08:34)
[2023-03-19] MEDS: cycloSPORINE 0.05% OPHTH 0.4 ML DROPERETTE BOTH EYES SCH (08:34)
[2023-03-19] MEDS: NYSTATIN 100,000 UNIT/ML SUSP 500,000 UNIT/5 ML CUP PO SCH ×4 (08:34→22:25)
--- NOTE | 2023-03-19 14:10 | P.PN ---
Subjective Progress Note Date: 03/19/23 82-year-old woman who presents to have evaluation as she was having difficulty getting out of chair. She states she has had similar symptoms previously over past weeks. She states that she was trying to get out of her chair at home but was weak in both legs. She was also having pain in the bilateral knees when she attempted stand. She states that it resulted in her slumping to the floor as she couldn't get up. EMS was called and brought her to the hospital. Patient denies focal weakness. She has not noted symptoms of infection. She denies fever or chills. No cough or congestion. No shortness of breath or chest pain. No abdominal pain, nausea or vomiting. She has not noted change in urination or bowel movements. 03/18/2023 Patient is seen in follow-up today with orthopedics following along with neurology as well as hematology. Patient will follow-up with hematology outpatient for pancytopenia. Number's are stable at this point. Patient underwent CT of the brain showing remote ischemia. Mentation is improving and patient is off Cymbalta as well as Seroquel as patient and family reported she was having increased confusion while on that. Patient has been up and working with physical therapy and doing well and insurance denied going to [facility] requesting a peer to peer as according to Medicare guidelines patient was doing well and would benefit from going home with home care. Patient is afebrile with no reported chest pain or shortness of breath. Patient is tolerating diet. 03/19/2023 Patient is seen and evaluated in follow-up with multiple family members at the bedside. Family is questioning and concern for the safety of the patient as patient was denied from insurance company on going to rehab even after peer to peer evaluation was performed if patient is high risk for falling and impulsive and continues with weakness. Multiple consultations including neurology and orthopedics following. Patient was doing somewhat better with the walker requesting to go to take a shower and per nursing staff had a fall when trying to get up without assistance and get herself dressed falling onto her buttock. Images including the sacrum and coccyx along with lumbar and thoracic spine were obtained and of note there was an acute angulation of the sacrum which could represent fracture although patient is experiencing no pain. Asked orthopedics to reevaluate and patient does have history of tailbone fracture back from June secondary to fall. Family is extremely concerned with patient going home and being high risk for fall and having to return to the hospital and does not feel the patient is safe for discharge to home. Patient lives with her spouse alone who also uses a walker for ambulation. Patient is currently afebrile with no reported chest pain or shortness of breath. Patient is tolerating diet with no reported nausea or vomiting. Patient denies any pain of the lower back area. Review of systems: Constitutional: No reports of fatigue, fever, or chills Cardiovascular: No reports of chest pain or palpitations Respiratory: No reports of shortness of breath or cough GI: No reports of nausea, vomiting, or diarrhea : No reports of dysuria or retention Neurovascular: reports of generalized weakness and reports her knee pain has improved All medications have been reviewed Physical exam: Gen: This is a 82-year-old female who is awake, alert and oriented times 2-3, well-developed, well-nourished, elderly-appearing HEENT: Head is atraumatic, normocephalic. Pupils equal, round. Sclerae is anicteric. NECK: Supple. No JVD. No lymphadenopathy. No thyromegaly. LUNGS: Clear to auscultation. No wheezes or rhonchi. No intercostal retractions. HEART: Regular rate and rhythm. No murmur. ABDOMEN: Soft. Bowel sounds are present. No masses. No tenderness. EXTREMITIES: No pedal edema. No calf tenderness. NEUROLOGICAL: Patient is awake, alert and oriented x2-3. Cranial nerves 2 through 12 are grossly intact. Diffusely weak Assessment: Bilateral knee pain, possibly degenerative joint disease status post steroid injections Gait dysfunction with generalized weakness secondary to knee pain, improving Fall last night with imaging showing old tailbone fracture as patient reportedly fell in June suffering a tailbone fracture Change in mental status, possible acute delirium, multifactorial,, possible toxic/metabolic encephalopathy from medication effect, improving Transaminitis possibly secondary to statin therapy Hypertension history Hyperlipidemia History of atrial fibrillation Chronic lower back pain with degenerative joint disease History of hypothyroidism GERD GI prophylaxis DVT prophylaxis Full code Plan: Patient is being followed by neurology along with physical therapy. Patient was evaluated by orthopedics for bilateral knee pain status post steroid injections and reports feeling improved Cymbalta has been discontinued as well as Seroquel and mentation is improving Neurology ordered repeat CT of the brain with no acute process noted Per nursing staff patient had a fall after getting out of the shower and attempting to dress herself and had images done of the sacrum, coccyx, lumbar and thoracic spine showing postsurgical changes of the hardware that is intact and acute angulation of the sacrum which could represent a fracture although patient's family reported she fell in June and had a tailbone fracture. Patient denies any pain and there is no obvious deformities or wounds noted to the area. Patient did not hit her head. Hematology has evaluated the patient as patient follows outpatient and will follow-up in one month in the outpatient setting with repeat labs for pancytopenia. Lab values are currently stable at this present time Encouraged increased activity as tolerated Recommend PT/OT therapy daily [id number] was suggested from insurance and denied recommending patient go to long-term care and/ or have home care and physical therapy outpatient as patient has been improving while working with physical therapy during hospitalization. Family does not feel the patient is safe to go home as she is high risk for falls as evidence by falling again yesterday while here and lives at home with her spouse who also uses a walker for ambulation. Patient will be monitored in case management/social work are following working on safe discharge planning. Again patient would benefit from physical therapy at rehab she is impulsive and weak at times despite the fact that she is getting up with physical therapy here and walking over 100 feet and this is once per day. Strongly feel the patient would benefit from rehab as they have continued ongoing physical therapy/occ upational therapy for continued strength and mobility. Due to multiple complex medical issues, prognosis is guarded The impression and plan of care has been dictated by Susan Bautista, Nurse Practitioner as directed. Dr. Kameron MD I have performed a history and examination and MDM of this patient, discussed the same with the dictator, and agree with the dictator's assessment and plan as written ,documented as a scribe. Based on total visit time, I have performed more than 50% of the visit. Objective - Vital Signs Vital signs: Vital Signs Temp 97.9 F 03/19/23 07:58 Pulse 62 03/19/23 07:58 Resp 17 03/19/23 07:58 BP 145/80 03/19/23 07:58 Pulse Ox 99 03/19/23 07:58 FiO2 Intake & Output 03/18/23 03/19/23 03/19/23 18:59 06:59 18:59 Intake Total 540 Balance 540 Weight 65.771 kg Intake: Oral 540 Other: Voiding Method Toilet # Voids 2 5 - Labs CBC & Chem 7: 03/15/23 14:03 03/15/23 14:03
[2023-03-19] MEDS: MELATONIN 3 MG TABLET PO SCH (22:25)
[2023-03-19] MEDS: CHOLECALCIFEROL 125 MCG (5000 IU) TABLET PO SCH (22:25)
[2023-03-19] MEDS: MAGNESIUM OXIDE 400 MG TAB PO SCH (22:25)
[2023-03-19] MEDS: MONTELUKAST 10 MG TAB PO SCH (22:25)
[2023-03-20] MEDS: cycloSPORINE 0.05% OPHTH 0.4 ML DROPERETTE BOTH EYES SCH ×3 (00:24→20:39)
[2023-03-20] MEDS: SALT AND SODA MOUTHWASH 1,000 ML PO SCH ×5 (00:24→20:39)
[2023-03-20] MEDS: PANTOPRAZOLE 40 MG TABLET PO SCH (06:36)
[2023-03-20] MEDS: LEVOTHYROXINE 100 MCG TAB PO SCH (06:36)
[2023-03-20] MEDS: APIXABAN 5 MG TAB PO SCH ×2 (09:11→20:39)
[2023-03-20] MEDS: LOSARTAN 25 MG TAB PO SCH (09:11)
[2023-03-20] MEDS: METOPROLOL SUCCINATE (ER) 100 MG TAB.ER.24H PO SCH (09:11)
[2023-03-20] MEDS: ATORVASTATIN 20 MG TAB PO SCH (09:12)
[2023-03-20] MEDS: CALCIUM CARB-VIT D 500 MG-5 MCG TAB PO SCH (09:12)
[2023-03-20] MEDS: NYSTATIN 100,000 UNIT/ML SUSP 500,000 UNIT/5 ML CUP PO SCH ×4 (09:12→20:39)
[2023-03-20] MEDS: amLODIPine 10 MG TAB PO SCH (09:12)
[2023-03-20] MEDS: POTASSIUM CHLORIDE ER 20 MEQ TAB.ER PO SCH ×2 (09:12→20:39)
[2023-03-20] MEDS: allopurinoL 300 MG TAB PO SCH (09:12)
[2023-03-20] MEDS: GABAPENTIN 100 MG CAP PO SCH ×2 (09:12→20:39)
[2023-03-20] MEDS: THIAMINE 100 MG TAB PO SCH (12:08)
[2023-03-20] MEDS: FOLIC ACID 1 MG TAB PO SCH (12:08)
[2023-03-20] MEDS: MULTIVITAMINS, THERA 1 EACH TAB PO SCH (12:08)
--- NOTE | 2023-03-20 14:43 | PN ---
PROGRESS NOTE DATE OF SERVICE: 03/20/2023 SUBJECTIVE: This is an 82-year-old woman, who was admitted with bilateral knee pain and multiple medical issues, also had a gait dysfunction. Apparently, insurance has denied rehab at this time. No chest pain. No palpitation. PHYSICAL EXAMINATION: VITAL SIGNS: Pulse is 68, blood pressure 130/87, respirations 16. CHEST: Clear to auscultation. CARDIOVASCULAR: S1 and S2. ABDOMEN: Soft. NERVOUS SYSTEM: Nonfocal. LABORATORY DATA: Reviewed. ASSESSMENT: 1. Bilateral knee pain, possibly degenerative joint disease, status post steroid injection. 2. Fall and gait dysfunction. 3. Change in mental status and possible acute delirium. 4. Hypertension. 5. Multiple medical issues. RECOMMENDATIONS: Recommend to continue current medications. Continue symptomatic treatment. Otherwise, closely monitor. Symptomatic treatment of the pain. Increase ambulation. PT and OT evaluation. Further recommendations to follow. MMODL / IJN: [id number] /
[2023-03-20] MEDS: MAGNESIUM OXIDE 400 MG TAB PO SCH (20:39)
[2023-03-20] MEDS: CHOLECALCIFEROL 125 MCG (5000 IU) TABLET PO SCH (20:39)
[2023-03-20] MEDS: MONTELUKAST 10 MG TAB PO SCH (20:39)
[2023-03-20] MEDS: MELATONIN 3 MG TABLET PO SCH (20:39)
[2023-03-21] MEDS: SALT AND SODA MOUTHWASH 1,000 ML PO SCH ×6 (01:27→23:52)
[2023-03-21] MEDS: LEVOTHYROXINE 100 MCG TAB PO SCH (06:34)
[2023-03-21] MEDS: PANTOPRAZOLE 40 MG TABLET PO SCH (06:34)
[2023-03-21] MEDS: GABAPENTIN 100 MG CAP PO SCH ×2 (08:45→21:17)
[2023-03-21] MEDS: ATORVASTATIN 20 MG TAB PO SCH (08:46)
[2023-03-21] MEDS: allopurinoL 300 MG TAB PO SCH (08:46)
[2023-03-21] MEDS: cycloSPORINE 0.05% OPHTH 0.4 ML DROPERETTE BOTH EYES SCH ×2 (08:46→21:17)
[2023-03-21] MEDS: POTASSIUM CHLORIDE ER 20 MEQ TAB.ER PO SCH ×2 (08:46→21:18)
[2023-03-21] MEDS: METOPROLOL SUCCINATE (ER) 100 MG TAB.ER.24H PO SCH (08:46)
[2023-03-21] MEDS: MULTIVITAMINS, THERA 1 EACH TAB PO SCH (08:46)
[2023-03-21] MEDS: CALCIUM CARB-VIT D 500 MG-5 MCG TAB PO SCH (08:46)
[2023-03-21] MEDS: THIAMINE 100 MG TAB PO SCH (08:46)
[2023-03-21] MEDS: NYSTATIN 100,000 UNIT/ML SUSP 500,000 UNIT/5 ML CUP PO SCH ×4 (08:46→21:18)
[2023-03-21] MEDS: FOLIC ACID 1 MG TAB PO SCH (08:47)
[2023-03-21] MEDS: amLODIPine 10 MG TAB PO SCH (08:47)
[2023-03-21] MEDS: LOSARTAN 25 MG TAB PO SCH (08:47)
[2023-03-21] MEDS: APIXABAN 5 MG TAB PO SCH ×2 (08:47→21:17)
--- NOTE | 2023-03-21 11:39 | PN ---
PROGRESS NOTE DATE OF SERVICE: 03/21/2023 SUBJECTIVE: This is an 82-year-old woman, who was admitted with bilateral knee pain, is being closely monitored. No chest pain. No palpitations. No fever. PHYSICAL EXAMINATION: VITAL SIGNS: Pulse is 54, blood pressure 130/70, respirations 16. CHEST: Clear to auscultation. CARDIOVASCULAR: S1 and S2. ABDOMEN: Soft. NERVOUS SYSTEM: Nonfocal. LABORATORY DATA: Reviewed. ASSESSMENT: 1. Bilateral knee pain, possibly degenerative joint disease status post steroid injection. 2. Fall and gait dysfunction. 3. Change in mental status with possible acute delirium. 4. Hypertension. 5. Multiple medical issues. RECOMMENDATIONS: Recommend to continue current management and continue symptomatic treatment. PT and OT evaluation. Possible discharge to [facility]CF versus home with home care. Further recommendations to follow. MMODL / IJN: [id number] /
[2023-03-21 12:20] LABS: ALT 18 U/L (4-34); AST 24 U/L (14-36); African American GFR (CKD) 87 (>60 ml/min/1.73 sqM); Albumin 3.3 g/dL (3.5-5.0); Albumin/Globulin Ratio 1.1; Alkaline Phosphatase 63 U/L (38-126); Anion Gap 6 mmol/L; Blood Urea Nitrogen 19 mg/dL (7-17); Calcium 9.7 mg/dL (8.4-10.2); Carbon Dioxide 28 mmol/L (22-30); Chloride 103 mmol/L (98-107); Globulin 2.9 g/dL; Glucose 94 mg/dL (74-99); Non-African American GFR(CKD) 75 (>60 ml/min/1.73 sqM); Potassium 4.1 mmol/L (3.5-5.1); Sodium 137 mmol/L (137-145); Total Bilirubin 0.6 mg/dL (0.2-1.3); Total Protein 6.2 g/dL (6.3-8.2)
[2023-03-21 12:24] LABS: Basophils % (A) 1 %; Eosinophils # (A) 0.2 k/uL (0-0.7); Eosinophils % (A) 2 %; HGB 12.8 gm/dL (11.4-16.0); Hypochromasia Slight; Lymphocytes # (A) 0.9 k/uL (1.0-4.8); Lymphocytes % (A) 15 %; MCH 30.7 pg (25.0-35.0); MCHC 31.9 g/dL (31.0-37.0); MCV 96.2 fL (80.0-100.0); Mean Platelet Volume 8.3; Monocytes # (A) 0.4 k/uL (0-1.0); Monocytes % (A) 6 %; Neutrophils # (A) 4.8 k/uL (1.3-7.7); Neutrophils % (A) 75 %; Platelet Count 169 k/uL (150-450); RBC 4.16 m/uL (3.80-5.40); RDW 13.9 % (11.5-15.5); WBC 6.4 k/uL (3.8-10.6)
[2023-03-21] MEDS: CHOLECALCIFEROL 125 MCG (5000 IU) TABLET PO SCH (21:17)
[2023-03-21] MEDS: MONTELUKAST 10 MG TAB PO SCH (21:17)
[2023-03-21] MEDS: MAGNESIUM OXIDE 400 MG TAB PO SCH (21:17)
[2023-03-21] MEDS: MELATONIN 3 MG TABLET PO SCH (21:18)
--- NOTE | 2023-03-22 01:40 | P.PN ---
Subjective Progress Note Date: 03/18/23 Patient was seen for a follow-up. Patient's daughter was also present today. She believes patient is about 80% better. As the day progresses, she gets confused and more tired. She walked in the hallway. Patient gets upset while she has to be on a bed alarm. Patient states that she wanted to therapists. However she goes to bathroom with only 1 assist. Patient denies any headache. No focal symptoms. Objective - Vital Signs Vital signs: Vital Signs Temp 98.0 F 03/18/23 14:32 Pulse 63 03/18/23 14:32 Resp 18 03/18/23 14:32 BP 145/78 03/18/23 14:32 Pulse Ox 98 03/18/23 14:32 FiO2 Intake & Output 03/18/23 03/18/23 03/19/23 06:59 18:59 06:59 Intake Total 540 Balance 540 Intake: Oral 540 Other: Voiding Method Toilet Toilet # Voids 2 2 # Bowel Movements 1 - Exam Patient is alert and awake, appears much more comfortable, less delirious. Speech and language functions are normal. Patient knows it is March 2023 and that she is in [facility]. Speech and language functions are normal. Cranial nerve examination reveals visual diego are full, face is symmetric, pupils are equal. Muscle strength revealed normal strength upper limbs. Hip flexion 4+5-bilaterally, ankle dorsiflexion 5. Patient had left knee pain, but no pain since she had knee injection. Patient is less shaky, no ataxia. Sensory to touch is equal. - Labs CBC & Chem 7: 03/21/23 11:14 03/21/23 11:14 Assessment and Plan Assessment: * Acute delirium, likely due to side effect of Cymbalta. No evidence of any infectious process. Rule out other metabolic causes * Paraproteinemia, with elevated IgM antibodies and light chain. Rule out any hematologic process. * Chronic back pain * Atrial fibrillation, on long-term anticoagulation. * Pacemaker/defibrillator * Hypertension, not well controlled * Hyperlipidemia * History of cervical and lumbar spine surgery in 1970s. Plan: * Patient has presented with acute delirium. Cymbalta was suspected as the etiology. Patient received last dose of Cymbalta on Wednesday. She was able to walk much better. Her neurological examination is nonfocal. CT head showed no acute process. Suspect some other etiology for delirium as well. * Increase Seroquel to 25 mg as needed. Melatonin 3 mg at bedtime for insomnia. * Stop Cymbalta, and observe. * Patient's blood pressure is much better controlled. Recommend optimize control of blood pressure to target <140/80. * Patient's daughter obtained blood test results from [facility]. Her haptoglobin performed on 02/24/2023, which was normal 188 (41-333) quantitative immunoglobulins with normal IgG, IgA IgM is elevated 757/217 immune fixation electrophoresis revealed presence of monoclonal protein is unclear at this time. Suggest repeat in 3-6 months if clinically indicated. Gamma light chain is elevated at 58.9/19.9, free lambda chain 44.4/26.3. RBC folate 796 which is normal. Hematocrit 33.3. ESR 46/30 vitamin B12 980 which is normal, LDH 261/222, basic metabolic panel is normal, hepatic panel normal, CBC with WBC 4.11, hemoglobin 11.2 and platelets 153. * Hematology following for abnormal paraprotein's. Discussed with hematology. No further workup indicated. The white cells have returned back to normal. They believe abnormal antibodies possibly from inflammatory state. There are recommending patient follow-up with a sustainability engineer. * EEG revealed background slowing of mild to moderate degree, suggestive of encephalopathy. No epileptiform activity was seen. * Continue Eliquis for stroke prevention related to atrial fibrillation. * Discussed with patient's family in detail. They do not believe patient is still back to baseline. We will check CT head to rule out any structural abnormality/CVA.
--- NOTE | 2023-03-22 01:47 | P.PN ---
Subjective Progress Note Date: 03/21/23 Patient was seen for a follow-up. Patient's and patient's sister were present today. Patient feels that she is getting much better. Denies any new focal symptoms. No headache. Patient is sitting comfortably in the recliner. Objective - Vital Signs Vital signs: Vital Signs Temp 97.4 F L 03/21/23 13:46 Pulse 56 L 03/21/23 13:46 Resp 17 03/21/23 13:46 BP 117/69 03/21/23 13:46 Pulse Ox 98 03/21/23 13:46 FiO2 Intake & Output 03/20/23 03/21/23 03/21/23 18:59 06:59 18:59 Output Total 2 Balance -2 Output: Urine 2 Other: # Voids 5 5 - Exam Patient is alert and awake, appears much more comfortable, less delirious. Speech and language functions are normal. Patient knows it is March 2023 and that she is in [facility], and name of the current president Mr. Parra. Speech and language functions are normal. Cranial nerve examination reveals visual diego are full, face is symmetric, pupils are equal. Patient has no tremors of outstretched hands. - Labs CBC & Chem 7: 03/21/23 11:14 03/21/23 11:14 Labs: Abnormal Lab Results - Last 24 Hours (Table) 03/21/23 03/21/23 Range/Units 11:14 11:14 Lymphocytes # 0.9 L (1.0-4.8) k/uL BUN 19 H (7-17) mg/dL Total Protein 6.2 L (6.3-8.2) g/dL Albumin 3.3 L (3.5-5.0) g/dL Assessment and Plan Assessment: * Acute delirium, likely due to side effect of Cymbalta. No evidence of any infectious process. Rule out other metabolic causes * Paraproteinemia, with elevated IgM antibodies and light chain. Rule out any hematologic process. * Chronic back pain * Atrial fibrillation, on long-term anticoagulation. * Pacemaker/defibrillator * Hypertension, not well controlled * Hyperlipidemia * History of cervical and lumbar spine surgery in 1970s. Plan: * Patient has presented with acute delirium. Cymbalta was suspected as the etiology. Patient received last dose of Cymbalta on Wednesday. She was able to walk much better. Her neurological examination is nonfocal. CT head showed no acute process. Suspect some other etiology for delirium as well. * Repeat CT head performed 03/18/2023 was again normal. No acute process. * Increase Seroquel to 25 mg as needed. Melatonin 3 mg at bedtime for insomnia. * Stop Cymbalta, and observe. * Patient's blood pressure is much better controlled. Recommend optimize control of blood pressure to target <140/80. * Patient's daughter obtained blood test results from [facility]. Her haptoglobin performed on 02/24/2023, which was normal 188 (41-333) quantitative immunoglobulins with normal IgG, IgA IgM is elevated 757/217 immune fixation electrophoresis revealed presence of monoclonal protein is unclear at this time. Suggest repeat in 3-6 months if clinically indicated. Gamma light chain is elevated at 58.9/19.9, free lambda chain 44.4/26.3. RBC folate 796 which is normal. Hematocrit 33.3. ESR 46/30 vitamin B12 980 which is normal, LDH 261/222, basic metabolic panel is normal, hepatic panel normal, CBC with WBC 4.11, hemoglobin 11.2 and platelets 153. * Hematology following for abnormal paraprotein's. Discussed with hematology. No further workup indicated. The white cells have returned back to normal. They believe abnormal antibodies possibly from inflammatory state. There are recommending patient follow-up with a director security risk management. * EEG revealed background slowing of mild to moderate degree, suggestive of encephalopathy. No epileptiform activity was seen. * Continue Eliquis for stroke prevention related to atrial fibrillation. * Neurologically clear for discharge. We will sign off. Dr. Samson Gomez will be available for any new neurological concerns from tomorrow.
[2023-03-22] MEDS: SALT AND SODA MOUTHWASH 1,000 ML PO SCH ×2 (05:53→11:59)
[2023-03-22] MEDS: LEVOTHYROXINE 100 MCG TAB PO SCH (05:53)
[2023-03-22] MEDS: PANTOPRAZOLE 40 MG TABLET PO SCH (06:31)
[2023-03-22] MEDS: ATORVASTATIN 20 MG TAB PO SCH (07:49)
[2023-03-22] MEDS: GABAPENTIN 100 MG CAP PO SCH (07:49)
[2023-03-22] MEDS: CALCIUM CARB-VIT D 500 MG-5 MCG TAB PO SCH (07:49)
[2023-03-22] MEDS: METOPROLOL SUCCINATE (ER) 100 MG TAB.ER.24H PO SCH (07:50)
[2023-03-22] MEDS: amLODIPine 10 MG TAB PO SCH (07:50)
[2023-03-22] MEDS: cycloSPORINE 0.05% OPHTH 0.4 ML DROPERETTE BOTH EYES SCH (07:50)
[2023-03-22] MEDS: POTASSIUM CHLORIDE ER 20 MEQ TAB.ER PO SCH (07:50)
[2023-03-22] MEDS: LOSARTAN 25 MG TAB PO SCH (07:50)
[2023-03-22] MEDS: APIXABAN 5 MG TAB PO SCH (07:50)
[2023-03-22] MEDS: allopurinoL 300 MG TAB PO SCH (07:50)
[2023-03-22] MEDS: NYSTATIN 100,000 UNIT/ML SUSP 500,000 UNIT/5 ML CUP PO SCH ×2 (07:51→11:59)
[2023-03-22 08:24] VITALS: BP 126/81; PULSE 65; RESP 17; TEMP 97.6
[2023-03-22] MEDS: FOLIC ACID 1 MG TAB PO SCH (11:59)
[2023-03-22] MEDS: MULTIVITAMINS, THERA 1 EACH TAB PO SCH (11:59)
[2023-03-22] MEDS: THIAMINE 100 MG TAB PO SCH (11:59)
--- NOTE | 2023-03-29 04:13 | P.DS ---
Providers Date of admission: 03/14/23 07:19 Expected date of discharge: 03/22/23 Attending physician: Alessandro Fung MD Consults: 03/14/23 07:19 Consult Physician Routine Consulting Provider: Alexander Anne Consult Reason/Comments: inability to ambulate/knee pain Do you want consulting provider notified?: Yes 03/15/23 13:53 Consult Physician Urgent Consulting Provider: Patricia Leon Consult Reason/Comments: altered mentation, confusion Do you want consulting provider notified?: Yes 03/16/23 13:10 Consult Physician Urgent Consulting Provider: Braulio Chow Consult Reason/Comments: abnormal cbc o/p, follows outpatient, referred by Dr. Sandoval Do you want consulting provider notified?: Yes Primary care physician: Bishop Denise Hospital Course: Final diagnosis Bilateral knee pain, most likely degenerative joint disease, status post steroid injections Falling gait dysfunction Change in mental status with possible acute delirium, improved, likely metabolic toxic encephalopathy from medication effect as well as hospital-acquired delirium Hypertension Hyperlipidemia Atrial fibrillation history History of degenerative joint disease GI prophylaxis DVT prophylaxis Discharge disposition Patient is being discharged in a stable condition with guarded prognosis to home with home care. Patient will follow-up with Dr. Denise in the outpatient setting upon discharge. Patient is to follow-up outpatient with neurology as well as orthopedics as needed. Total time taken is greater than 35 minutes. Hospital course This is a 82-year-old female who was recently admitted with bilateral lower extremity knee pain and difficulty in ambulation with inability to walk being closely monitored. Multiple medical consultations including orthopedics has evaluated the patient underwent steroid injections of the knees and underwent neurological workup. Patient has been having increased weakness and recurrent falls with continued significant weakness. Patient also being evaluated by hematology outpatient for abnormal CBC. Labs reviewed during hospitalization within normal limits and will follow-up outpatient. Patient attempted for rehab for continued strength and mobility although insurance denied including appeal of the denial recommending either privately pay long-term care or outpatient continued home care with rehab in the outpatient setting. Patient continued to work with physical therapy throughout hospitalization having some improvement and family will be taking the patient home with home care being arranged. Please refer to other consultation notes for further HPI. Currently no reports of chest pain, shortness of breath, or palpitations. Patient is afebrile. No reports of nausea or vomiting and patient is tolerating diet. Patient will be discharged home today. Guarded prognosis. Physical exam: Gen: This is a 82-year-old female who is awake, alert and oriented 2-3, well- developed, well-nourished HEENT: Head is atraumatic, normocephalic. Pupils equal, round. Sclerae is anicteric. NECK: Supple. No JVD. No lymphadenopathy. No thyromegaly. LUNGS: Clear to auscultation. No wheezes or rhonchi. No intercostal retractions. HEART: Regular rate and rhythm. No murmur. ABDOMEN: Soft. Bowel sounds are present. No masses. No tenderness. EXTREMITIES: No pedal edema. No calf tenderness. NEUROLOGICAL: Patient is awake, alert and oriented x2-3. Cranial nerves 2 through 12 are grossly intact. Diffusely weak Please refer to medication reconciliation sheet for a list of medications. The impression and plan of care has been dictated by Susan Bautista, Nurse Practitioner as directed. Dr. Kameron MD I have performed a history and examination and MDM of this patient, discussed the same with the dictator, and agree with the dictator's assessment and plan as written ,documented as a scribe. Based on total visit time, I have performed more than 50% of the visit. Patient Condition at Discharge: Good Plan - Discharge Summary New Discharge Prescriptions: New Losartan [Cozaar] 25 mg PO DAILY #30 tab Furosemide [Lasix] 20 mg PO DAILY PRN #20 tab PRN Reason: Edema Multivitamins, Thera [Multivitamin (formulary)] 1 each PO DAILY@1200 #30 tab Nystatin 100,000 Unit/ml Susp [Mycostatin Oral Susp] 500,000 unit PO QID #240 ml Gabapentin [Neurontin] 200 mg PO BID #6 cap amLODIPine [Norvasc] 10 mg PO DAILY #30 tab Thiamine [Vitamin B-1] 100 mg PO DAILY@1200 #30 tab Folic Acid 1 mg PO DAILY@1200 #30 tab Continue cycloSPORINE [Restasis] 1 drop BOTH EYES BID Montelukast [Singulair] 10 mg PO HS Apixaban [Eliquis] 5 mg PO BID allopurinoL [Zyloprim] 300 mg PO DAILY Nitroglycerin Sl Tabs [Nitrostat] 0.4 mg SL Q5M PRN PRN Reason: Chest Pain Black Currant Oil 1000mg 1,000 mg PO HS Calcium Carbonate [Calcium] 1,200 mg PO DAILY Potassium Chloride ER [K-Dur 20] 20 meq PO BID Magnesium Oxide [Mag-Ox] 400 mg PO HS polyethylene glycoL 3350 [Miralax] 17 gm PO DAILY PRN PRN Reason: Constipation Albuterol Inhaler [Ventolin Hfa Inhaler] 2 puff INHALATION RT-Q4H PRN PRN Reason: Shortness Of Breath Omeprazole 40 mg PO DAILY Atorvastatin [Lipitor] 20 mg PO HS Clindamycin Phosphate [Cleocin T 1%] 1 applic TOPICAL BID Levothyroxine Sodium [Synthroid] 100 mcg PO DAILY@0630 #30 tab methylPREDNISolone [Medrol Dose Pack] See Taper PO DIRECTED PRN PRN Reason: swelling/pain flare up HYDROcodone/APAP 10-325MG [[place] 10-325] 0.5 tab PO Q6H PRN PRN Reason: Pain Cholecalciferol [Vitamin D3 (125 Mcg = 5000 Iu)] 125 mcg PO HS Metoprolol Succinate (ER) [Toprol XL] 100 mg PO DAILY Acetaminophen Tab [Tylenol] 650 mg PO Q6H PRN PRN Reason: Pain Discontinued traMADol HCl [Ultram] 50 mg PO Q6H PRN PRN Reason: Pain Gabapentin 300 mg PO BID DULoxetine HCL [Cymbalta] 30 mg PO HS Discharge Medication List Montelukast [Singulair] 10 mg PO HS 07/22/15 [History] cycloSPORINE [Restasis] 1 drop BOTH EYES BID 07/22/15 [History] Albuterol Inhaler [Ventolin Hfa Inhaler] 2 puff INHALATION RT-Q4H PRN 04/12/22 [History] Apixaban [Eliquis] 5 mg PO BID 04/12/22 [History] Atorvastatin [Lipitor] 20 mg PO HS 04/12/22 [History] Clindamycin Phosphate [Cleocin T 1%] 1 applic TOPICAL BID 04/12/22 [History] Omeprazole 40 mg PO DAILY 04/12/22 [History] allopurinoL [Zyloprim] 300 mg PO DAILY 04/12/22 [History] Levothyroxine Sodium [Synthroid] 100 mcg PO DAILY@0630 #30 tab 08/24/22 [Rx] Acetaminophen Tab [Tylenol] 650 mg PO Q6H PRN 03/14/23 [History] Black Currant Oil 1000mg 1,000 mg PO HS 03/14/23 [History] Calcium Carbonate [Calcium] 1,200 mg PO DAILY 03/14/23 [History] Cholecalciferol [Vitamin D3 (125 Mcg = 5000 Iu)] 125 mcg PO HS 03/14/23 [History] HYDROcodone/APAP 10-325MG [[place] 10-325] 0.5 tab PO Q6H PRN 03/14/23 [History] Magnesium Oxide [Mag-Ox] 400 mg PO HS 03/14/23 [History] Metoprolol Succinate (ER) [Toprol XL] 100 mg PO DAILY 03/14/23 [History] Nitroglycerin Sl Tabs [Nitrostat] 0.4 mg SL Q5M PRN 03/14/23 [History] Potassium Chloride ER [K-Dur 20] 20 meq PO BID 03/14/23 [History] methylPREDNISolone [Medrol Dose Pack] See Taper PO DIRECTED PRN 03/14/23 [History] polyethylene glycoL 3350 [Miralax] 17 gm PO DAILY PRN 03/14/23 [History] Folic Acid 1 mg PO DAILY@1200 #30 tab 03/22/23 [Rx] Furosemide [Lasix] 20 mg PO DAILY PRN #20 tab 03/22/23 [Rx] Gabapentin [Neurontin] 200 mg PO BID #6 cap 03/22/23 [Rx] Losartan [Cozaar] 25 mg PO DAILY #30 tab 03/22/23 [Rx] Multivitamins, Thera [Multivitamin (formulary)] 1 each PO DAILY@1200 #30 tab 03/22/23 [Rx] Nystatin 100,000 Unit/ml Susp [Mycostatin Oral Susp] 500,000 unit PO QID #240 ml 03/22/23 [Rx] Thiamine [Vitamin B-1] 100 mg PO DAILY@1200 #30 tab 03/22/23 [Rx] amLODIPine [Norvasc] 10 mg PO DAILY #30 tab 03/22/23 [Rx] Follow up Appointment(s)/Referral(s): Braulio Chow [STAFF PHYSICIAN] - 04/19/23 8:30 am [facility], [NON-STAFF] - As Needed Bishop Denise MD [Primary Care Provider] - 04/05/23 2:15 pm Patient Instructions/Handouts: Weakness (DC) Discharge/Stand Alone Forms: Help In The Home Discharge Disposition: HOME WITH HOME HEALTH SERVICES
== END 2023-03-22 13:58 | disposition home health service (06) | DRG 553 ==
LOC: EC 02:30 → 4SSUR 07:19
PROVIDERS: ADMIT Internal Medicine; ATTEND Internal Medicine
DX: M17.12 Unilateral primary osteoarthritis, left knee (principal); G92.8 Other toxic encephalopathy; D61.818 Other pancytopenia; F05 Delirium due to known physiological condition; I48.91 Unspecified atrial fibrillation; M35.00 Sjogren syndrome, unspecified; M06.9 Rheumatoid arthritis, unspecified; D89.2 Hypergammaglobulinemia, unspecified; E03.9 Hypothyroidism, unspecified; I10 Essential (primary) hypertension; R74.01 Elevation of levels of liver transaminase levels; T46.6X5A Adverse effect of antihyperlipidemic and antiarteriosclerotic drugs, initial encounter; E78.5 Hyperlipidemia, unspecified; K21.9 Gastro-esophageal reflux disease without esophagitis; K29.70 Gastritis, unspecified, without bleeding; G89.29 Other chronic pain; M54.50 Low back pain, unspecified; M51.36 Other intervertebral disc degeneration, lumbar region; R29.6 Repeated falls; M62.81 Muscle weakness (generalized); T43.215A Adverse effect of selective serotonin and norepinephrine reuptake inhibitors, initial encounter; W06.XXXA Fall from bed, initial encounter; Z20.822 Contact with and (suspected) exposure to COVID-19; Y92.003 Bedroom of unspecified non-institutional (private) residence as the place of occurrence of the external cause; Z98.1 Arthrodesis status; Z79.899 Other long term (current) drug therapy; Z79.890 Hormone replacement therapy; Z91.81 History of falling; Z85.828 Personal history of other malignant neoplasm of skin; Z79.01 Long term (current) use of anticoagulants; Z91.048 Other nonmedicinal substance allergy status; Z88.8 Allergy status to other drugs, medicaments and biological substances; Z87.19 Personal history of other diseases of the digestive system; Z86.19 Personal history of other infectious and parasitic diseases; Z63.6 Dependent relative needing care at home; Z95.0 Presence of cardiac pacemaker
CPT/HCPCS: 36415; 70450; 71046; 72072; 72100; 72220; 80048; 80053; 80076; 81003; 83605; 83735; 84439; 84443; 84484; 85025; 85610; 85730; 87635; 93005; 94640; 94664; 94760; 95816; 96360; 96361; 99285

== ENCOUNTER → 2023-08-18 | Outpatient (CLI) | payer MEDICARE ==
--- NOTE | 2023-08-19 07:26 | BD ---
EXAMINATION TYPE: Axial Bone Density DATE OF EXAM: 08/18/2023 CLINICAL HISTORY: 83 years old Female. ICD-10 CODE: M81.0 AGE RELATED OSTEOPOROSIS Height: 5 ft 3 in Weight: 160 FRAX RISK QUESTIONS: Alcohol (3 or more units per day): no Family History (Parent hip fracture): no Glucocorticoids (More than 3mos): no (Ex: prednisone, prednisolone, methylprednisolone, dexamethasone, and hydrocortisone). History of Fracture in Adulthood: no Secondary Osteoporosis: no 1. Type 1 Diabetes: no 2. Hyperthyroidism: no 3. Menopause before 45: no 4. Malnutrition: no 5. Chronic liver disease: no Rheumatoid Arthritis: no Current Tobacco Use: no RISK FACTORS HISTORY OF: Surgery to Spine/Hip(right/left)/Wrist (right/left): spine When: 1972 MEDICATIONS: Thyroid Medications: yes Which medication: synthroid How Lon-66 years Osteoporosis Medications: none EXAM MEASUREMENTS: Bone mineral density about the R hip (g/cm2): 0.906 Bone mineral density about the L hip (g/cm2): 0.849 T Score values are as follows: -----R Neck: -0.9 -----L Neck: -1.4 -----R Total: -1.1 -----L Total: -1.1 Z Score values are as follows: -----R Neck: 1.1 -----L Neck: 0.7 -----R Total: 0.8 -----L Total: 0.9 Bone mineral density has: decreased -10.8 % since study of: 2021 Bone mineral density about the L Wrist (g/cm2): 0.496 T Score values are as follows: -----Dist. R+U: -2.4 -----Prox. R+U: -2.0 -----Radius total: -3.0 Z Score values are as follows: -----Dist. R+U: 0.6 -----Prox. R+U: 0.9 -----Radius total: 0.0 Bone mineral density has: decreased -6.6 % since study of: 2021 FRAX%s: The graph provided illustrates a 12.8 % chance for a major osteoporotic fx and a 3.1 % chance for the hips probability for fx in 10 years time. IMPRESSION: Osteoporosis (T Score less than -2.5). There is increased fracture risk and therapy is usually indicated based on age. Re-Screen 1-2 years. NOTE: T-SCORE=SD OF THE YOUNG ADULT MEAN.
--- NOTE | 2023-08-20 08:41 | MM ---
Reason for Exam: Screening (asymptomatic). Last mammogram was performed 1 year(s) and 1 month(s) ago. Patient History: Menarche at age 15. First Full-Term at age 21. Left ovary removed at age 54. Right ovary removed at age 54. Hysterectomy at age 54. Postmenopausal. Estrogen for 11 years from age 54 until age 65. Sister had breast cancer, age 60. Risk Values: Alina 5 year model risk: 2.7%. NCI Lifetime model risk: 3.6%. Prior Study Comparison: 09/28/2019 Bilateral Screening Mammogram, [facility]. 05/20/2021 Bilateral Screening Mammogram, [facility]. 07/31/2022 Bilateral MG 3D screening mammo w/cad, [facility]. Tissue Density: There are scattered areas of fibroglandular density. Findings: Analyzed By CAD. Right breast: There is no suspicious group of microcalcifications or new suspicious mass. Left breast: There is no suspicious group of microcalcifications or new suspicious mass. Benign-appearing calcifications left breast. Overall Assessment: Benign, BI-RAD 2 Management: Screening Mammogram of both breasts in [address] [facility] will attempt to contact patient to return for supplemental views and ultrasound if indicated. Patient should continue monthly self-breast exams. A clinical breast exam by your physician is recommended on an annual basis. This exam should not preclude additional follow-up of suspicious palpable abnormalities. Note on Alina scores and lifetime risk: 1. A Alina score greater than 3% is considered moderate risk. If this is the case, consider specialist referral to assess eligibility for a risk reducing agent. 2. If overall lifetime risk for the development of breast cancer is 20% or higher, the patient may qualify for future screening with alternating mammogram and breast MRI. Electronically signed and approved by: Alen Borrego DO
== END | disposition home or self-care (01) ==
LOC: RADMAMWWP 10:08
PROVIDERS: ATTEND Internal Medicine Geriatric Medicine
DX: Z12.31 Encounter for screening mammogram for malignant neoplasm of breast (principal); M85.89 Other specified disorders of bone density and structure, multiple sites; Z78.0 Asymptomatic menopausal state; Z80.3 Family history of malignant neoplasm of breast
CPT/HCPCS: 77063; 77067; 77080

== ENCOUNTER 2024-06-19 21:58 | Emergency (ER) | payer MEDICARE ==
[2024-06-19 22:34] LABS: Basophils # (A) 0.1 k/uL (0-0.2); Basophils % (A) 1 %; Eosinophils # (A) 0.1 k/uL (0-0.7); Eosinophils % (A) 2 %; HCT 41.4 % (34.0-46.0); HGB 13.8 gm/dL (11.4-16.0); Lymphocytes # (A) 1.8 k/uL (1.0-4.8); Lymphocytes % (A) 28 %; MCH 31.2 pg (25.0-35.0); MCHC 33.3 g/dL (31.0-37.0); MCV 93.7 fL (80.0-100.0); Mean Platelet Volume 8.7; Monocytes # (A) 0.4 k/uL (0-1.0); Monocytes % (A) 5 %; Neutrophils # (A) 4.1 k/uL (1.3-7.7); Neutrophils % (A) 62 %; Platelet Count 183 k/uL (150-450); RBC 4.41 m/uL (3.80-5.40); RDW 12.2 % (11.5-15.5); WBC 6.6 k/uL (3.8-10.6)
[2024-06-19 22:45] LABS: ALT 57 U/L (4-34); AST 55 U/L (14-36); African American GFR (CKD) 63 (>60 ml/min/1.73 sqM); Albumin 4.4 g/dL (3.5-5.0); Alkaline Phosphatase 83 U/L (38-126); Anion Gap 12 mmol/L; Blood Urea Nitrogen 32 mg/dL (7-17); Calcium 9.9 mg/dL (8.4-10.2); Carbon Dioxide 25 mmol/L (22-30); Chloride 102 mmol/L (98-107); Glucose 106 mg/dL (74-99); Magnesium 2.4 mg/dL (1.6-2.3); Non-African American GFR(CKD) 55 (>60 ml/min/1.73 sqM); Potassium 4.2 mmol/L (3.5-5.1); Sodium 139 mmol/L (137-145); Total Bilirubin 0.6 mg/dL (0.2-1.3); Total Protein 7.1 g/dL (6.3-8.2)
[2024-06-19 22:46] LABS: Partial Thromboplastin Time 22.4 sec (22.0-30.0); Prothrombin Time 10.9 sec (10.0-12.5)
--- NOTE | 2024-06-19 23:35 | ED ---
Arrhythmia/Palpitations HPI - General Chief Complaint: Arrhythmia/Palpitations Stated Complaint: chest palpitations Time Seen by Provider: 06/19/24 23:19 Source: patient, EMS, RN notes reviewed, old records reviewed Mode of arrival: EMS Limitations: no limitations - History of Present Illness Initial Comments: This is an 84-year-old female to the ER for evaluation of chest pain and palpitations, history of atrial fibrillation concern for recurrent A-fib. Chest pain is improving on arrival to the ER with no shortness of breath no recent illness nausea vomiting diarrhea fever MD Complaint: palpitations, atrial fibrillation (For atrial fibrillation) -: hour(s) Context: occurred during rest Arrhythmia History: atrial fibrillation Associated Symptoms: chest pain Treatments Prior to Arrival: other (0) - Related Data Home Medications Medication Instructions Recorded Confirmed Montelukast [Singulair] 10 mg PO HS 07/22/15 03/14/23 cycloSPORINE [Restasis] 1 drop BOTH EYES BID 07/22/15 03/14/23 Albuterol Inhaler [Ventolin Hfa 2 puff INHALATION RT-Q4H PRN 04/12/22 03/14/23 Inhaler] Apixaban [Eliquis] 5 mg PO BID 04/12/22 03/14/23 Atorvastatin [Lipitor] 20 mg PO HS 04/12/22 03/14/23 Clindamycin Phosphate [Cleocin T 1 applic TOPICAL BID 04/12/22 03/14/23 1%] Omeprazole 40 mg PO DAILY 04/12/22 03/14/23 allopurinoL [Zyloprim] 300 mg PO DAILY 04/12/22 03/14/23 Acetaminophen Tab [Tylenol] 650 mg PO Q6H PRN 03/14/23 03/14/23 Black Currant Oil 1000mg 1,000 mg PO HS 03/14/23 03/14/23 Calcium Carbonate [Calcium] 1,200 mg PO DAILY 03/14/23 03/14/23 Cholecalciferol [Vitamin D3 (125 125 mcg PO HS 03/14/23 03/14/23 Mcg = 5000 Iu)] HYDROcodone/APAP 10-325MG [[place] 0.5 tab PO Q6H PRN 03/14/23 03/14/23 10-325] Magnesium Oxide [Mag-Ox] 400 mg PO HS 03/14/23 03/14/23 Metoprolol Succinate (ER) [Toprol 100 mg PO DAILY 03/14/23 03/14/23 XL] Nitroglycerin Sl Tabs [Nitrostat] 0.4 mg SL Q5M PRN 03/14/23 03/14/23 Potassium Chloride ER [K-Dur 20] 20 meq PO BID 03/14/23 03/14/23 methylPREDNISolone [Medrol Dose See Taper PO DIRECTED PRN 03/14/23 03/14/23 Pack] polyethylene glycoL 3350 [Miralax] 17 gm PO DAILY PRN 03/14/23 03/14/23 Previous Rx's Medication Instructions Recorded Levothyroxine Sodium [Synthroid] 100 mcg PO DAILY@0630 #30 tab 08/24/22 Folic Acid 1 mg PO DAILY@1200 #30 tab 03/22/23 Furosemide [Lasix] 20 mg PO DAILY PRN #20 tab 03/22/23 Gabapentin [Neurontin] 200 mg PO BID #6 cap 03/22/23 Losartan [Cozaar] 25 mg PO DAILY #30 tab 03/22/23 Multivitamins, Thera [Multivitamin 1 each PO DAILY@1200 #30 tab 03/22/23 (formulary)] Nystatin 100,000 Unit/ml Susp 500,000 unit PO QID #240 ml 03/22/23 [Mycostatin Oral Susp] Thiamine [Vitamin B-1] 100 mg PO DAILY@1200 #30 tab 03/22/23 amLODIPine [Norvasc] 10 mg PO DAILY #30 tab 03/22/23 Allergies Allergy/AdvReac Type Severity Reaction Status Date / Time adhesive tape Allergy Rash/Hives Verified 03/14/23 10:58 duloxetine Allergy Unknown Verified 06/19/24 22:04 Steriods IV Allergy Rash/Hives Uncoded 03/14/23 10:58 Review of Systems ROS Statement: Those systems with pertinent positive or pertinent negative responses have been documented in the HPI. ROS Other: All systems not noted in ROS Statement are negative. Past Medical History Past Medical History: Atrial Fibrillation, Cancer, Eye Disorder, GERD/Reflux, Hyperlipidemia, Hypertension, Osteoarthritis (OA), Thyroid Disorder Additional Past Medical History / Comment(s): Recently diagnosed with Afib, slightly "leaky heart valve", Shogren's syndrome, anemia, chronic low back pain, DDD, gout bilateral feet/toes, 2017 shingelles, basal cell skin cancer gina vals, diverticular disease/benign polyps, hypothyroid, bilateral dry eyes History of Any Multi-Drug Resistant Organisms: None Reported Past Surgical History: Appendectomy, Back Surgery, Section, Cholecystectomy, Hysterectomy, Orthopedic Surgery, Tonsillectomy Additional Past Surgical History / Comment(s): Lumbar and cervical fusions, R foot bunionectomy/metatarsal surgery, skin cancer removals, colonoscopies/benign polypectomy, bilateral cataract removals/lens implants. Past Anesthesia/Blood Transfusion Reactions: No Reported Reaction Past Psychological History: Anxiety, Depression Smoking Status: Never smoker Past Alcohol Use History: None Reported Past Drug Use History: None Reported - Past Family History Sister(s) Family Medical History: Cancer Additional Family Medical History / Comment(s): BREAST CANCER Brother(s) Family Medical History: Cancer Additional Family Medical History / Comment(s): LEUKEMIA Mother Family Medical History: Neurologic Disorder Additional Family Medical History / Comment(s): parkinsons, macular degeneration Father Family Medical History: Dementia, Neurologic Disorder Additional Family Medical History / Comment(s): parkinsons General Exam Limitations: no limitations General appearance: alert, in no apparent distress Head exam: Present: atraumatic, normocephalic, normal inspection Eye exam: Present: normal appearance, PERRL, EOMI. Absent: scleral icterus, conjunctival injection, periorbital swelling ENT exam: Present: normal exam, mucous membranes moist Neck exam: Present: normal inspection. Absent: tenderness, meningismus, lymphadenopathy Respiratory exam: Present: normal lung sounds bilaterally. Absent: respiratory distress, wheezes, rales, rhonchi, stridor Cardiovascular Exam: Present: regular rate, normal rhythm, normal heart sounds. Absent: systolic murmur, diastolic murmur, rubs, gallop, clicks GI/Abdominal exam: Present: soft, normal bowel sounds. Absent: distended, tenderness, guarding, rebound, rigid Extremities exam: Present: normal inspection, full ROM, normal capillary refill. Absent: tenderness, pedal edema, joint swelling, calf tenderness Back exam: Present: normal inspection Neurological exam: Present: alert, oriented X3, CN II-XII intact Psychiatric exam: Present: normal affect, normal mood Skin exam: Present: warm, dry, intact, normal color. Absent: rash Course Vital Signs 06/19/24 06/19/24 06/19/24 21:59 23:20 23:21 Temperature 97.6 F Pulse Rate 79 79 Pulse Rate [ 78 Building Pressure Washer ] Respiratory 16 16 Rate Blood Pressure 128/70 134/77 O2 Sat by Pulse 97 98 Oximetry 06/20/24 06/20/24 00:10 00:42 Temperature 97.8 F Pulse Rate 80 Pulse Rate [ Building Pressure Washer ] Respiratory 12 Rate Blood Pressure 125/61 O2 Sat by Pulse 97 Oximetry - Reevaluation(s) Reevaluation #1: 06/20/24 00:40 Medical records reviewed Reevaluation #2: 06/20/24 00:40 Patient symptoms are resolved and remain resolved here in the ER Reevaluation #3: 06/20/24 00:40 Patient informed of results questions answered Reevaluation #4: Was pt. sent in by a medical professional or institution (, [facility], SOFTWARE DATABASE ARCHITECT, urgent care, hospital, or alf...) When possible be specific @ -no Did you speak to anyone other than the patient for history (EMS, parent, family, police, friend...)? What history was obtained from this source @ -no Did you review nursing and triage notes (agree or disagree)? Why? @ -agree Are old charts reviewed (outside hosp., previous admission, EMS record, old EKG, old radiological studies, urgent care reports/EKG's, alf records)? Report findings @ -yes Differential Diagnosis (chest pain, altered mental status, abdominal pain women, abdominal pain men, vaginal bleeding, weakness, fever, dyspnea, syncope, headache, dizziness, GI bleed, back pain, seizure, CVA, palpatations, mental health, musculoskeletal)? @ -prior EKG interpreted by me (3pts min.). @ -yes X-rays interpreted by me (1pt min.). @ -yes negative for acute disease CT interpreted by me (1pt min.). @ -no U/S interpreted by me (1pt. min.). @ -no What testing was considered but not performed or refused? (CT, X-rays, U/S, labs)? Why? @ -none What meds were considered but not given or refused? Why? @ -none Did you discuss the management of the patient with other professionals (professionals i.e. Dr., PA, SOFTWARE DATABASE ARCHITECT, lab, RT, psych nurse, public health social worker, trial lawyer, teacher, juvenile corrections officer, case advocate)? Give summary @ -no Was smoking cessation discussed for >3mins.? @ -no Was critical care preformed (if so, how long)? @ -no Were there social determinants of health that impacted care today? How? (Homelessness, low income, unemployed, alcoholism, drug addiction, transportation, low edu. Level, literacy, decrease access to med. care, long term, rehab)? @ -none Was there de-escalation of care discussed even if they declined (Discuss DNR or withdrawal of care, Hospice)? DNR status @ -no What co-morbidities impacted this encounter? (DM, HTN, Smoking, COPD, CAD, Cancer, CVA, ARF, Chemo, Hep., AIDS, mental health diagnosis, sleep apnea, morbid obesity)? @ -none Was patient admitted / discharged? Hospital course, mention meds given and route, prescriptions, significant lab abnormalities, going to OR and other pertinent info. @ - 84 female feeling well here in the ER normal sinus rhythm EKG normal troponin negative patient feels good for discharge home Discharged Undiagnosed new problem with uncertain prognosis? @ -no Drug Therapy requiring intensive monitoring for toxicity (Heparin, Nitro, Insulin, Cardizem)? @ -no Were any procedures done? @ -no Diagnosis/symptom? @ -Chest pain and palpitation Acute, or Chronic, or Acute on Chronic? @ -Acute Uncomplicated (without systemic symptoms) or Complicated (systemic symptoms)? @ -Complicated Side effects of treatment? @ -no Exacerbation, Progression, or Severe Exacerbation? @ -exacerbation Poses a threat to life or bodily function? How? (Chest pain, USA, MD, pneumonia, PE, COPD, DKA, ARF, appy, cholecystitis, CVA, Diverticulitis, Homicidal, Suicidal, threat to staff... and all critical care pts) @ -yes extremes of age Reevaluation #5: Differential Palpitations Ventricular arrhythmias, atrial arrhythmias, myocardial infarction, anemia, thyrotoxicosis, electrolyte imbalance, hypokalemia, pulmonary embolism, pulmonary disease, drugs, alcohol, anxiety, stress.... This is not meant to be an all-inclusive list. Differential Chest Pain: Stable Angina, Unstable Angina, STEMI, NSTEMI Aortic Dissection, Pneumothorax, Musculoskeletal, Esophageal Spasm GERD, Cholecystitis, Pancreatitis, Zoster, this is not meant to be an all-inclusive list. EKG Findings - EKG Comments: EKG Findings:: EKG is sinus 79 [place] 05/04/1943 QRS 88 QTc 398 - EKG Results: EKG: interpreted by BRAEDEN Medical Decision Making - Medical Decision Making 84 female feeling well here in the ER normal sinus rhythm EKG normal troponin negative patient feels good for discharge home - Lab Data Result diagrams: 06/19/24 22:10 06/19/24 22:10 Lab Results 06/19/24 06/19/24 06/19/24 Range/Units 22:10 22:10 22:10 WBC 6.6 (3.8-10.6) k/uL RBC 4.41 (3.80-5.40) m/uL Hgb 13.8 (11.4-16.0) gm/dL Hct 41.4 (34.0-46.0) % MCV 93.7 (80.0-100.0) fL MCH 31.2 (25.0-35.0) pg MCHC 33.3 (31.0-37.0) g/dL RDW 12.2 (11.5-15.5) % Plt Count 183 (150-450) k/uL MPV 8.7 Neutrophils % 62 % Lymphocytes % 28 % Monocytes % 5 % Eosinophils % 2 % Basophils % 1 % Neutrophils # 4.1 (1.3-7.7) k/uL Lymphocytes # 1.8 (1.0-4.8) k/uL Monocytes # 0.4 (0-1.0) k/uL Eosinophils # 0.1 (0-0.7) k/uL Basophils # 0.1 (0-0.2) k/uL PT 10.9 (10.0-12.5) sec INR 1.0 (<1.2) APTT 22.4 (22.0-30.0) sec Sodium 139 (137-145) mmol/L Potassium 4.2 (3.5-5.1) mmol/L Chloride 102 (98-107) mmol/L Carbon Dioxide 25 (22-30) mmol/L Anion Gap 12 mmol/L BUN 32 H (7-17) mg/dL Creatinine 0.96 (0.52-1.04) mg/dL Est GFR (CKD-EPI)AfAm 63 (>60 ml/min/1.73 sqM) Est GFR (CKD-EPI)NonAf 55 (>60 ml/min/1.73 sqM) Glucose 106 H (74-99) mg/dL Calcium 9.9 (8.4-10.2) mg/dL Magnesium 2.4 H (1.6-2.3) mg/dL Total Bilirubin 0.6 (0.2-1.3) mg/dL AST 55 H (14-36) U/L ALT 57 H (4-34) U/L Alkaline Phosphatase 83 (38-126) U/L Troponin I (0.000-0.034) ng/mL Total Protein 7.1 (6.3-8.2) g/dL Albumin 4.4 (3.5-5.0) g/dL 06/19/24 Range/Units 22:10 WBC (3.8-10.6) k/uL RBC (3.80-5.40) m/uL Hgb (11.4-16.0) gm/dL Hct (34.0-46.0) % MCV (80.0-100.0) fL MCH (25.0-35.0) pg MCHC (31.0-37.0) g/dL RDW (11.5-15.5) % Plt Count (150-450) k/uL MPV Neutrophils % % Lymphocytes % % Monocytes % % Eosinophils % % Basophils % % Neutrophils # (1.3-7.7) k/uL Lymphocytes # (1.0-4.8) k/uL Monocytes # (0-1.0) k/uL Eosinophils # (0-0.7) k/uL Basophils # (0-0.2) k/uL PT (10.0-12.5) sec INR (<1.2) APTT (22.0-30.0) sec Sodium (137-145) mmol/L Potassium (3.5-5.1) mmol/L Chloride (98-107) mmol/L Carbon Dioxide (22-30) mmol/L Anion Gap mmol/L BUN (7-17) mg/dL Creatinine (0.52-1.04) mg/dL Est GFR (CKD-EPI)AfAm (>60 ml/min/1.73 sqM) Est GFR (CKD-EPI)NonAf (>60 ml/min/1.73 sqM) Glucose (74-99) mg/dL Calcium (8.4-10.2) mg/dL Magnesium (1.6-2.3) mg/dL Total Bilirubin (0.2-1.3) mg/dL AST (14-36) U/L ALT (4-34) U/L Alkaline Phosphatase (38-126) U/L Troponin I <0.012 (0.000-0.034) ng/mL Total Protein (6.3-8.2) g/dL Albumin (3.5-5.0) g/dL - EKG Data -: EKG Interpreted by Ne - Radiology Data Radiology results: report reviewed (Chest x-ray is negative for acute disease) Disposition Clinical Impression: Atypical chest pain, Palpitations Disposition: HOME SELF-CARE Condition: Good Instructions (If sedation given, give patient instructions): Heart Palpitations (ED) Is patient prescribed a controlled substance at d/c from ED?: No Referrals: Bishop Denise MD [Primary Care Provider] - 1-2 days Time of Disposition: 00:10
--- NOTE | 2024-06-19 23:45 | XR ---
EXAMINATION TYPE: XR chest 2V DATE OF EXAM: 06/19/2024 10:33 PM COMPARISON: Chest radiographs from 03/14/2023 CLINICAL INDICATION: Female, 84 years old with history of dysrhythmia; [facility] TECHNIQUE: XR chest 2V Frontal and lateral views of the chest. FINDINGS: Lungs/Pleura: There is no evidence of pleural effusion, focal consolidation, or pneumothorax. Pulmonary vascularity: Unremarkable. Heart/mediastinum: Cardiomediastinal silhouette is unremarkable. Two lead cardiac conduction device o verlying the left hemithorax with lead tips projecting over the right ventricle and right atrium. Musculoskeletal: No acute osseous pathology. Other findings: None Lines/Tubes: IMPRESSION: No acute cardiopulmonary disease/process. [facility], , 06/19/2024 11:43 PM
[2024-06-20 00:15] VITALS: BP 125/61; PULSE 80; RESP 12
[2024-06-20 00:48] VITALS: TEMP 97.8
== END 2024-06-20 00:46 | disposition home or self-care (01) ==
LOC: EC 21:58
DX: R07.89 Other chest pain (principal); R00.2 Palpitations; Z91.09 Other allergy status, other than to drugs and biological substances; Z88.8 Allergy status to other drugs, medicaments and biological substances
CPT/HCPCS: 36415; 71046; 80053; 83735; 84484; 85025; 85610; 85730; 93005; 99285

== ENCOUNTER → 2024-10-18 | Outpatient (CLI) | payer MEDICARE ==
--- NOTE | 2024-10-18 13:43 | MM ---
Reason for Exam: Screening (asymptomatic). Last mammogram was performed 1 year(s) and 2 month(s) ago. Patient History: Menarche at age 15. First Full-Term at age 21. Left ovary removed at age 54. Right ovary removed at age 54. Hysterectomy at age 54. Postmenopausal. Estrogen for 11 years from age 54 until age 65. Sister had breast cancer, age 60. Risk Values: Alina 5 year model risk: 2.6%. NCI Lifetime model risk: 3.2%. Prior Study Comparison: 05/20/2021 Bilateral Screening Mammogram, [facility]. 07/31/2022 Bilateral MG 3D screening mammo w/cad, [facility]. 08/18/2023 Bilateral MG 3D screening mammo w/cad, [facility]. Tissue Density: There are scattered areas of fibroglandular density. Findings: Analyzed By CAD. Pacemaker generator on the left. Benign bilateral secretory calcifications are redemonstrated. There is no suspicious group of microcalcifications or new suspicious mass in either breast. Overall Assessment: Benign, BI-RAD 2 Management: Screening Mammogram of both breasts in 1 year. Patient should continue monthly self-breast exams. A clinical breast exam by your physician is recommended on an annual basis. This exam should not preclude additional follow-up of suspicious palpable abnormalities. Note on Alina scores and lifetime risk: 1. A Alina score greater than 3% is considered moderate risk. If this is the case, consider specialist referral to assess eligibility for a risk reducing agent. 2. If overall lifetime risk for the development of breast cancer is 20% or higher, the patient may qualify for future screening with alternating mammogram and breast MRI. [facility], , 10/18/2024 1:33 PM. Electronically signed and approved by: Dianna Lee M.D. Radiologist
== END | disposition home or self-care (01) ==
LOC: RADMAMWWP 09:09
PROVIDERS: ATTEND Internal Medicine Geriatric Medicine
DX: Z12.31 Encounter for screening mammogram for malignant neoplasm of breast (principal); R92.323 Mammographic fibroglandular density, bilateral breasts; Z78.0 Asymptomatic menopausal state; Z80.3 Family history of malignant neoplasm of breast
CPT/HCPCS: 77063; 77067